=== PATIENT | male | born 1955 | race Caucasian/White ===

== ENCOUNTER 2016-07-26 18:21 | Inpatient (IN) | payer OTHER ==
[~2016-07-26] VITALS: Ht 180.3 cm; Wt 81.9 kg
[~2016-07-26 18:21] MED LIST: ALBU8I INH; GABA300C3 PO; GLIP5 PO; METF500 PO; MICO2CRE4 TOP; PROP20TA24 PO; THIA100T PO
--- NOTE | 2016-07-26 19:11 | PD ---
HPI Chief Complaint: [facility] Time Seen by Provider: 19:11 Travel History International Travel<30 days: No Contact w/Intl Traveler<30days: No Traveled to known affect area: No PFSH Past Medical History Depression: Yes Heart Rhythm Problems: Yes (STATES HE HAS A SKIPPED HEARTBEAT OCCASSIONALLY) Cancer: No Cardiovascular Problems: Yes Cirrhosis: Yes Diabetes: Yes Diminished Hearing: Yes Deep Vein Thrombosis: Yes Endocrine: Yes (CIRROSIS OF LIVER) Genitourinary: No Hepatitis: Yes (C) Hypertension: Yes Immune Disorder: No Musculoskeletal: No Neurologic: No Psychiatric: No Reproductive: No Respiratory: No Integumentary: Yes (LOWER EXTREMITY CELLULITIS) Immunizations Current: Yes Past Surgical History Tonsillectomy: Yes Other Surgery: No Social History Alcohol Use: Yes (6 PACK A DAY) Tobacco Use: No Substance Use: No Allergies-Medications (Allergen,Severity, Reaction): Coded Allergies: *MDRO Multi-Drug Resistant Organism (Verified Adverse Reaction, Unknown, ) 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 Reported Meds & Prescriptions Reported Meds & Active Scripts Active Reported Propranolol (Propranolol HCl) 20 Mg Tab 20 Mg PO Q12HR Metformin (Metformin HCl) 500 Mg Tab 500 Mg PO DAILY With a meal Data Data Last Documented VS Vital Signs Date Time Temp Pulse Resp B/P Pulse Ox O2 Delivery O2 Flow Rate FiO2 07/26/16 19:26 96 Room Air 07/26/16 19:26 98.5 83 18 152/94 Orders Sodium Chlor 0.9% 1000 Ml Inj (Ns 1000 M (07/26/16 19:14) Sodium Chloride 0.9% Flush (Ns Flush) (07/26/16 19:15) Tetanus/Diphtheria Tox Adult (Tetanus/Di (07/26/16 19:30) Electrocardiogram (07/26/16 19:29) Basic Metabolic Panel (Bmp) (07/26/16 19:29) Complete Blood Count With Diff (07/26/16 19:29) Act Partial Throm Time (Ptt) (07/26/16 19:29) Prothrombin Time / Inr (Pt) (07/26/16 19:29) Ct Brain W/O Iv Contrast(Rout) (07/26/16 19:29) Ct Cerv Spine W/O Contrast (07/26/16 19:29) Ecg Monitoring (07/26/16 19:29) Iv Access Insert/Monitor (07/26/16 19:29) Oximetry (07/26/16 19:29) Sodium Chloride 0.9% Flush (Ns Flush) (07/26/16 19:30) Ct Thor Spine W/O Contrast (07/26/16 ) Ct Lumb Spine W/O Contrast (07/26/16 ) Kiersten Mckeon Jul 26, 2016 19:11
[2016-07-26] MEDS ORDERED: SODIUM CHLOR 0.9% 1000 ML INJ 1,000 ML IV SCH (19:14)
[2016-07-26] MEDS ORDERED: SODIUM CHLORIDE 0.9% FLUSH 5 ML FLUSH IVF PRN ×2 (19:15→19:30)
--- NOTE | 2016-07-26 19:21 | PD ---
Data Data Last Documented VS Vital Signs Date Time Temp Pulse Resp B/P Pulse Ox O2 Delivery O2 Flow Rate FiO2 07/26/16 19:40 96 Room Air 07/26/16 19:26 98.5 83 18 152/94 Orders Sodium Chlor 0.9% 1000 Ml Inj (Ns 1000 M (07/26/16 19:14) Sodium Chloride 0.9% Flush (Ns Flush) (07/26/16 19:15) Tetanus/Diphtheria Tox Adult (Tetanus/Di (07/26/16 19:30) Electrocardiogram (07/26/16 19:29) Basic Metabolic Panel (Bmp) (07/26/16 19:29) Complete Blood Count With Diff (07/26/16:) Act Partial Throm Time (Ptt) (07/26/16:29) Prothrombin Time / Inr (Pt) (07/26/16 19:29) Ct Brain W/O Iv Contrast(Rout) (07/26/16:29) Ct Cerv Spine W/O Contrast (07/26/16 19:29) Ecg Monitoring (07/26/16:29) Iv Access Insert/Monitor (07/26/16:29) Oximetry (07/26/16 19:29) Sodium Chloride 0.9% Flush (Ns Flush) (07/26/16 19:30) Ct Thor Spine W/O Contrast (07/26/16 ) Ct Lumb Spine W/O Contrast (07/26/16 ) Jocelyn Mireles MD Jul 26, 2016 19:21 spine. Chest is nontender, clear to auscultation bilaterally. Abdomen is diffusely tender, patient attributes this to her road rash on the abdominal wall. Pelvis stable AP and lateral compression. Range of motion of the extremities are unremarkable with the exception of slight pain with range of motion of the right shoulder. Various abrasions/road rash on the extremities. Differential includes closed head injury, skull fracture, ICH, cervical/thoracic /lumbar spine fracture, hemothorax, pneumothorax, rib fracture, solid visceral organ injury, shoulder dislocation, glenohumeral fracture. X-ray of the chest, CT of the head, neck, chest abdomen and pelvis were notable for[-] Jocelyn Mireles MD Jul 26, 2016 19:21
[2016-07-26 19:24] VITALS: BP 152/94; PULSE 83; RESP 18; TEMP 98.5; O2SAT 96
[2016-07-26 19:26] VITALS: BP 152/94; PULSE 83; RESP 18; TEMP 98.5; O2SAT 96
[2016-07-26] MEDS ORDERED: TETANUS/DIPHTHERIA TOXOID ADULT 0.5 ML VIAL IM ONE (19:30)
[2016-07-26 19:31] LABS: MEAN CORPUSCULAR HGB CONC 36.6 % (32.0-36.0)
[2016-07-26] MEDS ORDERED: PROP20TA3 PO (19:34)
[2016-07-26] MEDS ORDERED: METF500T PO (19:34)
[2016-07-26 19:40] VITALS: O2SAT 96
--- NOTE | 2016-07-26 19:42 | PD ---
Physical Exam Narrative I, Dr. Carrion, have reviewed the advance practice practitioner's documentation and am in agreement, met with the patient face to face, made the diagnosis, and the medical decision making was done by me. *My assessment and Findings: Patient is a 61-year-old male who comes in after syncopal episode today. He says he stood up from laying on a bench and he passed out. Exam shows heart is regular rate and rhythm, lungs are clear to auscultation. He is moving all his extremities. Data Data Last Documented VS Vital Signs Date Time Temp Pulse Resp B/P Pulse Ox O2 Delivery O2 Flow Rate FiO2 07/26/16 21:51 84 18 142/93 95 Room Air 07/26/16 19:26 98.5 Orders Sodium Chlor 0.9% 1000 Ml Inj (Ns 1000 M (07/26/16 19:14) Sodium Chloride 0.9% Flush (Ns Flush) (07/26/16 19:15) Tetanus/Diphtheria Tox Adult (Tetanus/Di (07/26/16 19:30) Electrocardiogram (07/26/16 19:29) Basic Metabolic Panel (Bmp) (07/26/16 19:29) Complete Blood Count With Diff (07/26/16 19:29) Act Partial Throm Time (Ptt) (07/26/16 19:29) Prothrombin Time / Inr (Pt) (07/26/16 19:29) Ct Brain W/O Iv Contrast(Rout) (07/26/16 19:29) Ct Cerv Spine W/O Contrast (07/26/16 19:29) Ecg Monitoring (07/26/16 19:29) Iv Access Insert/Monitor (07/26/16 19:29) Oximetry (07/26/16 19:29) Sodium Chloride 0.9% Flush (Ns Flush) (07/26/16 19:30) Ct Thor Spine W/O Contrast (07/26/16 ) Ct Lumb Spine W/O Contrast (07/26/16 ) Troponin I (07/26/16 20:45) Chest, Single Ap (07/26/16 ) Aspirin Chew (Aspirin Chew) (07/26/16 23:00) Heparin Infusion ROXANN.Q1H (07/26/16 23:13) Heparin Inj (Heparin Inj) (07/26/16 23:15) Heparin Inj (Heparin Inj) (07/27/16 05:15) Heparin Inj (Heparin Inj) (07/27/16 05:15) Heparin-D5w Inj (Heparin-D5w Inj) (07/26/16 23:15) Cbc No Diff, Includes Plts (07/29/16 06:00) Act Partial Throm Time (Ptt) (07/27/16 06:13) Occult Blood (Hemoccult) Stool (07/26/16 23:13) Admit Order (Ed Use Only) (07/26/16 ) Labs Laboratory Tests Test 07/26/16 07/26/16 19:36 21:51 White Blood Count 6.2 TH/MM3 Red Blood Count 4.20 MIL/MM3 Hemoglobin 14.2 GM/DL Hematocrit 38.9 % Mean Corpuscular Volume 92.5 FL Mean Corpuscular Hemoglobin 33.8 PG Mean Corpuscular Hemoglobin 36.6 % Concent Red Cell Distribution Width 13.2 % Platelet Count 60 TH/MM3 Mean Platelet Volume 11.0 FL Neutrophils (%) (Auto) 67.8 % Lymphocytes (%) (Auto) 17.0 % Monocytes (%) (Auto) 13.6 % Eosinophils (%) (Auto) 1.1 % Basophils (%) (Auto) 0.5 % Neutrophils # (Auto) 4.2 TH/MM3 Lymphocytes # (Auto) 1.0 TH/MM3 Monocytes # (Auto) 0.8 TH/MM3 Eosinophils # (Auto) 0.1 TH/MM3 Basophils # (Auto) 0.0 TH/MM3 CBC Comment AUTO DIFF Differential Comment AUTO DIFF CONFIRMED Prothrombin Time 13.7 SEC Prothromb Time International 1.2 RATIO Ratio Activated Partial 35.1 SEC Thromboplast Time Sodium Level 138 MEQ/L Potassium Level 3.7 MEQ/L Chloride Level 102 MEQ/L Carbon Dioxide Level 23.0 MEQ/L Anion Gap 13 MEQ/L Blood Urea Nitrogen 13 MG/DL Creatinine 1.11 MG/DL Estimat Glomerular Filtration 67 ML/MIN Rate Random Glucose 152 MG/DL Calcium Level 8.6 MG/DL Troponin I 0.21 NG/ML [facility] Medical Record Reviewed: Yes Supervised Visit with NIYAH: Yes Interpretation(s) ECG shows T-wave inversions in V2 through V4 Narrative Course IV established, labs sent. Labs concerning for an elevated troponin to 0.21. CT head and C-spine performed show no acute abnormalities. Chest x-ray shows no acute abnormalities. Last [address] [id number]/26/[id number] Signed Impressions: Service Date/Time: Tuesday, July 26, 2016 19:41 - CONCLUSION: 1. No acute intracranial abnormality. 2. Fluid in both maxillary sinuses. Benny Lima MD Cervical Spine CT [id number]/26/[id number] Signed Impressions: Service Date/Time: Tuesday, July 26, 2016 19:41 - CONCLUSION: Negative trauma CT.. Mayo Moncada MD Thoracic Spine CT 07/26/16 0000 Signed Impressions: Service Date/Time: Tuesday, July 26, 2016 19:45 - CONCLUSION: Negative trauma study. Mayo Moncada MD Lumbar Spine CT 07/26/16 0000 Signed Impressions: Service Date/Time: Tuesday, July 26, 2016 19:45 - CONCLUSION: 1. Mild invagination of the superior endplate of the T12 vertebral body which is of indeterminant age. 2. The vertebra are otherwise unremarkable. Mayo Moncada MD Chest X-Ray 07/26/16 0000 Signed Impressions: Service Date/Time: Tuesday, July 26, 2016 22:52 - CONCLUSION: 1. No acute findings. Rickey Eaton MD Patient given aspirin and started on heparin. I spoke with Dr. Falcon of cardiology who agrees with aspirin and heparin at this time. Patient admitted for further management. Diagnosis Primary Impression: Syncope and collapse Additional Impression: NSTEMI (non-ST elevated myocardial infarction) Admitting Information Admitting Physician Requests: Admit Alessandra Carrion MD Jul 26, 2016 19:42
[2016-07-26 19:51] LABS: AUTOMATED NEUTROPHIL # 4.2 TH/MM3 (1.8-7.7); BASOPHIL % 0.5 % (0.0-2.0); EOSINOPHIL # 0.1 TH/MM3 (0-0.4); EOSINOPHIL % 1.1 % (0.0-4.0); HEMATOCRIT 38.9 % (39.0-51.0); MEAN CELL VOLUME 92.5 FL (80.0-100.0); MEAN CORPUSCULAR HEMOGLOBIN 33.8 PG (27.0-34.0); MONO % 13.6 % (0.0-8.0); NEUT % 67.8 % (16.0-70.0); PLATELET COUNT 60 TH/MM3 (150-450); RED CELL DISTRIBUTION WIDTH 13.2 % (11.6-17.2); WHITE BLOOD COUNT 6.2 TH/MM3 (4.0-11.0)
--- NOTE | 2016-07-26 19:54 | RADRPT ---
EXAM DATE/TIME: 07/26/2016 19:41 [facility] COMPARISON: No previous studies available for comparison. INDICATIONS : Fall today. Head, neck and back pain. RADIATION DOSE: 35.07 CTDIvol (mGy) MEDICAL HISTORY : Hypertension. Hepatitis C. SURGICAL HISTORY : Tonsillectomy. ENCOUNTER: Initial ACUITY: 1 day PAIN SCALE: 7/10 LOCATION: Bilateral head TECHNIQUE: Multiple contiguous axial images were obtained of the head. Using automated exposure control and adj ustment of the mA and/or kV according to patient size, radiation dose was kept as low as reasonably a chievable to obtain optimal diagnostic quality images. FINDINGS: CEREBRUM: The ventricles are normal for age. No evidence of midline shift, mass lesion, hemorrhage or acute in farction. No extra-axial fluid collections are seen. POSTERIOR FOSSA: The cerebellum and brainstem are intact. The 4th ventricle is midline. The cerebellopontine angle i s unremarkable. EXTRACRANIAL: The visualized portion of the orbits is intact. Fluid in the maxillary sinuses. Small left maxillary sinus. SKULL: The calvaria is intact. No evidence of skull fracture. CONCLUSION: 1. No acute intracranial abnormality. 2. Fluid in both maxillary sinuses. Benny Lima MD on July 26, 2016 at 19:52 Board Certified Radiologist. This report was verified electronically.
[2016-07-26 19:55] LABS: APTT (PATIENT) 35.1 SEC (24.3-30.1); INTERNATIONAL NORMALIZED RATIO 1.2 RATIO; PROTHROMBIN TIME - PATIENT 13.7 SEC (9.8-11.6)
[2016-07-26 19:57] LABS: HEMO FLAGS AUTO DIFF
--- NOTE | 2016-07-26 20:01 | RADRPT ---
EXAM DATE/TIME: 07/26/2016 19:41 [facility] COMPARISON: No previous studies available for comparison. INDICATIONS : Fall today. Head, neck and back pain. RADIATION DOSE: 21.30 CTDIvol (mGy) MEDICAL HISTORY : Hypertension. SURGICAL HISTORY : Tonsillectomy. ENCOUNTER: Initial ACUITY: 1 day PAIN SCALE: 7/10 LOCATION: Bilateral neck TECHNIQUE: Volumetric scanning of the cervical spine was performed. Multiplanar reconstructions in the sagittal, coronal and oblique axial planes were performed. Using automated exposure control and adjustment o f the mA and/or kV according to patient size, radiation dose was kept as low as reasonably achievable to obtain optimal diagnostic quality images. FINDINGS: The sagittal reconstructions demonstrate normal alignment and normal prevertebral soft tissues. The d ens is intact and there is a normal atlantoaxial relationship. The axial images demonstrate that the vertebral bodies and posterior elements are intact. The soft ti ssues are within normal limits. There is no evidence of acute fracture or malalignment. CONCLUSION: Negative trauma CT.. Mayo Moncada MD on July 26, 2016 at 19:56 Board Certified Radiologist. This report was verified electronically.
[2016-07-26 20:05] LABS: POTASSIUM 3.7 MEQ/L (3.5-5.1)
--- NOTE | 2016-07-26 20:13 | RADRPT ---
EXAM DATE/TIME: 07/26/2016 19:45 [facility] COMPARISON: No previous studies available for comparison. INDICATIONS : Fall today, upper back pain. RADIATION DOSE: 35.23 CTDIvol (mGy) ; Combined studies MEDICAL HISTORY : Hypertension. SURGICAL HISTORY : Tonsillectomy. ENCOUNTER: Initial ACUITY: 1 day PAIN SCALE: 7/10 LOCATION: Bilateral upper back TECHNIQUE: Volumetric scanning of the thoracic spine was performed. Multiplanar reconstructions in the sagittal , coronal and oblique axial planes were performed. Using automated exposure control and adjustment o f the mA and/or kV according to patient size, radiation dose was kept as low as reasonably achievable to obtain optimal diagnostic quality images. FINDINGS: The vertebral bodies of the thoracic spine are in normal alignment without evidence of subluxation. Vertebral body height is maintained. No fractures are seen. There are mild degenerative changes. The axial images demonstrate the vertebral bodies are intact. The posterior elements appear unremarka ble. There is a mild scoliosis. The paravertebral soft tissues appear unremarkable. CONCLUSION: Negative trauma study. Mayo Moncada MD on July 26, 2016 at 20:09 Board Certified Radiologist. This report was verified electronically.
--- NOTE | 2016-07-26 20:15 | RADRPT ---
EXAM DATE/TIME: 07/26/2016 19:45 [facility] COMPARISON: No previous studies available for comparison. INDICATIONS : Fall today, lower back pain. RADIATION DOSE: 35.23 CTDIvol (mGy) MEDICAL HISTORY : Hypertension. SURGICAL HISTORY : Tonsillectomy. ENCOUNTER: Initial ACUITY: 1 day PAIN SCALE: 7/10 LOCATION: Bilateral lower back TECHNIQUE: Volumetric scanning of the lumbar spine was performed. Multiplanar reconstructions in the sagittal, coronal and oblique axial planes were performed. Using automated exposure control and adjustment of the mA and/or kV according to patient size, radiation dose was kept as low as reasonably achievable t o obtain optimal diagnostic quality images. FINDINGS: VERTEBRAE: The vertebral bodies are intact with mild invagination of the superior endplate of T12. There is no r etropulsion. There is a mild scoliosis. ALIGNMENT: No evidence of subluxation. Axial images demonstrate that the vertebral bodies intact. The paraspinous soft tissues appear unrema rkable. There are mild annular disc bulges with no focal. The visualized portions of the sacrum are i ntact. There is mild scoliosis. CONCLUSION: 1. Mild invagination of the superior endplate of the T12 vertebral body which is of indeterminant age . 2. The vertebra are otherwise unremarkable. aMyo Moncada MD on July 26, 2016 at 20:11 Board Certified Radiologist. This report was verified electronically.
--- NOTE | 2016-07-26 20:18 | PD ---
HPI Chief Complaint: Back/ Neck Pain or Injury Time Seen by Provider: 20:13 Travel History International Travel<30 days: No Contact w/Intl Traveler<30days: No Traveled to known affect area: No History of Present Illness HPI 61-year-old male presents to the emergency Department, on a backboard with cervical collar in place via EMS, with complaint of neck pain and back pain after having a syncopal episode and falling. He said he was walking in front of his friend and his friend told him that all of a sudden he just fell. Patient reports that he "blacked out." Reports drinking 2 beers today. Doesn' t know if he hit his head. Denies paresthesias, loss of sensation, decreased range of motion, decreased strength to all extremities. Denies headache, lightheadedness, dizziness. Denies change in mentation, confusion, disorientation, slurred speech. Denies chest pain, shortness of breath, abdominal pain, nausea, vomiting. Denies encopresis, incontinence, saddle anesthesias. [facility] No other modifying factors or associated signs and symptoms. PFSH Past Medical History Depression: Yes Heart Rhythm Problems: Yes (STATES HE HAS A SKIPPED HEARTBEAT OCCASSIONALLY) Cancer: No Cardiovascular Problems: Yes Cirrhosis: Yes Diabetes: Yes Patient Takes Glucophage: Yes Diminished Hearing: Yes Deep Vein Thrombosis: Yes Endocrine: Yes (CIRROSIS OF LIVER) Genitourinary: No Hepatitis: Yes (C) Hypertension: Yes Immune Disorder: No Musculoskeletal: No Neurologic: No Psychiatric: No Reproductive: No Respiratory: No Integumentary: Yes (LOWER EXTREMITY CELLULITIS) Immunizations Current: Yes Past Surgical History Tonsillectomy: Yes Other Surgery: No Social History Alcohol Use: Yes (2 beers) Tobacco Use: No Substance Use: No Allergies-Medications (Allergen,Severity, Reaction): Coded Allergies: *MDRO Multi-Drug Resistant Organism (Verified Adverse Reaction, Unknown, ) 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 Reported Meds & Prescriptions Reported Meds & Active Scripts Active Reported Propranolol (Propranolol HCl) 20 Mg Tab 20 Mg PO Q12HR Metformin (Metformin HCl) 500 Mg Tab 500 Mg PO DAILY With a meal Review of Systems Except as stated in HPI: all other systems reviewed are Neg Physical Exam Narrative GENERAL: Well-nourished, well-developed male patient, in no acute distress SKIN: Warm and dry. HEAD: Atraumatic. Normocephalic. No facial or scalp abrasions or lacerations noted. EYES: Pupils equal and round at 3 mm with brisk reaction. No scleral icterus. No injection or drainage. No raccoon eyes. No orbital tenderness on palpation bilaterally. ENT: Mucosa pink and moist. No erythema or exudates. No uvular edema. No uvular , palatal, or tonsillar deviation. Airway patent. No rhinorrhea. EARS: Bilateral pinnae and external canals appear within normal limits. Bilateral tympanic membranes without erythema, dullness, hemotympanum or perforation. No otorrhea. No hart signs. NECK: Cervical collar in place. Trachea midline. No obvious deformities. CHEST: Nontender throughout without deformity or crepitance. No retractions or use of accessory muscles. CARDIOVASCULAR: Regular rate and rhythm. No murmur appreciated. RESPIRATORY: No accessory muscle use. Clear to auscultation. Breath sounds equal bilaterally. GASTROINTESTINAL: Abdomen soft, non-tender, nondistended. Hepatic and splenic margins not palpable. Bowel sounds are active 4 quadrants. MUSCULOSKELETAL: No obvious deformities. No clubbing. No cyanosis. No edema. BACK: Midline point tenderness on palpation of the lumbar and thoracic spine. No obvious deformities. NEUROLOGICAL: Awake and alert. Oriented 3. No obvious cranial nerve deficits. Motor grossly within normal limits. Normal speech. Moves all extremities. 5/5 strength to all extremities. Sensory intact. PSYCHIATRIC: Appropriate mood and affect; insight and judgment normal. Data Data Last Documented VS Vital Signs Date Time Temp Pulse Resp B/P Pulse Ox O2 Delivery O2 Flow Rate FiO2 07/26/16 19:59 96 Room Air 07/26/16 19:26 98.5 83 18 152/94 Orders Sodium Chlor 0.9% 1000 Ml Inj (Ns 1000 M (07/26/16 19:14) Sodium Chloride 0.9% Flush (Ns Flush) (07/26/16 19:15) Tetanus/Diphtheria Tox Adult (Tetanus/Di (07/26/16 19:30) Electrocardiogram (07/26/16 19:29) Basic Metabolic Panel (Bmp) (07/26/16 19:29) Complete Blood Count With Diff (07/26/16 19:29) Act Partial Throm Time (Ptt) (07/26/16 19:29) Prothrombin Time / Inr (Pt) (07/26/16 19:29) Ct Brain W/O Iv Contrast(Rout) (07/26/16 19:29) Ct Cerv Spine W/O Contrast (07/26/16 19:29) Ecg Monitoring (07/26/16 19:29) Iv Access Insert/Monitor (07/26/16 19:29) Oximetry (07/26/16 19:29) Sodium Chloride 0.9% Flush (Ns Flush) (07/26/16 19:30) Ct Thor Spine W/O Contrast (07/26/16 ) Ct Lumb Spine W/O Contrast (07/26/16 ) Troponin I (07/26/16 20:45) Labs Laboratory Tests Test 07/26/16 19:36 White Blood Count 6.2 TH/MM3 Red Blood Count 4.20 MIL/MM3 Hemoglobin 14.2 GM/DL Hematocrit 38.9 % Mean Corpuscular Volume 92.5 FL Mean Corpuscular Hemoglobin 33.8 PG Mean Corpuscular Hemoglobin 36.6 % Concent Red Cell Distribution Width 13.2 % Platelet Count 60 TH/MM3 Mean Platelet Volume 11.0 FL Neutrophils (%) (Auto) 67.8 % Lymphocytes (%) (Auto) 17.0 % Monocytes (%) (Auto) 13.6 % Eosinophils (%) (Auto) 1.1 % Basophils (%) (Auto) 0.5 % Neutrophils # (Auto) 4.2 TH/MM3 Lymphocytes # (Auto) 1.0 TH/MM3 Monocytes # (Auto) 0.8 TH/MM3 Eosinophils # (Auto) 0.1 TH/MM3 Basophils # (Auto) 0.0 TH/MM3 CBC Comment AUTO DIFF Differential Comment AUTO DIFF CONFIRMED Prothrombin Time 13.7 SEC Prothromb Time International 1.2 RATIO Ratio Activated Partial 35.1 SEC Thromboplast Time Sodium Level 138 MEQ/L Potassium Level 3.7 MEQ/L Chloride Level 102 MEQ/L Carbon Dioxide Level 23.0 MEQ/L Anion Gap 13 MEQ/L Blood Urea Nitrogen 13 MG/DL Creatinine 1.11 MG/DL Estimat Glomerular Filtration 67 ML/MIN Rate Random Glucose 152 MG/DL Calcium Level 8.6 MG/DL MDM Medical Decision Making Medical Screen Exam Complete: Yes Emergency Medical Condition: Yes Medical Record Reviewed: Yes Differential Diagnosis Syncopal episode, fall, dehydration, arrhythmia, cervical fracture, thoracic fracture, lumbar fracture, back strain Narrative Course 61-year-old male arrives via EMS after syncopal episode. He is on a backboard with cervical collar in place. He was cleared from the backboard. Patient placed on cardiopulmonary monitor. IV site obtained. EKG ordered. CBC, BMP, coags ordered. CT head, CT cervical spine, CT thoracic spine, CT lumbar spine ordered. 2019: CT cervical spine negative. CT head with no acute intracranial abnormalities. CT lumbar spine concludes Mild invagination of the superior endplate of the T12 vertebral body which is of indeterminant age; The vertebra are otherwise unremarkable. CT thoracic spine concludes negative trauma study. 2022: Platelets 60; consistent with past levels. Coags unremarkable. BMP unremarkable. 2044: Dr. Carrion reviewed EKG and recommended troponin level and patient will most likely be admitted for observation. Troponin ordered. 2100: Dr. Carrion assumed patient care at this time. See her note for final disposition. Diagnosis Primary Impression: Syncope and collapse Referrals: Primary Care Physician Marie Villagomez Jul 26, 2016 20:18
[2016-07-26 20:40] LABS: SCAN/DIFF AUTO DIFF CONFIRMED
[2016-07-26 21:51] VITALS: BP 142/93; PULSE 84; RESP 18; O2SAT 95
[2016-07-26] MEDS ORDERED: ASPIRIN 81 MG CHEW TAB CHEW ONE (23:00)
--- NOTE | 2016-07-26 23:05 | RADRPT ---
EXAM DATE/TIME: 07/26/2016 22:52 [facility] COMPARISON: No previous studies available for comparison. INDICATIONS : Syncope, Cough. MEDICAL HISTORY : Hypertension. Hepatitis C. SURGICAL HISTORY : Tonsillectomy. ENCOUNTER: Initial ACUITY: 3 days PAIN SCORE: 0/10 LOCATION: Bilateral chest FINDINGS: A single view of the chest demonstrates cardiomegaly. Tortuous aorta. No focal consolidation or effus ion. No pneumothorax. CONCLUSION: 1. No acute findings. Rickey Eaton MD on July 26, 2016 at 23:01 Board Certified Radiologist. This report was verified electronically.
[2016-07-26] MEDS ORDERED: HEPARIN SODIUM - IV 10,000 UNITS/10 ML VIAL IV ONE (23:15)
[2016-07-26] MEDS ORDERED: HEPARIN-D5W INJ 250 ML IV SCH (23:15)
[2016-07-26] MEDS: SODIUM CHLOR 0.9% 1000 ML INJ 1,000 ML IV SCH (23:41)
--- NOTE | 2016-07-26 23:41 | HHI.HP ---
[facility] Service [facility] Primary Care Physician [facility] Admission Diagnosis NSTEMI, syncope Diagnoses: (1) NSTEMI (non-ST elevated myocardial infarction) Diagnosis: Principal (2) Syncope Diagnosis: Principal (3) Thrombocytopenia Diagnosis: Principal (4) DM (diabetes mellitus) Diagnosis: Principal Travel History International Travel<30 Days: No Contact w/Intl Traveler <30 Da: No Traveled to Known Affected Are: No History of Present Illness This is a 61-year-old male with PMH of Depression, HTN, Hepatitis C, Cirrhosis, h/o DVT and DM who was brought to the ER by EMS after syncopal event. Pt w/ little recollection of events, states he remembers getting up to walk with his friend and suddenly had syncopal event. Unsure if head trauma. Denies lightheadedness, dizziness or chest pain prior to syncope. On arrival, BP 152/ 94, HR 83, O2 sat 96% on RA, Afebrile. CBC at baseline. Platelets 60, previously 50 on 07/23/15. Chemistry also at baseline. Troponin 0.21. EKG with T-wave inversions, no previous EKG for comparison. CT Head with no acute findings. CT C-spine negative. CXR with no acute findings. CT L-spine mild invagination of the end plate of T12, otherwise unremarkable. CT T-Spine negative for fracture. Dr. Falcon consulted by ER physician, recommended ASA and Heparin gtt. Pt w/ no complaints at this time. Review of Systems Except as stated in HPI: all other systems reviewed are Neg ROS: 14 point review of systems otherwise negative. Past Family Social History Past Medical History PMH: Depression, HTN, Hepatitis C, Cirrhosis, h/o DVT and DM Past Surgical History PAST SURGICAL HISTORY: Tonsillectomy Allergies: Coded Allergies: *MDRO Multi-Drug Resistant Organism (Verified Adverse Reaction, Unknown, ) 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 Family History PAST FAMILY HISTORY: Reviewed. No h/o DM or CAD Social History PAST SOCIAL HISTORY: Drinks 2 beers daily. Negative for tobacco or drugs. Physical Exam Vital Signs Vital Signs Date Time Temp Pulse Resp B/P Pulse Ox O2 Delivery O2 Flow Rate FiO2 07/26/16 21:51 84 18 142/93 95 Room Air 07/26/16 19:59 96 Room Air 07/26/16 19:40 96 Room Air 07/26/16 19:26 96 Room Air 07/26/16 19:26 98.5 83 18 152/94 96 Room Air 07/26/16 19:26 83 18 152/94 96 Room Air 07/26/16 19:24 98.5 83 18 152/94 96 Physical Exam PE: GENERAL: Middle-aged male in no acute distress. HEENT: PERRLA, EOMI. No scleral icterus or conjunctival pallor. No lid lag or facial droop. CARDIOVASCULAR: Regular rate and rhythm. No obvious murmurs to auscultation. No chest tenderness to palpation. RESPIRATORY: No obvious rhonchi or wheezing. Clear to auscultation. Breath sounds equal bilaterally. GASTROINTESTINAL: Abdomen soft, non-tender, nondistended. BS normal. MUSCULOSKELETAL: Extremities without clubbing, cyanosis, or edema. No obvious deformities. NEUROLOGICAL: Awake, alert and oriented x4. No focal neurologic deficits. Moving both upper and lower extremities spontaneously. Laboratory Laboratory Tests Test 07/26/16 07/26/16 19:36 21:51 White Blood Count 6.2 Red Blood Count 4.20 Hemoglobin 14.2 Hematocrit 38.9 Mean Corpuscular Volume 92.5 Mean Corpuscular Hemoglobin 33.8 Mean Corpuscular Hemoglobin 36.6 Concent Red Cell Distribution Width 13.2 Platelet Count 60 Mean Platelet Volume 11.0 Neutrophils (%) (Auto) 67.8 Lymphocytes (%) (Auto) 17.0 Monocytes (%) (Auto) 13.6 Eosinophils (%) (Auto) 1.1 Basophils (%) (Auto) 0.5 Neutrophils # (Auto) 4.2 Lymphocytes # (Auto) 1.0 Monocytes # (Auto) 0.8 Eosinophils # (Auto) 0.1 Basophils # (Auto) 0.0 CBC Comment AUTO DIFF Differential Comment AUTO DIFF CONFIRMED Prothrombin Time 13.7 Prothromb Time International 1.2 Ratio Activated Partial 35.1 Thromboplast Time Sodium Level 138 Potassium Level 3.7 Chloride Level 102 Carbon Dioxide Level 23.0 Anion Gap 13 Blood Urea Nitrogen 13 Creatinine 1.11 Estimat Glomerular Filtration 67 Rate Random Glucose 152 Calcium Level 8.6 Troponin I 0.21 Result Diagram: 07/26/16193507/26/161935 Assessment and Plan Problem List: (1) NSTEMI (non-ST elevated myocardial infarction) ICD Code: I21.4 Status: Acute (2) Syncope ICD Code: R55 Status: Acute (3) Thrombocytopenia ICD Code: D69.6 Status: Acute (4) DM (diabetes mellitus) ICD Code: E11.9 Status: Acute Assessment and Plan A/P: 1. NSTEMI: Trop 0.21, EKG w/ T-wave inversions V2-V4, no previous EKG for comparison. Dr. Falcon consulted by ER physician, recommended ASA and Heparin gtt, caution w/ thrombocytopenia. Admit to [facility], telemetry, check serial cardiac enzymes, continue w/ recommendations per Cardiology. Morphine/ NTG prn 2. Syncope: Acute syncopal event, no lightheadedness/dizziness prior. Admit for further cardiac eval, check Echo, if no evidence of cardiac etiology, may need to pursue possible PE w/ h/o DVT, acute syncope and elevated trop. Management wouldn't change at this point, continue w/ Heparin gtt. 3. Thrombocytopenia: Chronic. Platelets 60, previously 50 on 07/23/15. No active bleeding. H/o Hep C/Cirrhosis, will monitor, caution w/ Heparin gtt. 4. DM: Sliding scale w/ Accu-Cheks. Hold Metformin. 5. DVT Prophylaxis: On Heparin gtt 6. Social work for d/c planning as needed. 7. Case discussed w/ ER physician at length. Physician Certification 2 Midnight Certification Type: Admission for Inpatient Services Order for Inpatient Services The services are ordered in accordance with Medicare regulations or non- Medicare payer requirements, as applicable. In the case of services not specified as inpatient-only, they are appropriately provided as inpatient services in accordance with the 2-midnight benchmark. Estimated LOS (days): 2 days is the estimated time the patient will need to remain in the hospital, assuming treatment plan goals are met and no additional complications. Post-Hospital Plan: Not yet determined Nikky Ryan MD Jul 26, 2016 23:41
[2016-07-26] MEDS ORDERED: BISACODYL 10 MG SUPP PR PRN (23:45)
[2016-07-26] MEDS ORDERED: SODIUM CHLORIDE 0.9% FLUSH 5 ML FLUSH FLUSH PRN (23:45)
[2016-07-26] MEDS ORDERED: DEXTROSE 50% IN WATER 50 ML VIAL(D50) IV PUSH PRN (23:45)
[2016-07-26] MEDS ORDERED: ONDANSETRON HCL 4 MG/2 ML VIAL IVP PRN (23:45)
[2016-07-26] MEDS ORDERED: ACETAMINOPHEN 325 MG TAB PO PRN (23:45)
[2016-07-26] MEDS ORDERED: MORPHINE SULFATE 4 MG/ML INJ IV PRN (23:45)
[2016-07-26] MEDS ORDERED: GLUCAGON 1 MG/ML VIAL OTHER PRN (23:45)
[2016-07-27] VITALS (19 sets, daily range): BP systolic 116–159; BP diastolic 64–108; PULSE 64–83; RESP 16–21; TEMP 97.2–98.2; O2SAT 95–100
[2016-07-27 01:59] LABS: APTT (PATIENT) 32.1 SEC (24.3-30.1)
[2016-07-27 05:00] LABS: AUTOMATED NEUTROPHIL # 2.1 TH/MM3 (1.8-7.7); BASOPHIL % 0.3 % (0.0-2.0); EOSINOPHIL # 0.1 TH/MM3 (0-0.4); EOSINOPHIL % 1.9 % (0.0-4.0); HEMATOCRIT 36.3 % (39.0-51.0); LYMPH % 25.4 % (9.0-44.0); MEAN CELL VOLUME 93.6 FL (80.0-100.0); MEAN CORPUSCULAR HEMOGLOBIN 33.5 PG (27.0-34.0); MEAN CORPUSCULAR HGB CONC 35.7 % (32.0-36.0); MONO % 16.1 % (0.0-8.0); NEUT % 56.3 % (16.0-70.0); PLATELET COUNT 37 TH/MM3 (150-450); RED BLOOD COUNT 3.88 MIL/MM3 (4.50-5.90); RED CELL DISTRIBUTION WIDTH 13.7 % (11.6-17.2); WHITE BLOOD COUNT 3.7 TH/MM3 (4.0-11.0)
[2016-07-27 05:04] LABS: HEMO FLAGS AUTO DIFF
[2016-07-27] MEDS ORDERED: HEPARIN SODIUM - IV 10,000 UNITS/10 ML VIAL IV PRN ×2 (05:15)
[2016-07-27 05:30] LABS: PLATELET ESTIMATE SMEAR LOW (NORMAL); PLATELET MORPHOLOGY NORMAL (NORMAL); SCAN/DIFF AUTO DIFF CONFIRMED
[2016-07-27 05:33] LABS: ALT (GPT) 28 U/L (12-78); ANION GAP 9 MEQ/L (5-15); AST (GOT) 66 U/L (15-37); BICARBONATE 26.8 MEQ/L (21.0-32.0); BLOOD UREA NITROGEN 13 MG/DL (7-18); CHLORIDE 104 MEQ/L (98-107); GLOMERULAR FILTRATION RATE 73 ML/MIN (>89); POTASSIUM 3.6 MEQ/L (3.5-5.1); SODIUM (NA) 140 MEQ/L (136-145)
[2016-07-27 05:50] LABS: ALKALINE PHOSPHATASE 100 U/L (45-117); TOTAL BILIRUBIN ADULT 3.9 MG/DL (0.2-1.0)
[2016-07-27] MEDS: INSULIN ASPART SUPPLEMENTAL SCALE SQ SCH ×4 (06:43→21:00)
--- NOTE | 2016-07-27 08:16 | EKG ---
Date Performed: 07/26/2016 Time Performed: 19:56:48 PTAGE: 61 years EKG: Sinus rhythm INCOMPLETE RIGHT BUNDLE BRANCH BLOCK RIGHT VENTRICULAR HYPERTROPHY AND ST-T CHANGE ABNORMAL ECG NO PREVIOUS TRACING DOCTOR: Raffi Falcon Interpretating Date/Time 07/27/2016 08:15:16
[2016-07-27] MEDS: SODIUM CHLORIDE 0.9% FLUSH 5 ML FLUSH FLUSH SCH ×2 (08:30→22:43)
[2016-07-27] MEDS: SODIUM CHLOR 0.9% 1000 ML INJ 1,000 ML IV SCH ×2 (08:30→16:45)
[2016-07-27] MEDS: ACETAMINOPHEN/HYDROcodone 325 MG/5 MG TAB PO PRN ×2 (08:35→22:40)
[2016-07-27] MEDS ORDERED: LORazepam 2 MG/ML VIAL IV PUSH PRN ×4 (08:45)
[2016-07-27] MEDS ORDERED: LORazepam 2 MG TAB PO PRN (08:45)
[2016-07-27] MEDS ORDERED: FLUMAZENIL 0.5 MG/5 ML VIAL IV PUSH PRN (08:45)
[2016-07-27] MEDS ORDERED: ENALAPRILAT 2.5 MG/2 ML VIAL IV PUSH PRN (09:00)
--- NOTE | 2016-07-27 09:43 | MB ---
cc: VANDANA GASPAR LYDIA T. MD DATE OF CONSULTATION: 07/27/2016 REASON FOR CONSULTATION: Hospital records have been reviewed and the patient was spoken with. HISTORY OF PRESENT ILLNESS: The patient is a 61 year-old white gentleman who I am seeing for syncope and elevated troponin. The patient has a complex medical history including hypertension, diabetes, cirrhosis, with thrombocytopenia, depression, alcohol abuse, with multiple incarcerations for DUI and depression, tonsillectomy, prior DVT on the right lower extremity, recurrent cellulitis in his legs. He notes chronic mild dyspnea on exertion and fatigue which is especially prominent over the last six months. He has had episodes of syncope or near-syncope upon standing. Over the last week he did have a viral syndrome with diarrhea and cough. This past Thursday he got up quickly to go to the bathroom and transiently fell to the floor. Yesterday he was at the [place] for [employer] and got up and had a transient syncopal episode. He has had no chest pain or other cardiac complaints. PAST MEDICAL HISTORY: As above. ALLERGIES: NONE. SOCIAL HISTORY: He is single and stopped smoking four years ago. He drinks very heavily. REVIEW OF SYSTEMS: Remarkable for the above along with general body aches. EKG: Sinus rhythm with incomplete right bundle-branch block and nonspecific ST-T wave changes. X-RAYS: Head CT negative. Cervical spine, negative. Chest x-ray, no acute findings. Tox screen was not done. LABORATORY DATA: CBC with mild anemia with hematocrit 36.3 and platelet count was 37,000 this morning so heparin was discontinued. Baseline PT/PTT normal. Potassium 3.6. Glucose 133, creatinine 1.03, liver function mildly elevated. Albumin low at 2.7. Troponin is mildly elevated at 0.21 and 0.17. PHYSICAL EXAMINATION: He is alert, oriented x3, afebrile. Vital signs stable. No xanthelasma and oral pharyngeal mucosa normal. CHEST: Clear. NECK: JVD normal. HEART: S1-S2 with a crisp S1 but no murmurs or gallops. ABDOMEN: Benign. EXTREMITIES: No clubbing, cyanosis or edema. There are stasis changes with healed wounds on his legs. Pulses: Carotids without bruits. Radials 2+. Femorals 1 to 2+ without bruits. Pedals trace to 1+. He is not ambulated. MEDICATIONS: Reviewed. PROBLEMS: 1. Recurrent near-syncope/syncope. The patient has had this over a period of time. He has had a viral syndrome over the last week and may well be dehydrated, especially drinking. Unfortunately alcohol level was not done. 2. Mildly elevated troponin. This is nonspecific in the absence of chest pain and with his other medical issues. 3. Hypertension. 4. Diabetes. 5. Alcoholism. 6. Prior history of DVT. RECOMMENDATIONS: 1. Alcohol abstinence. 2. No driving. 3. Will obtain an echocardiogram to assess ventricular and valvular function. 4. CT angiogram to rule out pulmonary embolus with wet read. At this point in time I would not pursue further workup beyond this. Certainly with his multiple medical issues, alcoholism, thrombocytopenia and lack of chest pain, I would not pursue an ischemic workup. [facility]. Follow up of his testing to the primary service. I will be available if needed. Telemetry has shown sinus rhythm. MD KYLEE Tiwari/MARQUEZ /9:13 AM /9:19 AM
[2016-07-27] MEDS ORDERED: IOHEXOL 350 MG/ML 10 ML VIAL (for RAD DIAG) IV ONE (09:55)
[2016-07-27] MEDS: METOPROLOL TARTRATE 25 MG TAB PO SCH ×2 (09:58→22:39)
[2016-07-27] MEDS: LISINOPRIL 5 MG TAB PO SCH (09:58)
--- NOTE | 2016-07-27 10:06 | RADRPT ---
EXAM DATE/TIME: 07/27/2016 09:41 [place] COMPARISON: No previous studies available for comparison. INDICATIONS : Evaluate for embolism. IV CONTRAST: 75 cc Omnipaque 350 (iohexol) IV RADIATION DOSE: 12.26 CTDIvol (mGy) MEDICAL HISTORY : Cardiovascular disease. Deep venous thrombosis. Hepatitis C.MRSA, Cirrhosis, hypertension. SURGICAL HISTORY : None. ENCOUNTER: Initial ACUITY: 1 day PAIN SCALE: 4/10 LOCATION: Bilateral chest TECHNIQUE: Volumetric scanning of the chest was performed using a pulmonary embolism protocol MIP images were re constructed. Using automated exposure control and adjustment of the mA and/or kV according to patien t size, radiation dose was kept as low as reasonably achievable to obtain optimal diagnostic quality images. FINDINGS: PULMONARY ARTERIES: No filling defects are seen in the pulmonary arteries through the segmental level. LUNGS: There is minimal patchy infiltrate right middle lobe. No pneumothorax . No concerning pulmonary nodu le is visualized. Calcified granuloma in the right upper lobe. PLEURAE: There is no pleural thickening or pleural effusion. MEDIASTINUM: There is good visualization of the great vessels of the middle mediastinum. No evidence of mediastin al or hilar adenopathy/mass. MUSCULOSKELETAL: Within normal limits for patient age. MISCELLANEOUS: The visualized upper abdominal organs demonstrate no acute abnormality. There are some prominent vari sofia in the left periadrenal region. Left adrenal enlargement cannot be excluded. CONCLUSION: 1. No evidence for pulmonary embolism. 2. Minimal patchy infiltrate right middle lobe. Benny Lima MD on July 27, 2016 at 9:59 Board Certified Radiologist. This report was verified electronically.
[2016-07-27 10:39] LABS: APTT (PATIENT) 52.5 SEC (24.3-30.1)
--- NOTE | 2016-07-27 10:49 | HHI.PR ---
Subjective Remarks Follow-up for syncope. Review medical record history. Patient stated that for the past 6 months he's been having increased shortness of breathing. Patient stated that this has been gradual. Patient stated then the last couple months he had a flu in which he did not seek any medical attention. Patient said after that he would episodes where he would be found on the ground. Patient stated that yesterday brought him in his when that he was walking around a certain shortness of breathing he felt diaphoretic and then passed out. The moment patient is asymptomatic. He complained of back pain from when he hit the ground and passed out. Denies any chest pain. He also denies any shortness of breathing at the moment. Patient also complains about a productive cough that he had for the past 2 weeks but that has improved. Denies any fevers or chills. Patient stopped smoking about 4 years ago. Objective Vitals Vital Signs Date Time Temp Pulse Resp B/P Pulse Ox O2 Delivery O2 Flow Rate FiO2 07/27/16 09:58 16 07/27/16 08:00 83 07/27/16 08:00 98.2 70 16 159/103 99 07/27/16 06:00 98.0 71 18 156/104 96 07/27/16 03:52 18 07/27/16 02:30 97.9 83 18 144/102 98 07/27/16 00:58 78 21 151/92 95 Room Air 07/26/16 21:51 84 18 142/93 95 Room Air 07/26/16 19:59 96 Room Air 07/26/16 19:40 96 Room Air 07/26/16 19:26 96 Room Air 07/26/16 19:26 98.5 83 18 152/94 96 Room Air 07/26/16 19:26 83 18 152/94 96 Room Air 07/26/16 19:24 98.5 83 18 152/94 96 Result Diagram: 07/27/16 0427 07/27/16 0427 Objective Remarks GENERAL: in NAD CARDIOVASCULAR: Regular rate and rhythm without murmurs, gallops, or rubs. RESPIRATORY: Breath sounds equal bilaterally. No accessory muscle use. GASTROINTESTINAL: Abdomen soft, non-tender, nondistended. MUSCULOSKELETAL: No cyanosis, or edema. BACK: Nontender without obvious deformity. No CVA tenderness. Medications and IVs Current Medications Sodium Chloride (NS 1000 ml Inj) 1,000 ml @ 1,000 mls/hr Q1H IV ; Start at 19:14; Stop 07/26/16 at 19:28; Status DC IV Flush (NS Flush) 2 ml UNSCH PRN IVF FLUSH AFTER USING IV ACCESS; Start 07/26 at 19:15; Stop 07/26/16 at 19:28; Status DC Tetanus/ Diphtheria Toxoids (Tetanus/ Diphtheria Tox Adult) 0.5 ml ONCE ONCE IM ; Start 07/26/16 at 19:30; Stop 07/26/16 at 19:30; Status DC IV Flush (NS Flush) 2 ml UNSCH PRN IVF FLUSH AFTER USING IV ACCESS; Start 07/26 at 19:30 Aspirin (Aspirin Chew) 324 mg ONCE ONCE CHEW Last administered on 07/26/16 22 :49; Start 07/26/16 at 23:00; Stop 07/26/16 at 23:01; Status DC Heparin Sodium (Porcine) (Heparin Inj) 4,000 units ONCE ONCE IV Last administered on 07/27/16 01:00; Start 07/26/16 at 23:15; Stop 07/27/16 at 08:47 ; Status DC Heparin Sodium (Porcine) (Heparin Inj) 5,000 units UNSCH PRN IV APTT LESS THAN 25; Start 07/27/16 at 05:15; Stop 07/27/16 at 08:47; Status DC Heparin Sodium (Porcine) 2500 units 2,500 units UNSCH PRN IV APTT 25 TO 39; Start 07/27/16 at 05:15; Stop 07/27/16 at 08:47; Status DC Heparin Sodium/ Dextrose (Heparin-D5W Inj) 250 ml @ 0 mls/hr TITRATE IV Last administered on 07/27/16 01:02; Start 07/26/16 at 23:15; Stop 07/27/16 at 08:47 ; Status DC Dextrose (D50w (Vial) Inj) 25 ml UNSCH PRN IV PUSH HYPOGLYCEMIA-SEE COMMENTS; Start 07/26/16 at 23:45 Glucagon (Glucagon Inj) 1 mg UNSCH PRN OTHER HYPOGLYCEMIA-SEE COMMENTS; Start 07/26/16 at 23:45 Insulin Aspart 1 1 ACHS SLIDING SCALE SQ ; Start 07/27/16 at 07:00 Sodium Chloride (NS 1000 ml Inj) 1,000 ml @ 100 mls/hr Q10H IV ; Start at 23:41 IV Flush (NS Flush) 2 ml UNSCH PRN FLUSH FLUSH AFTER USING IV ACCESS; Start at 23:45 IV Flush (NS Flush) 2 ml BID FLUSH Last administered on 07/27/16t 08:30; Start 07/27/16 at 09:00 Ondansetron HCl (Zofran Inj) 4 mg Q6H PRN IVP NAUSEA OR VOMITING; Start at 23:45 Bisacodyl (Dulcolax Supp) 10 mg DAILY PRN [place] CONSTIPATION; Start 07/26/16 at 23 :45 Acetaminophen (Tylenol) 650 mg Q6H PRN PO FEVER/PAIN SCALE 1 TO 2; Start at 23:45 Acetaminophen/ Hydrocodone Bitart ([place] 5-325 Mg) 1 tab Q4H PRN PO PAIN SCALE 3 TO 5 Last administered on 07/27/16t 08:35; Start 07/26/16 at 23:45 Morphine Sulfate (Morphine Inj) 2 mg Q3H PRN IV Pain 6-10; Start 07/26/16 at 23 :45 Flumazenil (Romazicon Inj) 0.2 mg Q1M PRN IV PUSH SEE LABEL COMMENTS; Start at 08:45 Lorazepam (Ativan) 1 mg Q4H PRN PO CIWA 8 - 10; Start 07/27/16 at 08:45 Lorazepam (Ativan Inj) 1 mg Q4H PRN IV PUSH CIWA 8 - 10; Start 07/27/16 at 08: 45 Lorazepam (Ativan) 2 mg Q2H PRN PO CIWA 11-14; Start 07/27/16 at 08:45 Lorazepam (Ativan Inj) 2 mg Q2H PRN IV PUSH CIWA 11-14; Start 07/27/16 at 08:45 Lorazepam (Ativan Inj) 2 mg Q1H PRN IV PUSH CIWA 15-20; Start 07/27/16 at 08:45 Lorazepam (Ativan Inj) 2 mg Q15M PRN IV PUSH CIWA > 20; Start 07/27/16 at 08:45 Metoprolol Tartrate (Lopressor) 25 mg Q12HR PO Last administered on 07/27/16 09:58; Start 07/27/16 at 09:00 Enalaprilat (Vasotec Inj) 2.5 mg Q6H PRN IV PUSH SBP>160, DBP>90; Start at 09:00 Lisinopril (Prinivil) 5 mg DAILY PO Last administered on 07/27/16 09:58; Start 07/27/16 at 09:00 Iohexol (Omnipaque 350 Inj) 75 ml STK-MED ONCE IV ; Start 07/27/16 at 09:55; Stop 07/27/16 at 09:56; Status DC A/P Problem List: (1) NSTEMI (non-ST elevated myocardial infarction) ICD Code: I21.4 Status: Acute (2) Syncope ICD Code: R55 Status: Acute (3) Thrombocytopenia ICD Code: D69.6 Status: Acute (4) DM (diabetes mellitus) ICD Code: E11.9 Status: Acute Assessment and Plan Syncope - Acute syncopal event, no lightheadedness/dizziness prior. -Medical records reviewed anymore history were obtained. Labs and imaging were also reviewed. -This was most likely secondary to dehydration and for recent illness. -We'll continue with IV fluids and continue monitor. -Pending echo. Dyspnea -Chronic in nature. -CTA negative for any PE. -May be secondary to current illness. CTA suggest possible PNA. -will treat empirically for CAP with levaquin. -can be work out as outpatient. Elevated troponin. -Trop 0.21, EKG w/ T-wave inversions V2-V4, no previous EKG for comparison. Troponin trend down. - Very unlikely cardiac in nature. -Dr. Falcon consulted and also stated that this is noncardiac. -Heparin drip was discontinued secondary to severe thrombocytopenia. Thrombocytopenia - Chronic. Platelets 60, previously 50 on 07/23/15. no 37,000. - No active bleeding. H/o Hep C/Cirrhosis. -d/c heparin and continue to monitor. DM - Sliding scale w/ Accu-Cheks. Hold Metformin. DVT Prophylaxis -d/c heparin gtt due to thrombocytopenia Discharge Planning if continues to do well and platelet improves can d/c tomorrow. Guera Durham MD Jul 27, 2016 10:48
[2016-07-27] MEDS: LEVOFLOXACIN 750 MG TAB PO SCH (11:33)
[2016-07-27 21:09] LABS: MEAN CORPUSCULAR HGB CONC 36.1 % (32.0-36.0)
[2016-07-27] MEDS ORDERED: LORazepam 2 MG/ML VIAL IV PUSH ONE (23:45)
--- NOTE | 2016-07-27 23:52 | HHI.PR ---
Addendum to Inpatient Note Addendum Reason: Additional Documentation Additional Information Patient here for syncope. [facility] called at 2335, patient was found on the floor , incontinent of urine. Patient was told not to get of bed but did anyway. He is currently A&Ox3 and stated he felt like he was going to be sick so he got out of bed, then became dizzy, and fell to the floor. No complaints of pain, but he is diaphoretic, likely due to acute alcohol withdraw. Vitals and Blood sugar stable. Unsure if patient had a seizure or not. Plan: Neuro checks Q1 hr x 4 EEG ordered to rule out seizure activity Cont [facility] protocol Bed alarm Discussed case with Dr. Ryan. Grace Jones Jul 27, 2016 23:52
--- NOTE | 2016-07-27 23:52 | HHI.FPPN ---
Addendum to progress note ADDENDUM Reason for addendum: Additonal documentation Additional information Subjective: Patient is a 61-year-old male with PMH of Depression, HTN, Hepatitis C, Cirrhosis, h/o DVT and DM that presented to the [place] ED by [facility] with a chief complaint of syncope. [facility] was called at 2335 due to patient found on the floor, incontinent of urine. Patient said that he felt like he was going to be be sick, he went to the bathroom and threw up, but does not remember how he got on the floor. He thinks his legs may have given out under him. The pt's nurse mentioned that his most recent CIWA score was 6; consequently, the syncope might be alcohol-related. Orthostatic hypotension, vasovagal syncope , arrhythmia, and seizure are also in the differential. Objective: Alert, oriented 3, diaphoretic Respiratory: CTAB Cardiac: RRR Assessment/Plan: Hospitalist was contacted by patient's nurse Dr. Ryan. Plan as follows: -Fall precautions with bed alarm -Seizure precautions -Neuro checks every hour 4 -Continue CIWA protocol -EEG to rule out seizure activity in the a.m. Shira Jon MD R1 Jul 27, 2016 23:52
[2016-07-28] VITALS (24 sets, daily range): BP systolic 114–130; BP diastolic 76–89; PULSE 56–72; RESP 18–22; TEMP 97.6–97.9; O2SAT 93–100
[2016-07-28] MEDS: LORazepam 1 MG TAB PO PRN ×2 (05:14→21:35)
[2016-07-28] MEDS: ACETAMINOPHEN/HYDROcodone 325 MG/5 MG TAB PO PRN ×3 (05:15→21:35)
[2016-07-28] MEDS: INSULIN ASPART SUPPLEMENTAL SCALE SQ SCH ×4 (05:15→21:00)
[2016-07-28 05:27] LABS: HEMATOCRIT 37.4 % (39.0-51.0); MEAN CELL VOLUME 94.8 FL (80.0-100.0); MEAN CORPUSCULAR HEMOGLOBIN 34.2 PG (27.0-34.0); PLATELET COUNT 38 TH/MM3 (150-450); RED BLOOD COUNT 3.94 MIL/MM3 (4.50-5.90); RED CELL DISTRIBUTION WIDTH 13.9 % (11.6-17.2); WHITE BLOOD COUNT 4.4 TH/MM3 (4.0-11.0)
[2016-07-28 05:39] LABS: REVIEW FLAG FINAL
[2016-07-28 05:57] LABS: BICARBONATE 26.3 MEQ/L (21.0-32.0); POTASSIUM 3.8 MEQ/L (3.5-5.1)
--- NOTE | 2016-07-28 10:03 | HHI.PR ---
Subjective Remarks f/u for questionable chest pain. Patient complain about chronic lower back pain since his fall. Otherwise he has no complaints. He denies any chest pain or shortness of breathing. Last night patient had a hallicat Due to fall. He was AAO 3. Patient had no complaints of regards to this. He denies any headaches, visual changes, focal neurological deficit. Denies any emesis but patient does state that he feels nauseous. Objective Vitals Vital Signs Date Time Temp Pulse Resp B/P Pulse Ox O2 Delivery O2 Flow Rate FiO2 07/28/16 08:00 97.6 59 18 130/89 100 07/28/16 06:00 62 07/28/16 05:00 62 07/28/16 04:00 56 07/28/16 03:00 60 07/28/16 02:00 60 07/28/16 01:00 64 07/28/16 00:00 69 07/27/16 23:30 100 2.50 07/27/16 23:30 100 Nasal Cannula 2.50 07/27/16 23:00 72 07/27/16 23:00 97.2 70 16 116/64 95 07/27/16 22:00 70 07/27/16 21:00 68 07/27/16 20:00 68 07/27/16 20:00 97.2 74 16 138/108 97 07/27/16 19:00 69 07/27/16 18:00 70 07/27/16 17:00 66 07/27/16 16:00 68 07/27/16 16:00 98.2 65 18 140/99 97 07/27/16 12:00 64 07/27/16 12:00 98.1 64 16 139/96 98 07/27/16 11:00 64 07/27/16 10:00 80 07/27/16 09:58 16 I/O 07/27/16 07/27/16 07/27/16 07/28/16 07/28/16 07/28/16 07:00 15:00 23:00 07:00 15:00 23:00 Intake Total 360 ml 620 ml 320 ml Balance 360 ml 620 ml 320 ml Intake Oral 360 ml 620 ml 320 ml # Voids 4 2 # Bowel Movements 1 0 Result Diagram: 07/28/16 0454 07/28/16 2956 Objective Remarks GENERAL: in NAD CARDIOVASCULAR: Regular rate and rhythm without murmurs, gallops, or rubs. RESPIRATORY: Breath sounds equal bilaterally. No accessory muscle use. GASTROINTESTINAL: Abdomen soft, non-tender, nondistended. MUSCULOSKELETAL: No cyanosis, or edema. BACK: Nontender without obvious deformity. No CVA tenderness. NEURO AAO x3. CN 2-12 intact. Medications and IVs Current Medications Sodium Chloride (NS 1000 ml Inj) 1,000 ml @ 1,000 mls/hr Q1H IV ; Start at 19:14; Stop 07/26/16 at 19:28; Status DC IV Flush (NS Flush) 2 ml UNSCH PRN IVF FLUSH AFTER USING IV ACCESS; Start 07/26 at 19:15; Stop 07/26/16 at 19:28; Status DC Tetanus/ Diphtheria Toxoids (Tetanus/ Diphtheria Tox Adult) 0.5 ml ONCE ONCE IM ; Start 07/26/16 at 19:30; Stop 07/26/16 at 19:30; Status DC IV Flush (NS Flush) 2 ml UNSCH PRN IVF FLUSH AFTER USING IV ACCESS; Start 07/26 at 19:30 Aspirin (Aspirin Chew) 324 mg ONCE ONCE CHEW Last administered on 07/26/16 22 :49; Start 07/26/16 at 23:00; Stop 07/26/16 at 23:01; Status DC Heparin Sodium (Porcine) (Heparin Inj) 4,000 units ONCE ONCE IV Last administered on 07/27/16 01:00; Start 07/26/16 at 23:15; Stop 07/27/16 at 08:47 ; Status DC Heparin Sodium (Porcine) (Heparin Inj) 5,000 units UNSCH PRN IV APTT LESS THAN 25; Start 07/27/16 at 05:15; Stop 07/27/16 at 08:47; Status DC Heparin Sodium (Porcine) 2500 units 2,500 units UNSCH PRN IV APTT 25 TO 39; Start 07/27/16 at 05:15; Stop 07/27/16 at 08:47; Status DC Heparin Sodium/ Dextrose (Heparin-D5W Inj) 250 ml @ 0 mls/hr TITRATE IV Last administered on 07/27/16 01:02; Start 07/26/16 at 23:15; Stop 07/27/16 at 08:47 ; Status DC Dextrose (D50w (Vial) Inj) 25 ml UNSCH PRN IV PUSH HYPOGLYCEMIA-SEE COMMENTS; Start 07/26/16 at 23:45 Glucagon (Glucagon Inj) 1 mg UNSCH PRN OTHER HYPOGLYCEMIA-SEE COMMENTS; Start 07/26/16 at 23:45 Insulin Aspart 1 1 ACHS SLIDING SCALE SQ Last administered on 07/27/16 11:33 ; Start 07/27/16 at 07:00 Sodium Chloride (NS 1000 ml Inj) 1,000 ml @ 100 mls/hr Q10H IV Last administered on 07/27/16 16:45; Start 07/26/16 at 23:41 IV Flush (NS Flush) 2 ml UNSCH PRN FLUSH FLUSH AFTER USING IV ACCESS; Start at 23:45 IV Flush (NS Flush) 2 ml BID FLUSH Last administered on 07/27/16 22:43; Start 07/27/16 at 09:00 Ondansetron HCl (Zofran Inj) 4 mg Q6H PRN IVP NAUSEA OR VOMITING Last administered on 07/28/16 00:01; Start 07/26/16 at 23:45 Bisacodyl (Dulcolax Supp) 10 mg DAILY PRN MD CONSTIPATION; Start 07/26/16 at 23 :45 Acetaminophen (Tylenol) 650 mg Q6H PRN PO FEVER/PAIN SCALE 1 TO 2; Start at 23:45 Acetaminophen/ Hydrocodone Bitart (Locust 5-325 Mg) 1 tab Q4H PRN PO PAIN SCALE 3 TO 5 Last administered on 07/28/16 05:15; Start 07/26/16 at 23:45 Morphine Sulfate (Morphine Inj) 2 mg Q3H PRN IV Pain 6-10; Start 07/26/16 at 23 :45 Flumazenil (Romazicon Inj) 0.2 mg Q1M PRN IV PUSH SEE LABEL COMMENTS; Start at 08:45 Lorazepam (Ativan) 1 mg Q4H PRN PO CIWA 8 - 10 Last administered on 07/28/16 05:14; Start 07/27/16 at 08:45 Lorazepam (Ativan Inj) 1 mg Q4H PRN IV PUSH CIWA 8 - 10; Start 07/27/16 at 08: 45 Lorazepam (Ativan) 2 mg Q2H PRN PO CIWA 11-14; Start 07/27/16 at 08:45 Lorazepam (Ativan Inj) 2 mg Q2H PRN IV PUSH CIWA 11-14; Start 07/27/16 at 08:45 Lorazepam (Ativan Inj) 2 mg Q1H PRN IV PUSH CIWA 15-20; Start 07/27/16 at 08:45 Lorazepam (Ativan Inj) 2 mg Q15M PRN IV PUSH CIWA > 20; Start 07/27/16 at 08:45 Metoprolol Tartrate (Lopressor) 25 mg Q12HR PO Last administered on 07/27/16 22:39; Start 07/27/16 at 09:00 Enalaprilat (Vasotec Inj) 2.5 mg Q6H PRN IV PUSH SBP>160, DBP>90 Last administered on 07/27/16 11:38; Start 07/27/16 at 09:00 Lisinopril (Prinivil) 5 mg DAILY PO Last administered on 07/27/16 09:58; Start 07/27/16 at 09:00 Iohexol (Omnipaque 350 Inj) 75 ml STK-MED ONCE IV ; Start 07/27/16 at 09:55; Stop 07/27/16 at 09:56; Status DC Levofloxacin (Levaquin) 750 mg Q24H PO Last administered on 07/27/16 11:33; Start 07/27/16 at 11:00 Lorazepam (Ativan Inj) 1 mg ONCE ONCE IV PUSH Last administered on 07/28/16 00:02; Start 07/27/16 at 23:45; Stop 07/27/16 at 23:46; Status DC A/P Problem List: (1) NSTEMI (non-ST elevated myocardial infarction) ICD Code: I21.4 Status: Acute (2) Syncope ICD Code: R55 Status: Acute (3) Thrombocytopenia ICD Code: D69.6 Status: Acute (4) DM (diabetes mellitus) ICD Code: E11.9 Status: Acute Assessment and Plan Syncope - Acute syncopal event, no lightheadedness/dizziness prior. -Medical records reviewed anymore history were obtained. Labs and imaging were also reviewed. -This was most likely secondary to dehydration and for recent illness. -continue with IV fluids and continue monitor. -Pending echo. Dyspnea -Chronic in nature. -CTA negative for any PE. -May be secondary to current illness. CTA suggest possible PNA. -treated empirically for CAP with levaquin and it seems to improve. -can be work out as outpatient. CAP -On Levaquin and doing well. Elevated troponin. -Trop 0.21, EKG w/ T-wave inversions V2-V4, no previous EKG for comparison. Troponin trend down. - Very unlikely cardiac in nature. -Dr. Falcon consulted and also stated that this is noncardiac. -Heparin drip was discontinued secondary to severe thrombocytopenia. -Pending echo. Thrombocytopenia - Chronic. Platelets 60, previously 50 on 07/23/15. Yesterday 37,000 and stable at 38,000 today. - No active bleeding. H/o Hep C/Cirrhosis. -d/c heparin and continue to monitor. Fall -Most likely falls a combination due to being in a different environment and also due to his alcoholism. -He is asymptomatic from the fall. -Will have PT come see patient. DM - Sliding scale w/ Accu-Cheks. Hold Metformin. Alcoholism -Patient stated that he has been suffering this for his entire life. -I educated patient on the consequences of alcohol that we are already seeing in regards to his liver and his platelets. Patient stated he understands. -Patient has no signs of withdrawal. But he is on CIWA protocol. DVT Prophylaxis -d/c heparin gtt due to thrombocytopenia Discharge Planning pending ECHO results. IF ECHO okay and cleared by PT can be d/c to home. Guera Durham MD Jul 28, 2016 10:03
[2016-07-28] MEDS: LISINOPRIL 5 MG TAB PO SCH (10:07)
[2016-07-28] MEDS: METOPROLOL TARTRATE 25 MG TAB PO SCH ×2 (10:07→21:34)
[2016-07-28] MEDS: SODIUM CHLORIDE 0.9% FLUSH 5 ML FLUSH FLUSH SCH ×2 (10:08→21:36)
[2016-07-28] MEDS: LEVOFLOXACIN 750 MG TAB PO SCH (11:00)
--- NOTE | 2016-07-28 14:30 | EKG ---
Date Performed: 07/27/2016 Time Performed: 23:52:02 PTAGE: 61 years EKG: Sinus rhythm Prolonged QT interval Possible left posterior fascicular block Incomplete RBBB Septal ST-T changes a re nonspecific Borderline ECG PREVIOUS TRACING : 07/26/2016 19.56 Compared to prior tracing no significant change DOCTOR: Ashok Epps Interpretating Date/Time 07/28/2016 14:29:39
--- NOTE | 2016-07-28 18:57 | MG ---
cc: DANIELA CASTAÑEDA MD Lab No: Date: 07/28/2016 Age: Sex: M Race: ELECTROENCEPHALOGRAM NUMBER [id number] DATE OF 1955 INDICATION A 61-year-old female, history of head trauma, numbness, cirrhosis, substance abuse, alcohol use, hepatitis C with a history of syncope. DESCRIPTION Appears stage II sleep with spindle activity, 1-4 Hz delta, 20-40 microvolts. During episodes of arousal posterior rhythm incremented up to 6-9 Hz. Hyperventilation performed with good effort. Good buildup. No significant abnormalities. Reduced driving with photic stimulation. Single lead EKG showing sinus rhythm. INTERPRETATION Normal awake, asleep EEG. Clinical correlation. Daniela Castañeda MD MG/KK /5:38 PM /6:48 PM
[2016-07-29] VITALS (10 sets, daily range): BP systolic 105–126; BP diastolic 77–89; PULSE 58–69; RESP 16–22; TEMP 97.3–98; O2SAT 94–97
[2016-07-29] MEDS: LORazepam 1 MG TAB PO PRN (02:19)
[2016-07-29] MEDS: INSULIN ASPART SUPPLEMENTAL SCALE SQ SCH ×3 (06:41→16:39)
--- NOTE | 2016-07-29 07:42 | EC ---
Study Study Date:07/28/2016 STUDY CONCLUSIONS SUMMARY - Left ventricle: The cavity size was normal. Wall thickness was increased in a pattern of moderate LVH. Systolic function was normal. The estimated ejection fraction was in the range of 55% to 60%. Wall motion was normal; there were no regional wall motion abnormalities. - Aortic valve: Mild regurgitation. - Mitral valve: Mild regurgitation. - Left atrium: The atrium was mildly dilated. - Right ventricle: The cavity size was mildly to moderately dilated. Wall thickness was normal. RV systolic pressure: 90mm Hg (S, est). - Right atrium: The atrium was mildly to moderately dilated. - Tricuspid valve: Mild regurgitation. - Pulmonary arteries: PA peak pressure: 90mm Hg (S). If LV function is below 40, please consider prescribing an ACEI or ARB or document rationale for non-use. PROCEDURE DATA STUDY STATUS: Elective. Procedure: Transthoracic echocardiography. Image quality was good. Scanning was performed from the parasternal, apical, and subcostal acoustic windows. Study completion: The patient tolerated the procedure well. Transthoracic echocardiography. M-mode, complete 2D, complete spectral Doppler, and color Doppler. Patient status: Inpatient. CARDIAC ANATOMY LEFT VENTRICLE: The cavity size was normal. Wall thickness was increased in a pattern of moderate LVH. Systolic function was normal. The estimated ejection fraction was in the range of 55% to 60%. Wall motion was normal; there were no regional wall motion abnormalities. AORTIC VALVE: Trileaflet; normal thickness leaflets. Doppler: Transvalvular velocity was within the normal range. There was no stenosis. Mild regurgitation. AORTA: Aortic root: The aortic root was normal in size. MITRAL VALVE: Structurally normal valve. Doppler: Transvalvular velocity was within the normal range. There was no evidence for stenosis. Mild regurgitation. LEFT ATRIUM: The atrium was mildly dilated. RIGHT VENTRICLE: The cavity size was mildly to moderately dilated. Wall thickness was normal. PULMONIC VALVE: Doppler: Transvalvular velocity was within the normal range. There was no evidence for stenosis. No regurgitation. TRICUSPID VALVE: Structurally normal valve. Doppler: Transvalvular velocity was within the normal range. Mild regurgitation. PULMONARY ARTERY: The main pulmonary artery was normal-sized. Systolic pressure was within the normal range. RIGHT ATRIUM: The atrium was mildly to moderately dilated. PERICARDIUM: There was no pericardial effusion. SYSTEMIC VEINS: Inferior vena cava: The vessel was normal in size. BASIC MEASUREMENTS ADULT Normal Left ventricle LV internal dimension, ED, chordal level, *36.3 mm 43-52 PLAX LV internal dimension, ES, chordal level, 29.2 mm 23-38 PLAX Fractional shortening, chordal level, PLAX *20 % >29 LV posterior wall thickness, ED 11.3 mm IVS/LVPW ratio, ED *1.62 <1.3 Ventricular septum Septal thickness, ED 18.3 mm Aortic valve Leaflet separation 21 mm 15-26 Right ventricle RV internal dimension, ED, PLAX *41.9 mm 19-38 BASIC MEASUREMENTS ADULT Normal Aortic valve Leaflet separation 21 mm 15-26 Aorta Root diameter, ED *38 mm 20-37 Left atrium Anterior-posterior dimension, ES 39 mm 19-40 LA/aortic root ratio 1.03 DOPPLER MEASUREMENTS ADULT Normal Main pulmonary artery Pressure, S *90 mm Hg =30 Aortic valve Regurgitant velocity, ED 381 cm/s Regurgitant deceleration 1840 cm/s^2 Regurgitant pressure half-time 606 ms Regurgitant gradient, ED 58 mm Hg Tricuspid valve Regurgitant peak velocity 446 cm/s Peak RV-RA gradient, S 80 mm Hg Maximal regurgitant velocity 446 cm/s Systemic veins Estimated CVP 10 mm Hg Right ventricle RV pressure, S *90 mm Hg <30 LEGEND: Mean values are shown as u=mean value. Asterisk (*) zambrano values outside specified normal range. Prepared and signed by Cleve Newman [id number]
[2016-07-29] MEDS: SODIUM CHLORIDE 0.9% FLUSH 5 ML FLUSH FLUSH SCH (08:51)
[2016-07-29] MEDS: METOPROLOL TARTRATE 25 MG TAB PO SCH (08:51)
[2016-07-29] MEDS: LISINOPRIL 5 MG TAB PO SCH (08:51)
[2016-07-29] MEDS: SODIUM CHLOR 0.9% 1000 ML INJ 1,000 ML IV SCH (08:52)
[2016-07-29] MEDS: LEVOFLOXACIN 750 MG TAB PO SCH (11:00)
[2016-07-29] MEDS: ACETAMINOPHEN/HYDROcodone 325 MG/5 MG TAB PO PRN (11:00)
[2016-07-29 11:27] LABS: BICARBONATE 25.3 MEQ/L (21.0-32.0); POTASSIUM 4.2 MEQ/L (3.5-5.1)
[2016-07-29 11:46] LABS: HEMATOCRIT 37.8 % (39.0-51.0); MEAN CELL VOLUME 96.3 FL (80.0-100.0); MEAN CORPUSCULAR HEMOGLOBIN 34.3 PG (27.0-34.0); MEAN CORPUSCULAR HGB CONC 35.6 % (32.0-36.0); PLATELET COUNT 53 TH/MM3 (150-450); RED BLOOD COUNT 3.93 MIL/MM3 (4.50-5.90); RED CELL DISTRIBUTION WIDTH 14.3 % (11.6-17.2); WHITE BLOOD COUNT 6.4 TH/MM3 (4.0-11.0)
[2016-07-29 11:49] LABS: REVIEW FLAG FINAL
[2016-07-29] MEDS ORDERED: METO25TA3 PO (13:10)
[2016-07-29] MEDS ORDERED: LISI-519 PO (13:10)
[2016-07-29] MEDS ORDERED: LEVA750T PO (13:10)
--- NOTE | 2016-07-29 13:10 | HHI.DS ---
Discharge Summary Admission Date Jul 26, 2016 at 23:31 Discharge Date: Jul 29, 2016 Admitting Diagnosis NSTEMI, syncope (1) Pneumonia ICD Code: J18.9 Diagnosis: Principal (2) Syncope ICD Code: R55 Diagnosis: Principal (3) Thrombocytopenia ICD Code: D69.6 Diagnosis: Secondary (4) DM (diabetes mellitus) ICD Code: E11.9 Diagnosis: Secondary (5) Fall ICD Code: W19.XXXA Diagnosis: Secondary (6) Dehydration ICD Code: E86.0 Diagnosis: Principal Procedures none Brief History - From Admission This is a 61-year-old male with PMH of Depression, HTN, Hepatitis C, Cirrhosis, h/o DVT and DM who was brought to the ER by EMS after syncopal event. Pt w/ little recollection of events, states he remembers getting up to walk with his friend and suddenly had syncopal event. Unsure if head trauma. Denies lightheadedness, dizziness or chest pain prior to syncope. On arrival, BP 152/ 94, HR 83, O2 sat 96% on RA, Afebrile. CBC at baseline. Platelets 60, previously 50 on 07/23/15. Chemistry also at baseline. Troponin 0.21. EKG with T-wave inversions, no previous EKG for comparison. CT Head with no acute findings. CT C-spine negative. CXR with no acute findings. CT L-spine mild invagination of the end plate of T12, otherwise unremarkable. CT T-Spine negative for fracture. Dr. Falcon consulted by ER physician, recommended ASA and Heparin gtt. Pt w/ no complaints at this time. CBC/BMP: 07/29/16 1126 07/29/16 1056 Significant Findings Laboratory Tests Test 07/26/16 07/26/16 07/27/16 07/27/16 19:36 21:51 00:58 04:27 Red Blood Count 4.20 MIL/MM3 3.88 MIL/MM3 (4.50-5.90) (4.50-5.90) Hematocrit 38.9 % 36.3 % (39.0-51.0) (39.0-51.0) Mean Corpuscular Hemoglobin 36.6 % Concent (32.0-36.0) Platelet Count 60 TH/MM3 37 TH/MM3 (150-450) (150-450) Monocytes (%) (Auto) 13.6 % 16.1 % (0.0-8.0) (0.0-8.0) Prothrombin Time 13.7 SEC (9.8-11.6) Activated Partial 35.1 SEC 32.1 SEC Thromboplast Time (24.3-30.1) (24.3-30.1) Estimat Glomerular Filtration 67 ML/MIN (>89) 73 ML/MIN (>89) Rate Random Glucose 152 MG/DL 133 MG/DL (74-106) (74-106) Troponin I 0.21 NG/ML 0.17 NG/ML (0.02-0.05) (0.02-0.05) White Blood Count 3.7 TH/MM3 (4.0-11.0) Platelet Estimate LOW (NORMAL) Total Bilirubin 3.9 MG/DL (0.2-1.0) Aspartate Amino Transf 66 U/L (15-37) (AST/SGOT) Albumin 2.7 GM/DL (3.4-5.0) Test 07/27/16 07/28/16 07/29/16 07/29/16 10:19 04:54 10:56 11:26 Activated Partial 52.5 SEC Thromboplast Time (24.3-30.1) Troponin I 0.15 NG/ML (0.02-0.05) Red Blood Count 3.94 MIL/MM3 3.93 MIL/MM3 (4.50-5.90) (4.50-5.90) Hematocrit 37.4 % 37.8 % (39.0-51.0) (39.0-51.0) Mean Corpuscular Hemoglobin 34.2 PG 34.3 PG (27.0-34.0) (27.0-34.0) Mean Corpuscular Hemoglobin 36.1 % Concent (32.0-36.0) Platelet Count 38 TH/MM3 53 TH/MM3 (150-450) (150-450) Blood Urea Nitrogen 22 MG/DL (7-18) 29 MG/DL (7-18) Estimat Glomerular Filtration 57 ML/MIN (>89) 55 ML/MIN (>89) Rate Random Glucose 148 MG/DL 178 MG/DL (74-106) (74-106) Creatinine 1.32 MG/DL (0.60-1.30) Imaging Last Impressions CT Angiography 07/27/16 0000 Signed Impressions: Service Date/Time: Wednesday, July 27, 2016 09:41 - CONCLUSION: 1. No evidence for pulmonary embolism. 2. Minimal patchy infiltrate right middle lobe. Benny Lima MD Head CT [id number] Signed Impressions: Service Date/Time: Tuesday, July 26, 2016 19:41 - CONCLUSION: 1. No acute intracranial abnormality. 2. Fluid in both maxillary sinuses. Benny Lima MD Cervical Spine CT [id number] Signed Impressions: Service Date/Time: Tuesday, July 26, 2016 19:41 - CONCLUSION: Negative trauma CT.. Mayo Moncada MD Thoracic Spine CT 07/26/16 0000 Signed Impressions: Service Date/Time: Tuesday, July 26, 2016 19:45 - CONCLUSION: Negative trauma study. Mayo Moncada MD Lumbar Spine CT 07/26/16 0000 Signed Impressions: Service Date/Time: Tuesday, July 26, 2016 19:45 - CONCLUSION: 1. Mild invagination of the superior endplate of the T12 vertebral body which is of indeterminant age. 2. The vertebra are otherwise unremarkable. Mayo Moncada MD Chest X-Ray 07/26/16 0000 Signed Impressions: Service Date/Time: Tuesday, July 26, 2016 22:52 - CONCLUSION: 1. No acute findings. Rickey Eaton MD PE at Discharge GENERAL: in NAD CARDIOVASCULAR: Regular rate and rhythm without murmurs, gallops, or rubs. RESPIRATORY: Breath sounds equal bilaterally. No accessory muscle use. GASTROINTESTINAL: Abdomen soft, non-tender, nondistended. MUSCULOSKELETAL: No cyanosis, or edema. BACK: Nontender without obvious deformity. No CVA tenderness. NEURO AAO x3. CN 2-12 intact. Pt update on day of discharge f/u for SOB. patient stated breathing has improved drastically. he has no complaints. He stated he still feels unsteady on his feet. no acute events since he was last seen. Denied any FISHMAN, N/V, or chest pain. Hospital Course Syncope - Acute syncopal event, no lightheadedness/dizziness prior. -Medical records reviewed anymore history were obtained. Labs and imaging were also reviewed. -This was most likely secondary to dehydration and for recent illness. -he was put on IV fluids and symptoms improved. ECHO was not impressive. CAP -Chronic in nature. -CTA negative for any PE. -May be secondary to current illness. CTA suggest possible PNA. -treated empirically for CAP with levaquin and it seems to improve. -exertional dyspnea can be work out as outpatient if he continues to be symptomatic despite treatment for PNA. patient award. CAP -treated wit Levaquin and doing well. Elevated troponin. -Trop 0.21, EKG w/ T-wave inversions V2-V4, no previous EKG for comparison. Troponin trend down. - Very unlikely cardiac in nature. -Dr. Falcon consulted and also stated that this is noncardiac. -Heparin drip was discontinued secondary to severe thrombocytopenia. -ECHO was not impressive. Thrombocytopenia - Chronic. Platelets 60, previously 50 on 07/23/15. Decreased and now continues to increased the past few days. - No active bleeding. H/o Hep C/Cirrhosis. Fall -Most likely falls a combination due to being in a different environment and also due to his alcoholism. -He is asymptomatic from the fall. -PT recommend rehab. EEG was done by rapid response team and that was negative. no suspicion for seizure from me. DM - Sliding scale w/ Accu-Cheks. -continue with metformin on discharge HTN -start on metoprolol and lisinopril -recheck BMP at rehab in 3 days. Alcoholism -Patient stated that he has been suffering this for his entire life. -I educated patient on the consequences of alcohol that we are already seeing in regards to his liver and his platelets. Patient stated he understands. -Patient has no signs of withdrawal. But he is on CIWA protocol while hospitalized. Pt Condition on Discharge: Stable Discharge Disposition: Discharge to SNF Discharge Time: <= 30 minutes Discharge Instructions DIET: Follow Instructions for: Heart Healthy Diet Activities you can perform: Regular-No Restrictions Follow up Referrals: SNF/[facility]/ - 2 Days New Medications: Levofloxacin (Levaquin) 750 Mg Tab 750 MG PO Q24H pneumonia #6 Ref 0 TAB Lisinopril (Lisinopril) 5 Mg Tab 5 MG PO DAILY hypertension #30 Ref 0 TAB Metoprolol Tartrate (Metoprolol Tartrate) 25 Mg Tab 25 MG PO Q12HR hypertension #30 Ref 0 TAB Continued Medications: Metformin (Metformin) 500 Mg Tab 500 MG PO DAILY With a meal Blood Sugar Management #30 Ref 0 TAB Discontinued Medications: Propranolol (Propranolol) 20 Mg Tab 20 MG PO Q12HR #60 Ref 0 TAB Guera Durham MD Jul 29, 2016 13:10
== END 2016-07-29 18:11 | DRG 640 ==
LOC: NEPA 18:21 → NEDA 23:31 → HCIS 07-27 02:16
PROVIDERS: ADMIT Family Medicine; ATTEND Family Medicine
DX: E86.0 Dehydration (principal); J18.9 Pneumonia, unspecified organism; D69.59 Other secondary thrombocytopenia; K70.30 Alcoholic cirrhosis of liver without ascites; R55 Syncope and collapse; E11.9 Type 2 diabetes mellitus without complications; R32 Unspecified urinary incontinence; I10 Essential (primary) hypertension; B19.20 Unspecified viral hepatitis C without hepatic coma; H91.90 Unspecified hearing loss, unspecified ear; F10.20 Alcohol dependence, uncomplicated; F32.9 Major depressive disorder, single episode, unspecified; W18.30XA Fall on same level, unspecified, initial encounter; Y92.230 Patient room in hospital as the place of occurrence of the external cause; Z79.84 Long term (current) use of oral hypoglycemic drugs; Z86.14 Personal history of Methicillin resistant Staphylococcus aureus infection; Z86.718 Personal history of other venous thrombosis and embolism; Z87.891 Personal history of nicotine dependence
CPT/HCPCS: 70450; 71010; 71275; 72125; 72128; 72131; 80048; 80053; 82948; 84484; 85025; 85027; 85610; 85730; 87641; 93005; 93306; 95819; J1644; J1815; J2060; J2405; J7030; Q9967

== ENCOUNTER 2016-09-05 06:12 | Inpatient (IN) | payer MEDICARE, OTHER ==
[2016-09-05] VITALS (18 sets, daily range): BP systolic 87–238; BP diastolic 48–145; PULSE 66–123; RESP 12–20; TEMP 97.8–102.3; O2SAT 92–100
[~2016-09-05] VITALS: Ht 177.8 cm; Wt 87.4 kg
[~2016-09-05 06:12] MED LIST changes: -ALBU8I INH; -GABA300C3 PO; -GLIP5 PO; +LEVA750T PO; +LISI-519 PO; -METF500 PO; +METF500T PO; +METO25TA3 PO; -MICO2CRE4 TOP; -PROP20TA24 PO; -THIA100T PO
[2016-09-05] MEDS ORDERED: SODIUM CHLOR 0.9% 1000 ML INJ 1,000 ML IV SCH (06:31)
[2016-09-05] MEDS: PROPOFOL 1000 MG/100 ML INJ 100 ML IV SCH ×5 (06:41→22:29)
[2016-09-05] MEDS ORDERED: ROCURONIUM INJ 50 MG/5 ML VIAL IV ONE (06:45)
[2016-09-05] MEDS ORDERED: SODIUM CHLORIDE 0.9% FLUSH 10 ML FLUSH IVF PRN (06:45)
[2016-09-05] MEDS ORDERED: ETOMIDATE 20 MG/10 ML VIAL IVP ONE (06:45)
[2016-09-05] MEDS ORDERED: VANCOMYCIN INJ 1,200 MG in SODIUM CHLOR 0.9% 250 ML INJ 250 ML IV ONE (06:45)
[2016-09-05] MEDS ORDERED: cefTRIAXone INJ 2,000 MG in SODIUM CHLORIDE 0.9% INJ 100 ML IV ONE (06:45)
--- NOTE | 2016-09-05 06:59 | RADRPT ---
EXAM DATE/TIME: 09/05/2016 06:48 [facility] COMPARISON: CHEST SINGLE AP, July 26, 2016, 22:52. INDICATIONS : Status post intubation. MEDICAL HISTORY : Hypertension. Hepatitis C. SURGICAL HISTORY : Tonsillectomy. ENCOUNTER: Subsequent ACUITY: 1 day PAIN SCORE: Non-responsive. LOCATION: chest FINDINGS: Mild bilateral infiltrates are present, mainly perihilar. These are new. Small left pleural effusion suspected. I don't see a pneumothorax. Heart size stable, upper limits of normal. The endotracheal tube tip is only about 1 cm above the uziel. There is a nasogastric tube coursing i nto the stomach, tip not included on the exam. CONCLUSION: 1. Bilateral perihilar infiltrates and small left pleural effusion. 2. Endotracheal tube tip is close to the uziel. 3. Nasogastric tube courses into the stomach. Marcin Schmidt MD on September 05, 2016 at 6:56 Board Certified Radiologist. This report was verified electronically.
--- NOTE | 2016-09-05 07:05 | PD ---
HPI Chief Complaint: Altered Mental Status Time Seen by Provider: 06:31 Travel History International Travel<30 days: No Contact w/Intl Traveler<30days: No Traveled to known affect area: No History of Present Illness HPI 61yo M with PMH of depression, HTN, Hep C, Cirrhosis, DM presents to the ED with altered mental status. As per EVAC, pt's roommate states he has been in and out of it for 2 days. Today was found on the couch, unresponsive. Pt apparently had GCS of 7 when they arrived and had an episode of seizure in route. Given 2mg ativan and then another seizure about 10 min after the ativan so another 2 mg ativan given. Pt was moving all extremities but tachypneic and not responding to verbal stimuli. Pt was febrile in the ED. PFSH Past Medical History Medical History: Unable to Obtain Arthritis: No Asthma: No Depression: Yes Heart Rhythm Problems: Yes (STATES HE HAS A SKIPPED HEARTBEAT OCCASSIONALLY) Cancer: No Cardiovascular Problems: Yes High Cholesterol: No Chest Pain: No Congestive Heart Failure: No Cirrhosis: Yes COPD: No Cerebrovascular Accident: No Diabetes: Yes Diminished Hearing: Yes Deep Vein Thrombosis: Yes Endocrine: Yes (CIRROSIS OF LIVER) GERD: No Genitourinary: No Hepatitis: Yes (C) Hiatal Hernia: No Hypertension: Yes Immune Disorder: No Musculoskeletal: No Neurologic: No Psychiatric: No Reproductive: No Respiratory: No Integumentary: Yes (LOWER EXTREMITY CELLULITIS) Immunizations Current: Yes Sleep Apnea: No Ulcer: No Tetanus Vaccination: Unknown Past Surgical History Surgical History: Unable to Obtain Tonsillectomy: Yes Other Surgery: No Social History Alcohol Use: Yes (reported daily ETOH by roomates) Tobacco Use: No Substance Use: Yes (alcoholic since age 19) Allergies-Medications (Allergen,Severity, Reaction): Coded Allergies: *MDRO Multi-Drug Resistant Organism (Verified Adverse Reaction, Unknown, ) 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 Reported Meds & Prescriptions Reported Meds & Active Scripts Active Metoprolol Tartrate 25 Mg Tab 25 Mg PO Q12HR Lisinopril 5 Mg Tab 5 Mg PO DAILY Reported Propranolol (Propranolol HCl) 20 Mg Tab 20 Mg PO BID Metformin ER (Metformin HCl) 500 Mg Carmine 500 Mg PO DAILY With evening meal Review of Systems Except as stated in HPI: all other systems reviewed are Neg Physical Exam Narrative GENERAL: 61yo M unresponsive. SKIN: Diaphoretic. HEAD: Atraumatic. Normocephalic. EYES: Pupils equal and round at 4mm bilaterally. ENT: No nasal bleeding or discharge. Mucous membranes pink and moist. NECK: Trachea midline. No JVD. CARDIOVASCULAR: Regular rate and rhythm. No murmur appreciated. RESPIRATORY: No accessory muscle use. Clear to auscultation. Breath sounds equal bilaterally. GASTROINTESTINAL: Abdomen soft, non-tender, nondistended. MUSCULOSKELETAL: No obvious deformities. No clubbing. No cyanosis. No edema. NEUROLOGICAL: Nonpurposeful movement. Data Data Last Documented VS Vital Signs Date Time Temp Pulse Resp B/P Pulse Ox O2 Delivery O2 Flow Rate FiO2 09/05/16 07:25 100 100 09/05/16 06:44 112 18 189/99 Ventilator 09/05/16 06:15 102.3 Orders Electrocardiogram (09/05/16 06:31) Ammonia (09/05/16 06:31) Complete Blood Count With Diff (09/05/16 06:31) Creatine Kinase (Cpk) (09/05/16 06:31) Prothrombin Time / Inr (Pt) (09/05/16 06:31) Act Partial Throm Time (Ptt) (09/05/16 06:31) Troponin I (09/05/16 06:31) Thyroid Stimulating Hormone (09/05/16 06:31) Lactic Acid Sepsis Protocol (09/05/16 06:31) Urinalysis - C+S If Indicated (09/05/16 06:31) Arterial Blood Gas (Abg) (09/05/16 06:31) Blood Culture (09/05/16 06:31) Chest, Single Ap (09/05/16 06:31) Ct Brain W/O Iv Contrast(Rout) (09/05/16 06:31) Blood Glucose (09/05/16 06:31) Ecg Monitoring (09/05/16 06:31) Iv Access Insert/Monitor (09/05/16 06:31) Oximetry (09/05/16 06:31) Sodium Chloride 0.9% Flush (Ns Flush) (09/05/16 06:45) Sodium Chlor 0.9% 1000 Ml Inj (Ns 1000 M (09/05/16 06:31) Drug Screen, Random Urine (09/05/16 06:31) Alcohol (Ethanol) (09/05/16 06:31) Salicylates (Aspirin) (09/05/16 06:31) Tylenol (Acetaminophen) (09/05/16 06:31) Ceftriaxone Inj (Rocephin Inj) (09/05/16 06:45) Vancomycin Inj (Vancomycin Inj) (09/05/16 06:45) Etomidate Inj (Amidate Inj) (09/05/16 06:45) Rocuronium Inj (Zemuron Inj) (09/05/16 06:45) Propofol 1000 Mg/100 Ml Inj (Diprivan 10 (09/05/16 06:45) ^ Infusion (09/05/16 06:38) RASS (09/05/16 06:38) Neurological Rass Scale ROXANN.Q2H (09/05/16 06:38) Urinary Catheter Insert/Apply (09/05/16 06:39) Ct Cerv Spine W/O Contrast (09/05/16 ) Csf Culture And Gram Stain (09/05/16 07:05) Acyclovir Inj (Zovirax Inj) (09/05/16 07:15) Acetaminophen Supp (Tylenol Supp) (09/05/16 07:30) CKMB (09/05/16 06:35) CKMB% (09/05/16 06:35) Sodium Chlor 0.9% 1000 Ml Inj (Ns 1000 M (09/05/16 07:45) Us Abdomen Liver (09/05/16 ) Admit Order (Ed Use Only) (09/05/16 ) Comprehensive Metabolic Panel (09/05/16 06:35) Direct Bilirubin (09/05/16 06:35) Magnesium (Mg) (09/05/16 06:35) Phosphorus (Po4) (09/05/16 06:35) Labs Laboratory Tests Test 09/05/16 09/05/16 09/05/16 06:30 06:35 08:14 Urine Color YELLOW Urine Turbidity CLEAR Urine pH 6.0 Urine Specific [place] 1.013 Urine Protein 30 mg/dL Urine Glucose (UA) NEG mg/dL Urine Ketones NEG mg/dL Urine Occult Blood MOD Urine Nitrite NEG Urine Bilirubin NEG Urine Urobilinogen 4.0 MG/DL Urine Leukocyte Esterase NEG Urine RBC 22 /hpf Urine WBC 1 /hpf Urine Hyaline Casts 1 /lpf Urine Mucus FEW /lpf Microscopic Urinalysis Comment CATH-CULT NOT IND Urine Opiates Screen NEG Urine Barbiturates Screen NEG Urine Amphetamines Screen NEG Urine Benzodiazepines Screen NEG Urine Cocaine Screen NEG Urine Cannabinoids Screen POS White Blood Count 4.6 TH/MM3 Red Blood Count 4.23 MIL/MM3 Hemoglobin 14.2 GM/DL Hematocrit 41.5 % Mean Corpuscular Volume 98.2 FL Mean Corpuscular Hemoglobin 33.5 PG Mean Corpuscular Hemoglobin 34.1 % Concent Red Cell Distribution Width 14.4 % Platelet Count 37 TH/MM3 Mean Platelet Volume 10.5 FL Neutrophils (%) (Auto) 85.0 % Lymphocytes (%) (Auto) 9.1 % Monocytes (%) (Auto) 5.7 % Eosinophils (%) (Auto) 0.1 % Basophils (%) (Auto) 0.1 % Neutrophils # (Auto) 3.9 TH/MM3 Lymphocytes # (Auto) 0.4 TH/MM3 Monocytes # (Auto) 0.3 TH/MM3 Eosinophils # (Auto) 0.0 TH/MM3 Basophils # (Auto) 0.0 TH/MM3 CBC Comment AUTO DIFF Differential Comment AUTO DIFF CONFIRMED Platelet Estimate LOW Platelet Morphology Comment NORMAL Red Cell Morphology Comment NORMAL Prothrombin Time 13.8 SEC Prothromb Time International 1.2 RATIO Ratio Activated Partial 31.6 SEC Thromboplast Time Sodium Level 139 MEQ/L Potassium Level 4.5 MEQ/L Chloride Level 103 MEQ/L Carbon Dioxide Level 21.0 MEQ/L Anion Gap 15 MEQ/L Blood Urea Nitrogen 13 MG/DL Creatinine 1.25 MG/DL Estimat Glomerular Filtration 59 ML/MIN Rate Random Glucose 184 MG/DL Lactic Acid Level 9.2 mmol/L Calcium Level 8.3 MG/DL Phosphorus Level 2.3 MG/DL Magnesium Level 1.6 MG/DL Total Bilirubin 3.5 MG/DL Direct Bilirubin 0.7 MG/DL Aspartate Amino Transf 79 U/L (AST/SGOT) Alanine Aminotransferase 32 U/L (ALT/SGPT) Alkaline Phosphatase 121 U/L Ammonia 86 MCMOL/L Total Creatine Kinase 843 U/L Creatine Kinase MB 7.6 NG/ML Creatine Kinase MB % 0.9 % Troponin I 0.23 NG/ML Total Protein 7.7 GM/DL Albumin 3.3 GM/DL Thyroid Stimulating Hormone 1.920 uIU/ML 3rd Gen Salicylates Level LESS THAN 1.7 MG/DL Acetaminophen Level LESS THAN 2.0 MCG/ML Ethyl Alcohol Level 39 MG/DL Blood Gas Puncture Site RT RADIAL Blood Gas Patient Temperature 98.6 Blood Gas HCO3 21 mmol/L Blood Gas Base Excess -1.9 mmol/L Blood Gas Oxygen Saturation 99 % Arterial Blood pH 7.47 Arterial Blood Partial 30 mmHg Pressure CO2 Arterial Blood Partial 397 mmHG Pressure O2 Arterial Blood Oxygen Content 18.3 Vol % Arterial Blood 1.7 % Carboxyhemoglobin Arterial Blood Methemoglobin 0.3 % Blood Gas Hemoglobin 12.6 G/DL Oxygen Delivery Device VENTILATOR Blood Gas Ventilator Setting 500/16/PEEP5 Blood Gas Inspired Oxygen 100 % MDM Medical Decision Making Medical Screen Exam Complete: Yes Emergency Medical Condition: Yes Interpretation(s) EKG: Sinus tachycardia at 111bpm. Normal axis. ST depression diffusely. Incomplete RBBB pattern. Differential Diagnosis Hepatic encephalopathy vs. Encephalitis vs. meningitis vs. alcohol withdrawal seizure vs. ICH vs. hyponatremia Narrative Course 61yo M with status epilepticus and found to be febrile and tachycardic here. Pt was emergently intubated in the ED. It was a difficult airway and I had to switch from direct laryngoscopy to glidescope. There was blood in mouth. Pt was sedated on propofol and CT brain, cspine ordered. Pt also given acetaminophen rectally. Antibiotics cefriaxone 2gm IV, vancomycin 15mg/kg and acyclovir 10mg/kg IV was ordered to cover bacterial meningitis and herpes encephalitis. Labs reviewed, no leukocytosis. Lactic acid elevated at 9.2. Troponin elevated at 0.23. There are ST depressions but can also be from sepsis. Ammonia 86, ordered lactulose. Alcohol is only 39, pt could have been seizure from alcohol withdrawal and lactic acid could be elevated from seizure. Acetaminophen 2.0. Salicylate less than 1.7. Utox positive cannabinoids. UA showed no urine WBC. CXR showed bilateral perihilar infiltrates and small left pleural effusion. ET tube close to uziel. NG tube courses into stomach. CT brain negative. Fracture in nasal spine. Patient is in need of lumbar puncture but is thrombocytopenic with platelet count of 37,000. Sign out to next team to discuss with exceptional needs teacher for admission and possible lumbar puncture. Critical Care Narrative Aggregate critical care time was 60 minutes. Time to perform other separately billable procedures was not included in the critical care time. My time did not include minutes spent treating any other patients simultaneously or on activities that did not directly contribute to the patient's treatment. The services I provided to this patient were to treat and/or prevent clinically significant deterioration that could result in: cardiovascular collapse or . I provided critical care services requiring my management, as noted below: Chart data review, documentation time, medication orders and management, vital sign assessments/reviewing monitor data, ordering and reviewing lab tests, ordering and interpreting/reviewing x-rays and diagnostic studies. Procedures Procedure Narrative The patient was put in optimal position for the procedure. Rapid sequence intubation was initiated by me using 20 milligrams of etomidate IV and 60 milligrams of rocuronium IV. The patient was intubated with a 7.5 cuffed endotracheal tube. Tube placement was confirmed by visualization of the tube and balloon passing through the cords, capnometry and subsequent chest x-ray. Breath sounds were equal and well aerated bilaterally postintubation. No breath sounds over stomach. Patient tolerated procedure well. Failed to intubate with direct laryngoscopy so glidescope was used and there was blood in mouth. Diagnosis Primary Impression: Altered mental status Qualified Code: R40.2431 - [place] coma scale total score 3-8, in the field ( EMT or ambulance) Admitting Information Admitting Physician Requests: Radha Foreman DO Sep 05, 2016 07:05
[2016-09-05 07:07] LABS: AUTOMATED NEUTROPHIL # 3.9 TH/MM3 (1.8-7.7); BASOPHIL % 0.1 % (0.0-2.0); EOSINOPHIL % 0.1 % (0.0-4.0); HEMATOCRIT 41.5 % (39.0-51.0); LYMPH % 9.1 % (9.0-44.0); LYMPHOCYTE # 0.4 TH/MM3 (1.0-4.8); MEAN CELL VOLUME 98.2 FL (80.0-100.0); MEAN CORPUSCULAR HEMOGLOBIN 33.5 PG (27.0-34.0); MEAN CORPUSCULAR HGB CONC 34.1 % (32.0-36.0); MONO % 5.7 % (0.0-8.0); PLATELET COUNT 37 TH/MM3 (150-450); RED BLOOD COUNT 4.23 MIL/MM3 (4.50-5.90); RED CELL DISTRIBUTION WIDTH 14.4 % (11.6-17.2); WHITE BLOOD COUNT 4.6 TH/MM3 (4.0-11.0)
[2016-09-05 07:08] LABS: HEMO FLAGS AUTO DIFF
[2016-09-05] MEDS ORDERED: ACYCLOVIR INJ 800 MG in SODIUM CHLORIDE 0.9% INJ 150 ML IV ONE (07:15)
[2016-09-05 07:18] LABS: APTT (PATIENT) 31.6 SEC (24.3-30.1); INTERNATIONAL NORMALIZED RATIO 1.2 RATIO; PROTHROMBIN TIME - PATIENT 13.8 SEC (9.8-11.6)
[2016-09-05 07:23] LABS: BLOOD, URINE MOD (NEG); COMMENT (UR) CATH-CULT NOT IND; CULTURE IF INDICATED CATH CULTURE NOT IND; GLUCOSE,URINE NEG (NEG); HYALINE CAST, URINE 1 /lpf (RARE); KETONE, URINE NEG (NEG); MUCUS URINE FEW /lpf (OCC); NITRITE,URINE NEG (NEG); URINE COLOR YELLOW (YELLW/STRAW)
[2016-09-05 07:24] LABS: ANION GAP 15 MEQ/L (5-15); BLOOD UREA NITROGEN 13 MG/DL (7-18); CHLORIDE 103 MEQ/L (98-107); GLOMERULAR FILTRATION RATE 59 ML/MIN (>89); POTASSIUM 4.5 MEQ/L (3.5-5.1); SODIUM (NA) 139 MEQ/L (136-145)
[2016-09-05] MEDS ORDERED: ACETAMINOPHEN 650 MG SUPP RECTAL ONE (07:30)
[2016-09-05 07:34] LABS: CREATINE KINASE 843 U/L (39-308)
[2016-09-05 07:35] LABS: AMPHETAMINE, URINE NEG (NEG); BARBITURATES, URINE NEG (NEG); COCAINE, URINE NEG (NEG)
[2016-09-05 07:38] LABS: ACETAMINOPHEN LESS THAN 2.0 MCG/ML (10.0-30.0)
--- NOTE | 2016-09-05 07:40 | EKG ---
Date Performed: 09/05/2016 Time Performed: 06:54:52 PTAGE: 61 years EKG: SINUS TACHYCARDIA POSSIBLE LEFT ATRIAL ENLARGEMENT INCOMPLETE RIGHT BUNDLE BRANCH BLOCK Non specific ST-T wave changes COMPARED TO PRIOR ELECTROCARDIOGRAM, Rate has increased and ST-T wave reynaga ges are more marked. PREVIOUS TRACING : 07/27/2016 23.52 DOCTOR: Raffi Falcon Interpretating Date/Time 09/05/2016 07:39:14
--- NOTE | 2016-09-05 07:43 | RADRPT ---
EXAM DATE/TIME: 09/05/2016 07:34 [facility] COMPARISON: CT BRAIN W/O CONTRAST, July 26, 2016, 19:41. INDICATIONS : Altered mental status. RADIATION DOSE: 38.59 CTDIvol (mGy) MEDICAL HISTORY : Non-responsive. SURGICAL HISTORY : Non-responsive. ENCOUNTER: Initial ACUITY: 1 day PAIN SCALE: Non-responsive LOCATION: cranial TECHNIQUE: Multiple contiguous axial images were obtained of the head. Using automated exposure control and adj ustment of the mA and/or kV according to patient size, radiation dose was kept as low as reasonably a chievable to obtain optimal diagnostic quality images. FINDINGS: Intracranial contents are unremarkable. There is no parenchymal hemorrhage, mass effect or midline s hift. Ventricle size is appropriate. Posterior fossa is normal. There is minimal ethmoid mucoperiosteal thickening. There is fracture of the superior nasal spine. CONCLUSION: Size disease, fracture superior nasal spine otherwise negative. Aman Freeman MD FACR on September 05, 2016 at 7:39 Board Certified Radiologist. This report was verified electronically.
[2016-09-05] MEDS ORDERED: SODIUM CHLOR 0.9% 1000 ML INJ 1,000 ML IV ONE ×3 (07:45→11:00)
[2016-09-05 07:46] LABS: CKMB 7.6 NG/ML (0.5-3.6)
[2016-09-05 07:50] LABS: PLATELET ESTIMATE SMEAR LOW (NORMAL); PLATELET MORPHOLOGY NORMAL (NORMAL); SCAN/DIFF AUTO DIFF CONFIRMED
--- NOTE | 2016-09-05 07:59 | RADRPT ---
EXAM DATE/TIME: 09/05/2016 07:34 [facility] COMPARISON: CT CERVICAL SPINE W/O CONTRAST, July 26, 2016, 19:41. INDICATIONS : Altered mental status. RADIATION DOSE: 21.59 CTDIvol (mGy) MEDICAL HISTORY : Non-responsive. SURGICAL HISTORY : Non-responsive. ENCOUNTER: Initial ACUITY: 1 day PAIN SCALE: Non-responsive LOCATION: neck TECHNIQUE: Volumetric scanning of the cervical spine was performed. Multiplanar reconstructions i n the sagittal, coronal and oblique axial planes were performed. Using automated exposure control a nd adjustment of the mA and/or kV according to patient size, radiation dose was kept as low as reason ably achievable to obtain optimal diagnostic quality images. FINDINGS: VERTEBRAE: Normal vertebral body height. ALIGNMENT: No evidence of subluxation. C2-C3: The bony spinal canal is normal in size. No evidence of disc bulge or herniation. The neura l foramina are bilaterally patent. C3-C4: The bony spinal canal is normal in size. Mild disc bulge is evident.. The neural foramina a re bilaterally patent. C4-C5: The bony spinal canal is normal in size. No evidence of disc bulge or herniation. The neura l foramina are bilaterally patent. C5-C6: The bony spinal canal is normal in size. Mild central to left sided disc bulge is evident.. The neural foramina are bilaterally patent. C6-C7: The bony spinal canal is normal in size. No evidence of disc bulge or herniation. The neura l foramina are bilaterally patent. C7-T1: The bony spinal canal is normal in size. No evidence of disc bulge or herniation. The neura l foramina are bilaterally patent. CONCLUSION: Degenerative changes, negative for fracture. Aman Freeman MD FACR on September 05, 2016 at 7:54 Board Certified Radiologist. This report was verified electronically.
[2016-09-05] MEDS ORDERED: SODIUM CHLORIDE 0.9% FLUSH 10 ML FLUSH IV FLUSH PRN ×2 (08:15→08:30)
[2016-09-05] MEDS ORDERED: Vancomycin Consult Pharmacy 1 EA OTHER SCH (08:15)
[2016-09-05] MEDS ORDERED: CHLORHEXIDINE GLUCONATE 2 % 1 PACK (2 CLOTHS) TOP PRN ×2 (08:15→08:30)
[2016-09-05] MEDS ORDERED: MISCELLANEOUS NURSING INFORMATION XX SCH ×2 (08:15→08:30)
--- NOTE | 2016-09-05 08:26 | PD ---
Data Data Last Documented VS Vital Signs Date Time Temp Pulse Resp B/P Pulse Ox O2 Delivery O2 Flow Rate FiO2 09/05/16 06:44 112 18 189/99 100 Ventilator 09/05/16 06:26 100 09/05/16 06:15 102.3 Orders Electrocardiogram (09/05/16 06:31) Ammonia (09/05/16 06:31) Basic Metabolic Panel (Bmp) (09/05/16 06:31) Complete Blood Count With Diff (09/05/16 06:31) Creatine Kinase (Cpk) (09/05/16 06:31) Prothrombin Time / Inr (Pt) (09/05/16 06:31) Act Partial Throm Time (Ptt) (09/05/16 06:31) Troponin I (09/05/16 06:31) Thyroid Stimulating Hormone (09/05/16 06:31) Lactic Acid Sepsis Protocol (09/05/16 06:31) Urinalysis - C+S If Indicated (09/05/16 06:31) Arterial Blood Gas (Abg) (09/05/16 06:31) Blood Culture (09/05/16 06:31) Chest, Single Ap (09/05/16 06:31) Ct Brain W/O Iv Contrast(Rout) (09/05/16 06:31) Blood Glucose (09/05/16 06:31) Ecg Monitoring (09/05/16 06:31) Iv Access Insert/Monitor (09/05/16 06:31) Oximetry (09/05/16 06:31) Sodium Chloride 0.9% Flush (Ns Flush) (09/05/16 06:45) Sodium Chlor 0.9% 1000 Ml Inj (Ns 1000 M (09/05/16 06:31) Drug Screen, Random Urine (09/05/16 06:31) Alcohol (Ethanol) (09/05/16 06:31) Salicylates (Aspirin) (09/05/16 06:31) Tylenol (Acetaminophen) (09/05/16 06:31) Ceftriaxone Inj (Rocephin Inj) (09/05/16 06:45) Vancomycin Inj (Vancomycin Inj) (09/05/16 06:45) Etomidate Inj (Amidate Inj) (09/05/16 06:45) Rocuronium Inj (Zemuron Inj) (09/05/16 06:45) Propofol 1000 Mg/100 Ml Inj (Diprivan 10 (09/05/16 06:45) ^ Infusion (09/05/16 06:38) RASS (09/05/16 06:38) Neurological Rass Scale ROXANN.Q2H (09/05/16 06:38) Urinary Catheter Insert/Apply (09/05/16 06:39) Ct Cerv Spine W/O Contrast (09/05/16 ) Comprehensive Metabolic Panel (09/05/16 07:05) Csf Cell Count + Differential (09/05/16 07:05) Glucose, Csf (09/05/16 07:05) Total Protein, Csf (09/05/16 07:05) Csf Culture And Gram Stain (09/05/16 07:05) Hsv Dna Pcr (09/05/16 07:05) Acyclovir Inj (Zovirax Inj) (09/05/16 07:15) Acetaminophen Supp (Tylenol Supp) (09/05/16 07:30) CKMB (09/05/16 06:35) CKMB% (09/05/16 06:35) Sodium Chlor 0.9% 1000 Ml Inj (Ns 1000 M (09/05/16 07:45) Hepatic Functional Panel (09/05/16 08:11) Magnesium (Mg) (09/05/16 08:11) Phosphorus (Po4) (09/05/16 08:11) Us Abdomen Liver (09/05/16 ) Admit Order (Ed Use Only) (09/05/16 ) Admit To Inpatient (09/05/16 ) Code Status (09/05/16 08:13) Coagulating Bath Mixer / Telemetry ROXANN.Q8H (09/05/16 08:13) Insert Ng Tube (09/05/16 ) Diet Npo Except Meds (09/05/16 Breakfast) Sodium Chloride 0.9% Flush (Ns Flush) (09/05/16 08:15) Sodium Chloride 0.9% Flush (Ns Flush) (09/05/16 09:00) Lactic Acid Sepsis Protocol (09/05/16 08:13) Consult Pt Eval & Treat (09/05/16 08:13) Ot Request For Service (09/05/16 08:13) Vancomycin Consult Pharmacy (Vancomycin (09/05/16 08:15) Metronidazole (Flagyl) (09/05/16 08:15) Cefepime Inj (Maxipime Inj) (09/05/16 08:15) Azithromycin Inj (Zithromax Inj) (09/05/16 08:15) Sodium Chlor 0.9% 1000 Ml Inj (Ns 1000 M (09/05/16 08:13) Sodium Chlor 0.9% 1000 Ml Inj (Ns 1000 M (09/05/16 08:13) Sodium Chlor 0.9% 1000 Ml Inj (Ns 1000 M (09/05/16 08:13) ^ Initiate Protocol (09/05/16 08:13) ^ Instruction (09/05/16 08:13) [facility] (09/05/16 08:15) Chlorhexidine 2% Cloth (Chlorhexidine 2% (09/06/16 04:00) Chlorhexidine 2% Cloth (Chlorhexidine 2% (09/05/16 08:15) [facility]sa Pcr Surveillance (09/05/16 08:13) Lactulose Liq (Lactulose Liq) (09/05/16 09:00) Rifaximin (Xifaxan) (09/05/16 09:00) Ammonia (09/06/16 06:00) Mri Brain W/O Contrast (09/05/16 ) Labs Laboratory Tests Test 09/05/16 09/05/16 06:30 06:35 Urine Color YELLOW Urine Turbidity CLEAR Urine pH 6.0 Urine Specific [place] 1.013 Urine Protein 30 mg/dL Urine Glucose (UA) NEG mg/dL Urine Ketones NEG mg/dL Urine Occult Blood MOD Urine Nitrite NEG Urine Bilirubin NEG Urine Urobilinogen 4.0 MG/DL Urine Leukocyte Esterase NEG Urine RBC 22 /hpf Urine WBC 1 /hpf Urine Hyaline Casts 1 /lpf Urine Mucus FEW /lpf Microscopic Urinalysis Comment CATH-CULT NOT IND Urine Opiates Screen NEG Urine Barbiturates Screen NEG Urine Amphetamines Screen NEG Urine Benzodiazepines Screen NEG Urine Cocaine Screen NEG Urine Cannabinoids Screen POS White Blood Count 4.6 TH/MM3 Red Blood Count 4.23 MIL/MM3 Hemoglobin 14.2 GM/DL Hematocrit 41.5 % Mean Corpuscular Volume 98.2 FL Mean Corpuscular Hemoglobin 33.5 PG Mean Corpuscular Hemoglobin 34.1 % Concent Red Cell Distribution Width 14.4 % Platelet Count 37 TH/MM3 Mean Platelet Volume 10.5 FL Neutrophils (%) (Auto) 85.0 % Lymphocytes (%) (Auto) 9.1 % Monocytes (%) (Auto) 5.7 % Eosinophils (%) (Auto) 0.1 % Basophils (%) (Auto) 0.1 % Neutrophils # (Auto) 3.9 TH/MM3 Lymphocytes # (Auto) 0.4 TH/MM3 Monocytes # (Auto) 0.3 TH/MM3 Eosinophils # (Auto) 0.0 TH/MM3 Basophils # (Auto) 0.0 TH/MM3 CBC Comment AUTO DIFF Differential Comment AUTO DIFF CONFIRMED Platelet Estimate LOW Platelet Morphology Comment NORMAL Red Cell Morphology Comment NORMAL Prothrombin Time 13.8 SEC Prothromb Time International 1.2 RATIO Ratio Activated Partial 31.6 SEC Thromboplast Time Sodium Level 139 MEQ/L Potassium Level 4.5 MEQ/L Chloride Level 103 MEQ/L Carbon Dioxide Level 21.0 MEQ/L Anion Gap 15 MEQ/L Blood Urea Nitrogen 13 MG/DL Creatinine 1.25 MG/DL Estimat Glomerular Filtration 59 ML/MIN Rate Random Glucose 184 MG/DL Lactic Acid Level 9.2 mmol/L Calcium Level 8.3 MG/DL Ammonia 86 MCMOL/L Total Creatine Kinase 843 U/L Creatine Kinase MB 7.6 NG/ML Creatine Kinase MB % 0.9 % Troponin I 0.23 NG/ML Thyroid Stimulating Hormone 1.920 uIU/ML 3rd Gen Salicylates Level LESS THAN 1.7 MG/DL Acetaminophen Level LESS THAN 2.0 MCG/ML Ethyl Alcohol Level 39 MG/DL [facility] Supervised Visit with NIYAH: No Narrative Course 61-year-old man with altered mental status, progressive for several days, picked up by EMS obtunded, to seizures and round, fever here. History of hepatitis and alcoholism. Patient was intubated in the ED. Sign out to me to admit. I spoke with Dr. ORTIZ with the ICU, with patient. So concern for meningitis. LP contraindicated due to thrombocytopenia. Broadly covered. Lactate was 9.2. Troponins elevated. Ammonia 86. Chest x-ray with some perihilar infiltrates. CT head and neck are negative. Diagnosis Primary Impression: Altered mental status Qualified Code: R40.2431 - [place] coma scale total score 3-8, in the field ( EMT or ambulance) Saad Roth MD Sep 05, 2016 08:26
[2016-09-05] MEDS ORDERED: ONDANSETRON HCL 4 MG/2 ML VIAL IV PRN (08:30)
[2016-09-05] MEDS ORDERED: SENNOSIDES SYRUP 8.8 MG/5 ML CUP G-TUBE PRN (08:30)
[2016-09-05] MEDS ORDERED: ACETAMINOPHEN 325 MG TAB PO PRN (08:30)
[2016-09-05] MEDS ORDERED: MAGNESIUM OXIDE 400 MG TAB PO PRN (08:30)
[2016-09-05] MEDS ORDERED: DEXTROSE 50% IN WATER 50 ML VIAL(D50) IV PUSH PRN ×2 (08:30→08:45)
[2016-09-05] MEDS ORDERED: POTASSIUM PHOSPHATE MONOBASIC 500 MG TAB PO/TUBE PRN (08:30)
[2016-09-05] MEDS ORDERED: POTASSIUM PHOSPHATE MONOBASIC 500 MG TAB PO PRN (08:30)
[2016-09-05] MEDS ORDERED: fentaNYL DRIP 250 ML IV SCH ×2 (08:30→09:30)
[2016-09-05] MEDS ORDERED: RESP: ALBUTEROL 2.5 MG/3 ML NEB (PRN) INH (08:30)
[2016-09-05] MEDS ORDERED: GLUCAGON 1 MG/ML VIAL OTHER PRN ×2 (08:30→08:45)
[2016-09-05] MEDS ORDERED: POTASSIUM CHLOR 40 MEQ PREMIX 100 ML IV PRN ×2 (08:30)
[2016-09-05] MEDS ORDERED: PROPOFOL 1000 MG/100 ML INJ 100 ML IV SCH (08:30)
[2016-09-05] MEDS ORDERED: MAGNESIUM SULFATE INJ 4 GM in SODIUM CHLORIDE 0.9% INJ 92 ML IV PRN (08:30)
[2016-09-05] MEDS ORDERED: MIDAZOLAM 100 MG/ML INJ 100 ML IV SCH (08:45)
[2016-09-05] MEDS ORDERED: NITROGLYCERIN 2% OINT 1 GM PACKET TOPICAL PRN (08:45)
[2016-09-05] MEDS ORDERED: LABETALOL HCL 100 MG/20 ML VIAL IV PUSH PRN (08:45)
[2016-09-05 08:47] LABS: AST (GOT) 79 U/L (15-37); MAGNESIUM 1.6 MG/DL (1.5-2.5); TOTAL BILIRUBIN ADULT 3.5 MG/DL (0.2-1.0)
[2016-09-05 08:58] LABS: LACTIC ACID GHOST NOT REPORTABLE
[2016-09-05] MEDS ORDERED: SODIUM CHLORIDE 0.9% FLUSH 10 ML FLUSH IV FLUSH SCH (09:00)
[2016-09-05] MEDS: LACTULOSE SYRUP 20 GM/30 ML CUP PO SCH ×4 (09:00→22:29)
[2016-09-05] MEDS ORDERED: AZITHROMYCIN INJ 500 MG in SODIUM CHLOR 0.9% 250 ML INJ 250 ML IV SCH (09:00)
[2016-09-05] MEDS: SODIUM CHLORIDE 0.9% FLUSH 10 ML FLUSH IV FLUSH SCH ×2 (09:00→21:00)
[2016-09-05 09:01] LABS: ALKALINE PHOSPHATASE 121 U/L (45-117); ALT (GPT) 32 U/L (12-78)
[2016-09-05 09:11] LABS: BLOOD GAS BASE EXCESS -1.9 mmol/L (-2-2); BLOOD GAS CARBOXYHEMOGLOBIN 1.7 % (0-4); BLOOD GAS HCO3 21 mmol/L (22-26); BLOOD GAS METHEMOGLOBIN 0.3 % (0-2); BLOOD GAS O2 HGB SATURATION 99 % (90-100); BLOOD GAS OXYGEN CONTENT 18.3 Vol % (12.0-20.0); BLOOD GAS PCO2 30 mmHg (38-42); BLOOD GAS PO2 397 mmHG (61-120); BLOOD GAS TOTAL HGB 12.6 G/DL (12.0-16.0); CRITICAL VALUE NO; DRAW SITE RT RADIAL; FIO2 100 %; NUMBER OF ARTERIAL PUNCTURES 1; OXYGEN DEVICE VENTILATOR; TEMP CORR TO 98.6; VENT SETTINGS 500/16/PEEP5
[2016-09-05 09:12] LABS: STAT NO; ULNAR PULSE PRESENT
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
[2016-09-05] MEDS ORDERED: levETIRAcetam INJ 500 MG in SODIUM CHLORIDE 0.9% INJ 100 ML IV ONE (09:30)
[2016-09-05] MEDS ORDERED: SODIUM PHOSPHATE INJ 30 MMOL in SODIUM CHLOR 0.9% 250 ML INJ 250 ML IV ONE (09:30)
[2016-09-05] MEDS ORDERED: FOLIC ACID 1 MG TAB PO ONE (09:30)
[2016-09-05] MEDS ORDERED: levETIRAcetam INJ 500 MG in SODIUM CHLORIDE 0.9% INJ 100 ML IV SCH ×2 (10:00→18:00)
[2016-09-05] MEDS: RIFAXIMIN 550 MG TAB PO SCH ×2 (10:00→22:29)
[2016-09-05] MEDS: metroNIDAZOLE 500 MG TAB PO SCH ×2 (10:00→18:52)
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
[2016-09-05] MEDS ORDERED: MULTIVITAMIN TAB PO ONE (10:30)
[2016-09-05] MEDS: MAGNESIUM SULFATE 1 GM PREMIX 100 ML IV SCH ×2 (10:30→12:05)
[2016-09-05] MEDS ORDERED: POTASSIUM PHOSPHATE/SODIUM PHOSPHATE 250 MG TAB PO ONE (10:30)
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
[2016-09-05] MEDS: DOCUSATE SODIUM 100 MG/10 ML UDC G-TUBE SCH ×2 (10:46→22:29)
[2016-09-05] MEDS: CEFEPIME INJ 2,000 MG in SODIUM CHLORIDE 0.9% INJ 100 ML IV SCH ×3 (10:47→18:52)
[2016-09-05] MEDS: RESP: ALBUTEROL 2.5 MG/IPRATROPIUM 0.5 MG NEB (SCH) INH ×3 (10:54→19:59)
[2016-09-05] MEDS: THIAMINE INJ 100 MG in SODIUM CHLORIDE 0.9% INJ 100 ML IV SCH (11:00)
[2016-09-05] MEDS: SODIUM CHLOR 0.9% 1000 ML INJ 1,000 ML IV SCH ×2 (11:17→22:29)
[2016-09-05] MEDS: PANTOPRAZOLE SODIUM 40 MG VIAL IV SCH (11:18)
[2016-09-05] MEDS: INSULIN NovoLIN REGULAR SUPPLEMENTAL SCALE SQ SCH ×2 (12:00→18:00)
[2016-09-05] MEDS ORDERED: SODIUM CHLOR 0.9% 1000 ML INJ 400 ML IV ONE (12:00)
[2016-09-05] MEDS: AZITHROMYCIN INJ 500 MG in SODIUM CHLOR 0.9% 250 ML INJ 250 ML IV SCH (12:05)
[2016-09-05] MEDS: ARTIFICIAL TEARS OPTH SOLN 15 ML BTL EACH EYE SCH ×2 (12:42→18:00)
[2016-09-05] MEDS ORDERED: METF500T4 PO (13:01)
[2016-09-05] MEDS ORDERED: PROP20TA3 PO (13:01)
--- NOTE | 2016-09-05 14:13 | MG ---
cc: RAVIN BASS M.D. Lab No: [id number] Date: 09/05/2016 Age: Sex: M Race: TECHNIQUE: 17 channel EEG. DESCRIPTION: The background rhythm shows generalized slowing in the delta and theta frequencies. The frequency ranges from 3-5 Hz. The amplitude is roughly 10-20 microvolts. No lateralizing features are identified. No epileptiform features are seen. INTERPRETATION: Abnormal study on the basis of generalized slowing consistent with a diffuse encephalopathy. MD MIGUEL Lanza/DOUG /1:56 PM /2:05 PM
[2016-09-05] MEDS ORDERED: ROCURONIUM INJ 50 MG/5 ML VIAL ONE (15:08)
--- NOTE | 2016-09-05 15:32 | ECHLIM ---
Study Study Date:09/05/2016 STUDY CONCLUSIONS SUMMARY - Left ventricle: The cavity size was normal. Wall thickness was normal. Systolic function was normal. The estimated ejection fraction was 60%. Wall motion was normal; there were no regional wall motion abnormalities. - Aortic valve: Mild regurgitation. - Mitral valve: Mild regurgitation. - Left atrium: The atrium was mildly dilated. - Right ventricle: The cavity size was dilated. Wall thickness was normal. - Pulmonary arteries: Systolic pressure was mildly increased, estimated to be 41mm Hg. If LV function is below 40, please consider prescribing an ACEI or ARB or document rationale for non-use. PROCEDURE DATA STUDY STATUS: Elective. Procedure: Transthoracic echocardiography. Image quality was good. Scanning was performed from the parasternal, apical, and subcostal acoustic windows. Study completion: The patient tolerated the procedure well. Transthoracic echocardiography. M-mode, complete 2D, complete spectral Doppler, and color Doppler. Patient status: Inpatient. CARDIAC ANATOMY LEFT VENTRICLE: The cavity size was normal. Wall thickness was normal. Systolic function was normal. The estimated ejection fraction was 60%. Wall motion was normal; there were no regional wall motion abnormalities. AORTIC VALVE: Trileaflet; normal thickness leaflets. Doppler: Transvalvular velocity was within the normal range. There was no stenosis. Mild regurgitation. AORTA: Aortic root: The aortic root was normal in size. MITRAL VALVE: Structurally normal valve. Doppler: Transvalvular velocity was within the normal range. There was no evidence for stenosis. Mild regurgitation. LEFT ATRIUM: The atrium was mildly dilated. RIGHT VENTRICLE: The cavity size was dilated. Wall thickness was normal. PULMONIC VALVE: Doppler: Transvalvular velocity was within the normal range. There was no evidence for stenosis. No regurgitation. TRICUSPID VALVE: Structurally normal valve. Doppler: Transvalvular velocity was within the normal range. Trace regurgitation. PULMONARY ARTERY: The main pulmonary artery was normal-sized. Systolic pressure was mildly increased, estimated to be 41mm Hg. RIGHT ATRIUM: The atrium was normal in size. PERICARDIUM: There was no pericardial effusion. SYSTEMIC VEINS: Inferior vena cava: The vessel was normal in size. BASIC MEASUREMENTS ADULT Normal Left ventricle LV internal dimension, ED, chordal level, *38.5 mm 43-52 PLAX LV internal dimension, ES, chordal level, 28.7 mm 23-38 PLAX Fractional shortening, chordal level, PLAX *25 % >29 LV posterior wall thickness, ED 7.41 mm IVS/LVPW ratio, ED *1.58 <1.3 Ventricular septum Septal thickness, ED 11.7 mm Left atrium Anterior-posterior dimension 46 mm Right ventricle RV internal dimension, ED, PLAX *39 mm 19-38 DOPPLER MEASUREMENTS ADULT Normal Tricuspid valve Regurgitant peak velocity 266 cm/s Peak RV-RA gradient, S 28 mm Hg Maximal regurgitant velocity 266 cm/s LEGEND: Mean values are shown as u=mean value. Asterisk (*) zambrano values outside specified normal range. Prepared and signed by Rsoa Menchaca [id number]
--- NOTE | 2016-09-05 17:09 | OTSOAPIP ---
TIME SESSION COMPLETED: 1702 RECEIVED OCCUPATIONAL THERAPY ORDERS FROM DR. ORTIZ. ATTEMPTED TO SEE PATIENT THIS DATE, HOWEVER UPON ARRIVAL [facility] IS PREPARING TO TRANSPORT PATIENT TO MRI. PATIENT UNABLE TO BE SEEN. WILL REATTEMPT PATIENT NEXT DAY. INTERDISCIPLINARY COMMUNICATION: REVIEWED ELECTRONIC MEDICAL RECORD, SPOKE WITH [facility] AND [facility] Therapist: Vida Lynch, OTR/L Signature on file
--- NOTE | 2016-09-05 18:22 | RADRPT ---
EXAM DATE/TIME: 09/05/2016 17:27 [facility] COMPARISON: MRI BRAIN W & W/O CONTRAST, September 05, 2016, 17:27. INDICATIONS : Encephalitis. MEDICAL HISTORY : Hepatitis C. Cirrhosis. Hypertension. Diabetes. PAD. Seizures. SURGICAL HISTORY : Unknown. ENCOUNTER: Subsequent ACUITY: 1 day PAIN SCORE: Nonresponsive. LOCATION: cranial Please note a normal MRA of the brain does not entirely exclude the possibility of a small aneurysm, nor the possibility of distal intracranial vessel disease. TECHNIQUE: 3D time of flight MRA was performed. Source images, multiplanar STS MIP, and 3D volume MIP reconstru ctions were reviewed. FINDINGS: There is excellent visualization of the major intracranial arteries out to the second-order branch ve ssels. There is no evidence for aneurysm, vessel truncation or stenosis, and no evidence for vascula r malformation. CONCLUSION: Normal MRA. Marcin Appiah MD on September 05, 2016 at 18:19 Board Certified Radiologist. This report was verified electronically.
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
--- NOTE | 2016-09-05 18:37 | MB ---
cc: SUDHIR HIGGINBOTHAM MD DATE OF CONSULTATION 09/05/16 HISTORY OF PRESENT ILLNESS Mr. Garibay is a 61-year-old white male [place] with multiple medical problems. He presented to [facility] this morning with altered mental status. He has had mental status changes for the last two days. He was found unresponsive by EMS and had two seizures. He was intubated and placed on the ventilator. He was found to have mildly elevated troponin. PAST MEDICAL HISTORY Positive for hypertension, hepatitis C, liver cirrhosis, right lower extremity DVT, thrombocytopenia, diabetes mellitus, peripheral neuropathy, left leg MRSA infection, T&A. MEDICATIONS 1. Levaquin. 2. Metformin. 3. Metoprolol. 4. Lisinopril. ALLERGIES No known medical allergies. SOCIAL HISTORY The patient does not smoke, he quit smoking 4 years ago. Positive for THC. He drinks beer daily. FAMILY HISTORY Negative for heart disease. REVIEW OF SYSTEMS The review of systems is otherwise negative. PHYSICAL EXAMINATION VITAL SIGNS: Blood pressure 148/85, pulse 72 and regular. HEENT: The patient is intubated and sedated. NECK: 2+ carotid upstrokes. No bruits. LUNGS: Clear. HEART: Regular with no murmur or gallop. ABDOMEN: Soft. No bruit. EXTREMITIES: With trace edema. LE skin with dark discoloration. There are healed scars at the right tibial area. NEUROLOGIC: Nonfocal. The patient is sedated. CARDIOLOGY STUDIES EKG was reviewed and showed sinus tachycardia, left atrial enlargement, incomplete right bundle branch block, nonspecific ST-T changes. Telemetry shows normal sinus rhythm. LABORATORY DATA Hemoglobin 14.2, potassium 4.5, creatinine 1.25, CK 843, CK MB index normal at 0.9. Troponin 0.23. AST 79, ALT 32. Echocardiogram showed preserved left ventricular systolic function with an ejection fraction of 60% with no segmental wall motion abnormalities, mild mitral regurgitation and mild pulmonary hypertension. Estimated pulmonary artery systolic pressure of 41 mmHg. DIAGNOSIS 1. Mildly abnormal troponin. 2. Altered mental status. 3. Seizures. 4. Cirrhosis. 5. Respiratory failure. 6. Hepatitis C. 7. Depression. 8. Diabetes mellitus. 9. Thrombocytopenia. 10. Hypertension. 11. Septic shock. DISPOSITION Mr. Garibay will be monitored on telemetry. His troponin is mildly elevated. At this time there is no evidence of acute coronary syndrome. We will obtain serial enzymes and EKGs. His echocardiogram shows preserved left ventricular systolic function and no segmental wall motion abnormalities. He will be monitored in the ICU. He will be weaned off the ventilator and extubated as tolerated. I will follow him for cardiology during his hospitalization. He will follow up at the [place] after discharge. MD FERN Holm/KRISTY /5:01 PM /6:16 PM TRUDI
[2016-09-05] MEDS: levETIRAcetam INJ 500 MG in SODIUM CHLORIDE 0.9% INJ 100 ML IV SCH (18:48)
[2016-09-05] MEDS ORDERED: GADODIAMIDE PF 287 MG/ML 5 ML VIAL (for RAD MRI) IV ONE (18:53)
[2016-09-05] MEDS: CHLORHEXIDINE 0.12% (ORAL KIT) 15 ML CUP MT SCH (20:00)
[2016-09-06] VITALS (18 sets, daily range): BP systolic 103–143; BP diastolic 60–81; PULSE 63–92; RESP 15–24; TEMP 98.6–99.2; O2SAT 99–100
[2016-09-06] MEDS: levETIRAcetam INJ 500 MG in SODIUM CHLORIDE 0.9% INJ 100 ML IV SCH ×5 (01:17→23:34)
[2016-09-06] MEDS: metroNIDAZOLE 500 MG TAB PO SCH ×3 (01:17→17:31)
[2016-09-06] MEDS: RESP: ALBUTEROL 2.5 MG/IPRATROPIUM 0.5 MG NEB (SCH) INH ×4 (03:22→21:15)
[2016-09-06] MEDS: CHLORHEXIDINE GLUCONATE 2 % 1 PACK (2 CLOTHS) TOP SCH (04:00)
[2016-09-06] MEDS ORDERED: CHLORHEXIDINE GLUCONATE 2 % 1 PACK (2 CLOTHS) TOP SCH (04:00)
[2016-09-06] MEDS: INSULIN NovoLIN REGULAR SUPPLEMENTAL SCALE SQ SCH ×5 (04:59→23:35)
[2016-09-06] MEDS: PROPOFOL 1000 MG/100 ML INJ 100 ML IV SCH (05:00)
[2016-09-06] MEDS: SODIUM CHLOR 0.9% 1000 ML INJ 1,000 ML IV SCH ×2 (05:00→20:26)
[2016-09-06 05:22] LABS: APTT (PATIENT) 32.9 SEC (24.3-30.1); INTERNATIONAL NORMALIZED RATIO 1.3 RATIO; PROTHROMBIN TIME - PATIENT 14.2 SEC (9.8-11.6)
[2016-09-06 05:24] LABS: AUTOMATED NEUTROPHIL # 2.1 TH/MM3 (1.8-7.7); BASOPHIL % 0.4 % (0.0-2.0); EOSINOPHIL # 0.1 TH/MM3 (0-0.4); EOSINOPHIL % 2.2 % (0.0-4.0); HEMATOCRIT 36.1 % (39.0-51.0); LYMPH % 16.8 % (9.0-44.0); LYMPHOCYTE # 0.5 TH/MM3 (1.0-4.8); MEAN CELL VOLUME 98.6 FL (80.0-100.0); MEAN CORPUSCULAR HEMOGLOBIN 33.5 PG (27.0-34.0); MONO % 12.5 % (0.0-8.0); NEUT % 68.1 % (16.0-70.0); PLATELET COUNT 25 TH/MM3 (150-450); RED BLOOD COUNT 3.66 MIL/MM3 (4.50-5.90); RED CELL DISTRIBUTION WIDTH 14.3 % (11.6-17.2)
[2016-09-06 05:25] LABS: BLOOD GAS BASE EXCESS -2.1 mmol/L (-2-2); BLOOD GAS CARBOXYHEMOGLOBIN 2.1 % (0-4); BLOOD GAS HCO3 21 mmol/L (22-26); BLOOD GAS O2 HGB SATURATION 96 % (90-100); BLOOD GAS OXYGEN CONTENT 16.7 Vol % (12.0-20.0); BLOOD GAS PCO2 30 mmHg (38-42); BLOOD GAS PO2 124 mmHg (61-120); BLOOD GAS TOTAL HGB 12.2 G/DL (12.0-16.0); CRITICAL VALUE NO; OXYGEN DEVICE VENTILATOR; TEMP CORR TO 98.6
[2016-09-06 05:26] LABS: DRAW SITE RT RADIAL; FIO2 40 %; NUMBER OF ARTERIAL PUNCTURES 2; STAT NO; ULNAR PULSE PRESENT; VENT SETTINGS AC15/600/PEEP5
[2016-09-06 05:40] LABS: HEMO FLAGS AUTO DIFF
[2016-09-06 05:50] LABS: BICARBONATE 24.8 MEQ/L (21.0-32.0); CALCIUM-PROTEIN CORRECTED 7.9 MG/DL (8.5-10.1); MAGNESIUM 1.9 MG/DL (1.5-2.5); POTASSIUM 3.4 MEQ/L (3.5-5.1); TOTAL BILIRUBIN ADULT 2.4 MG/DL (0.2-1.0)
--- NOTE | 2016-09-06 06:50 | HHI.CCPN ---
Subjective Remarks/Hospital Course 61yo male. Date of admission 09/05/2016. Past medical history includes depression, hypertension, hepatitis C with cirrhotic liver, diabetes mellitus with peripheral neuropathy, history of right lower extremity DVT, chronic thrombocytopenia and history of MRSA to left leg 2015. He is on metformin for diabetes. He presents to [facility] this a.m. with altered mental status. According to EMS report, pt's roommate states he has been " in and out of it " for 2 days. Today patient was found unresponsive on a couch by EMS. He has had 2 seizures in route the first lasted approximately 5 minutes was given 2 mg Ativan with another one approximate 1 minute duration received another 2 mg Ativan.. Given 2mg ativan and then another seizure about 10 min after the ativan so another 2 mg ativan given. Pt was moving all extremities but tachypneic and not responding to verbal stimuli. Pt was febrile in the ED. Patient was emergently intubated with a 7.5 ET tube after receiving 20 mg IV etomidate along with 60 mg IV rocuronium by Dr. Roblero. CT head - superior nasal spine fracture otherwise unremarkable CT C-spine -C5/6 mild disc bulge otherwise unremarkable Chest x-ray - bilateral hilar infiltrates. Cardiomegaly Pertinent labs revealed a normal white cell count, platelet count 37,000. Normal BMP, Lactic acidosis of 9.2, troponin 0.23, alcohol level 37 with positive THC level. NH3+ was 86 patient was going to be lumbar puncture in ED however platelet count is less than 50,000 the present time. Risk of spinal hematoma outweighs benefits of lumbar puncture this time. No consentable family members available currently. Patient is with one daughter he is close to. He also has a dog. In the ED, there is copious amounts of blood coming from the mouth. This was Yankauer suction to clear. Blood tinged sputum from ETT. NG tube with greenish bile gastric output. I removed one right lower denture. The left lower side is missing. Subjective: 09/06 EEG showed generalized slowing. Imaging workup RN has noted ongoing bleeding from mouth and platelets 25k. Lactic acidosis cleared and urine output adequate. Ammonia 73. Has received 2 doses of lactulose and no bowel movement yet. Objective Vital Signs Date Time Temp Pulse Resp B/P Pulse Ox O2 Delivery O2 Flow Rate FiO2 09/06/16 04:19 99 40 09/06/16 00:00 63 09/05/16 20:00 98.2 15 100/59 09/05/16 12:02 Ventilator Intake and Output 09/05/16 09/05/16 09/06/16 08:00 16:00 00:00 Intake Total 1591 ml Output Total 900 ml 250 ml Balance -900 ml 1341 ml Result Diagram: 09/06/16 0456 09/06/16 0456 Other Results Microbiology Date/Time Procedure Status Source Growth 09/05/16 06:30 Legionella Antigen - Final Complete Urine Catheterized Urine PRESUMPTIVE NEGATIVE FOR LEGIONELLA P... 09/05/16 06:30 Streptococcus pneumoniae Antigen (M - Final Complete Urine Clean Catch PRESUMPTIVE NEGATIVE FOR STREPTOCOCCU... 09/05/16 08:45 Influenza Types A,B Antigen (HUA) - Final Complete Nasal Aspirate NEGATIVE FOR FLU A AND B ANTIGEN.... Laboratory Tests Test 09/05/16 09/06/16 08:14 05:15 Blood Gas Puncture Site RT RADIAL RT RADIAL Blood Gas Patient Temperature 98.6 98.6 Blood Gas HCO3 21 mmol/L 21 mmol/L (22-26) (22-26) Blood Gas Base Excess -1.9 mmol/L -2.1 mmol/L (-2-2) (-2-2) Blood Gas Oxygen Saturation 99 % (90-100) 96 % (90-100) Arterial Blood pH 7.47 7.46 (7.380-7.420) (7.380-7.420) Arterial Blood Partial 30 mmHg (38-42) 30 mmHg (38-42) Pressure CO2 Arterial Blood Partial 397 mmHG 124 mmHg Pressure O2 (61-120) (61-120) Arterial Blood Oxygen Content 18.3 Vol % 16.7 Vol % (12.0-20.0) (12.0-20.0) Arterial Blood 1.7 % (0-4) 2.1 % (0-4) Carboxyhemoglobin Arterial Blood Methemoglobin 0.3 % (0-2) 1.0 % (0-2) Blood Gas Hemoglobin 12.6 G/DL 12.2 G/DL (12.0-16.0) (12.0-16.0) Oxygen Delivery Device VENTILATOR VENTILATOR Blood Gas Ventilator Setting 500/16/PEEP5 AC15/600/PEEP5 Blood Gas Inspired Oxygen 100 % 40 % Imaging Last Impressions Head CT 09/05/16630 Signed Impressions: Service Date/Time: Monday, September 05, 2016 07:34 - CONCLUSION: Size disease, fracture superior nasal spine otherwise negative. Aman Freeman MD FACR Chest X-Ray 09/05/16630 Signed Impressions: Service Date/Time: Monday, September 05, 2016 06:48 - CONCLUSION: 1. Bilateral perihilar infiltrates and small left pleural effusion. 2. Endotracheal tube tip is close to the uziel. 3. Nasogastric tube courses into the stomach. Marcin Schmidt MD Cervical Spine CT 09/05/16 0000 Signed Impressions: Service Date/Time: Monday, September 05, 2016 07:34 - CONCLUSION: Degenerative changes, negative for fracture. Aman Freeman MD FACR Objective Remarks Drips: Propofol (placed on hold) 0.9 NaCl at 84 mL per hour GENERAL: 61-year-old male, orotracheally intubated. SKIN: Warm and dry. No rash. No petechiae. HEAD: Atraumatic. Normocephalic. EYES: Pupils equal and round about 3 mm bilaterally constricts to 2 mm. + icterus. No injection or drainage. ENT: No nasal bleeding or discharge. Mucous membranes pink and moist. Dentures removed, some remaining lower natural teeth. Currently no active nasal or oral bleeding. NECK: Trachea midline. No JVD. CARDIOVASCULAR: Regular rate and rhythm. S1, S2. No murmur. RESPIRATORY: CTAB. GASTROINTESTINAL: Abdomen soft, non-tender, nondistended. Bowel sounds present. : Hanley in place with light deana urine output. MUSCULOSKELETAL: Extremities without anyperipheral edema. No obvious deformities. NEUROLOGICAL: Sedated on the ventilator. Just spelled sedation and he withdraws all extremities. No clonus. A/P Assessment and Plan Neuro/Psych: Acute encephalopathy - toxic metabolic versus infectious. Hepatic encephalopathy Hyperammonemia History of depression THC positive Alcohol abuse Seizure On propofol. Hold for sedation vacation. Consider precedex to facilitate extubation Goal of RASS -2 CT head 09/05 revealed no acute intracranial findings. Superior nasal spine fracture noted MRI 09/05minimal increased periventricular white matter changes and focus of signal in right frontal lobe. EEG 09/05generalized swelling Keppra 500 mg IV every 6 hours per neurology Neurology consult. Appreciate Dr. Rodríguez's assistance. Thiamine/folate/multivitamin daily Continue Xifaxan 550 milligrams twice a day; Lactulose 30 cc 4 times a day Recheck ammonia level in a.m. Monitor for DTs Seizure precautions No lumbar puncture with fever due to thrombocytopenia/platelet count of less than 50,000 at risk for spinal hematoma with a normal white blood cell count. Thrombocytopenia is chronic. CV: Elevated troponin Hypertension Dilated cardiomyopathy Seen by Dr. Falcon 07/25 admission. Recommended no intervention with multiple medical issues, alcoholism, thrombocytopenia and no chest pain. 2-D echocardiogram 07/25 - EF 55-60% right ventricle systolic pressure around 90 mmHg. Mild AR, MR. Left atrium and left ventricle and right ventricle all dilated Echo 09/05/16LVEF 60%. LV cavity size reported normal. No regional wall motion abnormalities. RV dilated. Normal wall thickness. Pulmonary artery systolic pressure 41 mmHg. EKG reveals sinus tachycardia 111. Left atrial enlargement. Incomplete RBBB with ST depression in V1 through V5. Troponin peaked at 2.38. Dr. Menchaca evaluated. Recommended follow-up with [facility] upon discharge. Currently normotensive. Hold Home medication metoprolol 25 mg by mouth twice a day lisinopril 5 mg by mouth daily, however may need to resume Resp: Acute respiratory failure Community acquired Pneumonia History of prior tobaccoism ACV / Ventilator bundle Bronchodilator therapy every 6 hours with albuterol every 2 hours when necessary dyspnea Spontaneous breathing trial today and will extubate if mental status and CPAP performance appropriate Chest x-rayperihilar infiltrate Patient had a negative CT of the chest 07/25 for pulmonary embolism GI: Hepatitis C unknown genotype Cirrhosis Elevated total bilirubin Chronic mild protein energy malnutrition Bilirubin downtrending Liver ultrasoundmoderate splenomegaly. Increased echogenicity of the liver. Gallbladder normal. Increase Neutra hep goal 60 cc an hour per nutrition recommendations Protonix for GI prophylaxis Colace/as needed Senokot for bowel regimen FEN/RENAL: Acute kidney injury Hypokalemia Hypophosphatemia Creatinine normalized. Hanley in place accurate I's and O's in a critically ill patient Electrolyte replacement protocol Endo: Diabetes mellitus with neuropathy Sliding-scale insulin with Accu-Cheks to maintain euglycemia/low regimen every 6 hours Home medication metformin 500 mg by mouth daily held in light of lactic acidosis TSH normal Heme: Hypofibrinogenemia (121), likely due to poor hepatic synthetic function Prolonged PTT Thrombocytopenia - chronic History of right lower extremity DVT Right lower extremity Doppler 09/05negative for DVT Daily CBC. Check fibrinogen ID: Leukopenia Receive 1 dose acyclovir, Rocephin and azithromycin 1. Continue on vancomycin, cefepime, azithromycin and Flagyl for pneumococcal/CSF coverage Microbiology: Influenza negative 09/05 - blood cultures 2 - pending 09/05urine pneumococcal antigen and Legionella antigen negative 09/05U/A negative for evidence of infection Sputum culture ordered but not obtained. We'll ensure it is done today. MAXILLOFACIAL: Superior nasal spine fracture Nonsurgical. Supportive care Access - PIV Prophylaxis - GI - Protonix - DVT - SCD/holding pharmacological prophylaxis with thrombocytopenia CCT 35 minutes exclusive of separately billable procedures. Nena Armijo MD Sep 06, 2016 06:50 billable procedures was not included in the critical care time. Nena Armijo MD Sep 06, 2016 06:50
[2016-09-06 08:12] LABS: PLATELET ESTIMATE SMEAR LOW (NORMAL); PLATELET MORPHOLOGY NORMAL (NORMAL); SCAN/DIFF AUTO DIFF CONFIRMED
[2016-09-06] MEDS: MULTIVITAMIN TAB PO SCH (08:28)
[2016-09-06] MEDS: LACTULOSE SYRUP 20 GM/30 ML CUP PO SCH ×4 (08:28→20:26)
[2016-09-06] MEDS: THIAMINE INJ 100 MG in SODIUM CHLORIDE 0.9% INJ 100 ML IV SCH (08:28)
[2016-09-06] MEDS: FOLIC ACID 1 MG TAB PO SCH (08:28)
[2016-09-06] MEDS: DOCUSATE SODIUM 100 MG/10 ML UDC G-TUBE SCH ×2 (08:28→20:26)
[2016-09-06] MEDS: RIFAXIMIN 550 MG TAB PO SCH ×2 (08:28→20:26)
[2016-09-06] MEDS: CEFEPIME INJ 2,000 MG in SODIUM CHLORIDE 0.9% INJ 100 ML IV SCH ×2 (08:29→17:31)
[2016-09-06] MEDS: PANTOPRAZOLE SODIUM 40 MG VIAL IV SCH (08:29)
[2016-09-06] MEDS: CHLORHEXIDINE 0.12% (ORAL KIT) 15 ML CUP MT SCH ×2 (08:30→20:00)
[2016-09-06] MEDS: ARTIFICIAL TEARS OPTH SOLN 15 ML BTL EACH EYE SCH ×3 (08:31→17:31)
[2016-09-06] MEDS: SODIUM CHLORIDE 0.9% FLUSH 10 ML FLUSH IV FLUSH SCH ×2 (08:31→20:26)
[2016-09-06] MEDS: AZITHROMYCIN INJ 500 MG in SODIUM CHLOR 0.9% 250 ML INJ 250 ML IV SCH (10:52)
[2016-09-06] MEDS: POTASSIUM CHLOR 20 MEQ PREMIX 100 ML IV PRN (11:34)
[2016-09-06] MEDS: VANCOMYCIN INJ 1,250 MG in SODIUM CHLOR 0.9% 250 ML INJ 250 ML IV SCH (14:21)
--- NOTE | 2016-09-06 14:28 | PD.CARD.PN ---
Subjective Subjective Remarks Intubated, sedated Objective Medications Current Medications Medications (Trade) Dose Ordered Sig/Dariana Route Start Time Stop Time Status Last Admin (Vancomycin Consult Pharmacy) 0 ml @ 0 mls/hr UNSCH OTHER 09/05/16 08:15 Metronidazole 500 mg 500 mg Q8H PO 09/05/16 10:00 09/06/16 10:52 (Maxipime Inj/NS Inj) 100 ml @ 200 mls/hr Q8H IV 09/05/16 09:00 09/06/16 08:29 Miscellaneous Information 1 [id number] XX 09/05/16 08:15 (Chlorhexidine 2% Cloth) 3 pack Taper DAILY@04 TOP 09/06/16 04:00 09/02/17 03:59 09/06/16 04:00 (Chlorhexidine 2% Cloth) 3 pack UNSCH PRN TOP 09/05/16 08:15 (Lactulose Liq) 30 ml QID PO 09/05/16 09:00 09/06/16 13:49 Rifaximin 550 mg 550 mg BID PO 09/05/16 10:00 09/06/16 08:28 (NS 1000 ml Inj) 1,000 ml @ 84 mls/hr [id number] IV 09/05/16 08:25 09/06/16 05:00 (NS Flush) 2 ml UNSCH PRN IV FLUSH 09/05/16 08:30 (NS Flush) 2 ml BID IV FLUSH 09/05/16 09:00 09/06/16 08:31 (Tylenol) 650 mg Q6H PRN PO 09/05/16 08:30 (Protonix Inj) 40 mg DAILY IV 09/05/16 09:00 09/06/16 08:29 (Tears Naturale Opth Soln) 1 drop TID EACH EYE 09/05/16 13:00 09/06/16 13:00 (Zofran Inj) 4 mg Q6H PRN IV 09/05/16 08:30 (Colace Liq) 100 mg Q12HR G-TUBE 09/05/16 11:00 09/06/16 08:28 Sennosides 17.6 mg 17.6 mg Q12H PRN G-TUBE 09/05/16 08:30 Potassium Chloride 100 ml @ 50 mls/hr Q2H PRN IV 09/05/16 08:30 (KCl 20 Meq Premix Inj) 100 ml @ 50 mls/hr Q2H PRN IV 09/05/16 08:30 Potassium Bicarb/ Potassium Chloride 50 meq 50 meq UNSCH PRN PO 09/05/16 08:30 Potassium Chloride 100 ml @ 25 mls/hr UNSCH PRN IV 09/05/16 08:30 Potassium Chloride 100 ml @ 50 mls/hr Q2H PRN IV 09/05/16 08:30 09/06/16 11:34 (Magnesium Sulfate Inj/NS Inj) 100 ml @ 50 mls/hr UNSCH PRN IV 09/05/16 08:30 Magnesium Oxide 800 mg 800 mg UNSCH PRN PO 09/05/16 08:30 (Magnesium Sulfate Inj/NS Inj) 100 ml @ 50 mls/hr UNSCH PRN IV 09/05/16 08:30 Potassium Phosphate 2000 mg 2,000 mg Q4H PRN PO 09/05/16 08:30 (Sodium Phosphate Inj/NS 250 ml Inj) 250 ml @ 42 mls/hr UNSCH PRN IV 09/05/16 08:30 (K-Phos) 2,000 mg UNSCH PRN PO/TUBE 09/05/16 08:30 (D50w (Vial) Inj) 25 ml UNSCH PRN IV PUSH 09/05/16 08:45 (Glucagon Inj) 1 mg UNSCH PRN OTHER 09/05/16 08:45 (NovoLIN R SUPPLEMENTAL SCALE) 1 Q6HR SQ 09/05/16 12:00 09/06/16 11:35 (Nitroglycerin 2% Oint) 2 inch Q6HR PRN TOPICAL 09/05/16 08:45 (Trandate Inj) 10 mg Q1HR PRN IV PUSH 09/05/16 08:45 Hydralazine HCl 10 mg 10 mg Q1HR PRN IV PUSH 09/05/16 08:45 Midazolam HCl 100 ml @ 0 mls/hr TITRATE IV 09/05/16 08:45 (Thiamine Inj/NS Inj) 101 ml @ 101 mls/hr DAILY IV 09/05/16 11:00 09/06/16 08:28 (Folate) 1 mg DAILY PO 09/06/16 09:00 09/06/16 08:28 (Theragran) 1 tab DAILY PO 09/06/16 09:00 09/06/16 08:28 Chlorhexidine Gluconate 15 ml 15 ml BID@08,20 MT 09/05/16 20:00 09/06/16 08:30 Propofol 100 ml @ 0 mls/hr TITRATE IV 09/05/16 09:30 09/06/16 05:00 Fentanyl Citrate 250 ml @ 0 mls/hr TITRATE IV 09/05/16 09:30 Azithromycin 500 mg/Sodium Chloride 250 ml @ 250 mls/hr Q24H IV 09/05/16 10:00 09/06/16 10:52 Levetriacetam 500 mg/Sodium Chloride 105 ml @ 420 mls/hr Q6H IV 09/05/16 18:00 09/06/16 11:35 (Vancomycin Inj/ NS 250 ml Inj) 262.5 ml @ 262.5 mls/ hr Q12H IV 09/06/16 14:00 Miscellaneous Information SPECIFIC LAB TO BE PAM... ONCE ONCE .XX 09/08/16 01:45 09/08/16 01:46 Vital Signs / I&O Vital Signs Date Time Temp Pulse Resp B/P Pulse Ox O2 Delivery O2 Flow Rate FiO2 09/06/16 12:00 83 09/06/16 12:00 98.9 80 24 125/74 100 09/06/16 11:53 100 35 09/06/16 10:00 68 09/06/16 09:18 100 35 09/06/16 08:00 99.1 68 20 123/71 100 09/06/16 08:00 68 09/06/16 06:00 73 09/06/16 04:19 99 40 09/06/16 04:00 98.6 70 17 112/64 100 09/06/16 04:00 70 09/06/16 02:00 64 09/06/16 01:15 100 50 09/06/16 00:00 98.6 63 15 103/60 100 09/06/16 00:00 63 09/05/16 22:12 100 50 09/05/16 22:00 68 09/05/16 20:00 66 09/05/16 20:00 98.2 66 15 100/59 100 09/05/16 19:50 100 50 09/05/16 18:00 68 09/05/16 17:15 100 100 4/28/17 16:00 98.8 66 15 87/48 100 09/05/16 16:00 67 09/05/16 15:36 100 50 I/O 09/05/16 09/05/16 09/05/16 09/06/16 09/06/16 09/06/16 07:00 15:00 23:00 07:00 15:00 23:00 Intake Total 1591 ml 616 ml Output Total 900 ml 250 ml 225 ml Balance -900 ml 1341 ml 391 ml Intake Oral 0 ml 0 ml IV Total 1591 ml 616 ml Tube Feeding 0 ml Output Urine Total 900 ml 250 ml 175 ml Gastric Drainage Total 50 ml # Bowel Movements 0 0 Physical Exam GENERAL: Intubated, sedated SKIN: Warm and dry. HEAD: Normocephalic. EYES: No scleral icterus. No injection or drainage. NECK: Supple, trachea midline. No JVD or lymphadenopathy. CARDIOVASCULAR: Regular rate and rhythm without murmurs, gallops, or rubs. RESPIRATORY: Breath sounds equal bilaterally. No accessory muscle use. GASTROINTESTINAL: Abdomen soft, non-tender, nondistended. MUSCULOSKELETAL: No cyanosis, or edema. Laboratory Laboratory Tests Test 09/05/16 09/05/16 09/06/16 09/06/16 20:29 20:40 04:56 05:15 Lactic Acid Level 1.6 mmol/L 2.0 mmol/L Phosphorus Level 2.3 MG/DL 1.9 MG/DL Troponin I 1.49 NG/ML Nasal Screen MRSA (PCR) MRSA NOT DETECTED White Blood Count 3.0 TH/MM3 Red Blood Count 3.66 MIL/MM3 Hemoglobin 12.3 GM/DL Hematocrit 36.1 % Mean Corpuscular Volume 98.6 FL Mean Corpuscular Hemoglobin 33.5 PG Mean Corpuscular Hemoglobin 34.0 % Concent Red Cell Distribution Width 14.3 % Platelet Count 25 TH/MM3 Mean Platelet Volume 9.1 FL Neutrophils (%) (Auto) 68.1 % Lymphocytes (%) (Auto) 16.8 % Monocytes (%) (Auto) 12.5 % Eosinophils (%) (Auto) 2.2 % Basophils (%) (Auto) 0.4 % Neutrophils # (Auto) 2.1 TH/MM3 Lymphocytes # (Auto) 0.5 TH/MM3 Monocytes # (Auto) 0.4 TH/MM3 Eosinophils # (Auto) 0.1 TH/MM3 Basophils # (Auto) 0.0 TH/MM3 CBC Comment AUTO DIFF Differential Comment AUTO DIFF CONFIRMED Platelet Estimate LOW Platelet Morphology Comment NORMAL Prothrombin Time 14.2 SEC Prothromb Time International 1.3 RATIO Ratio Activated Partial 32.9 SEC Thromboplast Time Fibrinogen 121 mg/dL Sodium Level 144 MEQ/L Potassium Level 3.4 MEQ/L Chloride Level 112 MEQ/L Carbon Dioxide Level 24.8 MEQ/L Anion Gap 7 MEQ/L Blood Urea Nitrogen 12 MG/DL Creatinine 0.97 MG/DL Estimat Glomerular Filtration 79 ML/MIN Rate Random Glucose 145 MG/DL Calcium Level 7.3 MG/DL Protein Corrected Calcium 7.9 MG/DL Magnesium Level 1.9 MG/DL Total Bilirubin 2.4 MG/DL Aspartate Amino Transf 63 U/L (AST/SGOT) Alanine Aminotransferase 24 U/L (ALT/SGPT) Alkaline Phosphatase 90 U/L Ammonia 73 MCMOL/L Total Creatine Kinase 268 U/L Total Protein 5.9 GM/DL Albumin 2.5 GM/DL Random Vancomycin Level 4.7 COMMENT Blood Gas Puncture Site RT RADIAL Blood Gas Patient Temperature 98.6 Blood Gas HCO3 21 mmol/L Blood Gas Base Excess -2.1 mmol/L Blood Gas Oxygen Saturation 96 % Arterial Blood pH 7.46 Arterial Blood Partial 30 mmHg Pressure CO2 Arterial Blood Partial 124 mmHg Pressure O2 Arterial Blood Oxygen Content 16.7 Vol % Arterial Blood 2.1 % Carboxyhemoglobin Arterial Blood Methemoglobin 1.0 % Blood Gas Hemoglobin 12.2 G/DL Oxygen Delivery Device VENTILATOR Blood Gas Ventilator Setting AC15/600/PEEP5 Blood Gas Inspired Oxygen 40 % Imaging Last Impressions Head CT 09/05/16630 Signed Impressions: Service Date/Time: Monday, September 05, 2016 07:34 - CONCLUSION: Size disease, fracture superior nasal spine otherwise negative. Aman Freeman MD FACR Chest X-Ray 09/05/16630 Signed Impressions: Service Date/Time: Monday, September 05, 2016 06:48 - CONCLUSION: 1. Bilateral perihilar infiltrates and small left pleural effusion. 2. Endotracheal tube tip is close to the uziel. 3. Nasogastric tube courses into the stomach. Marcin Schmidt MD Lower Extremity Ultrasound 09/05/16 0000 Signed Impressions: Service Date/Time: Monday, September 05, 2016 09:36 - CONCLUSION: There is normal compressibility of the deep venous system from the inguinal region to the proximal calf. No echogenic clot is seen in the lumen of the common femoral, femoral, popliteal, and posterior tibial veins. There is a normal response of the venous system to proximal and distal augmentation and respiration. CONCLUSION: Negative for deep venous thrombosis. Aman Freeman MD Liver Ultrasound 09/05/16 0000 Signed Impressions: Service Date/Time: Monday, September 05, 2016 08:55 - CONCLUSION: 1. Moderate splenomegaly with no focal lesion. 2. Liver is normal in size but mildly increased in echogenicity. Mayo Moncada MD Head Magnetic Resonance Angiography 09/05/16 0000 Signed Impressions: Service Date/Time: Monday, September 05, 2016 17:27 - CONCLUSION: Normal MRA. Marcin Appiah MD Cervical Spine CT 09/05/16 0000 Signed Impressions: Service Date/Time: Monday, September 05, 2016 07:34 - CONCLUSION: Degenerative changes, negative for fracture. Aman Freeman MD FACR Brain MRI 09/05/16 0000 Signed Impressions: Service Date/Time: Monday, September 05, 2016 17:27 - CONCLUSION: Minimal increased signal within the periventricular white matter and a solitary small focus of signal are not in the right frontal lobe. These likely represent minimal changes of demyelination. No areas of hemorrhage, mass effect or abnormal enhancement are seen. Marcin Appiah MD Assessment and Plan Problem List: (1) Elevated troponin (2) Altered mental status (3) Seizures (4) Cirrhosis of liver (5) Acute respiratory failure (6) DM (diabetes mellitus) (7) Hepatitis C (8) Thrombocytopenia (9) Septic shock Assessment and Plan Troponin mildly elevated, but echo shows nl LV function and no WMA. No evidence of ACS. Continue ICU care. Wean vent as tolerated. Continue tx for sepsis. Problem Qualifiers (1) Cirrhosis of liver: Qualified Code: K70.30 - Alcoholic cirrhosis of liver without ascites (2) Acute respiratory failure: Qualified Code: J96.01 - Acute respiratory failure with hypoxia and hypercapnia Rosa Menchaca MD Sep 06, 2016 14:28
--- NOTE | 2016-09-06 16:47 | MB ---
cc: RAVIN BASS DATE OF CONSULTATION 09/06/16 REASON FOR CONSULTATION Seizure, mental status change. HISTORY OF PRESENT ILLNESS Mr. Garibay is a 61-year-old man who has had change in mental status for the past 2 days according to his roommate with the fluctuating mental status. He was found on the date of admission unresponsive on the couch. EVAC came and witnessed two seizures en route. He was given 2 milligrams of Ativan x2. He has been nonresponsive, sedated. PAST MEDICAL HISTORY History of MRSA, depression, hypertension, hepatitis C, liver cirrhosis, right lower extremity DVT, thrombocytopenia, diabetes, T&A. MEDICATIONS At home: 1. Metformin. 2. Metoprolol. 3. Lisinopril. 4. Levaquin. SOCIAL HISTORY He does drink alcohol, 2-6 beers daily. He does smoke. Positive for THC use as well. NEUROLOGIC EXAMINATION VITAL SIGNS: Blood pressure is 125/74, pulse is 80, respirations 24, temperature 98 degrees. NEURO: Higher cortical function he is sedated, nonresponsive. Cranial nerves: Pupils are 4 mm both react to light. The extraocular movements are intact to doll's eyes. Motor exam there is no focal deficit. The postural reflexes are symmetric. IMAGING STUDIES CT scan of the brain sinus disease. A fracture superior nasal spine, otherwise negative intracranially. CT cervical spine degenerate changes. No fractures identified. MRI of the brain ischemic demyelinization. No evidence of any hemorrhage or mass effect. No sign of stroke. EEG shows generalized slowing but no epileptiform discharges. IMPRESSION Mental status change with at least two generalized seizures. Metabolic encephalopathy is in the differential, seizures due to alcohol use with postictal state is a possibility as well. The MRI did not reveal any changes in the brain to account for the seizures. The patient has not been able to have a lumbar puncture because of the thrombocytopenia. RECOMMENDATIONS Recommended beginning acyclovir for the possibility of encephalitis. Lumbar puncture would be helpful but I have not able to perform this with the severe thrombocytopenia. Consider possible transfusion of platelets prior to LP if possible. MD MIGUEL Lanza/KRISTY /4:25 PM /4:37 PM
[2016-09-06] MEDS: ACYCLOVIR IV SCH (17:06)
[2016-09-06] MEDS: SODIUM CHLORIDE 0.9% IV SCH (17:06)
[2016-09-06] MEDS ORDERED: SODIUM CHLOR 0.9% 250 ML INJ 250 ML IV ONE (19:45)
--- NOTE | 2016-09-06 20:31 | MB ---
cc: IRLANDA SHETH M.D. DATE OF CONSULTATION: 09/06/2016. REASON FOR CONSULTATION: Consult requested by Dr. Rodríguez for evaluation of thrombocytopenia. HISTORY OF PRESENT ILLNESS: Gina is a 61-year-old male. He is on the ventilator. He is unable to give any history. History is obtained through review of his chart and discussion with the labor commissioner, Dr. Armijo. Gina is a 61-year-old male. He has a history of hypertension, hepatitis C, cirrhosis of the liver with hypersplenism, diabetes mellitus, history of right lower extremity DVT. He has a history of chronic thrombocytopenia. The patient was admitted to the hospital yesterday after he had a change in mental status. The patient had a seizure. Paramedics found the patient to be unresponsive on the couch. He had two seizures en route to the hospital. He was given Ativan. In the emergency room, the patient was intubated. He had a CT and MRI of the brain, which did not show any significant findings. The chest x-ray showed bilateral hilar infiltrates. The patient was found to have fever of 102 on admission. He is now afebrile. He is on antibiotics. His admission CBC was completely normal except that the platelet count was found to be 37,000. The differential count was normal except that he has severe lymphopenia. Neurology was consulted for change in mental status. Dr. Rodríguez saw him and he is asking for hematology consult for severe thrombocytopenia. I have reviewed his records. The patient has chronic thrombocytopenia since 2014, which is due to the hypersplenism. REVIEW OF SYSTEMS: A review of systems is not possible as the patient is on the ventilator. PAST MEDICAL HISTORY: Obtained through review of the records. 1. This is consistent with MRSA of the left leg. 2. Depression. 3. Hypertension. 4. Hepatitis C. 5. Liver cirrhosis. 6. Right lower extremity DVT. 7. Chronic thrombocytopenia. 8. Diabetes mellitus with peripheral neuropathy. PAST SURGICAL HISTORY: Tonsillectomy and adenoidectomy. MEDICATIONS PRIOR TO COMING TO THE HOSPITAL: 1. Lisinopril. 2. Metoprolol. 3. Metformin. 4. Levaquin. FAMILY HISTORY: Unable to obtain. SOCIAL HISTORY: It is reported that the patient smoked one pack a day for forty years. He also drinks alcohol, two to six beers daily. PHYSICAL EXAMINATION: GENERAL: This is a well-developed, chronically ill-appearing white male who is on the ventilator. VITAL SIGNS: Temperature 99.2, heart rate is 85, blood pressure is 125/74, 02 saturation 100% on FIO2 of 35 on ventilator. HEAD, EYES, EARS, NOSE, THROAT: Pupils equal, round and reactive to light and accommodation. Extraocular muscles intact. The sclerae are mildly icteric. ET tube noted. NECK: No lymphadenopathy LUNGS: Clear. No wheezes, rales or rhonchi. HEART: Regular rate and rhythm. ABDOMEN: Abdomen soft and nontender. No hepatosplenomegaly. EXTREMITIES: No pedal edema. NEUROLOGY: The patient is sedated on the ventilator. EXTREMITIES: No pedal edema. ASSESSMENT: 1. Chronic thrombocytopenia. This is due to hepatitis C as well as hypersplenism from cirrhosis of the liver. 2. Change in mental status. Workup is in progress. PLAN: I have reviewed his available records and I have had an extensive discussion with the labor commissioner, Dr. Armijo. The patient has chronic thrombocytopenia since July of 2014 per the electronic medical record. The thrombocytopenia could be longer than 2014 as we do not have his previous records available prior to 2014. The patient had a liver ultrasound done yesterday which showed moderate splenomegaly with no focal lesions. The liver is normal in size but mildly increased in echogenicity with no focal lesions. The patient had a fever when he came to the hospital yesterday so his thrombocytopenia could also be due to sepsis. The patient is on the antibiotics. I do not think that the patient has TTP as his creatinine is normal and he does not have any anemia on admission. His hemoglobin has dropped from 14.2 to 12.3, which may be due to hydration. His bilirubin is elevated, which I believe is due to cirrhosis of the liver. The patient has chronic hyperbilirubinemia since 2014. My recommendation is to give him a platelet transfusion and then repeat the platelet count within thirty minutes to see whether platelets increments. I have discussed with Dr. Armijo giving platelet transfusion as we both do not think the patient has TTP. A peripheral smear has been ordered and the result is still pending. Dr. Armijo had ordered [id number], which she will be cancelling the order. If the patient's platelet count improves after the platelet transfusion, then the patient could be given a platelet transfusion while he is getting lumbar puncture. I recommend interventional radiology to do the lumbar puncture given that he has thrombocytopenia and coagulopathy from liver disease he is at high risk for spinal hematoma. Certainly, cryoprecipitate or fresh frozen plasma could be given for his hypofibrinogenemia. His fibrinogen is 121. Further recommendations based on his hospital stay. Thank you for asking my opinion. Saulo Sheth MD /DOUG /7:53 PM /8:07 PM [email or web address]
[2016-09-07] VITALS (19 sets, daily range): BP systolic 125–153; BP diastolic 64–86; PULSE 62–96; RESP 18–30; TEMP 97.5–99.3; O2SAT 99–100
[2016-09-07] MEDS: metroNIDAZOLE 500 MG TAB PO SCH ×2 (02:00→10:39)
[2016-09-07] MEDS: SODIUM CHLORIDE 0.9% IV SCH ×2 (02:06→08:15)
[2016-09-07] MEDS: CEFEPIME INJ 2,000 MG in SODIUM CHLORIDE 0.9% INJ 100 ML IV SCH ×3 (02:06→16:07)
[2016-09-07] MEDS: ACYCLOVIR IV SCH ×2 (02:06→08:15)
[2016-09-07] MEDS: VANCOMYCIN INJ 1,250 MG in SODIUM CHLOR 0.9% 250 ML INJ 250 ML IV SCH ×2 (02:49→13:17)
[2016-09-07] MEDS: RESP: ALBUTEROL 2.5 MG/IPRATROPIUM 0.5 MG NEB (SCH) INH ×4 (03:21→21:10)
[2016-09-07 03:30] LABS: BASOPHIL % 0.7 % (0.0-2.0); EOSINOPHIL # 0.1 TH/MM3 (0-0.4); EOSINOPHIL % 3.3 % (0.0-4.0); HEMATOCRIT 29.8 % (39.0-51.0); LYMPH % 22.1 % (9.0-44.0); LYMPHOCYTE # 0.4 TH/MM3 (1.0-4.8); MEAN CELL VOLUME 99.4 FL (80.0-100.0); MEAN CORPUSCULAR HEMOGLOBIN 33.9 PG (27.0-34.0); MEAN CORPUSCULAR HGB CONC 34.1 % (32.0-36.0); NEUT % 57.9 % (16.0-70.0); PLATELET COUNT 34 TH/MM3 (150-450); RED CELL DISTRIBUTION WIDTH 14.3 % (11.6-17.2); WHITE BLOOD COUNT 1.8 TH/MM3 (4.0-11.0)
[2016-09-07 03:32] LABS: HEMO FLAGS AUTO DIFF
[2016-09-07] MEDS: CHLORHEXIDINE GLUCONATE 2 % 1 PACK (2 CLOTHS) TOP SCH (04:00)
[2016-09-07 04:16] LABS: BICARBONATE 22.6 MEQ/L (21.0-32.0); CALCIUM-PROTEIN CORRECTED 8.3 MG/DL (8.5-10.1); POTASSIUM 3.4 MEQ/L (3.5-5.1); TOTAL BILIRUBIN ADULT 1.5 MG/DL (0.2-1.0)
[2016-09-07 04:22] LABS: PLATELET ESTIMATE SMEAR RARE (NORMAL); PLATELET MORPHOLOGY ENLARGED (NORMAL); SCAN/DIFF AUTO DIFF CONFIRMED
[2016-09-07] MEDS: levETIRAcetam INJ 500 MG in SODIUM CHLORIDE 0.9% INJ 100 ML IV SCH ×4 (05:35→23:49)
[2016-09-07] MEDS: POTASSIUM CHLOR 20 MEQ PREMIX 100 ML IV PRN ×2 (05:36→08:29)
[2016-09-07] MEDS: INSULIN NovoLIN REGULAR SUPPLEMENTAL SCALE SQ SCH ×2 (05:39→11:42)
[2016-09-07] MEDS: CHLORHEXIDINE 0.12% (ORAL KIT) 15 ML CUP MT SCH ×2 (08:00→20:52)
[2016-09-07] MEDS: THIAMINE INJ 100 MG in SODIUM CHLORIDE 0.9% INJ 100 ML IV SCH (08:14)
[2016-09-07] MEDS: RIFAXIMIN 550 MG TAB PO SCH ×2 (08:25→20:53)
[2016-09-07] MEDS: MULTIVITAMIN TAB PO SCH (08:25)
[2016-09-07] MEDS: LACTULOSE SYRUP 20 GM/30 ML CUP PO SCH ×4 (08:25→20:52)
[2016-09-07] MEDS: FOLIC ACID 1 MG TAB PO SCH (08:25)
[2016-09-07] MEDS: DOCUSATE SODIUM 100 MG/10 ML UDC G-TUBE SCH ×2 (08:25→20:53)
[2016-09-07] MEDS: PANTOPRAZOLE SODIUM 40 MG VIAL IV SCH (08:26)
[2016-09-07] MEDS: SODIUM CHLORIDE 0.9% FLUSH 10 ML FLUSH IV FLUSH SCH ×2 (08:27→20:52)
[2016-09-07] MEDS: SODIUM CHLOR 0.9% 1000 ML INJ 1,000 ML IV SCH (08:27)
[2016-09-07] MEDS: ARTIFICIAL TEARS OPTH SOLN 15 ML BTL EACH EYE SCH ×3 (08:28→18:03)
--- NOTE | 2016-09-07 09:40 | PD.ONC.PN ---
Subjective Subjective Remarks Afebrile overnight. Patient intubated, on mechanical ventilation. Objective Data Date Time Temp Pulse Resp B/P Pulse Ox O2 Delivery O2 Flow Rate FiO2 09/07/16 06:00 84 09/07/16 04:16 100 35 09/07/16 04:00 98.3 84 21 147/79 100 09/07/16 04:00 84 09/07/16 02:00 72 09/07/16 00:30 98.9 79 20 153/86 100 09/07/16 00:03 100 35 09/07/16 00:00 98.9 89 20 153/86 100 09/07/16 00:00 89 09/06/16 22:00 91 09/06/16 20:03 100 35 09/06/16 20:00 92 09/06/16 20:00 99.1 92 20 143/81 100 09/06/16 18:00 79 09/06/16 16:00 85 09/06/16 16:00 99.2 80 24 125/74 100 09/06/16 15:24 100 35 09/06/16 14:00 82 09/06/16 12:00 83 09/06/16 12:00 98.9 80 24 125/74 100 09/06/16 11:53 100 35 09/06/16 10:00 68 09/07/16 09/07/16 09/07/16 07:00 15:00 23:00 Intake Total 1534 ml Output Total 600 ml Balance 934 ml Result Diagram: 09/07/1631009/07/16310 Laboratory Results Laboratory Tests Test 09/06/16 09/06/16 09/07/16 20:51 22:10 03:11 Blood Type O POSITIVE O POSITIVE Blood Bank Comment White Blood Count 1.8 TH/MM3 Red Blood Count 3.00 MIL/MM3 Hemoglobin 10.2 GM/DL Hematocrit 29.8 % Mean Corpuscular Volume 99.4 FL Mean Corpuscular Hemoglobin 33.9 PG Mean Corpuscular Hemoglobin 34.1 % Concent Red Cell Distribution Width 14.3 % Platelet Count 34 TH/MM3 Mean Platelet Volume 10.5 FL Neutrophils (%) (Auto) 57.9 % Lymphocytes (%) (Auto) 22.1 % Monocytes (%) (Auto) 16.0 % Eosinophils (%) (Auto) 3.3 % Basophils (%) (Auto) 0.7 % Neutrophils # (Auto) 1.0 TH/MM3 Lymphocytes # (Auto) 0.4 TH/MM3 Monocytes # (Auto) 0.3 TH/MM3 Eosinophils # (Auto) 0.1 TH/MM3 Basophils # (Auto) 0.0 TH/MM3 CBC Comment AUTO DIFF Differential Comment AUTO DIFF CONFIRMED Platelet Estimate RARE Platelet Morphology Comment ENLARGED Sodium Level 149 MEQ/L Potassium Level 3.4 MEQ/L Chloride Level 119 MEQ/L Carbon Dioxide Level 22.6 MEQ/L Anion Gap 7 MEQ/L Blood Urea Nitrogen 11 MG/DL Creatinine 1.03 MG/DL Estimat Glomerular Filtration 73 ML/MIN Rate Random Glucose 227 MG/DL Calcium Level 7.3 MG/DL Protein Corrected Calcium 8.3 MG/DL Phosphorus Level 1.5 MG/DL Total Bilirubin 1.5 MG/DL Aspartate Amino Transf 51 U/L (AST/SGOT) Alanine Aminotransferase 21 U/L (ALT/SGPT) Alkaline Phosphatase 81 U/L Ammonia 67 MCMOL/L Total Protein 5.3 GM/DL Albumin 2.2 GM/DL Culture Results Microbiology Date/Time Procedure Status Source Growth 09/05/16 06:30 Aerobic Blood Culture - Preliminary Resulted Blood Peripheral NO GROWTH IN 1 DAY 09/05/16 06:30 Anaerobic Blood Culture - Preliminary Resulted Blood Peripheral NO GROWTH IN 1 DAY 09/05/16 06:30 Legionella Antigen - Final Complete Urine Catheterized Urine PRESUMPTIVE NEGATIVE FOR LEGIONELLA P... 09/05/16 06:30 Streptococcus pneumoniae Antigen (M - Final Complete Urine Clean Catch PRESUMPTIVE NEGATIVE FOR STREPTOCOCCU... 09/05/16 06:35 Aerobic Blood Culture - Preliminary Resulted Blood Peripheral NO GROWTH IN 1 DAY 09/05/16 06:35 Anaerobic Blood Culture - Preliminary Resulted Blood Peripheral NO GROWTH IN 1 DAY 09/05/16 08:45 Influenza Types A,B Antigen (HUA) - Final Complete Nasal Aspirate NEGATIVE FOR FLU A AND B ANTIGEN.... 09/06/16 12:00 Gram Stain - Final Resulted Sputum Endotracheal 09/06/16 12:00 Sputum Culture Resulted Sputum Endotracheal Pending Administered Medications Medications (Trade) Dose Ordered Sig/Dariana Route PRN Reason Start Time Stop Time Status Last Admin Dose Admin Metronidazole 500 mg 500 mg Q8H PO 09/05/16 10:00 09/07/16 02:00 Cefepime HCl/ Sodium Chloride (Maxipime Inj/NS Inj) 100 ml @ 200 mls/hr Q8H IV 09/05/16 09:00 09/07/16 08:14 Chlorhexidine Gluconate (Chlorhexidine 2% Cloth) 3 pack Taper DAILY@04 TOP 09/06/16 04:00 09/02/17 03:59 09/07/16 04:00 Lactulose (Lactulose Liq) 30 ml QID PO 09/05/16 09:00 09/07/16 08:25 Rifaximin 550 mg 550 mg BID PO 09/05/16 10:00 09/07/16 08:25 Sodium Chloride (NS 1000 ml Inj) 1,000 ml @ 84 mls/hr [id number] IV 09/05/16 08:25 09/07/16 08:27 Sodium Chloride (NS Flush) 2 ml BID IV FLUSH 09/05/16 09:00 09/07/16 08:27 Pantoprazole Sodium (Protonix Inj) 40 mg DAILY IV 09/05/16 09:00 09/07/16 08:26 Artificial Tears (Tears Naturale Opth Soln) 1 drop TID EACH EYE 09/05/16 13:00 09/06/16 13:00 Docusate Sodium 100 mg 100 mg Q12HR G-TUBE 09/05/16 11:00 09/07/16 08:25 Potassium Chloride (KCl 20 Meq Premix Inj) 100 ml @ 50 mls/hr Q2H PRN IV For Potassium 3.3 - 3.5 mEq/L 09/05/16 08:30 09/07/16 08:29 Potassium Phosphate (K-Phos) 2,000 mg Q4H PRN PO For Phosphorus < 2.5 mg/dL 09/05/16 08:30 09/07/16 05:34 Insulin Human Regular 1 1 Q6HR SQ 09/05/16 12:00 09/07/16 05:39 Thiamine HCl/ Sodium Chloride (Thiamine Inj/NS Inj) 101 ml @ 101 mls/hr DAILY IV 09/05/16 11:00 09/07/16 08:14 Folic Acid (Folate) 1 mg DAILY PO 09/06/16 09:00 09/07/16 08:25 Multivitamins (Theragran) 1 tab DAILY PO 09/06/16 09:00 09/07/16 08:25 Chlorhexidine Gluconate 15 ml 15 ml BID@08,20 MT 09/05/16 20:00 09/07/16 08:00 Propofol 100 ml @ 0 mls/hr TITRATE IV 09/05/16 09:30 09/06/16 05:00 Azithromycin 500 mg/Sodium Chloride 250 ml @ 250 mls/hr Q24H IV 09/05/16 10:00 09/06/16 10:52 Levetriacetam 500 mg/Sodium Chloride 105 ml @ 420 mls/hr Q6H IV 09/05/16 18:00 09/07/16 05:35 Vancomycin HCl 1250 mg/Sodium Chloride 262.5 ml @ 262.5 mls/ hr Q12H IV 09/06/16 14:00 09/07/16 02:49 Acyclovir Sodium 873 mg/Sodium Chloride 150 ml @ 150 mls/hr Q8H IV 09/06/16 17:00 09/07/16 08:15 Sodium Chloride (NS 250 ml Inj) 250 ml @ 15 mls/hr ONCE ONCE IV 09/06/16 19:45 09/07/16 12:24 09/07/16 00:20 Objective Remarks GENERAL: Male, supine in bed, intubated on mechanical ventilation SKIN: Warm and dry. HEAD: Normocephalic. EYES: No injection or drainage. NECK: Supple, trachea midline. CARDIOVASCULAR: Regular rate and rhythm RESPIRATORY: anterior lundy with occasional rhonchi GASTROINTESTINAL: Abdomen nondistended. EXTREMITIES: No cyanosis NEUROLOGICAL: intubated, sedated Assessment/Plan Problem List: (1) Thrombocytopenia Status: Acute Plan: 09/07: monitor CBC, recommend giving platelets prior to LP and during procedure. will check coags today, as well. 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 --peripheral smear pending --could be given a platelet transfusion while he is getting lumbar puncture. --recommend interventional radiology to do the lumbar puncture given that he has thrombocytopenia and coagulopathy from liver disease he is at high risk for spinal hematoma. --Certainly, cryoprecipitate or fresh frozen plasma could be given for his hypofibrinogenemia Assessment 61y/o male with thrombocytopenia admitted to hospital with AMS, critically ill in IMC on mechanical ventilation history of hypertension, hepatitis C, cirrhosis of the liver with hypersplenism , diabetes mellitus, history of right lower extremity DVT. --history of chronic thrombocytopenia. Attending Statement on vent,sedated. Plat went up somewhat after the TX. Recommend Plat tx during LP by IR. will follow The exam, history, and the medical decision-making described in the above note were completed with the assistance of the mid-level provider. I reviewed and agree with the findings presented. I attest that I had a [id number] encounter with the patient on the same day, and personally performed and documented my assessment and findings in the medical record. Julissa Aguilera Sep 07, 2016 09:40 Toña Sheth MD Sep 07, 2016 22:27
[2016-09-07] MEDS: AZITHROMYCIN INJ 500 MG in SODIUM CHLOR 0.9% 250 ML INJ 250 ML IV SCH (10:39)
[2016-09-07] MEDS: PROPOFOL 1000 MG/100 ML INJ 100 ML IV SCH ×2 (11:36→18:36)
--- NOTE | 2016-09-07 13:39 | HHI.PR ---
Review/Management Diagnosis encephalopathy seizure history of ETOH abuse No strong indication of lead refinery supervisor infection Plan given risk of spinal hematoma with lumbar puncture and lack of strong clinical evidence of lead refinery supervisor infection, recommend not proceeding with LP Diagnosis/Plan: Subjective Subjective Comments No acute events reported He has been more responsive. No seizures He has been afebrile Dr Murphy's note appreciated. Active Medications Current Medications Medications (Trade) Dose Ordered Sig/Dariana Route Start Time Stop Time Status Last Admin (Vancomycin Consult Pharmacy) 0 ml @ 0 mls/hr UNSCH OTHER 09/05/16 08:15 Metronidazole 500 mg 500 mg Q8H PO 09/05/16 10:00 09/07/16 10:39 (Maxipime Inj/NS Inj) 100 ml @ 200 mls/hr Q8H IV 09/05/16 09:00 09/07/16 08:14 Miscellaneous Information 1 [id number] XX 09/05/16 08:15 (Chlorhexidine 2% Cloth) 3 pack Taper DAILY@04 TOP 09/06/16 04:00 09/02/17 03:59 09/07/16 04:00 (Chlorhexidine 2% Cloth) 3 pack UNSCH PRN TOP 09/05/16 08:15 (Lactulose Liq) 30 ml QID PO 09/05/16 09:00 09/07/16 13:18 Rifaximin 550 mg 550 mg BID PO 09/05/16 10:00 09/07/16 08:25 (NS 1000 ml Inj) 1,000 ml @ 84 mls/hr [id number] IV 09/05/16 08:25 09/07/16 08:27 (NS Flush) 2 ml UNSCH PRN IV FLUSH 09/05/16 08:30 (NS Flush) 2 ml BID IV FLUSH 09/05/16 09:00 09/07/16 08:27 (Tylenol) 650 mg Q6H PRN PO 09/05/16 08:30 (Protonix Inj) 40 mg DAILY IV 09/05/16 09:00 09/07/16 08:26 (Tears Naturale Opth Soln) 1 drop TID EACH EYE 09/05/16 13:00 09/06/16 13:00 (Zofran Inj) 4 mg Q6H PRN IV 09/05/16 08:30 (Colace Liq) 100 mg Q12HR G-TUBE 09/05/16 11:00 09/07/16 08:25 Sennosides 17.6 mg 17.6 mg Q12H PRN G-TUBE 09/05/16 08:30 Potassium Chloride 100 ml @ 50 mls/hr Q2H PRN IV 09/05/16 08:30 (KCl 20 Meq Premix Inj) 100 ml @ 50 mls/hr Q2H PRN IV 09/05/16 08:30 Potassium Bicarb/ Potassium Chloride 50 meq 50 meq UNSCH PRN PO 09/05/16 08:30 Potassium Chloride 100 ml @ 25 mls/hr UNSCH PRN IV 09/05/16 08:30 Potassium Chloride 100 ml @ 50 mls/hr Q2H PRN IV 09/05/16 08:30 09/07/16 08:29 (Magnesium Sulfate Inj/NS Inj) 100 ml @ 50 mls/hr UNSCH PRN IV 09/05/16 08:30 Magnesium Oxide 800 mg 800 mg UNSCH PRN PO 09/05/16 08:30 (Magnesium Sulfate Inj/NS Inj) 100 ml @ 50 mls/hr UNSCH PRN IV 09/05/16 08:30 Potassium Phosphate 2000 mg 2,000 mg Q4H PRN PO 09/05/16 08:30 09/07/16 05:34 (Sodium Phosphate Inj/NS 250 ml Inj) 250 ml @ 42 mls/hr UNSCH PRN IV 09/05/16 08:30 (K-Phos) 2,000 mg UNSCH PRN PO/TUBE 09/05/16 08:30 (D50w (Vial) Inj) 25 ml UNSCH PRN IV PUSH 09/05/16 08:45 (Glucagon Inj) 1 mg UNSCH PRN OTHER 09/05/16 08:45 (NovoLIN R SUPPLEMENTAL SCALE) 1 Q6HR SQ 09/05/16 12:00 09/07/16 11:42 (Nitroglycerin 2% Oint) 2 inch Q6HR PRN TOPICAL 09/05/16 08:45 (Trandate Inj) 10 mg Q1HR PRN IV PUSH 09/05/16 08:45 Hydralazine HCl 10 mg 10 mg Q1HR PRN IV PUSH 09/05/16 08:45 Midazolam HCl 100 ml @ 0 mls/hr TITRATE IV 09/05/16 08:45 (Thiamine Inj/NS Inj) 101 ml @ 101 mls/hr DAILY IV 09/05/16 11:00 09/07/16 08:14 (Folate) 1 mg DAILY PO 09/06/16 09:00 09/07/16 08:25 (Theragran) 1 tab DAILY PO 09/06/16 09:00 09/07/16 08:25 Chlorhexidine Gluconate 15 ml 15 ml BID@08,20 MT 09/05/16 20:00 09/07/16 08:00 Propofol 100 ml @ 0 mls/hr TITRATE IV 09/05/16 09:30 09/07/16 11:36 Fentanyl Citrate 250 ml @ 0 mls/hr TITRATE IV 09/05/16 09:30 Azithromycin 500 mg/Sodium Chloride 250 ml @ 250 mls/hr Q24H IV 09/05/16 10:00 09/07/16 10:39 Levetriacetam 500 mg/Sodium Chloride 105 ml @ 420 mls/hr Q6H IV 09/05/16 18:00 09/07/16 11:34 (Vancomycin Inj/ NS 250 ml Inj) 262.5 ml @ 262.5 mls/ hr Q12H IV 09/06/16 14:00 09/07/16 13:17 Miscellaneous Information SPECIFIC LAB TO BE PAM... ONCE ONCE .XX 09/08/16 01:45 09/08/16 01:46 (Zovirax Inj/NS Inj) 150 ml @ 150 mls/hr Q8H IV 09/06/16 17:00 09/07/16 08:15 Allergies Allergies Coded Allergies *MDRO Multi-Drug Resistant Organism (Verified Adverse Reaction, Unknown, ) Exam I&O / VS 09/06/16 09/06/16 09/07/16 15:00 23:00 07:00 Intake Total 1477 ml 1480 ml 1534 ml Output Total 350 ml 300 ml 600 ml Balance 1127 ml 1180 ml 934 ml Intake Oral 0 ml 0 ml 0 ml IV Total 1285 ml 1166 ml 1149 ml Tube Feeding 72 ml 314 ml 385 ml Other 120 ml Output Urine Total 350 ml 300 ml 400 ml Stool Total 200 ml # Bowel Movements 2 Vital Signs Date Time Temp Pulse Resp B/P Pulse Ox O2 Delivery O2 Flow Rate FiO2 09/07/16 12:00 71 09/07/16 12:00 98.1 69 23 140/81 100 09/07/16 10:02 100 35 09/07/16 10:00 73 09/07/16 08:00 98.0 77 18 143/71 100 09/07/16 08:00 79 09/07/16 06:00 84 09/07/16 04:16 100 35 09/07/16 04:00 98.3 84 21 147/79 100 09/07/16 04:00 84 09/07/16 02:00 72 09/07/16 00:30 98.9 79 20 153/86 100 09/07/16 00:03 100 35 09/07/16 00:00 98.9 89 20 153/86 100 09/07/16 00:00 89 09/06/16 22:00 91 09/06/16 20:03 100 35 09/06/16 20:00 92 09/06/16 20:00 99.1 92 20 143/81 100 09/06/16 18:00 79 09/06/16 16:00 85 09/06/16 16:00 99.2 80 24 125/74 100 09/06/16 15:24 100 35 09/06/16 14:00 82 Exam Comments minimally responsive, but appears improved from yesterday as attempts to open eyes to command PERRL. EOM-I Motor--no spontaneous limb movement Objective Micro and Labs Laboratory Tests Test 09/06/16 09/06/16 09/07/16 20:51 22:10 03:11 Blood Type O POSITIVE O POSITIVE Blood Bank Comment White Blood Count 1.8 Red Blood Count 3.00 Hemoglobin 10.2 Hematocrit 29.8 Mean Corpuscular Volume 99.4 Mean Corpuscular Hemoglobin 33.9 Mean Corpuscular Hemoglobin 34.1 Concent Red Cell Distribution Width 14.3 Platelet Count 34 Mean Platelet Volume 10.5 Neutrophils (%) (Auto) 57.9 Lymphocytes (%) (Auto) 22.1 Monocytes (%) (Auto) 16.0 Eosinophils (%) (Auto) 3.3 Basophils (%) (Auto) 0.7 Neutrophils # (Auto) 1.0 Lymphocytes # (Auto) 0.4 Monocytes # (Auto) 0.3 Eosinophils # (Auto) 0.1 Basophils # (Auto) 0.0 CBC Comment AUTO DIFF Differential Comment AUTO DIFF CONFIRMED Platelet Estimate RARE Platelet Morphology Comment ENLARGED Sodium Level 149 Potassium Level 3.4 Chloride Level 119 Carbon Dioxide Level 22.6 Anion Gap 7 Blood Urea Nitrogen 11 Creatinine 1.03 Estimat Glomerular Filtration 73 Rate Random Glucose 227 Calcium Level 7.3 Protein Corrected Calcium 8.3 Phosphorus Level 1.5 Total Bilirubin 1.5 Aspartate Amino Transf 51 (AST/SGOT) Alanine Aminotransferase 21 (ALT/SGPT) Alkaline Phosphatase 81 Ammonia 67 Total Protein 5.3 Albumin 2.2 Date/Time Procedure Status Source Growth 09/06/16 12:00 Gram Stain - Final Resulted Sputum Endotracheal 09/06/16 12:00 Sputum Culture Resulted Sputum Endotracheal Pending 09/05/16 08:45 Influenza Types A,B Antigen (HUA) - Final Complete Nasal Aspirate NEGATIVE FOR FLU A AND B ANTIGEN.... 09/05/16 06:35 Aerobic Blood Culture - Preliminary Resulted Blood Peripheral NO GROWTH IN 2 DAYS 09/05/16 06:35 Anaerobic Blood Culture - Preliminary Resulted Blood Peripheral NO GROWTH IN 2 DAYS 09/05/16 06:30 Streptococcus pneumoniae Antigen (M - Final Complete Urine Clean Catch PRESUMPTIVE NEGATIVE FOR STREPTOCOCCU... 09/05/16 06:30 Legionella Antigen - Final Complete Urine Catheterized Urine PRESUMPTIVE NEGATIVE FOR LEGIONELLA P... Junaid Rodríguez PhD Sep 07, 2016 13:39
[2016-09-07 15:25] LABS: APTT (PATIENT) 25.9 SEC (24.3-30.1)
[2016-09-07 15:26] LABS: INTERNATIONAL NORMALIZED RATIO 1.5 RATIO; PROTHROMBIN TIME - PATIENT 16.9 SEC (9.8-11.6)
[2016-09-07] MEDS ORDERED: CHLOROTHIAZIDE SOD 500 MG VIAL IV ONE (15:30)
[2016-09-07] MEDS ORDERED: hydrALAZINE HCL 20 MG/ML VIAL IV PUSH PRN (15:30)
--- NOTE | 2016-09-07 15:39 | HHI.CCPN ---
Subjective Remarks/Hospital Course 61yo male. Date of admission 09/05/2016. Past medical history includes depression, hypertension, hepatitis C with cirrhotic liver, diabetes mellitus with peripheral neuropathy, history of right lower extremity DVT, chronic thrombocytopenia and history of MRSA to left leg 2015. He is on metformin for diabetes. He presents to [facility] this a.m. with altered mental status. According to EMS report, pt's roommate states he has been " in and out of it " for 2 days. Today patient was found unresponsive on a couch by EMS. He has had 2 seizures in route the first lasted approximately 5 minutes was given 2 mg Ativan with another one approximate 1 minute duration received another 2 mg Ativan.. Given 2mg ativan and then another seizure about 10 min after the ativan so another 2 mg ativan given. Pt was moving all extremities but tachypneic and not responding to verbal stimuli. Pt was febrile in the ED. Patient was emergently intubated with a 7.5 ET tube after receiving 20 mg IV etomidate along with 60 mg IV rocuronium by Dr. Roblero. CT head - superior nasal spine fracture otherwise unremarkable CT C-spine -C5/6 mild disc bulge otherwise unremarkable Chest x-ray - bilateral hilar infiltrates. Cardiomegaly Pertinent labs revealed a normal white cell count, platelet count 37,000. Normal BMP, Lactic acidosis of 9.2, troponin 0.23, alcohol level 37 with positive THC level. NH3+ was 86 patient was going to be lumbar puncture in ED however platelet count is less than 50,000 the present time. Risk of spinal hematoma outweighs benefits of lumbar puncture this time. No consentable family members available currently. Patient is with one daughter he is close to. He also has a dog. In the ED, there is copious amounts of blood coming from the mouth. This was Yankauer suction to clear. Blood tinged sputum from ETT. NG tube with greenish bile gastric output. I removed one right lower denture. The left lower side is missing. 09/06 EEG showed generalized slowing. Imaging workup RN has noted ongoing bleeding from mouth and platelets 25k. Lactic acidosis cleared and urine output adequate. Ammonia 73. Has received 2 doses of lactulose and no bowel movement yet. Subjective: 09/07 Following some commands intermittently today, RN resuming propofol after sedation vacation due to repeated coughing. Having BMs, ammonia downtrend to 67. Tolerating tube feeds. Hypertensive. Objective Vital Signs Date Time Temp Pulse Resp B/P Pulse Ox O2 Delivery O2 Flow Rate FiO2 09/07/16 14:00 70 09/07/16 12:00 98.1 23 140/81 100 09/07/16 10:02 35 09/05/16 12:02 Ventilator Intake and Output 09/06/16 09/06/16 09/07/16 08:00 16:00 00:00 Intake Total 616 ml 1477 ml 1480 ml Output Total 225 ml 350 ml 300 ml Balance 391 ml 1127 ml 1180 ml Result Diagram: 09/07/16 0311 09/07/16 0311 Other Results Microbiology Date/Time Procedure Status Source Growth 09/05/16 06:30 Legionella Antigen - Final Complete Urine Catheterized Urine PRESUMPTIVE NEGATIVE FOR LEGIONELLA P... 09/05/16 06:30 Streptococcus pneumoniae Antigen (M - Final Complete Urine Clean Catch PRESUMPTIVE NEGATIVE FOR STREPTOCOCCU... 09/05/16 08:45 Influenza Types A,B Antigen (HUA) - Final Complete Nasal Aspirate NEGATIVE FOR FLU A AND B ANTIGEN.... Imaging Last Impressions Head CT 09/05/1631 Signed Impressions: Service Date/Time: Monday, September 05, 2016 07:34 - CONCLUSION: Size disease, fracture superior nasal spine otherwise negative. Aman Freeman MD FACR Chest X-Ray 09/05/16630 Signed Impressions: Service Date/Time: Monday, September 05, 2016 06:48 - CONCLUSION: 1. Bilateral perihilar infiltrates and small left pleural effusion. 2. Endotracheal tube tip is close to the uziel. 3. Nasogastric tube courses into the stomach. Marcin Schmidt MD Cervical Spine CT 09/05/16 0000 Signed Impressions: Service Date/Time: Monday, September 05, 2016 07:34 - CONCLUSION: Degenerative changes, negative for fracture. Aman Freeman MD FACR Objective Remarks Drips: Propofol (placed on hold) 0.9 NaCl at 84 mL per hour --> discontinuing. GENERAL: 61-year-old male, orotracheally intubated. SKIN: Warm and dry. No rash. No petechiae. HEAD: Atraumatic. Normocephalic. EYES: Pupils equal and round about 3 mm bilaterally constricts to 2 mm. + icterus. No injection or drainage. ENT: No nasal bleeding or discharge. Mucous membranes pink and moist. Dentures removed, some remaining lower natural teeth. Currently no active nasal or oral bleeding. NECK: Trachea midline. No JVD. CARDIOVASCULAR: Regular rate and rhythm. S1, S2. No murmur. RESPIRATORY: CTAB, diminished in left base. GASTROINTESTINAL: Abdomen soft, non-tender, nondistended. Bowel sounds present. Rectal bag in place with liquid brown stool. : Hanley in place with yellow urine output. MUSCULOSKELETAL: Extremities without any peripheral edema. No obvious deformities. NEUROLOGICAL: Attempts eye opening, but does not sustain eye opening. + cough when sedation held. Squeezes hands weakly bilaterally to command, does not perform "thumbs up". Moves bilateral feet to command and moves legs spontaneously. A/P Assessment and Plan Neuro/Psych: Acute toxic metabolic encephalopathy Hepatic encephalopathy Hyperammonemia History of depression THC positive Alcohol abuse Seizure Will use precedex for sedation to facilitate extubation. Goal of RASS -2 CT head 09/05 revealed no acute intracranial findings. Superior nasal spine fracture noted MRI 09/05minimal increased periventricular white matter changes and focus of signal in right frontal lobe. EEG 09/05generalized swelling Keppra 500 mg IV every 6 hours per neurology Neurology consult. Appreciate Dr. Rodríguez's assistance. Discussed with Dr. Rodríguez and Dr. Sheth - patient has thrombocytopenia, hypofibrinogenemia, prolonged PTT, suspect primarily secondary to poor hepatic function. Seizure and fever noted and ideally would perform LP to r/o meningitis however patient does have high risk of hematoma due to coagulopathy. Patient has no meningismus, EEG without focal temporal abnormality, MRI without temporal abnormality to suggest HSV meningoencephalitis. Therefore acyclovir has been discontinued per Dr. Rodríguez. Has been on empiric antimicrobial coverage with cefepime /azithro/flagyl/vancomycin for pneumonia. Clinically toxic metabolic encephalopathy due to hepatic encephalopathy, seizure , postictal state and sepsis appear to explain his mental status and he is clinically showing progressive improvement. Continue. Thiamine/folate/multivitamin daily Continue Xifaxan 550 milligrams twice a day; Lactulose 30 cc 4 times a day Recheck ammonia level in a.m. Monitor for DTs Seizure precautions CV: Elevated troponin Hypertension h/o Dilated cardiomyopathy Seen by Dr. Falcon 07/25 admission. Recommended no intervention with multiple medical issues, alcoholism, thrombocytopenia and no chest pain. 2-D echocardiogram 07/25 - EF 55-60% right ventricle systolic pressure around 90 mmHg. Mild AR, MR. Left atrium and left ventricle and right ventricle all dilated Echo 09/05/16LVEF 60%. LV cavity size reported normal. No regional wall motion abnormalities. RV dilated. Normal wall thickness. Pulmonary artery systolic pressure 41 mmHg. EKG reveals sinus tachycardia 111. Left atrial enlargement. Incomplete RBBB with ST depression in V1 through V5. Troponin peaked at 2.38. Dr. Menchaca evaluated. Recommended follow-up with [facility] upon discharge. Home medications are metoprolol 25 mg by mouth twice a day lisinopril 5 mg by mouth daily. Will avoid resuming metoprolol currently because may see bradycardia when start precedex.Hold lisinopril for now and use hydralazine if needed. Resp: Acute respiratory failure Community acquired Pneumonia History of prior tobaccoism ACV /. Daily CPAP Trials and extubate when mental status appropriate. Ventilator bundle Bronchodilator therapy every 6 hours with albuterol every 2 hours when necessary dyspnea Chest x-rayperihilar infiltrate. F/u cxr in am. Patient had a negative CT of the chest 07/25 for pulmonary embolism GI: Hepatitis C unknown genotype Cirrhosis Elevated total bilirubin , downtrending Chronic mild protein energy malnutrition Liver ultrasoundmoderate splenomegaly. Increased echogenicity of the liver. Gallbladder normal. Neutra hep goal 60 cc an hour per nutrition recommendations Protonix for GI prophylaxis FEN/RENAL: Acute kidney injury resolved Hypokalemia Hypophosphatemia Hypernatremia Tube feeds are at goal. Will d/c NS MIVF as suspect that he does not need it with all of the volume of abx administration, even though he does have large volume stool output. Will watch urine output, and if drops off may need to restart fluids. Creatinine normalized. Hanley in place accurate I's and O's in a critically ill patient Electrolyte replacement protocol Endo: Diabetes mellitus with neuropathy Remains hyperglycemic on current regimen. Increase to medium dose sliding scale at bedside glucose every 4 hours. 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 Hgb downtrending but does not appear to have clinically significant bleeding. Haptoglobin low, peripheral smear pending. 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 Leukopenia - doubt drug induced from cephalosporin/vanc as has only been on these for 3 days and typically will not see leukopenia until at least 7 days therapy. 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 ID: Community-acquired pneumonia vs aspiration Leukopenia On vancomycin 09/05 #3, cefepime 09/05 #3, azithromycin 09/05 #3 and Flagyl 09/05 # 3 for pneumonia/aspiration. D/c flagyl and vancomycin and monitor clinical response. Acyclovir discontinued as per above discussion. Microbiology: Influenza negative 09/05 - blood cultures 2 - NGTD 09/05urine pneumococcal antigen and Legionella antigen negative. 09/05U/A negative for evidence of infection 09/06 - sputum culturenegative MAXILLOFACIAL: Superior nasal spine fracture Nonsurgical. Supportive care Access - PIV Prophylaxis - GI - Protonix - DVT - SCD/holding pharmacological prophylaxis with sever thrombocytopenia CCT 35 minutes exclusive of separately billable procedures. Nena Armijo MD Sep 07, 2016 15:39
[2016-09-07] MEDS ORDERED: GLUCAGON 1 MG/ML VIAL OTHER PRN (16:00)
[2016-09-07] MEDS ORDERED: DEXTROSE 50% IN WATER 50 ML VIAL(D50) IV PUSH PRN (16:00)
[2016-09-07] MEDS: DEXMEDETOMIDINE INJ 200 MCG in SODIUM CHLORIDE 0.9% INJ 50 ML IV SCH ×2 (16:06→18:03)
--- NOTE | 2016-09-07 16:28 | PD.CARD.PN ---
Subjective Subjective Remarks Intubated, sedated Objective Medications Current Medications Medications (Trade) Dose Ordered Sig/Dariana Route Start Time Stop Time Status Last Admin Pharmacy Profile Note 0 ml @ 0 mls/hr UNSCH OTHER 09/05/16 08:15 (Maxipime Inj/NS Inj) 100 ml @ 200 mls/hr Q8H IV 09/05/16 09:00 09/07/16 16:07 Miscellaneous Information 1 Q361D XX 09/05/16 08:15 (Chlorhexidine 2% Cloth) 3 pack Taper DAILY@04 TOP 09/06/16 04:00 09/02/17 03:59 09/07/16 04:00 (Chlorhexidine 2% Cloth) 3 pack UNSCH PRN TOP 09/05/16 08:15 (Lactulose Liq) 30 ml QID PO 09/05/16 09:00 09/07/16 13:18 (Xifaxan) 550 mg BID PO 09/05/16 10:00 09/07/16 08:25 (NS Flush) 2 ml UNSCH PRN IV FLUSH 09/05/16 08:30 (NS Flush) 2 ml BID IV FLUSH 09/05/16 09:00 09/07/16 08:27 (Tylenol) 650 mg Q6H PRN PO 09/05/16 08:30 (Protonix Inj) 40 mg DAILY IV 09/05/16 09:00 09/07/16 08:26 (Tears Naturale Opth Soln) 1 drop TID EACH EYE 09/05/16 13:00 09/06/16 13:00 (Zofran Inj) 4 mg Q6H PRN IV 09/05/16 08:30 (Colace Liq) 100 mg Q12HR G-TUBE 09/05/16 11:00 09/07/16 08:25 Sennosides 17.6 mg 17.6 mg Q12H PRN G-TUBE 09/05/16 08:30 Potassium Chloride 100 ml @ 50 mls/hr Q2H PRN IV 09/05/16 08:30 (KCl 20 Meq Premix Inj) 100 ml @ 50 mls/hr Q2H PRN IV 09/05/16 08:30 Potassium Bicarb/ Potassium Chloride 50 meq 50 meq UNSCH PRN PO 09/05/16 08:30 Potassium Chloride 100 ml @ 25 mls/hr UNSCH PRN IV 09/05/16 08:30 Potassium Chloride 100 ml @ 50 mls/hr Q2H PRN IV 09/05/16 08:30 09/07/16 08:29 (Magnesium Sulfate Inj/NS Inj) 100 ml @ 50 mls/hr UNSCH PRN IV 09/05/16 08:30 Magnesium Oxide 800 mg 800 mg UNSCH PRN PO 09/05/16 08:30 (Magnesium Sulfate Inj/NS Inj) 100 ml @ 50 mls/hr UNSCH PRN IV 09/05/16 08:30 Potassium Phosphate 2000 mg 2,000 mg Q4H PRN PO 09/05/16 08:30 09/07/16 05:34 (Sodium Phosphate Inj/NS 250 ml Inj) 250 ml @ 42 mls/hr UNSCH PRN IV 09/05/16 08:30 (K-Phos) 2,000 mg UNSCH PRN PO/TUBE 09/05/16 08:30 (D50w (Vial) Inj) 25 ml UNSCH PRN IV PUSH 09/05/16 08:45 (Glucagon Inj) 1 mg UNSCH PRN OTHER 09/05/16 08:45 (Nitroglycerin 2% Oint) 2 inch Q6HR PRN TOPICAL 09/05/16 08:45 (Trandate Inj) 10 mg Q1HR PRN IV PUSH 09/05/16 08:45 Hydralazine HCl 10 mg 10 mg Q1HR PRN IV PUSH 09/05/16 08:45 (Thiamine Inj/NS Inj) 101 ml @ 101 mls/hr DAILY IV 09/05/16 11:00 09/07/16 08:14 (Folate) 1 mg DAILY PO 09/06/16 09:00 09/07/16 08:25 (Theragran) 1 tab DAILY PO 09/06/16 09:00 09/07/16 08:25 Chlorhexidine Gluconate 15 ml 15 ml BID@08,20 MT 09/05/16 20:00 09/07/16 08:00 Propofol 100 ml @ 0 mls/hr TITRATE IV 09/05/16 09:30 Hold 09/07/16 11:36 Azithromycin 500 mg/Sodium Chloride 250 ml @ 250 mls/hr Q24H IV 09/05/16 10:00 09/07/16 10:39 (Keppra Inj/NS Inj) 105 ml @ 420 mls/hr Q6H IV 09/05/16 18:00 09/07/16 11:34 Miscellaneous Information SPECIFIC LAB TO BE PAM... ONCE ONCE .XX 09/08/16 01:45 09/08/16 01:46 (Precedex Inj/NS Inj) 52 ml @ 0 mls/hr TITRATE IV 09/07/16 15:45 09/07/16 16:06 (NovoLOG SUPPLEMENTAL SCALE) 1 Q4H SQ 09/07/16 16:00 Vital Signs / I&O Vital Signs Date Time Temp Pulse Resp B/P Pulse Ox O2 Delivery O2 Flow Rate FiO2 09/07/16 15:14 99 35 09/07/16 15:14 35 09/07/16 14:00 70 09/07/16 12:00 71 09/07/16 12:00 98.1 69 23 140/81 100 09/07/16 10:02 100 35 09/07/16 10:00 73 09/07/16 08:00 98.0 77 18 143/71 100 09/07/16 08:00 79 09/07/16 06:00 84 09/07/16 04:16 100 35 09/07/16 04:00 98.3 84 21 147/79 100 09/07/16 04:00 84 09/07/16 02:00 72 09/07/16 00:30 98.9 79 20 153/86 100 09/07/16 00:03 100 35 09/07/16 00:00 98.9 89 20 153/86 100 09/07/16 00:00 89 09/06/16 22:00 91 09/06/16 20:03 100 35 09/06/16 20:00 92 09/06/16 20:00 99.1 92 20 143/81 100 09/06/16 18:00 79 I/O 09/06/16 09/06/16 09/06/16 09/07/16 09/07/16 09/07/16 07:00 15:00 23:00 07:00 15:00 23:00 Intake Total 616 ml 1477 ml 1480 ml 1534 ml 1811 ml Output Total 225 ml 350 ml 300 ml 600 ml 1350 ml Balance 391 ml 1127 ml 1180 ml 934 ml 461 ml Intake Oral 0 ml 0 ml 0 ml 0 ml IV Total 616 ml 1285 ml 1166 ml 1149 ml 1385 ml Tube Feeding 72 ml 314 ml 385 ml 426 ml Other 120 ml Output Urine Total 175 ml 350 ml 300 ml 400 ml 350 ml Stool Total 200 ml 1000 ml Gastric Drainage Total 50 ml # Bowel Movements 0 2 Physical Exam GENERAL: Intubated, sedated SKIN: Warm and dry. HEAD: Normocephalic. EYES: No scleral icterus. No injection or drainage. NECK: Supple, trachea midline. No JVD or lymphadenopathy. CARDIOVASCULAR: Regular rate and rhythm without murmurs, gallops, or rubs. RESPIRATORY: Breath sounds equal bilaterally. No accessory muscle use. GASTROINTESTINAL: Abdomen soft, non-tender, nondistended. MUSCULOSKELETAL: No cyanosis, or edema. Laboratory Laboratory Tests Test 09/06/16 09/06/16 09/07/16 09/07/16 20:51 22:10 03:11 13:25 Blood Type O POSITIVE O POSITIVE Blood Bank Comment White Blood Count 1.8 TH/MM3 Red Blood Count 3.00 MIL/MM3 Hemoglobin 10.2 GM/DL Hematocrit 29.8 % Mean Corpuscular Volume 99.4 FL Mean Corpuscular Hemoglobin 33.9 PG Mean Corpuscular Hemoglobin 34.1 % Concent Red Cell Distribution Width 14.3 % Platelet Count 34 TH/MM3 Mean Platelet Volume 10.5 FL Neutrophils (%) (Auto) 57.9 % Lymphocytes (%) (Auto) 22.1 % Monocytes (%) (Auto) 16.0 % Eosinophils (%) (Auto) 3.3 % Basophils (%) (Auto) 0.7 % Neutrophils # (Auto) 1.0 TH/MM3 Lymphocytes # (Auto) 0.4 TH/MM3 Monocytes # (Auto) 0.3 TH/MM3 Eosinophils # (Auto) 0.1 TH/MM3 Basophils # (Auto) 0.0 TH/MM3 CBC Comment AUTO DIFF Differential Comment AUTO DIFF CONFIRMED Platelet Estimate RARE Platelet Morphology Comment ENLARGED Sodium Level 149 MEQ/L Potassium Level 3.4 MEQ/L Chloride Level 119 MEQ/L Carbon Dioxide Level 22.6 MEQ/L Anion Gap 7 MEQ/L Blood Urea Nitrogen 11 MG/DL Creatinine 1.03 MG/DL Estimat Glomerular Filtration 73 ML/MIN Rate Random Glucose 227 MG/DL Calcium Level 7.3 MG/DL Protein Corrected Calcium 8.3 MG/DL Phosphorus Level 1.5 MG/DL Total Bilirubin 1.5 MG/DL Aspartate Amino Transf 51 U/L (AST/SGOT) Alanine Aminotransferase 21 U/L (ALT/SGPT) Alkaline Phosphatase 81 U/L Ammonia 67 MCMOL/L Total Protein 5.3 GM/DL Albumin 2.2 GM/DL Prothrombin Time 16.9 SEC Prothromb Time International 1.5 RATIO Ratio Activated Partial 25.9 SEC Thromboplast Time Fibrinogen 54 mg/dL Imaging Last Impressions Head CT 09/05/16630 Signed Impressions: Service Date/Time: Monday, September 05, 2016 07:34 - CONCLUSION: Size disease, fracture superior nasal spine otherwise negative. Aman Freeman MD FACR Chest X-Ray 09/05/16630 Signed Impressions: Service Date/Time: Monday, September 05, 2016 06:48 - CONCLUSION: 1. Bilateral perihilar infiltrates and small left pleural effusion. 2. Endotracheal tube tip is close to the uziel. 3. Nasogastric tube courses into the stomach. Marcin Schmidt MD Lower Extremity Ultrasound 09/05/16 Signed Impressions: Service Date/Time: Monday, September 05, 2016 09:36 - CONCLUSION: There is normal compressibility of the deep venous system from the inguinal region to the proximal calf. No echogenic clot is seen in the lumen of the common femoral, femoral, popliteal, and posterior tibial veins. There is a normal response of the venous system to proximal and distal augmentation and respiration. MD CONCLUSION: Negative for deep venous thrombosis. Aman Freeman MD Liver Ultrasound 09/05/16 Signed Impressions: Service Date/Time: Monday, September 05, 2016 08:55 - CONCLUSION: 1. Moderate splenomegaly with no focal lesion. 2. Liver is normal in size but mildly increased in echogenicity. Mayo Moncada MD Head Magnetic Resonance Angiography 09/05/16 Signed Impressions: Service Date/Time: Monday, September 05, 2016 17:27 - CONCLUSION: Normal MRA. Marcin Appiah MD Cervical Spine CT 09/05/16 Signed Impressions: Service Date/Time: Monday, September 05, 2016 07:34 - CONCLUSION: Degenerative changes, negative for fracture. Aman Freeman MD FACR Brain MRI 09/05/16 0000 Signed Impressions: Service Date/Time: Monday, September 05, 2016 17:27 - CONCLUSION: Minimal increased signal within the periventricular white matter and a solitary small focus of signal are not in the right frontal lobe. These likely represent minimal changes of demyelination. No areas of hemorrhage, mass effect or abnormal enhancement are seen. Marcin Appiah MD Assessment and Plan Problem List: (1) Elevated troponin (2) Altered mental status (3) Seizures (4) Cirrhosis of liver (5) Acute respiratory failure (6) DM (diabetes mellitus) (7) Hepatitis C (8) Thrombocytopenia (9) Septic shock Assessment and Plan No new cardiac issues. Rhythm stable. Troponin mildly elevated, but echo shows nl LV function and no WMA. No evidence of ACS. Continue ICU care. Wean vent as tolerated. Continue tx for sepsis. Problem Qualifiers (1) Cirrhosis of liver: Qualified Code: K70.30 - Alcoholic cirrhosis of liver without ascites (2) Acute respiratory failure: Qualified Code: J96.01 - Acute respiratory failure with hypoxia and hypercapnia Rosa Menchaca MD Sep 07, 2016 16:28
[2016-09-07] MEDS: INSULIN ASPART SUPPLEMENTAL SCALE SQ SCH ×3 (16:48→23:49)
[2016-09-07] MEDS: hydrALAZINE HCL 20 MG/ML VIAL IV PUSH PRN (18:07)
[2016-09-08] VITALS (17 sets, daily range): BP systolic 116–186; BP diastolic 63–94; PULSE 49–90; RESP 16–21; TEMP 97.9–98.9; O2SAT 100
[2016-09-08 00:10] LABS: APTT (PATIENT) 34.5 SEC (24.3-30.1); INTERNATIONAL NORMALIZED RATIO 1.3 RATIO; PROTHROMBIN TIME - PATIENT 14.3 SEC (9.8-11.6)
[2016-09-08] MEDS ORDERED: FUROSEMIDE 20 MG/2 ML VIAL IV PUSH ONE (00:15)
[2016-09-08] MEDS ORDERED: POTASSIUM CHLORIDE 20 MEQ PWD PACKET OG-TUBE ONE (00:15)
[2016-09-08] MEDS: CEFEPIME INJ 2,000 MG in SODIUM CHLORIDE 0.9% INJ 100 ML IV SCH ×3 (00:17→17:12)
[2016-09-08] MEDS: PROPOFOL 1000 MG/100 ML INJ 100 ML IV SCH (00:29)
[2016-09-08] MEDS ORDERED: PHARMACY ORDERED LAB ONE (01:45)
[2016-09-08] MEDS: RESP: ALBUTEROL 2.5 MG/IPRATROPIUM 0.5 MG NEB (SCH) INH ×4 (03:29→21:33)
[2016-09-08] MEDS: CHLORHEXIDINE GLUCONATE 2 % 1 PACK (2 CLOTHS) TOP SCH (04:00)
[2016-09-08] MEDS: INSULIN ASPART SUPPLEMENTAL SCALE SQ SCH ×6 (04:04→23:44)
--- NOTE | 2016-09-08 05:30 | RADRPT ---
EXAM DATE/TIME: 09/08/2016 04:30 [facility] COMPARISON: CHEST SINGLE AP, September 05, 2016, 6:48. INDICATIONS : Shortness of breath, possible pulmonary disease. MEDICAL HISTORY : Hypertension. Hepatitis C. SURGICAL HISTORY : Tonsillectomy. ENCOUNTER: Subsequent ACUITY: 4 - 6 days PAIN SCORE: Non-responsive. LOCATION: Bilateral chest FINDINGS: The cardiac silhouette is enlarged in transverse diameter. Endotracheal tube is in good position abov e the uziel. A nasogastric tube is in place with its tip in the stomach. There is prominence of the central pulmonary vasculature with indistinct vascular margins compatible with vascular congestion bu t no evidence of overt failure. The findings have worsened when compared with the prior examination. No pleural effusions are identified. CONCLUSION: 1. Cardiomegaly and findings of vascular congestion without overt failure. The findings have worsened when compared with the prior examination. Cleve Hernandez MD on September 08, 2016 at 5:27 Board Certified Radiologist. This report was verified electronically.
[2016-09-08] MEDS: levETIRAcetam INJ 500 MG in SODIUM CHLORIDE 0.9% INJ 100 ML IV SCH ×4 (06:04→23:45)
[2016-09-08 06:19] LABS: AUTOMATED NEUTROPHIL # 1.4 TH/MM3 (1.8-7.7); BASOPHIL % 0.6 % (0.0-2.0); EOSINOPHIL # 0.1 TH/MM3 (0-0.4); EOSINOPHIL % 4.7 % (0.0-4.0); HEMATOCRIT 37.3 % (39.0-51.0); LYMPH % 20.5 % (9.0-44.0); LYMPHOCYTE # 0.5 TH/MM3 (1.0-4.8); MEAN CELL VOLUME 99.8 FL (80.0-100.0); MEAN CORPUSCULAR HEMOGLOBIN 35.2 PG (27.0-34.0); MEAN CORPUSCULAR HGB CONC 35.3 % (32.0-36.0); MONO % 18.6 % (0.0-8.0); NEUT % 55.6 % (16.0-70.0); PLATELET COUNT 30 TH/MM3 (150-450); RED BLOOD COUNT 3.74 MIL/MM3 (4.50-5.90); RED CELL DISTRIBUTION WIDTH 13.9 % (11.6-17.2); WHITE BLOOD COUNT 2.6 TH/MM3 (4.0-11.0)
[2016-09-08 06:30] LABS: HEMO FLAGS AUTO DIFF
[2016-09-08 06:40] LABS: ALT (GPT) 24 U/L (12-78); ANION GAP 7 MEQ/L (5-15); AST (GOT) 55 U/L (15-37); BICARBONATE 22.7 MEQ/L (21.0-32.0); BLOOD UREA NITROGEN 8 MG/DL (7-18); CHLORIDE 118 MEQ/L (98-107); GLOMERULAR FILTRATION RATE 86 ML/MIN (>89); MAGNESIUM 1.6 MG/DL (1.5-2.5); POTASSIUM 3.7 MEQ/L (3.5-5.1); SODIUM (NA) 148 MEQ/L (136-145)
[2016-09-08 06:46] LABS: ALKALINE PHOSPHATASE 119 U/L (45-117); TOTAL BILIRUBIN ADULT 1.9 MG/DL (0.2-1.0)
[2016-09-08 07:21] LABS: PLATELET ESTIMATE SMEAR LOW (NORMAL); PLATELET MORPHOLOGY NORMAL (NORMAL); SCAN/DIFF AUTO DIFF CONFIRMED
[2016-09-08] MEDS: CHLORHEXIDINE 0.12% (ORAL KIT) 15 ML CUP MT SCH ×2 (08:00→20:11)
[2016-09-08] MEDS: LACTULOSE SYRUP 20 GM/30 ML CUP PO SCH ×4 (08:48→20:11)
[2016-09-08] MEDS: RIFAXIMIN 550 MG TAB PO SCH ×2 (08:49→20:11)
[2016-09-08] MEDS: SODIUM CHLORIDE 0.9% FLUSH 10 ML FLUSH IV FLUSH SCH ×2 (08:49→20:12)
[2016-09-08] MEDS: MULTIVITAMIN TAB PO SCH (08:49)
[2016-09-08] MEDS: FOLIC ACID 1 MG TAB PO SCH (08:49)
[2016-09-08] MEDS: AZITHROMYCIN INJ 500 MG in SODIUM CHLOR 0.9% 250 ML INJ 250 ML IV SCH (08:49)
[2016-09-08] MEDS: PANTOPRAZOLE SODIUM 40 MG VIAL IV SCH (08:50)
[2016-09-08] MEDS: DOCUSATE SODIUM 100 MG/10 ML UDC G-TUBE SCH ×2 (08:51→20:11)
[2016-09-08] MEDS: ARTIFICIAL TEARS OPTH SOLN 15 ML BTL EACH EYE SCH ×3 (08:51→17:12)
[2016-09-08] MEDS: THIAMINE INJ 100 MG in SODIUM CHLORIDE 0.9% INJ 100 ML IV SCH (08:53)
--- NOTE | 2016-09-08 10:34 | PD.ONC.PN ---
Subjective Subjective Remarks Afebrile overnight. Patient intubated, agitated. No bleeding reported per nurse. No overnight events. Objective Data Date Time Temp Pulse Resp B/P Pulse Ox O2 Delivery O2 Flow Rate FiO2 09/08/16 10:00 74 09/08/16 08:26 35 09/08/16 08:26 100 35 09/08/16 08:00 70 09/08/16 06:00 62 09/08/16 04:08 100 35 09/08/16 04:00 35 09/08/16 04:00 98.6 58 16 157/80 100 09/08/16 04:00 58 09/08/16 02:00 61 09/08/16 01:09 100 35 09/08/16 00:00 98.9 61 21 116/63 100 09/08/16 00:00 61 09/08/16 00:00 35 09/07/16 22:00 62 09/07/16 21:10 99 35 09/07/16 20:13 99 35 09/07/16 20:00 66 09/07/16 20:00 35 09/07/16 20:00 99.3 66 23 125/64 99 09/07/16 18:00 83 09/07/16 16:00 81 09/07/16 16:00 97.5 96 30 153/86 100 09/07/16 15:14 99 35 09/07/16 15:14 35 09/07/16 14:00 70 09/07/16 12:00 71 09/07/16 12:00 98.1 69 23 140/81 100 09/08/16 09/08/16 09/08/16 07:00 15:00 23:00 Intake Total 1303 ml Output Total 2450 ml Balance -1147 ml Result Diagram: 09/08/16 0506 09/08/16 0503 Laboratory Results Laboratory Tests Test 09/07/16 09/08/16 09/08/16 22:26 05:03 05:06 Prothrombin Time 16.9 SEC Prothromb Time International 1.5 RATIO Ratio Activated Partial 25.9 SEC Thromboplast Time Fibrinogen 54 mg/dL Sodium Level 148 MEQ/L Potassium Level 3.7 MEQ/L Chloride Level 118 MEQ/L Carbon Dioxide Level 22.7 MEQ/L Anion Gap 7 MEQ/L Blood Urea Nitrogen 8 MG/DL Creatinine 0.90 MG/DL Estimat Glomerular Filtration 86 ML/MIN Rate Random Glucose 205 MG/DL Calcium Level 8.0 MG/DL Phosphorus Level 1.9 MG/DL Magnesium Level 1.6 MG/DL Total Bilirubin 1.9 MG/DL Aspartate Amino Transf 55 U/L (AST/SGOT) Alanine Aminotransferase 24 U/L (ALT/SGPT) Alkaline Phosphatase 119 U/L Total Protein 6.5 GM/DL Albumin 2.6 GM/DL White Blood Count 2.6 TH/MM3 Red Blood Count 3.74 MIL/MM3 Hemoglobin 13.2 GM/DL Hematocrit 37.3 % Mean Corpuscular Volume 99.8 FL Mean Corpuscular Hemoglobin 35.2 PG Mean Corpuscular Hemoglobin 35.3 % Concent Red Cell Distribution Width 13.9 % Platelet Count 30 TH/MM3 Mean Platelet Volume 9.6 FL Neutrophils (%) (Auto) 55.6 % Lymphocytes (%) (Auto) 20.5 % Monocytes (%) (Auto) 18.6 % Eosinophils (%) (Auto) 4.7 % Basophils (%) (Auto) 0.6 % Neutrophils # (Auto) 1.4 TH/MM3 Lymphocytes # (Auto) 0.5 TH/MM3 Monocytes # (Auto) 0.5 TH/MM3 Eosinophils # (Auto) 0.1 TH/MM3 Basophils # (Auto) 0.0 TH/MM3 CBC Comment AUTO DIFF Differential Comment AUTO DIFF CONFIRMED Platelet Estimate LOW Platelet Morphology Comment NORMAL Culture Results Microbiology Date/Time Procedure Status Source Growth 09/06/16 12:00 Gram Stain - Final Resulted Sputum Endotracheal 09/06/16 12:00 Sputum Culture - Preliminary Resulted Sputum Endotracheal NO GROWTH IN 24 HOURS. Imaging Studies Last 24 hours Impressions Chest X-Ray 09/08/16 0000 Signed Impressions: Service Date/Time: Thursday, September 08, 2016 04:30 - CONCLUSION: 1. Cardiomegaly and findings of vascular congestion without overt failure. The findings have worsened when compared with the prior examination. Cleve Hernandez MD Administered Medications Medications (Trade) Dose Ordered Sig/Dariana Route PRN Reason Start Time Stop Time Status Last Admin Dose Admin Cefepime HCl/ Sodium Chloride (Maxipime Inj/NS Inj) 100 ml @ 200 mls/hr Q8H IV 09/05/16 09:00 09/08/16 08:51 Chlorhexidine Gluconate (Chlorhexidine 2% Cloth) 3 pack Taper DAILY@04 TOP 09/06/16 04:00 09/02/17 03:59 09/08/16 04:00 Lactulose (Lactulose Liq) 30 ml QID PO 09/05/16 09:00 09/08/16 08:48 Rifaximin (Xifaxan) 550 mg BID PO 09/05/16 10:00 09/08/16 08:49 Sodium Chloride (NS Flush) 2 ml BID IV FLUSH 09/05/16 09:00 09/08/16 08:49 Pantoprazole Sodium (Protonix Inj) 40 mg DAILY IV 09/05/16 09:00 09/08/16 08:50 Artificial Tears (Tears Naturale Opth Soln) 1 drop TID EACH EYE 09/05/16 13:00 09/08/16 08:51 Docusate Sodium 100 mg 100 mg Q12HR G-TUBE 09/05/16 11:00 09/08/16 08:51 Potassium Chloride (KCl 20 Meq Premix Inj) 100 ml @ 50 mls/hr Q2H PRN IV For Potassium 3.3 - 3.5 mEq/L 09/05/16 08:30 09/07/16 08:29 Potassium Phosphate (K-Phos) 2,000 mg Q4H PRN PO For Phosphorus < 2.5 mg/dL 09/05/16 08:30 09/07/16 05:34 Labetalol HCl (Trandate Inj) 10 mg Q1HR PRN IV PUSH SBP>160, DBP>90, HR>65 09/05/16 08:45 09/08/16 09:13 Hydralazine HCl 10 mg 10 mg Q1HR PRN IV PUSH SBP>160, DBP>90 09/05/16 08:45 09/07/16 18:07 Thiamine HCl/ Sodium Chloride (Thiamine Inj/NS Inj) 101 ml @ 101 mls/hr DAILY IV 09/05/16 11:00 09/08/16 08:53 Folic Acid (Folate) 1 mg DAILY PO 09/06/16 09:00 09/08/16 08:49 Multivitamins (Theragran) 1 tab DAILY PO 09/06/16 09:00 09/08/16 08:49 Chlorhexidine Gluconate 15 ml 15 ml BID@08,20 MT 09/05/16 20:00 09/08/16 08:00 Propofol 100 ml @ 0 mls/hr TITRATE IV 09/05/16 09:30 09/08/16 00:29 Azithromycin 500 mg/Sodium Chloride 250 ml @ 250 mls/hr Q24H IV 09/05/16 10:00 09/08/16 08:49 Levetriacetam 500 mg/Sodium Chloride 105 ml @ 420 mls/hr Q6H IV 09/05/16 18:00 09/08/16 06:04 Dexmedetomidine HCl/Sodium Chloride (Precedex Inj/NS Inj) 52 ml @ 0 mls/hr TITRATE IV 09/07/16 15:45 09/07/16 18:03 Insulin Aspart (NovoLOG SUPPLEMENTAL SCALE) 1 Q4H SQ 09/07/16 16:00 09/08/16 08:56 Objective Remarks GENERAL: Male, supine in bed, intubated on mechanical ventilation SKIN: Warm and dry. HEAD: Normocephalic. EYES: No injection or drainage. NECK: Supple, trachea midline. CARDIOVASCULAR: Regular rate and rhythm RESPIRATORY: anterior lundy with occasional rhonchi GASTROINTESTINAL: Abdomen nondistended. EXTREMITIES: No cyanosis NEUROLOGICAL: intubated, sedated Assessment/Plan Problem List: (1) Thrombocytopenia Status: Acute Plan: 09/08: monitor CBC, coags. give platelets if bleeding or prior to procedure. 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 --peripheral smear pending --could be given a platelet transfusion while he is getting lumbar puncture. --recommend interventional radiology to do the lumbar puncture given that he has thrombocytopenia and coagulopathy from liver disease he is at high risk for spinal hematoma. --Certainly, cryoprecipitate or fresh frozen plasma could be given for his hypofibrinogenemia Assessment 61y/o male with thrombocytopenia admitted to hospital with AMS, critically ill in IMC on mechanical ventilation history of hypertension, hepatitis C, cirrhosis of the liver with hypersplenism , diabetes mellitus, history of right lower extremity DVT. --history of chronic thrombocytopenia. Attending Statement pt is on vent. afebrile. Per RN pt will be extubated soon. DR Rodríguez now does not recommend LP. NO need to give plat tx . sign off available prn. d/w RN The exam, history, and the medical decision-making described in the above note were completed with the assistance of the mid-level provider. I reviewed and agree with the findings presented. I attest that I had a [id number] encounter with the patient on the same day, and personally performed and documented my assessment and findings in the medical record. Julissa Aguilera September 08, 2016 10:34 Toña Sheth MD September 08, 2016 19:31
--- NOTE | 2016-09-08 10:47 | HHI.CCPN ---
Subjective Remarks/Hospital Course 61yo male. Date of admission 09/05/2016. Past medical history includes depression, hypertension, hepatitis C with cirrhotic liver, diabetes mellitus with peripheral neuropathy, history of right lower extremity DVT, chronic thrombocytopenia and history of MRSA to left leg 2015. He is on metformin for diabetes. He presents to [facility] this a.m. with altered mental status. According to EMS report, pt's roommate states he has been " in and out of it " for 2 days. Today patient was found unresponsive on a couch by EMS. He has had 2 seizures in route the first lasted approximately 5 minutes was given 2 mg Ativan with another one approximate 1 minute duration received another 2 mg Ativan.. Given 2mg ativan and then another seizure about 10 min after the ativan so another 2 mg ativan given. Pt was moving all extremities but tachypneic and not responding to verbal stimuli. Pt was febrile in the ED. Patient was emergently intubated with a 7.5 ET tube after receiving 20 mg IV etomidate along with 60 mg IV rocuronium by Dr. Roblero. CT head - superior nasal spine fracture otherwise unremarkable CT C-spine -C5/6 mild disc bulge otherwise unremarkable Chest x-ray - bilateral hilar infiltrates. Cardiomegaly Pertinent labs revealed a normal white cell count, platelet count 37,000. Normal BMP, Lactic acidosis of 9.2, troponin 0.23, alcohol level 37 with positive THC level. NH3+ was 86 patient was going to be lumbar puncture in ED however platelet count is less than 50,000 the present time. Risk of spinal hematoma outweighs benefits of lumbar puncture this time. No consentable family members available currently. Patient is with one daughter he is close to. He also has a dog. In the ED, there is copious amounts of blood coming from the mouth. This was Yankauer suction to clear. Blood tinged sputum from ETT. NG tube with greenish bile gastric output. I removed one right lower denture. The left lower side is missing. 09/06 EEG showed generalized slowing. Imaging workup RN has noted ongoing bleeding from mouth and platelets 25k. Lactic acidosis cleared and urine output adequate. Ammonia 73. Has received 2 doses of lactulose and no bowel movement yet. 09/07 Following some commands intermittently today, RN resuming propofol after sedation vacation due to repeated coughing. Having BMs, ammonia downtrend to 67. Tolerating tube feeds. Hypertensive. Subjective: 09/08: per nursing, following intermittent commands. however, was agitated requiring propofol for sedation and does not follow commands for me. continues to have diarrhea likely secondary to lactulose. Objective Vital Signs Date Time Temp Pulse Resp B/P Pulse Ox O2 Delivery O2 Flow Rate FiO2 09/08/16 08:26 35 09/08/16 08:26 100 09/08/16 08:00 70 09/08/16 04:00 98.6 16 157/80 09/05/16 12:02 Ventilator Intake and Output 09/07/16 09/07/16 09/08/16 08:00 16:00 00:00 Intake Total 1534 ml 1811 ml 1437 ml Output Total 600 ml 1350 ml 1000 ml Balance 934 ml 461 ml 437 ml Result Diagram: 09/08/16 0506 09/08/16 0503 Imaging Last Impressions Head CT 09/05/16 0631 Signed Impressions: Service Date/Time: Monday, September 05, 2016 07:34 - CONCLUSION: Size disease, fracture superior nasal spine otherwise negative. Aman Freeman MD FACR Chest X-Ray 09/05/16 0631 Signed Impressions: Service Date/Time: Monday, September 05, 2016 06:48 - CONCLUSION: 1. Bilateral perihilar infiltrates and small left pleural effusion. 2. Endotracheal tube tip is close to the uziel. 3. Nasogastric tube courses into the stomach. Marcin Schmidt MD Cervical Spine CT 09/05/16 0000 Signed Impressions: Service Date/Time: Monday, September 05, 2016 07:34 - CONCLUSION: Degenerative changes, negative for fracture. Aman Freeman MD FACR Objective Remarks GENERAL: 61-year-old male, orotracheally intubated. SKIN: Warm and dry. HEAD: Atraumatic. Normocephalic. EYES: pupils, equal, round, conjugate. +icterus. No injection or drainage. ENT: No nasal bleeding or discharge. Mucous membranes pink and moist. Currently no active nasal or oral bleeding. NECK: Trachea midline. No JVD. CARDIOVASCULAR: Regular rate and rhythm. sinus by telemetry RESPIRATORY: AC/VC, fio2 35%. tachypneic. equal chest rise. GASTROINTESTINAL: Abdomen soft, non-tender, nondistended. Rectal bag in place with liquid brown stool. : Hanley in place with yellow urine output. MUSCULOSKELETAL: Extremities without any peripheral edema. No obvious deformities. NEUROLOGICAL: Attempts eye opening, but does not sustain eye opening. + cough when sedation held. per nursing, squeezes hands weakly bilaterally to command, does not perform "thumbs up". for me, just withdraw to pain, sedated with propofol. A/P Assessment and Plan Neuro/Psych: Acute toxic metabolic encephalopathy Hepatic encephalopathy Hyperammonemia History of depression THC positive Alcohol abuse Seizure Will use precedex for sedation to facilitate extubation. Goal of RASS -2 CT head 09/05 revealed no acute intracranial findings. Superior nasal spine fracture noted MRI 09/05minimal increased periventricular white matter changes and focus of signal in right frontal lobe. EEG 09/05generalized swelling Keppra 500 mg IV every 6 hours per neurology Neurology consult. Appreciate Dr. Rodríguez's assistance. Discussed with Dr. Rodríguez and Dr. Sheth - patient has thrombocytopenia, hypofibrinogenemia, prolonged PTT, suspect primarily secondary to poor hepatic function. Seizure and fever noted and ideally would perform LP to r/o meningitis however patient does have high risk of hematoma due to coagulopathy. Patient has no meningismus, EEG without focal temporal abnormality, MRI without temporal abnormality to suggest HSV meningoencephalitis. Therefore acyclovir has been discontinued per Dr. Rodríguez. Has been on empiric antimicrobial coverage with cefepime /azithro/flagyl/vancomycin for pneumonia. Clinically toxic metabolic encephalopathy due to hepatic encephalopathy, seizure , postictal state and sepsis appear to explain his mental status and he is clinically showing progressive improvement. Continue. Thiamine/folate/multivitamin daily Continue Xifaxan 550 milligrams twice a day; Lactulose 30 cc 4 times a day daily ammonia levels. Monitor for DTs Seizure precautions CV: Elevated troponin Hypertension h/o Dilated cardiomyopathy Seen by Dr. Falcon 07/25 admission. Recommended no intervention with multiple medical issues, alcoholism, thrombocytopenia and no chest pain. 2-D echocardiogram 07/25 - EF 55-60% right ventricle systolic pressure around 90 mmHg. Mild AR, MR. Left atrium and left ventricle and right ventricle all dilated Echo 09/05/16LVEF 60%. LV cavity size reported normal. No regional wall motion abnormalities. RV dilated. Normal wall thickness. Pulmonary artery systolic pressure 41 mmHg. EKG reveals sinus tachycardia 111. Left atrial enlargement. Incomplete RBBB with ST depression in V1 through V5. Troponin peaked at 2.38. Dr. Menchaca evaluated. Recommended follow-up with [facility] upon discharge. Home medications are metoprolol 25 mg by mouth twice a day lisinopril 5 mg by mouth daily. Will avoid resuming metoprolol currently because may see bradycardia when start precedex.Hold lisinopril for now and use hydralazine if needed. Resp: Acute respiratory failure Community acquired Pneumonia History of prior tobaccoism ACV /. Daily CPAP Trials and extubate when mental status appropriate. Ventilator bundle Bronchodilator therapy every 6 hours with albuterol every 2 hours when necessary dyspnea Chest x-rayperihilar infiltrate. F/u cxr in am. Patient had a negative CT of the chest 07/25 for pulmonary embolism GI: Hepatitis C unknown genotype Cirrhosis Elevated total bilirubin , downtrending Chronic mild protein energy malnutrition Liver ultrasoundmoderate splenomegaly. Increased echogenicity of the liver. Gallbladder normal. Neutra hep goal 60 cc an hour per nutrition recommendations Protonix for GI prophylaxis FEN/RENAL: Acute kidney injury resolved Hypokalemia Hypophosphatemia Hypernatremia Tube feeds are at goal. hold off on additional ivf. Creatinine normalized. Hanley in place accurate I's and O's in a critically ill patient Electrolyte replacement protocol Endo: Diabetes mellitus with neuropathy better glycemic control. 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 Hgb downtrending but does not appear to have clinically significant bleeding. 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 Leukopenia - doubt drug induced from cephalosporin/vanc as has only been on these for 3 days and typically will not see leukopenia until at least 7 days therapy. 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 ID: Community-acquired pneumonia vs aspiration Leukopenia cefepime 09/05 #4, azithromycin 09/05 #4 for pneumonia/aspiration. would plan for 7 days of azithromycin coverage (anticipated stop date 09/11). cefepime 7 to 14 days depending on clinical course. Acyclovir discontinued as per above discussion. Microbiology: Influenza negative 09/05 - blood cultures 2 - NGTD 09/05urine pneumococcal antigen and Legionella antigen negative. 09/05U/A negative for evidence of infection 09/06 - sputum culturenegative MAXILLOFACIAL: Superior nasal spine fracture Nonsurgical. Supportive care Access - PIV Prophylaxis - GI - Protonix - DVT - SCD/holding pharmacological prophylaxis with sever thrombocytopenia CCT 33 minutes exclusive of separately billable procedures. Critically ill and off pathway. encephalopathy persists. Favian Daniel MD September 08, 2016 10:47
[2016-09-08] MEDS: DEXMEDETOMIDINE INJ 200 MCG in SODIUM CHLORIDE 0.9% INJ 50 ML IV SCH ×3 (11:00→22:08)
[2016-09-08] MEDS: SODIUM PHOSPHATE INJ 30 MMOL in SODIUM CHLOR 0.9% 250 ML INJ 240 ML IV PRN (15:00)
--- NOTE | 2016-09-08 16:32 | PD.CARD.PN ---
Subjective Subjective Remarks Intubated, sedated, no change Objective Medications Current Medications Medications (Trade) Dose Ordered Sig/Dariana Route Start Time Stop Time Status Last Admin Pharmacy Profile Note 0 ml @ 0 mls/hr UNSCH OTHER 09/05/16 08:15 (Maxipime Inj/NS Inj) 100 ml @ 200 mls/hr Q8H IV 09/05/16 09:00 09/08/16 08:51 Miscellaneous Information 1 Q361D XX 09/05/16 08:15 (Chlorhexidine 2% Cloth) 3 pack Taper DAILY@04 TOP 09/06/16 04:00 09/02/17 03:59 09/08/16 04:00 (Chlorhexidine 2% Cloth) 3 pack UNSCH PRN TOP 09/05/16 08:15 (Lactulose Liq) 30 ml QID PO 09/05/16 09:00 09/08/16 13:10 (Xifaxan) 550 mg BID PO 09/05/16 10:00 09/08/16 08:49 (NS Flush) 2 ml UNSCH PRN IV FLUSH 09/05/16 08:30 (NS Flush) 2 ml BID IV FLUSH 09/05/16 09:00 09/08/16 08:49 (Tylenol) 650 mg Q6H PRN PO 09/05/16 08:30 (Protonix Inj) 40 mg DAILY IV 09/05/16 09:00 09/08/16 08:50 (Tears Naturale Opth Soln) 1 drop TID EACH EYE 09/05/16 13:00 09/08/16 13:00 (Zofran Inj) 4 mg Q6H PRN IV 09/05/16 08:30 (Colace Liq) 100 mg Q12HR G-TUBE 09/05/16 11:00 09/08/16 08:51 Sennosides 17.6 mg 17.6 mg Q12H PRN G-TUBE 09/05/16 08:30 Potassium Chloride 100 ml @ 50 mls/hr Q2H PRN IV 09/05/16 08:30 (KCl 20 Meq Premix Inj) 100 ml @ 50 mls/hr Q2H PRN IV 09/05/16 08:30 Potassium Bicarb/ Potassium Chloride 50 meq 50 meq UNSCH PRN PO 09/05/16 08:30 Potassium Chloride 100 ml @ 25 mls/hr UNSCH PRN IV 09/05/16 08:30 Potassium Chloride 100 ml @ 50 mls/hr Q2H PRN IV 09/05/16 08:30 09/07/16 08:29 (Magnesium Sulfate Inj/NS Inj) 100 ml @ 50 mls/hr UNSCH PRN IV 09/05/16 08:30 Magnesium Oxide 800 mg 800 mg UNSCH PRN PO 09/05/16 08:30 (Magnesium Sulfate Inj/NS Inj) 100 ml @ 50 mls/hr UNSCH PRN IV 09/05/16 08:30 Potassium Phosphate 2000 mg 2,000 mg Q4H PRN PO 09/05/16 08:30 09/07/16 05:34 (Sodium Phosphate Inj/NS 250 ml Inj) 250 ml @ 42 mls/hr UNSCH PRN IV 09/05/16 08:30 09/08/16 15:00 (K-Phos) 2,000 mg UNSCH PRN PO/TUBE 09/05/16 08:30 (D50w (Vial) Inj) 25 ml UNSCH PRN IV PUSH 09/05/16 08:45 (Glucagon Inj) 1 mg UNSCH PRN OTHER 09/05/16 08:45 (Nitroglycerin 2% Oint) 2 inch Q6HR PRN TOPICAL 09/05/16 08:45 (Trandate Inj) 10 mg Q1HR PRN IV PUSH 09/05/16 08:45 09/08/16 09:13 Hydralazine HCl 10 mg 10 mg Q1HR PRN IV PUSH 09/05/16 08:45 09/07/16 18:07 (Thiamine Inj/NS Inj) 101 ml @ 101 mls/hr DAILY IV 09/05/16 11:00 09/08/16 08:53 (Folate) 1 mg DAILY PO 09/06/16 09:00 09/08/16 08:49 (Theragran) 1 tab DAILY PO 09/06/16 09:00 09/08/16 08:49 Chlorhexidine Gluconate 15 ml 15 ml BID@08,20 MT 09/05/16 20:00 09/08/16 08:00 Propofol 100 ml @ 0 mls/hr TITRATE IV 09/05/16 09:30 09/08/16 00:29 Azithromycin 500 mg/Sodium Chloride 250 ml @ 250 mls/hr Q24H IV 09/05/16 10:00 09/08/16 08:49 Levetriacetam 500 mg/Sodium Chloride 105 ml @ 420 mls/hr Q6H IV 09/05/16 18:00 09/08/16 13:10 (Precedex Inj/NS Inj) 52 ml @ 0 mls/hr TITRATE IV 09/07/16 15:45 09/08/16 15:15 (NovoLOG SUPPLEMENTAL SCALE) 1 Q4H SQ 09/07/16 16:00 09/08/16 13:13 Vital Signs / I&O Vital Signs Date Time Temp Pulse Resp B/P Pulse Ox O2 Delivery O2 Flow Rate FiO2 09/08/16 16:00 90 09/08/16 14:00 88 09/08/16 12:00 71 09/08/16 11:45 100 35 09/08/16 10:00 74 09/08/16 08:26 35 09/08/16 08:26 100 35 09/08/16 08:00 70 09/08/16 06:00 62 09/08/16 04:08 100 35 09/08/16 04:00 35 09/08/16 04:00 98.6 58 16 157/80 100 09/08/16 04:00 58 09/08/16 02:00 61 09/08/16 01:09 100 35 09/08/16 00:00 98.9 61 21 116/63 100 09/08/16 00:00 61 09/08/16 00:00 35 09/07/16 22:00 62 09/07/16 21:10 99 35 09/07/16 20:13 99 35 09/07/16 20:00 66 09/07/16 20:00 35 09/07/16 20:00 99.3 66 23 125/64 99 09/07/16 18:00 83 I/O 09/07/16 09/07/16 09/07/16 09/08/16 09/08/16 09/08/16 07:00 15:00 23:00 07:00 15:00 23:00 Intake Total 1534 ml 1811 ml 1437 ml 1303 ml 1808 ml Output Total 600 ml 1350 ml 1000 ml 2450 ml 1260 ml Balance 934 ml 461 ml 437 ml -1147 ml 548 ml Intake Oral 0 ml IV Total 1149 ml 1385 ml 761 ml 643 ml 1378 ml Tube Feeding 385 ml 426 ml 556 ml 420 ml 430 ml Other 120 ml 240 ml Output Urine Total 400 ml 350 ml 600 ml 2250 ml 600 ml Stool Total 200 ml 1000 ml 400 ml 200 ml 660 ml Physical Exam GENERAL: Intubated, sedated SKIN: Warm and dry. HEAD: Normocephalic. EYES: No scleral icterus. No injection or drainage. NECK: Supple, trachea midline. No JVD or lymphadenopathy. CARDIOVASCULAR: Regular rate and rhythm without murmurs, gallops, or rubs. RESPIRATORY: Breath sounds equal bilaterally. No accessory muscle use. GASTROINTESTINAL: Abdomen soft, non-tender, nondistended. MUSCULOSKELETAL: No cyanosis, or edema. Laboratory Laboratory Tests Test 09/07/16 09/08/16 09/08/16 22:26 05:03 05:06 Prothrombin Time 16.9 SEC Prothromb Time International 1.5 RATIO Ratio Activated Partial 25.9 SEC Thromboplast Time Fibrinogen 54 mg/dL Sodium Level 148 MEQ/L Potassium Level 3.7 MEQ/L Chloride Level 118 MEQ/L Carbon Dioxide Level 22.7 MEQ/L Anion Gap 7 MEQ/L Blood Urea Nitrogen 8 MG/DL Creatinine 0.90 MG/DL Estimat Glomerular Filtration 86 ML/MIN Rate Random Glucose 205 MG/DL Calcium Level 8.0 MG/DL Phosphorus Level 1.9 MG/DL Magnesium Level 1.6 MG/DL Total Bilirubin 1.9 MG/DL Aspartate Amino Transf 55 U/L (AST/SGOT) Alanine Aminotransferase 24 U/L (ALT/SGPT) Alkaline Phosphatase 119 U/L Total Protein 6.5 GM/DL Albumin 2.6 GM/DL White Blood Count 2.6 TH/MM3 Red Blood Count 3.74 MIL/MM3 Hemoglobin 13.2 GM/DL Hematocrit 37.3 % Mean Corpuscular Volume 99.8 FL Mean Corpuscular Hemoglobin 35.2 PG Mean Corpuscular Hemoglobin 35.3 % Concent Red Cell Distribution Width 13.9 % Platelet Count 30 TH/MM3 Mean Platelet Volume 9.6 FL Neutrophils (%) (Auto) 55.6 % Lymphocytes (%) (Auto) 20.5 % Monocytes (%) (Auto) 18.6 % Eosinophils (%) (Auto) 4.7 % Basophils (%) (Auto) 0.6 % Neutrophils # (Auto) 1.4 TH/MM3 Lymphocytes # (Auto) 0.5 TH/MM3 Monocytes # (Auto) 0.5 TH/MM3 Eosinophils # (Auto) 0.1 TH/MM3 Basophils # (Auto) 0.0 TH/MM3 CBC Comment AUTO DIFF Differential Comment AUTO DIFF CONFIRMED Platelet Estimate LOW Platelet Morphology Comment NORMAL Imaging Last Impressions Chest X-Ray 09/08/16 Signed Impressions: Service Date/Time: Thursday, September 08, 2016 04:30 - CONCLUSION: 1. Cardiomegaly and findings of vascular congestion without overt failure. The findings have worsened when compared with the prior examination. Cleve Hernandez MD Head CT 09/05/16 0631 Signed Impressions: Service Date/Time: Monday, September 05, 2016 07:34 - CONCLUSION: Size disease, fracture superior nasal spine otherwise negative. Aman Freeman MD FACR Lower Extremity Ultrasound 09/05/16 Signed Impressions: Service Date/Time: Monday, September 05, 2016 09:36 - CONCLUSION: There is normal compressibility of the deep venous system from the inguinal region to the proximal calf. No echogenic clot is seen in the lumen of the common femoral, femoral, popliteal, and posterior tibial veins. There is a normal response of the venous system to proximal and distal augmentation and respiration. MD CONCLUSION: Negative for deep venous thrombosis. Aman Freeman MD Liver Ultrasound 09/05/16 Signed Impressions: Service Date/Time: Monday, September 05, 2016 08:55 - CONCLUSION: 1. Moderate splenomegaly with no focal lesion. 2. Liver is normal in size but mildly increased in echogenicity. Mayo Moncada MD Head Magnetic Resonance Angiography 09/05/16 Signed Impressions: Service Date/Time: Monday, September 05, 2016 17:27 - CONCLUSION: Normal MRA. Marcin Appiah MD Cervical Spine CT 09/05/16 Signed Impressions: Service Date/Time: Monday, September 05, 2016 07:34 - CONCLUSION: Degenerative changes, negative for fracture. Aman Freeman MD FACR Brain MRI 09/05/16 Signed Impressions: Service Date/Time: Monday, September 05, 2016 17:27 - CONCLUSION: Minimal increased signal within the periventricular white matter and a solitary small focus of signal are not in the right frontal lobe. These likely represent minimal changes of demyelination. No areas of hemorrhage, mass effect or abnormal enhancement are seen. Marcin Appiah MD Assessment and Plan Problem List: (1) Elevated troponin (2) Altered mental status (3) Seizures (4) Cirrhosis of liver (5) Acute respiratory failure (6) DM (diabetes mellitus) (7) Hepatitis C (8) Thrombocytopenia (9) Septic shock Assessment and Plan Rhythm stable. Troponin mildly elevated, but echo shows nl LV function and no WMA. No evidence of ACS. Continue ICU care. Wean vent as tolerated. Continue tx for sepsis. No new cardiac issues. Problem Qualifiers (1) Cirrhosis of liver: Qualified Code: K70.30 - Alcoholic cirrhosis of liver without ascites (2) Acute respiratory failure: Qualified Code: J96.01 - Acute respiratory failure with hypoxia and hypercapnia Rosa Menchaca MD September 08, 2016 16:32
[2016-09-08 16:38] LABS: APTT (PATIENT) 34.7 SEC (24.3-30.1); INTERNATIONAL NORMALIZED RATIO 1.3 RATIO; PROTHROMBIN TIME - PATIENT 14.6 SEC (9.8-11.6)
--- NOTE | 2016-09-08 18:05 | HHI.PR ---
Review/Management Diagnosis encephalopathy seizure history of ETOH abuse No strong indication of advisory internship infection Plan given risk of spinal hematoma with lumbar puncture and lack of strong clinical evidence of advisory internship infection, recommend not proceeding with LP Diagnosis/Plan: Subjective Subjective Comments No acute events reported Active Medications Current Medications Medications (Trade) Dose Ordered Sig/Dariana Route Start Time Stop Time Status Last Admin Pharmacy Profile Note 0 ml @ 0 mls/hr UNSCH OTHER 09/05/16 08:15 (Maxipime Inj/NS Inj) 100 ml @ 200 mls/hr Q8H IV 09/05/16 09:00 09/08/16 17:12 Miscellaneous Information 1 Q361D XX 09/05/16 08:15 (Chlorhexidine 2% Cloth) 3 pack Taper DAILY@04 TOP 09/06/16 04:00 09/02/17 03:59 09/08/16 04:00 (Chlorhexidine 2% Cloth) 3 pack UNSCH PRN TOP 09/05/16 08:15 (Lactulose Liq) 30 ml QID PO 09/05/16 09:00 09/08/16 17:11 (Xifaxan) 550 mg BID PO 09/05/16 10:00 09/08/16 08:49 (NS Flush) 2 ml UNSCH PRN IV FLUSH 09/05/16 08:30 (NS Flush) 2 ml BID IV FLUSH 09/05/16 09:00 09/08/16 08:49 (Tylenol) 650 mg Q6H PRN PO 09/05/16 08:30 (Protonix Inj) 40 mg DAILY IV 09/05/16 09:00 09/08/16 08:50 (Tears Naturale Opth Soln) 1 drop TID EACH EYE 09/05/16 13:00 09/08/16 17:12 (Zofran Inj) 4 mg Q6H PRN IV 09/05/16 08:30 (Colace Liq) 100 mg Q12HR G-TUBE 09/05/16 11:00 09/08/16 08:51 Sennosides 17.6 mg 17.6 mg Q12H PRN G-TUBE 09/05/16 08:30 Potassium Chloride 100 ml @ 50 mls/hr Q2H PRN IV 09/05/16 08:30 (KCl 20 Meq Premix Inj) 100 ml @ 50 mls/hr Q2H PRN IV 09/05/16 08:30 Potassium Bicarb/ Potassium Chloride 50 meq 50 meq UNSCH PRN PO 09/05/16 08:30 Potassium Chloride 100 ml @ 25 mls/hr UNSCH PRN IV 09/05/16 08:30 Potassium Chloride 100 ml @ 50 mls/hr Q2H PRN IV 09/05/16 08:30 09/07/16 08:29 (Magnesium Sulfate Inj/NS Inj) 100 ml @ 50 mls/hr UNSCH PRN IV 09/05/16 08:30 Magnesium Oxide 800 mg 800 mg UNSCH PRN PO 09/05/16 08:30 (Magnesium Sulfate Inj/NS Inj) 100 ml @ 50 mls/hr UNSCH PRN IV 09/05/16 08:30 Potassium Phosphate 2000 mg 2,000 mg Q4H PRN PO 09/05/16 08:30 09/07/16 05:34 (Sodium Phosphate Inj/NS 250 ml Inj) 250 ml @ 42 mls/hr UNSCH PRN IV 09/05/16 08:30 09/08/16 15:00 (K-Phos) 2,000 mg UNSCH PRN PO/TUBE 09/05/16 08:30 (D50w (Vial) Inj) 25 ml UNSCH PRN IV PUSH 09/05/16 08:45 (Glucagon Inj) 1 mg UNSCH PRN OTHER 09/05/16 08:45 (Nitroglycerin 2% Oint) 2 inch Q6HR PRN TOPICAL 09/05/16 08:45 (Trandate Inj) 10 mg Q1HR PRN IV PUSH 09/05/16 08:45 09/08/16 09:13 Hydralazine HCl 10 mg 10 mg Q1HR PRN IV PUSH 09/05/16 08:45 09/07/16 18:07 (Thiamine Inj/NS Inj) 101 ml @ 101 mls/hr DAILY IV 09/05/16 11:00 09/08/16 08:53 (Folate) 1 mg DAILY PO 09/06/16 09:00 09/08/16 08:49 (Theragran) 1 tab DAILY PO 09/06/16 09:00 09/08/16 08:49 Chlorhexidine Gluconate 15 ml 15 ml BID@08,20 MT 09/05/16 20:00 09/08/16 08:00 Propofol 100 ml @ 0 mls/hr TITRATE IV 09/05/16 09:30 09/08/16 00:29 Azithromycin 500 mg/Sodium Chloride 250 ml @ 250 mls/hr Q24H IV 09/05/16 10:00 09/08/16 08:49 Levetriacetam 500 mg/Sodium Chloride 105 ml @ 420 mls/hr Q6H IV 09/05/16 18:00 09/08/16 13:10 (Precedex Inj/NS Inj) 52 ml @ 0 mls/hr TITRATE IV 09/07/16 15:45 09/08/16 15:15 (NovoLOG SUPPLEMENTAL SCALE) 1 Q4H SQ 09/07/16 16:00 09/08/16 17:12 Allergies Allergies Coded Allergies *MDRO Multi-Drug Resistant Organism (Verified Adverse Reaction, Unknown, ) Exam I&O / VS 09/07/16 09/07/16 09/08/16 15:00 23:00 07:00 Intake Total 1811 ml 1437 ml 1303 ml Output Total 1350 ml 1000 ml 2450 ml Balance 461 ml 437 ml -1147 ml IV Total 1385 ml 761 ml 643 ml Tube Feeding 426 ml 556 ml 420 ml Other 120 ml 240 ml Output Urine Total 350 ml 600 ml 2250 ml Stool Total 1000 ml 400 ml 200 ml Vital Signs Date Time Temp Pulse Resp B/P Pulse Ox O2 Delivery O2 Flow Rate FiO2 09/08/16 16:00 90 09/08/16 14:00 88 09/08/16 12:00 71 09/08/16 11:45 100 35 09/08/16 10:00 74 09/08/16 08:26 35 09/08/16 08:26 100 35 09/08/16 08:00 70 09/08/16 06:00 62 09/08/16 04:08 100 35 09/08/16 04:00 35 09/08/16 04:00 98.6 58 16 157/80 100 09/08/16 04:00 58 09/08/16 02:00 61 09/08/16 01:09 100 35 09/08/16 00:00 98.9 61 21 116/63 100 09/08/16 00:00 61 09/08/16 00:00 35 09/07/16 22:00 62 09/07/16 21:10 99 35 09/07/16 20:13 99 35 09/07/16 20:00 66 09/07/16 20:00 35 09/07/16 20:00 99.3 66 23 125/64 99 Exam Comments minimally responsive, but appears improved from yesterday as attempts to open eyes to command PERRL. EOM-I Motor--no spontaneous limb movement Objective Micro and Labs Laboratory Tests Test 09/07/16 09/08/16 09/08/16 09/08/16 22:26 05:03 05:06 15:50 Prothrombin Time 16.9 14.6 Prothromb Time International 1.5 1.3 Ratio Activated Partial 25.9 34.7 Thromboplast Time Fibrinogen 54 154 Sodium Level 148 Potassium Level 3.7 Chloride Level 118 Carbon Dioxide Level 22.7 Anion Gap 7 Blood Urea Nitrogen 8 Creatinine 0.90 Estimat Glomerular Filtration 86 Rate Random Glucose 205 Calcium Level 8.0 Phosphorus Level 1.9 Magnesium Level 1.6 Total Bilirubin 1.9 Aspartate Amino Transf 55 (AST/SGOT) Alanine Aminotransferase 24 (ALT/SGPT) Alkaline Phosphatase 119 Total Protein 6.5 Albumin 2.6 White Blood Count 2.6 Red Blood Count 3.74 Hemoglobin 13.2 Hematocrit 37.3 Mean Corpuscular Volume 99.8 Mean Corpuscular Hemoglobin 35.2 Mean Corpuscular Hemoglobin 35.3 Concent Red Cell Distribution Width 13.9 Platelet Count 30 Mean Platelet Volume 9.6 Neutrophils (%) (Auto) 55.6 Lymphocytes (%) (Auto) 20.5 Monocytes (%) (Auto) 18.6 Eosinophils (%) (Auto) 4.7 Basophils (%) (Auto) 0.6 Neutrophils # (Auto) 1.4 Lymphocytes # (Auto) 0.5 Monocytes # (Auto) 0.5 Eosinophils # (Auto) 0.1 Basophils # (Auto) 0.0 CBC Comment AUTO DIFF Differential Comment AUTO DIFF CONFIRMED Platelet Estimate LOW Platelet Morphology Comment NORMAL Vancomycin Level Trough 5.9 Date/Time Procedure Status Source Growth 09/06/16 12:00 Gram Stain - Final Complete Sputum Endotracheal 09/06/16 12:00 Sputum Culture - Final Complete Sputum Endotracheal RARE GROWTH NORMAL RESPIRATORY CHAO 09/05/16 08:45 Influenza Types A,B Antigen (HUA) - Final Complete Nasal Aspirate NEGATIVE FOR FLU A AND B ANTIGEN.... 09/05/16 06:35 Aerobic Blood Culture - Preliminary Resulted Blood Peripheral NO GROWTH IN 3 DAYS 09/05/16 06:35 Anaerobic Blood Culture - Preliminary Resulted Blood Peripheral NO GROWTH IN 3 DAYS 09/05/16 06:30 Streptococcus pneumoniae Antigen (M - Final Complete Urine Clean Catch PRESUMPTIVE NEGATIVE FOR STREPTOCOCCU... 09/05/16 06:30 Legionella Antigen - Final Complete Urine Catheterized Urine PRESUMPTIVE NEGATIVE FOR LEGIONELLA P... Junaid Rodríguez PhD MD September 08, 2016 18:05
[2016-09-08] MEDS: hydrALAZINE HCL 20 MG/ML VIAL IV PUSH PRN (21:10)
[2016-09-09] VITALS (18 sets, daily range): BP systolic 85–173; BP diastolic 49–87; PULSE 47–106; RESP 15–22; TEMP 98–98.8; O2SAT 97–100
[2016-09-09] MEDS: CEFEPIME INJ 2,000 MG in SODIUM CHLORIDE 0.9% INJ 100 ML IV SCH ×3 (00:35→17:00)
[2016-09-09] MEDS: RESP: ALBUTEROL 2.5 MG/IPRATROPIUM 0.5 MG NEB (SCH) INH ×4 (03:37→21:16)
[2016-09-09] MEDS: CHLORHEXIDINE GLUCONATE 2 % 1 PACK (2 CLOTHS) TOP SCH (04:00)
[2016-09-09] MEDS: INSULIN ASPART SUPPLEMENTAL SCALE SQ SCH ×5 (04:39→19:52)
[2016-09-09] MEDS: hydrALAZINE HCL 20 MG/ML VIAL IV PUSH PRN (04:39)
[2016-09-09] MEDS: levETIRAcetam INJ 500 MG in SODIUM CHLORIDE 0.9% INJ 100 ML IV SCH ×3 (05:01→17:16)
[2016-09-09 05:03] LABS: AUTOMATED NEUTROPHIL # 1.1 TH/MM3 (1.8-7.7); BASOPHIL % 0.6 % (0.0-2.0); EOSINOPHIL # 0.1 TH/MM3 (0-0.4); EOSINOPHIL % 6.6 % (0.0-4.0); HEMATOCRIT 35.6 % (39.0-51.0); LYMPH % 17.6 % (9.0-44.0); LYMPHOCYTE # 0.3 TH/MM3 (1.0-4.8); MEAN CELL VOLUME 98.1 FL (80.0-100.0); MEAN CORPUSCULAR HEMOGLOBIN 34.7 PG (27.0-34.0); MEAN CORPUSCULAR HGB CONC 35.4 % (32.0-36.0); MONO % 11.9 % (0.0-8.0); NEUT % 63.3 % (16.0-70.0); PLATELET COUNT 29 TH/MM3 (150-450); RED BLOOD COUNT 3.63 MIL/MM3 (4.50-5.90); RED CELL DISTRIBUTION WIDTH 14.3 % (11.6-17.2); WHITE BLOOD COUNT 1.8 TH/MM3 (4.0-11.0)
[2016-09-09 05:10] LABS: HEMO FLAGS AUTO DIFF
[2016-09-09 05:20] LABS: APTT (PATIENT) 37.4 SEC (24.3-30.1); INTERNATIONAL NORMALIZED RATIO 1.4 RATIO; PROTHROMBIN TIME - PATIENT 15.2 SEC (9.8-11.6)
[2016-09-09] MEDS: CHLORHEXIDINE 0.12% (ORAL KIT) 15 ML CUP MT SCH ×2 (08:00→19:52)
[2016-09-09 08:12] LABS: BANDS 23 % (0-6); EOSINOPHILS 4 % (0-4); NEUTROPHIL # MANUAL DIFF 1.2 TH/MM3 (1.8-7.7); PLATELET ESTIMATE SMEAR LOW (NORMAL); PLATELET MORPHOLOGY NORMAL (NORMAL); POLYS (SEG NEUTROPHILS) 45 % (16-70); WBC DIFF SAMPLE 100
[2016-09-09 08:13] LABS: SCAN/DIFF FINAL DIFF MANUAL
[2016-09-09] MEDS: PANTOPRAZOLE SODIUM 40 MG VIAL IV SCH (08:55)
[2016-09-09] MEDS: SODIUM CHLORIDE 0.9% FLUSH 10 ML FLUSH IV FLUSH SCH ×2 (08:56→19:51)
[2016-09-09] MEDS: MULTIVITAMIN TAB PO SCH (08:56)
[2016-09-09] MEDS: FOLIC ACID 1 MG TAB PO SCH (08:56)
[2016-09-09] MEDS: AZITHROMYCIN INJ 500 MG in SODIUM CHLOR 0.9% 250 ML INJ 250 ML IV SCH (08:57)
[2016-09-09] MEDS: LACTULOSE SYRUP 20 GM/30 ML CUP PO SCH ×4 (08:57→19:51)
[2016-09-09] MEDS: DOCUSATE SODIUM 100 MG/10 ML UDC G-TUBE SCH ×2 (08:57→19:51)
[2016-09-09] MEDS: ARTIFICIAL TEARS OPTH SOLN 15 ML BTL EACH EYE SCH ×3 (08:58→17:15)
[2016-09-09] MEDS: RIFAXIMIN 550 MG TAB PO SCH ×2 (08:58→19:51)
[2016-09-09] MEDS: THIAMINE INJ 100 MG in SODIUM CHLORIDE 0.9% INJ 100 ML IV SCH (12:37)
--- NOTE | 2016-09-09 18:05 | PD.CARD.PN ---
Subjective Subjective Remarks Intubated, sedated Objective Medications Current Medications Medications (Trade) Dose Ordered Sig/Dariana Route Start Time Stop Time Status Last Admin (Maxipime Inj/NS Inj) 100 ml @ 200 mls/hr Q8H IV 09/05/16 09:00 09/09/16 17:00 Miscellaneous Information 1 Q361D XX 09/05/16 08:15 (Chlorhexidine 2% Cloth) 3 pack Taper DAILY@04 TOP 09/06/16 04:00 09/02/17 03:59 09/09/16 04:00 (Chlorhexidine 2% Cloth) 3 pack UNSCH PRN TOP 09/05/16 08:15 (Lactulose Liq) 30 ml QID PO 09/05/16 09:00 09/09/16 17:16 (Xifaxan) 550 mg BID PO 09/05/16 10:00 09/09/16 08:58 (NS Flush) 2 ml UNSCH PRN IV FLUSH 09/05/16 08:30 (NS Flush) 2 ml BID IV FLUSH 09/05/16 09:00 09/09/16 08:56 (Tylenol) 650 mg Q6H PRN PO 09/05/16 08:30 (Protonix Inj) 40 mg DAILY IV 09/05/16 09:00 09/09/16 08:55 (Tears Naturale Opth Soln) 1 drop TID EACH EYE 09/05/16 13:00 09/09/16 17:15 (Zofran Inj) 4 mg Q6H PRN IV 09/05/16 08:30 (Colace Liq) 100 mg Q12HR G-TUBE 09/05/16 11:00 09/09/16 08:57 Sennosides 17.6 mg 17.6 mg Q12H PRN G-TUBE 09/05/16 08:30 Potassium Chloride 100 ml @ 50 mls/hr Q2H PRN IV 09/05/16 08:30 (KCl 20 Meq Premix Inj) 100 ml @ 50 mls/hr Q2H PRN IV 09/05/16 08:30 Potassium Bicarb/ Potassium Chloride 50 meq 50 meq UNSCH PRN PO 09/05/16 08:30 Potassium Chloride 100 ml @ 25 mls/hr UNSCH PRN IV 09/05/16 08:30 Potassium Chloride 100 ml @ 50 mls/hr Q2H PRN IV 09/05/16 08:30 09/07/16 08:29 (Magnesium Sulfate Inj/NS Inj) 100 ml @ 50 mls/hr UNSCH PRN IV 09/05/16 08:30 Magnesium Oxide 800 mg 800 mg UNSCH PRN PO 09/05/16 08:30 (Magnesium Sulfate Inj/NS Inj) 100 ml @ 50 mls/hr UNSCH PRN IV 09/05/16 08:30 Potassium Phosphate 2000 mg 2,000 mg Q4H PRN PO 09/05/16 08:30 09/07/16 05:34 (Sodium Phosphate Inj/NS 250 ml Inj) 250 ml @ 42 mls/hr UNSCH PRN IV 09/05/16 08:30 09/08/16 15:00 (K-Phos) 2,000 mg UNSCH PRN PO/TUBE 09/05/16 08:30 (D50w (Vial) Inj) 25 ml UNSCH PRN IV PUSH 09/05/16 08:45 (Glucagon Inj) 1 mg UNSCH PRN OTHER 09/05/16 08:45 (Nitroglycerin 2% Oint) 2 inch Q6HR PRN TOPICAL 09/05/16 08:45 (Trandate Inj) 10 mg Q1HR PRN IV PUSH 09/05/16 08:45 09/08/16 09:13 Hydralazine HCl 10 mg 10 mg Q1HR PRN IV PUSH 09/05/16 08:45 09/09/16 04:39 (Thiamine Inj/NS Inj) 101 ml @ 101 mls/hr DAILY IV 09/05/16 11:00 09/09/16 12:37 (Folate) 1 mg DAILY PO 09/06/16 09:00 09/09/16 08:56 (Theragran) 1 tab DAILY PO 09/06/16 09:00 09/09/16 08:56 Chlorhexidine Gluconate 15 ml 15 ml BID@08,20 MT 09/05/16 20:00 09/09/16 08:00 Propofol 100 ml @ 0 mls/hr TITRATE IV 09/05/16 09:30 09/08/16 00:29 Azithromycin 500 mg/Sodium Chloride 250 ml @ 250 mls/hr Q24H IV 09/05/16 10:00 09/09/16 08:57 Levetriacetam 500 mg/Sodium Chloride 105 ml @ 420 mls/hr Q6H IV 09/05/16 18:00 09/09/16 17:16 (Precedex Inj/NS Inj) 52 ml @ 0 mls/hr TITRATE IV 09/07/16 15:45 09/08/16 22:08 (NovoLOG SUPPLEMENTAL SCALE) 1 Q4H SQ 09/07/16 16:00 09/09/16 12:37 Vital Signs / I&O Vital Signs Date Time Temp Pulse Resp B/P Pulse Ox O2 Delivery O2 Flow Rate FiO2 09/09/16 16:00 82 09/09/16 16:00 98.3 69 17 113/55 98 09/09/16 14:50 100 Nasal Cannula 4 09/09/16 14:50 100 Nasal Cannula 4.00 09/09/16 14:00 77 09/09/16 12:00 98.5 55 17 109/58 100 09/09/16 12:00 80 09/09/16 11:04 100 35 09/09/16 10:00 71 09/09/16 08:00 87 09/09/16 08:00 98.8 57 16 85/49 100 09/09/16 07:41 35 09/09/16 07:26 100 35 09/09/16 06:00 54 09/09/16 04:04 100 35 09/09/16 04:00 98.2 47 15 173/87 100 09/09/16 04:00 47 09/09/16 02:00 48 09/09/16 00:22 100 35 09/09/16 00:00 35 09/09/16 00:00 50 09/09/16 00:00 98.0 50 16 155/80 100 09/08/16 22:00 57 09/08/16 21:21 100 35 09/08/16 20:00 35 09/08/16 20:00 49 09/08/16 20:00 97.9 49 18 167/83 100 I/O 09/08/16 09/08/16 09/08/16 09/09/16 09/09/16 09/09/16 07:00 15:00 23:00 07:00 15:00 23:00 Intake Total 1303 ml 1808 ml 1296 ml 572 ml 410 ml Output Total 2450 ml 1260 ml 900 ml 350 ml 550 ml Balance -1147 ml 548 ml 396 ml 222 ml -140 ml IV Total 643 ml 1378 ml 819 ml 331 ml 410 ml Tube Feeding 420 ml 430 ml 357 ml 181 ml Other 240 ml 120 ml 60 ml Output Urine Total 2250 ml 600 ml 350 ml 300 ml 450 ml Stool Total 200 ml 660 ml 550 ml 50 ml 100 ml Physical Exam GENERAL: Intubated, sedated SKIN: Warm and dry. HEAD: Normocephalic. EYES: No scleral icterus. No injection or drainage. NECK: Supple, trachea midline. No JVD or lymphadenopathy. CARDIOVASCULAR: Regular rate and rhythm without murmurs, gallops, or rubs. RESPIRATORY: Breath sounds equal bilaterally. No accessory muscle use. GASTROINTESTINAL: Abdomen soft, non-tender, nondistended. MUSCULOSKELETAL: No cyanosis, or edema. Laboratory Laboratory Tests Test 09/09/16 09/09/16 04:41 04:53 White Blood Count 1.8 TH/MM3 Red Blood Count 3.63 MIL/MM3 Hemoglobin 12.6 GM/DL Hematocrit 35.6 % Mean Corpuscular Volume 98.1 FL Mean Corpuscular Hemoglobin 34.7 PG Mean Corpuscular Hemoglobin 35.4 % Concent Red Cell Distribution Width 14.3 % Platelet Count 29 TH/MM3 Mean Platelet Volume 8.4 FL Neutrophils (%) (Auto) 63.3 % Lymphocytes (%) (Auto) 17.6 % Monocytes (%) (Auto) 11.9 % Eosinophils (%) (Auto) 6.6 % Basophils (%) (Auto) 0.6 % Neutrophils # (Auto) 1.1 TH/MM3 Lymphocytes # (Auto) 0.3 TH/MM3 Monocytes # (Auto) 0.2 TH/MM3 Eosinophils # (Auto) 0.1 TH/MM3 Basophils # (Auto) 0.0 TH/MM3 CBC Comment AUTO DIFF Differential Total Cells 100 Counted Neutrophils % (Manual) 45 % Band Neutrophils % 23 % Lymphocytes % 21 % Monocytes % 7 % Eosinophils % 4 % Neutrophils # (Manual) 1.2 TH/MM3 Differential Comment FINAL DIFF MANUAL Platelet Estimate LOW Platelet Morphology Comment NORMAL Prothrombin Time 15.2 SEC Prothromb Time International 1.4 RATIO Ratio Activated Partial 37.4 SEC Thromboplast Time Fibrinogen 177 mg/dL Ammonia 51 MCMOL/L Imaging Last Impressions Chest X-Ray 09/08/16 Signed Impressions: Service Date/Time: Thursday, September 08, 2016 04:30 - CONCLUSION: 1. Cardiomegaly and findings of vascular congestion without overt failure. The findings have worsened when compared with the prior examination. Cleve Hernandez MD Head CT 09/05/16 0631 Signed Impressions: Service Date/Time: Monday, September 05, 2016 07:34 - CONCLUSION: Size disease, fracture superior nasal spine otherwise negative. Aman Freeman MD FACR Lower Extremity Ultrasound 09/05/16 Signed Impressions: Service Date/Time: Monday, September 05, 2016 09:36 - CONCLUSION: There is normal compressibility of the deep venous system from the inguinal region to the proximal calf. No echogenic clot is seen in the lumen of the common femoral, femoral, popliteal, and posterior tibial veins. There is a normal response of the venous system to proximal and distal augmentation and respiration. MD CONCLUSION: Negative for deep venous thrombosis. Aman Freeman MD Liver Ultrasound 09/05/16 Signed Impressions: Service Date/Time: Monday, September 05, 2016 08:55 - CONCLUSION: 1. Moderate splenomegaly with no focal lesion. 2. Liver is normal in size but mildly increased in echogenicity. Mayo Moncada MD Head Magnetic Resonance Angiography 09/05/16 Signed Impressions: Service Date/Time: Monday, September 05, 2016 17:27 - CONCLUSION: Normal MRA. Marcin Appiah MD Cervical Spine CT 09/05/16 Signed Impressions: Service Date/Time: Monday, September 05, 2016 07:34 - CONCLUSION: Degenerative changes, negative for fracture. Aman Freeman MD FACR Brain MRI 09/05/16 Signed Impressions: Service Date/Time: Monday, September 05, 2016 17:27 - CONCLUSION: Minimal increased signal within the periventricular white matter and a solitary small focus of signal are not in the right frontal lobe. These likely represent minimal changes of demyelination. No areas of hemorrhage, mass effect or abnormal enhancement are seen. Marcin pApiah MD Assessment and Plan Problem List: (1) Elevated troponin (2) Altered mental status (3) Seizures (4) Cirrhosis of liver (5) Acute respiratory failure (6) DM (diabetes mellitus) (7) Hepatitis C (8) Thrombocytopenia (9) Septic shock Assessment and Plan Rhythm stable. Troponin mildly elevated, but echo shows nl LV function and no WMA. No evidence of ACS. Continue ICU care. Wean vent as tolerated, so far unsuccessful. Continue tx for sepsis. No new cardiac issues at this point. Problem Qualifiers (1) Cirrhosis of liver: Qualified Code: K70.30 - Alcoholic cirrhosis of liver without ascites (2) Acute respiratory failure: Qualified Code: J96.01 - Acute respiratory failure with hypoxia and hypercapnia Rosa Menchaca MD September 09, 2016 18:05
--- NOTE | 2016-09-09 20:06 | HHI.CCPN ---
Subjective Remarks/Hospital Course 61yo male. Date of admission 09/05/2016. Past medical history includes depression, hypertension, hepatitis C with cirrhotic liver, diabetes mellitus with peripheral neuropathy, history of right lower extremity DVT, chronic thrombocytopenia and history of MRSA to left leg 2015. He is on metformin for diabetes. He presents to [facility] this a.m. with altered mental status. According to EMS report, pt's roommate states he has been " in and out of it " for 2 days. Today patient was found unresponsive on a couch by EMS. He has had 2 seizures in route the first lasted approximately 5 minutes was given 2 mg Ativan with another one approximate 1 minute duration received another 2 mg Ativan.. Given 2mg ativan and then another seizure about 10 min after the ativan so another 2 mg ativan given. Pt was moving all extremities but tachypneic and not responding to verbal stimuli. Pt was febrile in the ED. Patient was emergently intubated with a 7.5 ET tube after receiving 20 mg IV etomidate along with 60 mg IV rocuronium by Dr. Roblero. CT head - superior nasal spine fracture otherwise unremarkable CT C-spine -C5/6 mild disc bulge otherwise unremarkable Chest x-ray - bilateral hilar infiltrates. Cardiomegaly Pertinent labs revealed a normal white cell count, platelet count 37,000. Normal BMP, Lactic acidosis of 9.2, troponin 0.23, alcohol level 37 with positive THC level. NH3+ was 86 patient was going to be lumbar puncture in ED however platelet count is less than 50,000 the present time. Risk of spinal hematoma outweighs benefits of lumbar puncture this time. No consentable family members available currently. Patient is with one daughter he is close to. He also has a dog. In the ED, there is copious amounts of blood coming from the mouth. This was Yankauer suction to clear. Blood tinged sputum from ETT. NG tube with greenish bile gastric output. I removed one right lower denture. The left lower side is missing. 09/06 EEG showed generalized slowing. Imaging workup RN has noted ongoing bleeding from mouth and platelets 25k. Lactic acidosis cleared and urine output adequate. Ammonia 73. Has received 2 doses of lactulose and no bowel movement yet. 09/07 Following some commands intermittently today, RN resuming propofol after sedation vacation due to repeated coughing. Having BMs, ammonia downtrend to 67. Tolerating tube feeds. Hypertensive. 09/08: per nursing, following intermittent commands. however, was agitated requiring propofol for sedation and does not follow commands for me. continues to have diarrhea likely secondary to lactulose. Subjective: 09/09: following commands this morning, still slightly somnolent, but much more awake than yesterday. diarrhea secondary to lactulose persists. Objective Vital Signs Date Time Temp Pulse Resp B/P Pulse Ox O2 Delivery O2 Flow Rate FiO2 09/09/16 18:00 89 09/09/16 16:00 98.3 17 113/55 98 09/09/16 14:50 Nasal Cannula 4 09/09/16 11:04 35 Intake and Output 09/08/16 09/08/16 09/09/16 08:00 16:00 00:00 Intake Total 1303 ml 1808 ml 1296 ml Output Total 2450 ml 1260 ml 900 ml Balance -1147 ml 548 ml 396 ml Result Diagram: 09/09/16 0441 09/08/16 0503 Imaging Last Impressions Head CT 09/05/1631 Signed Impressions: Service Date/Time: Monday, September 05, 2016 07:34 - CONCLUSION: Size disease, fracture superior nasal spine otherwise negative. Aman Freeman MD FACR Chest X-Ray 09/05/16630 Signed Impressions: Service Date/Time: Monday, September 05, 2016 06:48 - CONCLUSION: 1. Bilateral perihilar infiltrates and small left pleural effusion. 2. Endotracheal tube tip is close to the uziel. 3. Nasogastric tube courses into the stomach. Marcin Schmidt MD Cervical Spine CT 09/05/16 0000 Signed Impressions: Service Date/Time: Monday, September 05, 2016 07:34 - CONCLUSION: Degenerative changes, negative for fracture. Aman Freeman MD FACR Objective Remarks GENERAL: 61-year-old male, orotracheally intubated. SKIN: Warm and dry. HEAD: Atraumatic. Normocephalic. EYES: pupils, equal, round, conjugate. +icterus. No injection or drainage. ENT: No nasal bleeding or discharge. Mucous membranes pink and moist. Currently no active nasal or oral bleeding. NECK: Trachea midline. No JVD. CARDIOVASCULAR: Regular rate and rhythm. sinus by telemetry RESPIRATORY: PSV 5/5/35%, not tachypneic. comfortable. equal chest rise. GASTROINTESTINAL: Abdomen soft, non-tender, nondistended. Rectal bag in place with liquid brown stool. : Hanley in place with yellow urine output. MUSCULOSKELETAL: Extremities without any peripheral edema. No obvious deformities. NEUROLOGICAL: Attempts eye opening, but does not sustain eye opening. follows commands in all 4 extremities. RASS -2. A/P Assessment and Plan Neuro/Psych: Acute toxic metabolic encephalopathy Hepatic encephalopathy Hyperammonemia History of depression THC positive Alcohol abuse Seizure Will use precedex for sedation to facilitate extubation. Goal of RASS 0 CT head 09/05 revealed no acute intracranial findings. Superior nasal spine fracture noted MRI 09/05minimal increased periventricular white matter changes and focus of signal in right frontal lobe. EEG 09/05generalized swelling Keppra 500 mg IV every 6 hours per neurology Neurology consult. Appreciate Dr. Rodríguez's assistance. Discussed with Dr. Rodríguez and Dr. Sheth - patient has thrombocytopenia, hypofibrinogenemia, prolonged PTT, suspect primarily secondary to poor hepatic function. Seizure and fever noted and ideally would perform LP to r/o meningitis however patient does have high risk of hematoma due to coagulopathy. Patient has no meningismus, EEG without focal temporal abnormality, MRI without temporal abnormality to suggest HSV meningoencephalitis. Therefore acyclovir has been discontinued per Dr. Rodríguez. Has been on empiric antimicrobial coverage with cefepime /azithro/flagyl/vancomycin for pneumonia. Clinically toxic metabolic encephalopathy due to hepatic encephalopathy, seizure , postictal state and sepsis appear to explain his mental status and he is clinically showing progressive improvement. Continue. Thiamine/folate/multivitamin daily Continue Xifaxan 550 milligrams twice a day; Lactulose 30 cc 4 times a day daily ammonia levels. Monitor for DTs Seizure precautions CV: Elevated troponin Hypertension h/o Dilated cardiomyopathy Seen by Dr. Falcon 07/25 admission. Recommended no intervention with multiple medical issues, alcoholism, thrombocytopenia and no chest pain. 2-D echocardiogram 07/25 - EF 55-60% right ventricle systolic pressure around 90 mmHg. Mild AR, MR. Left atrium and left ventricle and right ventricle all dilated Echo 09/05/16LVEF 60%. LV cavity size reported normal. No regional wall motion abnormalities. RV dilated. Normal wall thickness. Pulmonary artery systolic pressure 41 mmHg. EKG reveals sinus tachycardia 111. Left atrial enlargement. Incomplete RBBB with ST depression in V1 through V5. Troponin peaked at 2.38. Dr. Menchaca evaluated. Recommended follow-up with [facility] upon discharge. Home medications are metoprolol 25 mg by mouth twice a day lisinopril 5 mg by mouth daily. Will avoid resuming metoprolol currently because may see bradycardia when start precedex.Hold lisinopril for now and use hydralazine if needed. Resp: Acute respiratory failure- resolving. Community acquired Pneumonia History of prior tobaccoism mental status improving. will pursue extubation today. Ventilator bundle Bronchodilator therapy every 6 hours with albuterol every 2 hours when necessary dyspnea Patient had a negative CT of the chest 07/25 for pulmonary embolism GI: Hepatitis C unknown genotype Cirrhosis Elevated total bilirubin , downtrending Chronic mild protein energy malnutrition Liver ultrasoundmoderate splenomegaly. Increased echogenicity of the liver. Gallbladder normal. Neutra hep goal 60 cc an hour per nutrition recommendations Protonix for GI prophylaxis FEN/RENAL: Acute kidney injury resolved Hypokalemia Hypophosphatemia Hypernatremia Tube feeds are at goal. hold off on additional ivf. Creatinine normalized. Hanley in place accurate I's and O's in a critically ill patient Electrolyte replacement protocol Endo: Diabetes mellitus with neuropathy better glycemic control. 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 Hgb downtrending but does not appear to have clinically significant bleeding. 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 Leukopenia - doubt drug induced from cephalosporin/vanc as has only been on these for 3 days and typically will not see leukopenia until at least 7 days therapy. 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 ID: Community-acquired pneumonia vs aspiration Leukopenia cefepime 09/05 #5, azithromycin 09/05 #5 for pneumonia/aspiration. would plan for 7 days of azithromycin coverage (anticipated stop date 09/11). cefepime 7 to 14 days depending on clinical course. Acyclovir discontinued as per above discussion. Microbiology: Influenza negative 09/05 - blood cultures 2 - NGTD 09/05urine pneumococcal antigen and Legionella antigen negative. 09/05U/A negative for evidence of infection 09/06 - sputum culturenegative MAXILLOFACIAL: Superior nasal spine fracture Nonsurgical. Supportive care Access - PIV Prophylaxis - GI - Protonix - DVT - SCD/holding pharmacological prophylaxis with sever thrombocytopenia Favian Daniel MD September 09, 2016 20:06
[2016-09-10] VITALS (16 sets, daily range): BP systolic 151–187; BP diastolic 77–96; PULSE 87–122; RESP 19–22; TEMP 98.2–98.6; O2SAT 95–100
[2016-09-10] MEDS: CEFEPIME INJ 2,000 MG in SODIUM CHLORIDE 0.9% INJ 100 ML IV SCH ×3 (00:28→16:52)
[2016-09-10] MEDS: levETIRAcetam INJ 500 MG in SODIUM CHLORIDE 0.9% INJ 100 ML IV SCH ×4 (00:29→17:31)
[2016-09-10] MEDS ORDERED: FLUMAZENIL 0.5 MG/5 ML VIAL IV PUSH PRN (00:45)
[2016-09-10] MEDS ORDERED: LORazepam 2 MG TAB PO PRN (00:45)
[2016-09-10] MEDS ORDERED: LORazepam 2 MG/ML VIAL IV PUSH PRN ×3 (00:45)
[2016-09-10] MEDS ORDERED: LORazepam 1 MG TAB PO PRN (00:45)
[2016-09-10] MEDS: LORazepam 2 MG/ML VIAL IV PUSH PRN ×2 (01:05→05:37)
[2016-09-10] MEDS: RESP: ALBUTEROL 2.5 MG/IPRATROPIUM 0.5 MG NEB (SCH) INH ×4 (03:39→20:50)
[2016-09-10] MEDS: CHLORHEXIDINE GLUCONATE 2 % 1 PACK (2 CLOTHS) TOP SCH (04:00)
[2016-09-10] MEDS: INSULIN ASPART SUPPLEMENTAL SCALE SQ SCH ×5 (04:40→21:00)
[2016-09-10 05:23] LABS: AUTOMATED NEUTROPHIL # 2.6 TH/MM3 (1.8-7.7); BASOPHIL % 0.7 % (0.0-2.0); EOSINOPHIL # 0.1 TH/MM3 (0-0.4); EOSINOPHIL % 3.6 % (0.0-4.0); HEMATOCRIT 36.8 % (39.0-51.0); LYMPH % 12.6 % (9.0-44.0); LYMPHOCYTE # 0.5 TH/MM3 (1.0-4.8); MEAN CELL VOLUME 98.7 FL (80.0-100.0); MEAN CORPUSCULAR HGB CONC 34.4 % (32.0-36.0); MONO % 11.7 % (0.0-8.0); NEUT % 71.4 % (16.0-70.0); PLATELET COUNT 28 TH/MM3 (150-450); RED BLOOD COUNT 3.73 MIL/MM3 (4.50-5.90); RED CELL DISTRIBUTION WIDTH 14.5 % (11.6-17.2); WHITE BLOOD COUNT 3.6 TH/MM3 (4.0-11.0)
[2016-09-10 05:29] LABS: APTT (PATIENT) 35.5 SEC (24.3-30.1); INTERNATIONAL NORMALIZED RATIO 1.3 RATIO; PROTHROMBIN TIME - PATIENT 14.8 SEC (9.8-11.6)
[2016-09-10 05:30] LABS: HEMO FLAGS AUTO DIFF
[2016-09-10 07:10] LABS: PLATELET ESTIMATE SMEAR LOW (NORMAL); PLATELET MORPHOLOGY NORMAL (NORMAL); SCAN/DIFF AUTO DIFF CONFIRMED
[2016-09-10] MEDS: CHLORHEXIDINE 0.12% (ORAL KIT) 15 ML CUP MT SCH ×2 (08:00→20:00)
[2016-09-10] MEDS: PANTOPRAZOLE SODIUM 40 MG VIAL IV SCH (08:42)
[2016-09-10] MEDS: LACTULOSE SYRUP 20 GM/30 ML CUP PO SCH ×4 (08:42→20:44)
[2016-09-10] MEDS: RIFAXIMIN 550 MG TAB PO SCH ×2 (08:42→20:44)
[2016-09-10] MEDS: FOLIC ACID 1 MG TAB PO SCH (08:42)
[2016-09-10] MEDS: DOCUSATE SODIUM 100 MG/10 ML UDC G-TUBE SCH (08:42)
[2016-09-10] MEDS: MULTIVITAMIN TAB PO SCH (08:42)
[2016-09-10] MEDS: SODIUM CHLORIDE 0.9% FLUSH 10 ML FLUSH IV FLUSH SCH ×2 (09:00→20:45)
[2016-09-10] MEDS: ARTIFICIAL TEARS OPTH SOLN 15 ML BTL EACH EYE SCH (09:00)
[2016-09-10] MEDS: THIAMINE INJ 100 MG in SODIUM CHLORIDE 0.9% INJ 100 ML IV SCH (09:00)
[2016-09-10] MEDS: AZITHROMYCIN INJ 500 MG in SODIUM CHLOR 0.9% 250 ML INJ 250 ML IV SCH (10:00)
--- NOTE | 2016-09-10 14:04 | PD.CARD.PN ---
Subjective Subjective Remarks Extubated, confused, no CP or SOB Objective Medications Current Medications Medications (Trade) Dose Ordered Sig/Dariana Route Start Time Stop Time Status Last Admin (Maxipime Inj/NS Inj) 100 ml @ 200 mls/hr Q8H IV 09/05/16 09:00 09/10/16 08:41 Miscellaneous Information 1 Q361D XX 09/05/16 08:15 (Chlorhexidine 2% Cloth) 3 pack Taper DAILY@04 TOP 09/06/16 04:00 09/02/17 03:59 09/10/16 04:00 (Chlorhexidine 2% Cloth) 3 pack UNSCH PRN TOP 09/05/16 08:15 (Lactulose Liq) 30 ml QID PO 09/05/16 09:00 09/10/16 08:42 (Xifaxan) 550 mg BID PO 09/05/16 10:00 09/10/16 08:42 (NS Flush) 2 ml UNSCH PRN IV FLUSH 09/05/16 08:30 (NS Flush) 2 ml BID IV FLUSH 09/05/16 09:00 09/10/16 09:00 (Tylenol) 650 mg Q6H PRN PO 09/05/16 08:30 (Protonix Inj) 40 mg DAILY IV 09/05/16 09:00 09/10/16 08:42 (Tears Naturale Opth Soln) 1 drop TID EACH EYE 09/05/16 13:00 09/10/16 09:00 (Zofran Inj) 4 mg Q6H PRN IV 09/05/16 08:30 (Colace Liq) 100 mg Q12HR G-TUBE 09/05/16 11:00 09/10/16 08:42 Sennosides 17.6 mg 17.6 mg Q12H PRN G-TUBE 09/05/16 08:30 Potassium Chloride 100 ml @ 50 mls/hr Q2H PRN IV 09/05/16 08:30 (KCl 20 Meq Premix Inj) 100 ml @ 50 mls/hr Q2H PRN IV 09/05/16 08:30 Potassium Bicarb/ Potassium Chloride 50 meq 50 meq UNSCH PRN PO 09/05/16 08:30 Potassium Chloride 100 ml @ 25 mls/hr UNSCH PRN IV 09/05/16 08:30 Potassium Chloride 100 ml @ 50 mls/hr Q2H PRN IV 09/05/16 08:30 09/07/16 08:29 (Magnesium Sulfate Inj/NS Inj) 100 ml @ 50 mls/hr UNSCH PRN IV 09/05/16 08:30 Magnesium Oxide 800 mg 800 mg UNSCH PRN PO 09/05/16 08:30 (Magnesium Sulfate Inj/NS Inj) 100 ml @ 50 mls/hr UNSCH PRN IV 09/05/16 08:30 Potassium Phosphate 2000 mg 2,000 mg Q4H PRN PO 09/05/16 08:30 09/07/16 05:34 (Sodium Phosphate Inj/NS 250 ml Inj) 250 ml @ 42 mls/hr UNSCH PRN IV 09/05/16 08:30 09/08/16 15:00 (K-Phos) 2,000 mg UNSCH PRN PO/TUBE 09/05/16 08:30 (D50w (Vial) Inj) 25 ml UNSCH PRN IV PUSH 09/05/16 08:45 (Nitroglycerin 2% Oint) 2 inch Q6HR PRN TOPICAL 09/05/16 08:45 (Trandate Inj) 10 mg Q1HR PRN IV PUSH 09/05/16 08:45 09/08/16 09:13 Hydralazine HCl 10 mg 10 mg Q1HR PRN IV PUSH 09/05/16 08:45 09/09/16 04:39 (Thiamine Inj/NS Inj) 101 ml @ 101 mls/hr DAILY IV 09/05/16 11:00 09/10/16 09:00 (Folate) 1 mg DAILY PO 09/06/16 09:00 09/10/16 08:42 (Theragran) 1 tab DAILY PO 09/06/16 09:00 09/10/16 08:42 Chlorhexidine Gluconate 15 ml 15 ml BID@08,20 MT 09/05/16 20:00 09/10/16 08:00 Azithromycin 500 mg/Sodium Chloride 250 ml @ 250 mls/hr Q24H IV 09/05/16 10:00 09/10/16 10:00 (Keppra Inj/NS Inj) 105 ml @ 420 mls/hr Q6H IV 09/05/16 18:00 09/10/16 05:51 (NovoLOG SUPPLEMENTAL SCALE) 1 Q4H SQ 09/07/16 16:00 09/10/16 08:00 (Romazicon Inj) 0.2 mg Q1M PRN IV PUSH 09/10/16 00:45 (Ativan) 1 mg Q4H PRN PO 09/10/16 00:45 (Ativan Inj) 1 mg Q4H PRN IV PUSH 09/10/16 00:45 (Ativan) 2 mg Q2H PRN PO 09/10/16 00:45 (Ativan Inj) 2 mg Q2H PRN IV PUSH 09/10/16 00:45 09/10/16 05:37 (Ativan Inj) 2 mg Q1H PRN IV PUSH 09/10/16 00:45 (Ativan Inj) 2 mg Q15M PRN IV PUSH 09/10/16 00:45 Vital Signs / I&O Vital Signs Date Time Temp Pulse Resp B/P Pulse Ox O2 Delivery O2 Flow Rate FiO2 09/10/16 12:07 98.3 107 19 174/90 100 09/10/16 12:00 107 09/10/16 10:27 97 21 09/10/16 10:00 107 09/10/16 08:02 98.3 103 19 172/90 100 09/10/16 08:00 107 09/10/16 07:56 98.3 103 19 172/90 100 09/10/16 06:00 107 09/10/16 04:00 98.3 108 19 184/91 100 09/10/16 04:00 108 09/10/16 02:00 106 09/10/16 00:00 98.4 98 19 152/77 95 09/10/16 00:00 98 09/09/16 22:00 106 09/09/16 21:19 97 09/09/16 20:00 89 09/09/16 20:00 98.7 89 22 134/84 98 09/09/16 18:00 89 09/09/16 16:00 82 09/09/16 16:00 98.3 69 17 113/55 98 09/09/16 14:50 100 Nasal Cannula 4 09/09/16 14:50 100 Nasal Cannula 4.00 I/O 09/09/16 09/09/16 09/09/16 09/10/16 09/10/16 09/10/16 07:00 15:00 23:00 07:00 15:00 23:00 Intake Total 572 ml 410 ml 200 ml 580 ml Output Total 350 ml 550 ml 425 ml 825 ml Balance 222 ml -140 ml -225 ml -245 ml Intake Oral 480 ml IV Total 331 ml 410 ml 200 ml 100 ml Tube Feeding 181 ml Other 60 ml Output Urine Total 300 ml 450 ml 225 ml 325 ml Stool Total 50 ml 100 ml 200 ml 500 ml Physical Exam GENERAL: In NAD, confused SKIN: Warm and dry. HEAD: Normocephalic. EYES: No scleral icterus. No injection or drainage. NECK: Supple, trachea midline. No JVD or lymphadenopathy. CARDIOVASCULAR: Regular rate and rhythm without murmurs, gallops, or rubs. RESPIRATORY: Breath sounds equal bilaterally. No accessory muscle use. GASTROINTESTINAL: Abdomen soft, non-tender, nondistended. MUSCULOSKELETAL: No cyanosis, or edema, dark discoloration. Laboratory Laboratory Tests Test 09/10/16 05:01 White Blood Count 3.6 TH/MM3 Red Blood Count 3.73 MIL/MM3 Hemoglobin 12.7 GM/DL Hematocrit 36.8 % Mean Corpuscular Volume 98.7 FL Mean Corpuscular Hemoglobin 34.0 PG Mean Corpuscular Hemoglobin 34.4 % Concent Red Cell Distribution Width 14.5 % Platelet Count 28 TH/MM3 Mean Platelet Volume 9.0 FL Neutrophils (%) (Auto) 71.4 % Lymphocytes (%) (Auto) 12.6 % Monocytes (%) (Auto) 11.7 % Eosinophils (%) (Auto) 3.6 % Basophils (%) (Auto) 0.7 % Neutrophils # (Auto) 2.6 TH/MM3 Lymphocytes # (Auto) 0.5 TH/MM3 Monocytes # (Auto) 0.4 TH/MM3 Eosinophils # (Auto) 0.1 TH/MM3 Basophils # (Auto) 0.0 TH/MM3 CBC Comment AUTO DIFF Differential Comment AUTO DIFF CONFIRMED Platelet Estimate LOW Platelet Morphology Comment NORMAL Prothrombin Time 14.8 SEC Prothromb Time International 1.3 RATIO Ratio Activated Partial 35.5 SEC Thromboplast Time Fibrinogen 165 mg/dL Ammonia 45 MCMOL/L Imaging Last Impressions Chest X-Ray 09/08/16 0000 Signed Impressions: Service Date/Time: Thursday, September 08, 2016 04:30 - CONCLUSION: 1. Cardiomegaly and findings of vascular congestion without overt failure. The findings have worsened when compared with the prior examination. Cleve Hernandez MD Head CT 09/05/16 0631 Signed Impressions: Service Date/Time: Monday, September 05, 2016 07:34 - CONCLUSION: Size disease, fracture superior nasal spine otherwise negative. Aman Freeman MD FACR Lower Extremity Ultrasound 09/05/16 0000 Signed Impressions: Service Date/Time: Monday, September 05, 2016 09:36 - CONCLUSION: There is normal compressibility of the deep venous system from the inguinal region to the proximal calf. No echogenic clot is seen in the lumen of the common femoral, femoral, popliteal, and posterior tibial veins. There is a normal response of the venous system to proximal and distal augmentation and respiration. MD CONCLUSION: Negative for deep venous thrombosis. Aman Freeman MD Liver Ultrasound 09/05/16 0000 Signed Impressions: Service Date/Time: Monday, September 05, 2016 08:55 - CONCLUSION: 1. Moderate splenomegaly with no focal lesion. 2. Liver is normal in size but mildly increased in echogenicity. Mayo Moncada MD Head Magnetic Resonance Angiography 09/05/16 Signed Impressions: Service Date/Time: Monday, September 05, 2016 17:27 - CONCLUSION: Normal MRA. Marcin Appiah MD Cervical Spine CT 09/05/16 0000 Signed Impressions: Service Date/Time: Monday, September 05, 2016 07:34 - CONCLUSION: Degenerative changes, negative for fracture. Aman Freeman MD FACR Brain MRI 09/05/16 Signed Impressions: Service Date/Time: Monday, September 05, 2016 17:27 - CONCLUSION: Minimal increased signal within the periventricular white matter and a solitary small focus of signal are not in the right frontal lobe. These likely represent minimal changes of demyelination. No areas of hemorrhage, mass effect or abnormal enhancement are seen. Marcin Appiah MD Assessment and Plan Problem List: (1) Elevated troponin (2) Altered mental status (3) Seizures (4) Cirrhosis of liver (5) Acute respiratory failure (6) DM (diabetes mellitus) (7) Hepatitis C (8) Thrombocytopenia (9) Septic shock Assessment and Plan Successfully extubated. Rhythm stable, sinus tachycardia post extubation, mildly agitated. Troponin was mildly elevated, but echo showed nl LV function and no WMA. No evidence of ACS. Continue ICU care. No new cardiac issues at this point. PT/OT. Problem Qualifiers (1) Cirrhosis of liver: Qualified Code: K70.30 - Alcoholic cirrhosis of liver without ascites (2) Acute respiratory failure: Qualified Code: J96.01 - Acute respiratory failure with hypoxia and hypercapnia Rosa Menchaca MD September 10, 2016 14:04
--- NOTE | 2016-09-10 14:22 | HHI.CCPN ---
Subjective Remarks/Hospital Course 61yo male. Date of admission 09/05/2016. Past medical history includes depression, hypertension, hepatitis C with cirrhotic liver, diabetes mellitus with peripheral neuropathy, history of right lower extremity DVT, chronic thrombocytopenia and history of MRSA to left leg 2015. He is on metformin for diabetes. He presents to [facility] this a.m. with altered mental status. According to EMS report, pt's roommate states he has been " in and out of it " for 2 days. Today patient was found unresponsive on a couch by EMS. He has had 2 seizures in route the first lasted approximately 5 minutes was given 2 mg Ativan with another one approximate 1 minute duration received another 2 mg Ativan.. Given 2mg ativan and then another seizure about 10 min after the ativan so another 2 mg ativan given. Pt was moving all extremities but tachypneic and not responding to verbal stimuli. Pt was febrile in the ED. Patient was emergently intubated with a 7.5 ET tube after receiving 20 mg IV etomidate along with 60 mg IV rocuronium by Dr. Roblero. CT head - superior nasal spine fracture otherwise unremarkable CT C-spine -C5/6 mild disc bulge otherwise unremarkable Chest x-ray - bilateral hilar infiltrates. Cardiomegaly Pertinent labs revealed a normal white cell count, platelet count 37,000. Normal BMP, Lactic acidosis of 9.2, troponin 0.23, alcohol level 37 with positive THC level. NH3+ was 86 patient was going to be lumbar puncture in ED however platelet count is less than 50,000 the present time. Risk of spinal hematoma outweighs benefits of lumbar puncture this time. No consentable family members available currently. Patient is with one daughter he is close to. He also has a dog. In the ED, there is copious amounts of blood coming from the mouth. This was Yankauer suction to clear. Blood tinged sputum from ETT. NG tube with greenish bile gastric output. I removed one right lower denture. The left lower side is missing. 09/06 EEG showed generalized slowing. Imaging workup RN has noted ongoing bleeding from mouth and platelets 25k. Lactic acidosis cleared and urine output adequate. Ammonia 73. Has received 2 doses of lactulose and no bowel movement yet. 09/07 Following some commands intermittently today, RN resuming propofol after sedation vacation due to repeated coughing. Having BMs, ammonia downtrend to 67. Tolerating tube feeds. Hypertensive. 09/08: per nursing, following intermittent commands. however, was agitated requiring propofol for sedation and does not follow commands for me. continues to have diarrhea likely secondary to lactulose. 09/09: following commands this morning, still slightly somnolent, but much more awake than yesterday. diarrhea secondary to lactulose persists. Subjective: 09/10: Extubated yesterday without application. Currently on 2 L nasal cannula. Passed swallow evaluation. Required intermittent Ativan for agitation withdrawal. Objective Vital Signs Date Time Temp Pulse Resp B/P Pulse Ox O2 Delivery O2 Flow Rate FiO2 09/10/16 12:07 98.3 107 19 174/90 100 09/10/16 10:27 21 09/09/16 14:50 Nasal Cannula 4 Intake and Output 09/09/16 09/09/16 09/10/16 08:00 16:00 00:00 Intake Total 572 ml 410 ml 200 ml Output Total 350 ml 550 ml 425 ml Balance 222 ml -140 ml -225 ml Result Diagram: 09/10/16 0501 09/08/16 0503 Other Results Microbiology Date/Time Procedure Status Source Growth 09/06/16 12:00 Gram Stain - Final Complete Sputum Endotracheal 09/06/16 12:00 Sputum Culture - Final Complete Sputum Endotracheal RARE GROWTH NORMAL RESPIRATORY [facility] Imaging Last Impressions Chest X-Ray 09/08/16 0000 Signed Impressions: Service Date/Time: Thursday, September 08, 2016 04:30 - CONCLUSION: 1. Cardiomegaly and findings of vascular congestion without overt failure. The findings have worsened when compared with the prior examination. Cleve Hernandez MD Head CT 09/05/16 0631 Signed Impressions: Service Date/Time: Monday, September 05, 2016 07:34 - CONCLUSION: Size disease, fracture superior nasal spine otherwise negative. Aman Freeman MD FACR Lower Extremity Ultrasound 09/05/16 0000 Signed Impressions: Service Date/Time: Monday, September 05, 2016 09:36 - CONCLUSION: There is normal compressibility of the deep venous system from the inguinal region to the proximal calf. No echogenic clot is seen in the lumen of the common femoral, femoral, popliteal, and posterior tibial veins. There is a normal response of the venous system to proximal and distal augmentation and respiration. CONCLUSION: Negative for deep venous thrombosis. Aman Freeman MD Liver Ultrasound 09/05/16 0000 Signed Impressions: Service Date/Time: Monday, September 05, 2016 08:55 - CONCLUSION: 1. Moderate splenomegaly with no focal lesion. 2. Liver is normal in size but mildly increased in echogenicity. Mayo Moncada MD Head Magnetic Resonance Angiography 09/05/16 0000 Signed Impressions: Service Date/Time: Monday, September 05, 2016 17:27 - CONCLUSION: Normal MRA. Marcin Appiah MD Cervical Spine CT 09/05/16 0000 Signed Impressions: Service Date/Time: Monday, September 05, 2016 07:34 - CONCLUSION: Degenerative changes, negative for fracture. Aman Freeman MD FACR Brain MRI 09/05/16 0000 Signed Impressions: Service Date/Time: Monday, September 05, 2016 17:27 - CONCLUSION: Minimal increased signal within the periventricular white matter and a solitary small focus of signal are not in the right frontal lobe. These likely represent minimal changes of demyelination. No areas of hemorrhage, mass effect or abnormal enhancement are seen. Marcin Appiah MD Objective Remarks GENERAL: 61-year-old male, currently nasal cannula distress SKIN: Warm and dry. HEAD: Atraumatic. Normocephalic. EYES: Equally round and react about 3 Pendleton's bilaterally. + Scleral icterus. No injection or drainage. ENT: No nasal bleeding or discharge. Mucous membranes pink and moist. Oropharynx without erythema or exudate or bleeding NECK: Trachea midline. No JVD. CARDIOVASCULAR: Tachycardic, RR. S1, S2 no S4 without murmur RESPIRATORY: Few crackles patient bases bilateral. No wheeze GASTROINTESTINAL: Abdomen soft, non-tender, nondistended. Rectal bag in place with liquid brown stool. : Hanley in place with yellow urine output. MUSCULOSKELETAL: Extremities with trace lower extremity peripheral edema. No obvious deformities. NEUROLOGICAL: Cranial nerves II through grossly intact. Strength is equal/ symmetric. Normal sensation. A/P Assessment and Plan Neuro/Psych: Acute toxic metabolic encephalopathy Hepatic encephalopathy History of depression THC positive Alcohol abuse Seizure CT head 09/05 revealed no acute intracranial findings. MRI brain 09/05minimal increased periventricular white matter changes and abnormal focus of signal in right frontal lobe. MRA brain 09/05 normal EEG 09/05generalized slowing consistent with severe encephalopathy. No seizure activity Keppra 500 mg IV every 6 hours per neurology Neurology consult. Appreciate Dr. Rodríguez's assistance. Continue. Thiamine/folate/multivitamin daily Monitor for DTs Seizure precautions CV: Elevated troponin Hypertension h/o Dilated cardiomyopathy Seen by Dr. Falcon 07/25 admission. Recommended no intervention with multiple medical issues, alcoholism, thrombocytopenia and no chest pain. 2-D echocardiogram 07/25 - EF 55-60% right ventricle systolic pressure around 90 mmHg. Mild AR, MR. Left atrium and left ventricle and right ventricle all dilated Echo 09/05/16LVEF 60%. LV cavity size reported normal. No regional wall motion abnormalities. RV dilated. Normal wall thickness.TRUE 41 mmHg. EKG reveals sinus tachycardia 111. Left atrial enlargement. Incomplete RBBB with ST depression in V1 through V5. Troponin peaked at 2.38. Dr. Menchaca evaluated. Recommended follow-up with [facility] Hospital upon discharge. Home medications are metoprolol 25 mg by mouth twice a day lisinopril 5 mg by mouth daily. Start propranolol 20 twice a day lisinopril 5 mill grams daily with when necessary state hypertension Resp: Acute respiratory failure- resolved Community acquired Pneumonia History of prior tobaccoism Nasal cannula to maintain saturation greater than 92% Bronchodilator therapy every 6 hours with albuterol every 2 hours when necessary dyspnea Patient had a negative CT of the chest 07/25 for pulmonary embolism 6 revealed vascular congestion. We'll gently diurese GI: Hepatitis C unknown genotype Cirrhosis Elevated total bilirubin , downtrending Chronic mild protein energy malnutrition Hyperammonia Liver ultrasoundmoderate splenomegaly. Increased echogenicity of the liver. Gallbladder normal. Protonix for GI prophylaxis Continue Xifaxan 550 milligrams twice a day; Lactulose 30 cc 4 times a day Ammonia level currently 45 FEN/RENAL: Acute kidney injury resolved Hypokalemia Hypophosphatemia Hypernatremia Electrolyte replacement protocol 2 g mag sulfate, sodium phosphate since no Hypertonic saline with quarter normal saline 1 L. Endo: Diabetes mellitus with neuropathy better glycemic control. 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 Haptoglobin low, recheck in a.m. Hematology has signed off. 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 Continue to follow trends ID: Community-acquired pneumonia vs aspiration Leukopenia cefepime 09/05 #6, azithromycin 09/05 #6 for pneumonia/aspiration. Pertinent cultures Influenza negative 09/05 - blood cultures 2 - NGTD 09/05urine pneumococcal antigen and Legionella antigen negative. 09/05U/A negative for evidence of infection 09/06 - sputum culturenegative MAXILLOFACIAL: Superior nasal spine fracture Nonsurgical. Supportive care Access - PIV Prophylaxis - GI - Protonix - DVT - SCD/holding pharmacological prophylaxis with thrombocytopenia Critical Care: The total critical care time was 35 minutes. Time to perform other separately billable procedures was not included in the critical care time. Klever Cross MD September 10, 2016 14:22
[2016-09-10] MEDS ORDERED: NITROGLYCERIN 2% OINT 1 GM PACKET TOPICAL PRN (14:30)
[2016-09-10] MEDS ORDERED: SODIUM CHLOR 0.45% 1000 ML INJ 1,000 ML IV SCH (14:45)
[2016-09-10] MEDS ORDERED: FUROSEMIDE 20 MG/2 ML VIAL IV PUSH ONE (14:45)
[2016-09-10] MEDS ORDERED: GLUCAGON 1 MG/ML VIAL OTHER PRN (15:00)
--- NOTE | 2016-09-10 18:17 | HHI.PR ---
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 Plan continue [facility] Diagnosis/Plan: Subjective Subjective Comments No acute events reported more alert Active Medications Current Medications Medications (Trade) Dose Ordered Sig/Dariana Route Start Time Stop Time Status Last Admin (Maxipime Inj/NS Inj) 100 ml @ 200 mls/hr Q8H IV 09/05/16 09:00 09/10/16 16:52 Miscellaneous Information 1 [id number] XX 09/05/16 08:15 (Chlorhexidine 2% Cloth) 3 pack Taper DAILY@04 TOP 09/06/16 04:00 09/02/17 03:59 09/10/16 04:00 (Chlorhexidine 2% Cloth) 3 pack UNSCH PRN TOP 09/05/16 08:15 (Lactulose Liq) 30 ml QID PO 09/05/16 09:00 09/10/16 17:31 (Xifaxan) 550 mg BID PO 09/05/16 10:00 09/10/16 08:42 (NS Flush) 2 ml UNSCH PRN IV FLUSH 09/05/16 08:30 (NS Flush) 2 ml BID IV FLUSH 09/05/16 09:00 09/10/16 09:00 (Tylenol) 650 mg Q6H PRN PO 09/05/16 08:30 (Protonix Inj) 40 mg DAILY IV 09/05/16 09:00 09/10/16 08:42 Ondansetron HCl 4 mg 4 mg Q6H PRN IV 09/05/16 08:30 Potassium Chloride 100 ml @ 50 mls/hr Q2H PRN IV 09/05/16 08:30 (KCl 20 Meq Premix Inj) 100 ml @ 50 mls/hr Q2H PRN IV 09/05/16 08:30 Potassium Bicarb/ Potassium Chloride 50 meq 50 meq UNSCH PRN PO 09/05/16 08:30 Potassium Chloride 100 ml @ 25 mls/hr UNSCH PRN IV 09/05/16 08:30 Potassium Chloride 100 ml @ 50 mls/hr Q2H PRN IV 09/05/16 08:30 09/07/16 08:29 (Magnesium Sulfate Inj/NS Inj) 100 ml @ 50 mls/hr UNSCH PRN IV 09/05/16 08:30 Magnesium Oxide 800 mg 800 mg UNSCH PRN PO 09/05/16 08:30 (Magnesium Sulfate Inj/NS Inj) 100 ml @ 50 mls/hr UNSCH PRN IV 09/05/16 08:30 Potassium Phosphate 2000 mg 2,000 mg Q4H PRN PO 09/05/16 08:30 09/07/16 05:34 (Sodium Phosphate Inj/NS 250 ml Inj) 250 ml @ 42 mls/hr UNSCH PRN IV 09/05/16 08:30 09/08/16 15:00 (K-Phos) 2,000 mg UNSCH PRN PO/TUBE 09/05/16 08:30 (D50w (Vial) Inj) 25 ml UNSCH PRN IV PUSH 09/05/16 08:45 Nitroglycerin 2 inch 2 inch Q6HR PRN TOPICAL 09/05/16 08:45 (Thiamine Inj/NS Inj) 101 ml @ 101 mls/hr DAILY IV 09/05/16 11:00 09/10/16 09:00 (Folate) 1 mg DAILY PO 09/06/16 09:00 09/10/16 08:42 (Theragran) 1 tab DAILY PO 09/06/16 09:00 09/10/16 08:42 Chlorhexidine Gluconate 15 ml 15 ml BID@08,20 MT 09/05/16 20:00 09/10/16 08:00 Azithromycin 500 mg/Sodium Chloride 250 ml @ 250 mls/hr Q24H IV 09/05/16 10:00 09/10/16 10:00 (Keppra Inj/NS Inj) 105 ml @ 420 mls/hr Q6H IV 09/05/16 18:00 09/10/16 17:31 (Romazicon Inj) 0.2 mg Q1M PRN IV PUSH 09/10/16 00:45 (Ativan) 1 mg Q4H PRN PO 09/10/16 00:45 (Ativan Inj) 1 mg Q4H PRN IV PUSH 09/10/16 00:45 (Ativan) 2 mg Q2H PRN PO 09/10/16 00:45 (Ativan Inj) 2 mg Q2H PRN IV PUSH 09/10/16 00:45 09/10/16 05:37 (Ativan Inj) 2 mg Q1H PRN IV PUSH 09/10/16 00:45 (Ativan Inj) 2 mg Q15M PRN IV PUSH 09/10/16 00:45 (Prinivil) 5 mg DAILY PO 09/11/16 09:00 (Inderal) 20 mg Q12HR PO 09/10/16 21:00 (Trandate Inj) 10 mg Q20M PRN IV PUSH 09/10/16 14:30 (Apresoline Inj) 10 mg Q1HR PRN IV PUSH 09/10/16 14:30 Insulin Aspart 1 1 ACHS SQ 09/10/16 16:00 (1/2 NS 1000 ml Inj) 1,000 ml @ 42 mls/hr [id number] IV 09/10/16 14:45 09/10/16 14:45 (Glucagon Inj) 1 mg UNSCH PRN OTHER 09/10/16 15:00 Allergies Allergies Coded Allergies *MDRO Multi-Drug Resistant Organism (Verified Adverse Reaction, Unknown, ) Exam I&O / VS 09/09/16 09/09/16 09/10/16 15:00 23:00 07:00 Intake Total 410 ml 200 ml 580 ml Output Total 550 ml 425 ml 825 ml Balance -140 ml -225 ml -245 ml Intake Oral 480 ml IV Total 410 ml 200 ml 100 ml Output Urine Total 450 ml 225 ml 325 ml Stool Total 100 ml 200 ml 500 ml Vital Signs Date Time Temp Pulse Resp B/P Pulse Ox O2 Delivery O2 Flow Rate FiO2 09/10/16 16:00 103 09/10/16 16:00 98.6 107 19 151/96 100 09/10/16 14:00 103 09/10/16 12:07 98.3 107 19 174/90 100 09/10/16 12:00 107 09/10/16 10:27 97 21 09/10/16 10:00 107 09/10/16 08:02 98.3 103 19 172/90 100 09/10/16 08:00 107 09/10/16 07:56 98.3 103 19 172/90 100 09/10/16 06:00 107 09/10/16 04:00 98.3 108 19 184/91 100 09/10/16 04:00 108 09/10/16 02:00 106 09/10/16 00:00 98.4 98 19 152/77 95 09/10/16 00:00 98 09/09/16 22:00 106 09/09/16 21:19 97 09/09/16 20:00 89 09/09/16 20:00 98.7 89 22 134/84 98 Exam Comments more alert and responsive. Answers questions appropriately, follows simple commands PERRL. EOM-I Motor--moves BUE and BLE equally Objective Micro and Labs Laboratory Tests Test 09/10/16 05:01 White Blood Count 3.6 Red Blood Count 3.73 Hemoglobin 12.7 Hematocrit 36.8 Mean Corpuscular Volume 98.7 Mean Corpuscular Hemoglobin 34.0 Mean Corpuscular Hemoglobin 34.4 Concent Red Cell Distribution Width 14.5 Platelet Count 28 Mean Platelet Volume 9.0 Neutrophils (%) (Auto) 71.4 Lymphocytes (%) (Auto) 12.6 Monocytes (%) (Auto) 11.7 Eosinophils (%) (Auto) 3.6 Basophils (%) (Auto) 0.7 Neutrophils # (Auto) 2.6 Lymphocytes # (Auto) 0.5 Monocytes # (Auto) 0.4 Eosinophils # (Auto) 0.1 Basophils # (Auto) 0.0 CBC Comment AUTO DIFF Differential Comment AUTO DIFF CONFIRMED Platelet Estimate LOW Platelet Morphology Comment NORMAL Prothrombin Time 14.8 Prothromb Time International 1.3 Ratio Activated Partial 35.5 Thromboplast Time Fibrinogen 165 Ammonia 45 Date/Time Procedure Status Source Growth 09/06/16 12:00 Gram Stain - Final Complete Sputum Endotracheal 09/06/16 12:00 Sputum Culture - Final Complete Sputum Endotracheal RARE GROWTH NORMAL RESPIRATORY [facility] Junaid Rodríguez PhD September 10, 2016 18:17
[2016-09-10] MEDS: PROPRANOLOL HCL 20 MG TAB PO SCH (20:44)
[2016-09-11] VITALS (19 sets, daily range): BP systolic 117–168; BP diastolic 90–114; PULSE 78–122; RESP 22–41; TEMP 98.2–98.9; O2SAT 92–100
[2016-09-11] MEDS: LORazepam 2 MG/ML VIAL IV PUSH PRN ×2 (00:42→05:11)
[2016-09-11] MEDS: CEFEPIME INJ 2,000 MG in SODIUM CHLORIDE 0.9% INJ 100 ML IV SCH ×3 (00:43→17:00)
[2016-09-11] MEDS: levETIRAcetam INJ 500 MG in SODIUM CHLORIDE 0.9% INJ 100 ML IV SCH ×4 (00:54→17:52)
[2016-09-11] MEDS: CHLORHEXIDINE GLUCONATE 2 % 1 PACK (2 CLOTHS) TOP SCH (04:00)
[2016-09-11 04:30] LABS: AUTOMATED NEUTROPHIL # 6.6 TH/MM3 (1.8-7.7); BASOPHIL % 0.5 % (0.0-2.0); EOSINOPHIL # 0.1 TH/MM3 (0-0.4); EOSINOPHIL % 1.2 % (0.0-4.0); HEMATOCRIT 40.6 % (39.0-51.0); LYMPH % 12.5 % (9.0-44.0); LYMPHOCYTE # 1.1 TH/MM3 (1.0-4.8); MEAN CELL VOLUME 98.5 FL (80.0-100.0); MEAN CORPUSCULAR HEMOGLOBIN 34.8 PG (27.0-34.0); MEAN CORPUSCULAR HGB CONC 35.3 % (32.0-36.0); NEUT % 72.8 % (16.0-70.0); PLATELET COUNT 38 TH/MM3 (150-450); RED BLOOD COUNT 4.12 MIL/MM3 (4.50-5.90); RED CELL DISTRIBUTION WIDTH 14.8 % (11.6-17.2); WHITE BLOOD COUNT 9.1 TH/MM3 (4.0-11.0)
[2016-09-11 04:36] LABS: APTT (PATIENT) 36.1 SEC (24.3-30.1); INTERNATIONAL NORMALIZED RATIO 1.5 RATIO; PROTHROMBIN TIME - PATIENT 17.1 SEC (9.8-11.6)
[2016-09-11 04:41] LABS: ALT (GPT) 30 U/L (12-78); ANION GAP 10 MEQ/L (5-15); AST (GOT) 87 U/L (15-37); BICARBONATE 19.2 MEQ/L (21.0-32.0); BLOOD UREA NITROGEN 29 MG/DL (7-18); CHLORIDE 120 MEQ/L (98-107); GLOMERULAR FILTRATION RATE 59 ML/MIN (>89); MAGNESIUM 1.6 MG/DL (1.5-2.5); POTASSIUM 3.9 MEQ/L (3.5-5.1); SODIUM (NA) 149 MEQ/L (136-145)
[2016-09-11 04:49] LABS: HEMO FLAGS AUTO DIFF
[2016-09-11 04:59] LABS: ALKALINE PHOSPHATASE 93 U/L (45-117); CREATINE KINASE 469 U/L (39-308); TOTAL BILIRUBIN ADULT 4.5 MG/DL (0.2-1.0)
[2016-09-11] MEDS: RESP: ALBUTEROL 2.5 MG/IPRATROPIUM 0.5 MG NEB (SCH) INH ×4 (05:06→20:57)
[2016-09-11 05:13] LABS: CKMB 4.6 NG/ML (0.5-3.6)
[2016-09-11] MEDS: INSULIN ASPART SUPPLEMENTAL SCALE SQ SCH ×4 (07:00→21:00)
[2016-09-11 07:27] LABS: PLATELET ESTIMATE SMEAR LOW (NORMAL); PLATELET MORPHOLOGY NORMAL (NORMAL); SCAN/DIFF AUTO DIFF CONFIRMED
[2016-09-11] MEDS: CHLORHEXIDINE 0.12% (ORAL KIT) 15 ML CUP MT SCH ×2 (08:00→20:00)
[2016-09-11] MEDS: THIAMINE INJ 100 MG in SODIUM CHLORIDE 0.9% INJ 100 ML IV SCH (09:00)
[2016-09-11] MEDS: SODIUM CHLORIDE 0.9% FLUSH 10 ML FLUSH IV FLUSH SCH ×2 (09:00→22:43)
[2016-09-11] MEDS: MULTIVITAMIN TAB PO SCH (09:00)
[2016-09-11] MEDS: LISINOPRIL 5 MG TAB PO SCH (09:00)
[2016-09-11] MEDS: PANTOPRAZOLE SODIUM 40 MG VIAL IV SCH (09:00)
[2016-09-11] MEDS: LACTULOSE SYRUP 20 GM/30 ML CUP PO SCH ×4 (09:19→22:43)
[2016-09-11] MEDS: AZITHROMYCIN INJ 500 MG in SODIUM CHLOR 0.9% 250 ML INJ 250 ML IV SCH (09:20)
[2016-09-11] MEDS: FOLIC ACID 1 MG TAB PO SCH (09:21)
[2016-09-11] MEDS: RIFAXIMIN 550 MG TAB PO SCH ×2 (09:21→22:43)
[2016-09-11] MEDS: PROPRANOLOL HCL 20 MG TAB PO SCH ×2 (09:21→22:43)
--- NOTE | 2016-09-11 11:20 | HHI.CCPN ---
Subjective Remarks/Hospital Course 61yo male. Date of admission 09/05/2016. Past medical history includes depression, hypertension, hepatitis C with cirrhotic liver, diabetes mellitus with peripheral neuropathy, history of right lower extremity DVT, chronic thrombocytopenia and history of MRSA to left leg 2015. He is on metformin for diabetes. He presents to [facility] this a.m. with altered mental status. According to EMS report, pt's roommate states he has been " in and out of it " for 2 days. Today patient was found unresponsive on a couch by EMS. He has had 2 seizures in route the first lasted approximately 5 minutes was given 2 mg Ativan with another one approximate 1 minute duration received another 2 mg Ativan.. Given 2mg ativan and then another seizure about 10 min after the ativan so another 2 mg ativan given. Pt was moving all extremities but tachypneic and not responding to verbal stimuli. Pt was febrile in the ED. Patient was emergently intubated with a 7.5 ET tube after receiving 20 mg IV etomidate along with 60 mg IV rocuronium by Dr. Roblero. CT head - superior nasal spine fracture otherwise unremarkable CT C-spine -C5/6 mild disc bulge otherwise unremarkable Chest x-ray - bilateral hilar infiltrates. Cardiomegaly Pertinent labs revealed a normal white cell count, platelet count 37,000. Normal BMP, Lactic acidosis of 9.2, troponin 0.23, alcohol level 37 with positive THC level. NH3+ was 86 patient was going to be lumbar puncture in ED however platelet count is less than 50,000 the present time. Risk of spinal hematoma outweighs benefits of lumbar puncture this time. No consentable family members available currently. Patient is with one daughter he is close to. He also has a dog. In the ED, there is copious amounts of blood coming from the mouth. This was Yankauer suction to clear. Blood tinged sputum from ETT. NG tube with greenish bile gastric output. I removed one right lower denture. The left lower side is missing. 09/06 EEG showed generalized slowing. Imaging workup RN has noted ongoing bleeding from mouth and platelets 25k. Lactic acidosis cleared and urine output adequate. Ammonia 73. Has received 2 doses of lactulose and no bowel movement yet. 09/07 Following some commands intermittently today, RN resuming propofol after sedation vacation due to repeated coughing. Having BMs, ammonia downtrend to 67. Tolerating tube feeds. Hypertensive. 09/08: per nursing, following intermittent commands. however, was agitated requiring propofol for sedation and does not follow commands for me. continues to have diarrhea likely secondary to lactulose. 09/09: following commands this morning, still slightly somnolent, but much more awake than yesterday. diarrhea secondary to lactulose persists. 09/10: Extubated yesterday without application. Currently on 2 L nasal cannula. Passed swallow evaluation. Required intermittent Ativan for agitation withdrawal. Subjective: 09/11: Received 4 mg Ativan overnight. Appropriate with responses but more somnolent this a.m. Compared to Yesterday. Tolerating diet. Positive BM. Objective Vital Signs Date Time Temp Pulse Resp B/P Pulse Ox O2 Delivery O2 Flow Rate FiO2 09/11/16 10:00 93 35 137/92 97 09/11/16 09:12 21 09/11/16 08:00 98.2 09/09/16 14:50 Nasal Cannula 4 Intake and Output 09/10/16 09/10/16 09/11/16 08:00 16:00 00:00 Intake Total 580 ml 470 ml 417 ml Output Total 825 ml 1150 ml 350 ml Balance -245 ml -680 ml 67 ml Result Diagram: 09/11/16 0355 09/11/16 0355 Other Results Microbiology Date/Time Procedure Status Source Growth 09/06/16 12:00 Gram Stain - Final Complete Sputum Endotracheal 09/06/16 12:00 Sputum Culture - Final Complete Sputum Endotracheal RARE GROWTH NORMAL RESPIRATORY [facility] Imaging Last Impressions Chest X-Ray 09/08/16 0000 Signed Impressions: Service Date/Time: Thursday, September 08, 2016 04:30 - CONCLUSION: 1. Cardiomegaly and findings of vascular congestion without overt failure. The findings have worsened when compared with the prior examination. Cleve Hernandez MD Head CT 09/05/16 0631 Signed Impressions: Service Date/Time: Monday, September 05, 2016 07:34 - CONCLUSION: Size disease, fracture superior nasal spine otherwise negative. Aman Freeman MD FACR Lower Extremity Ultrasound 09/05/16 0000 Signed Impressions: Service Date/Time: Monday, September 05, 2016 09:36 - CONCLUSION: There is normal compressibility of the deep venous system from the inguinal region to the proximal calf. No echogenic clot is seen in the lumen of the common femoral, femoral, popliteal, and posterior tibial veins. There is a normal response of the venous system to proximal and distal augmentation and respiration. CONCLUSION: Negative for deep venous thrombosis. Aman Freeman MD Liver Ultrasound 09/05/16 0000 Signed Impressions: Service Date/Time: Monday, September 05, 2016 08:55 - CONCLUSION: 1. Moderate splenomegaly with no focal lesion. 2. Liver is normal in size but mildly increased in echogenicity. Mayo Moncada MD Head Magnetic Resonance Angiography 09/05/16 Signed Impressions: Service Date/Time: Monday, September 05, 2016 17:27 - CONCLUSION: Normal MRA. Marcin Appiah MD Cervical Spine CT 09/05/16 0000 Signed Impressions: Service Date/Time: Monday, September 05, 2016 07:34 - CONCLUSION: Degenerative changes, negative for fracture. Aman Freeman MD FACR Brain MRI 09/05/16 Signed Impressions: Service Date/Time: Monday, September 05, 2016 17:27 - CONCLUSION: Minimal increased signal within the periventricular white matter and a solitary small focus of signal are not in the right frontal lobe. These likely represent minimal changes of demyelination. No areas of hemorrhage, mass effect or abnormal enhancement are seen. Marcin Appiah MD Objective Remarks GENERAL: 61-year-old male, currently on nasal cannula in no acute distress SKIN: Warm and dry. No rash HEAD: Atraumatic. Normocephalic. EYES: Equally round and react about 3 millimeters bilaterally. + Scleral icterus. No injection or drainage. ENT: No nasal bleeding or discharge. Mucous membranes pink and moist. Oropharynx without erythema or exudate or bleeding NECK: Trachea midline. No JVD. CARDIOVASCULAR: Tachycardic, RR. S1, S2 no S4 without murmur RESPIRATORY: Few crackles patient bases bilateral. No wheeze GASTROINTESTINAL: Abdomen soft, non-tender, nondistended. MUSCULOSKELETAL: Extremities with trace lower extremity peripheral edema. No obvious deformities. NEUROLOGICAL: Cranial nerves II through grossly intact. Strength is equal/ symmetric bilaterally. Normal sensation. A/P Assessment and Plan Neuro/Psych: Acute toxic metabolic encephalopathy Hepatic encephalopathy History of depression THC positive Alcohol abuse Seizure CT head 09/05 revealed no acute intracranial findings. MRI brain 09/05minimal increased periventricular white matter changes and abnormal focus of signal in right frontal lobe. MRA brain 09/05 normal EEG 09/05generalized slowing consistent with severe encephalopathy. No seizure activity Keppra 500 mg IV every 6 hours per neurology Neurology consult. Appreciate Dr. Rodríguez's assistance. Continue. Thiamine/folate/multivitamin daily Monitor for DTs Seizure precautions Currently on CIWA protocol CV: Elevated troponin Hypertension h/o Dilated cardiomyopathy Seen by Dr. Falcon 07/25 admission. Recommended no intervention with multiple medical issues, alcoholism, thrombocytopenia and no chest pain. 2-D echocardiogram 07/25 - EF 55-60% right ventricle systolic pressure around 90 mmHg. Mild AR, MR. Left atrium and left ventricle and right ventricle all dilated Echo 09/05/16LVEF 60%. LV cavity size reported normal. No regional wall motion abnormalities. RV dilated. Normal wall thickness.TRUE 41 mmHg. EKG reveals sinus tachycardia 111. Left atrial enlargement. Incomplete RBBB with ST depression in V1 through V5. Troponin peaked at 2.38. Dr. Menchaca evaluated. Recommended follow-up with [facility] upon discharge. Home medications are metoprolol 25 mg by mouth twice a day lisinopril 5 mg by mouth daily. Start propranolol 20 twice a day lisinopril 5 mill grams daily on 09/11 Resp: Acute respiratory failure- resolved Community acquired Pneumonia History of prior tobaccoism Nasal cannula to maintain saturation greater than 92% Bronchodilator therapy with DuoNeb's every 6 hours with albuterol every 2 hours when necessary dyspnea Patient had a negative CT of the chest 07/25 for pulmonary embolism Chest x-ray revealed vascular congestion. We'll gently diurese GI: Hepatitis C unknown genotype Cirrhosis Elevated total bilirubin , downtrending Chronic mild protein energy malnutrition Hyperammonia Liver ultrasoundmoderate splenomegaly. Increased echogenicity of the liver. Gallbladder normal. Protonix for GI prophylaxis Continue Xifaxan 550 milligrams twice a day; Lactulose 30 cc 4 times a day Ammonia level currently 54 FEN/RENAL: Acute kidney injury resolved Hypokalemia Hypophosphatemia Hypernatremia Electrolyte replacement protocol 2 g mag sulfate, sodium phosphate since no Will replete with hypotonic saline see orders Endo: Diabetes mellitus with neuropathy better glycemic control. continue medium scale SSI Home medication metformin 500 mg by mouth daily TSH normal Heme: Hypofibrinogenemia due underlying end-stage liver disease Prolonged PTT Thrombocytopenia - chronic History of right lower extremity DVT Right lower extremity Doppler 09/05negative for DVT Daily CBC. Haptoglobin low, recheck in a.m. Hematology has signed off. Leukopenia -likely secondary to hypersplenism has resolved. Continue to follow trends ID: Community-acquired pneumonia vs aspiration cefepime 09/05 #7, azithromycin 09/05 #7 Pertinent cultures Influenza negative 09/05 - blood cultures 2 - NGTD 09/05urine pneumococcal antigen and Legionella antigen negative. 09/05U/A negative for evidence of infection 09/06 - sputum culturenegative MAXILLOFACIAL: Superior nasal spine fracture Nonsurgical. Supportive care Access - PIV Prophylaxis - GI - Protonix - DVT - SCD/holding pharmacological prophylaxis with thrombocytopenia Critical Care: The total critical care time was 35 minutes. Time to perform other separately billable procedures was not included in the critical care time. Klever Cross MD September 11, 2016 11:20
[2016-09-11] MEDS ORDERED: SODIUM CHLORIDE 23.4% INJ 38.5 MEQ in WATER STERILE FOR INJ 1,000 ML IV SCH (11:30)
[2016-09-11] MEDS ORDERED: BUMETANIDE INJ 1 MG/4 ML VIAL IV PUSH ONE (11:30)
[2016-09-11] MEDS: MAGNESIUM SULFATE 1 GM PREMIX 100 ML IV SCH ×2 (12:10→14:22)
[2016-09-11 15:52] LABS: VWF CLEAVING PROT ACT 85 (68-163); VWF PROTEASE INH ND BEU (<0.4)
--- NOTE | 2016-09-11 18:15 | HHI.PR ---
Review/Management Diagnosis encephalopathy seizure history of ETOH abuse No strong indication of cullet washer infection Plan continue [facility] Diagnosis/Plan: Subjective Subjective Comments No acute events reported Active Medications Current Medications Medications (Trade) Dose Ordered Sig/Dariana Route Start Time Stop Time Status Last Admin (Maxipime Inj/NS Inj) 100 ml @ 200 mls/hr Q8H IV 09/05/16 09:00 09/11/16 17:00 Miscellaneous Information 1 Q361D XX 09/05/16 08:15 (Chlorhexidine 2% Cloth) Taper DAILY@04 TOP 09/06/16 04:00 09/02/17 03:59 09/11/16 04:00 (Chlorhexidine 2% Cloth) 3 pack UNSCH PRN TOP 09/05/16 08:15 (Lactulose Liq) 30 ml QID PO 09/05/16 09:00 09/11/16 17:52 (Xifaxan) 550 mg BID PO 09/05/16 10:00 09/11/16 09:21 (NS Flush) 2 ml UNSCH PRN IV FLUSH 09/05/16 08:30 (NS Flush) 2 ml BID IV FLUSH 09/05/16 09:00 09/11/16 09:00 (Tylenol) 650 mg Q6H PRN PO 09/05/16 08:30 Ondansetron HCl 4 mg 4 mg Q6H PRN IV 09/05/16 08:30 Potassium Chloride 100 ml @ 50 mls/hr Q2H PRN IV 09/05/16 08:30 (KCl 20 Meq Premix Inj) 100 ml @ 50 mls/hr Q2H PRN IV 09/05/16 08:30 Potassium Bicarb/ Potassium Chloride 50 meq 50 meq UNSCH PRN PO 09/05/16 08:30 Potassium Chloride 100 ml @ 25 mls/hr UNSCH PRN IV 09/05/16 08:30 Potassium Chloride 100 ml @ 50 mls/hr Q2H PRN IV 09/05/16 08:30 09/07/16 08:29 (Magnesium Sulfate Inj/NS Inj) 100 ml @ 50 mls/hr UNSCH PRN IV 09/05/16 08:30 Magnesium Oxide 800 mg 800 mg UNSCH PRN PO 09/05/16 08:30 (Magnesium Sulfate Inj/NS Inj) 100 ml @ 50 mls/hr UNSCH PRN IV 09/05/16 08:30 Potassium Phosphate 2000 mg 2,000 mg Q4H PRN PO 09/05/16 08:30 09/07/16 05:34 (Sodium Phosphate Inj/NS 250 ml Inj) 250 ml @ 42 mls/hr UNSCH PRN IV 09/05/16 08:30 09/08/16 15:00 (K-Phos) 2,000 mg UNSCH PRN PO/TUBE 09/05/16 08:30 (D50w (Vial) Inj) 25 ml UNSCH PRN IV PUSH 09/05/16 08:45 Nitroglycerin 2 inch 2 inch Q6HR PRN TOPICAL 09/05/16 08:45 (Thiamine Inj/NS Inj) 101 ml @ 101 mls/hr DAILY IV 09/05/16 11:00 09/11/16 09:00 (Folate) 1 mg DAILY PO 09/06/16 09:00 09/11/16 09:21 (Theragran) 1 tab DAILY PO 09/06/16 09:00 09/10/16 08:42 Chlorhexidine Gluconate 15 ml 15 ml BID@08,20 MT 09/05/16 20:00 09/11/16 08:00 (Keppra Inj/NS Inj) 105 ml @ 420 mls/hr Q6H IV 09/05/16 18:00 09/11/16 17:52 (Romazicon Inj) 0.2 mg Q1M PRN IV PUSH 09/10/16 00:45 09/11/16 12:17 (Ativan) 1 mg Q4H PRN PO 09/10/16 00:45 (Ativan Inj) 1 mg Q4H PRN IV PUSH 09/10/16 00:45 (Ativan) 2 mg Q2H PRN PO 09/10/16 00:45 (Ativan Inj) 2 mg Q2H PRN IV PUSH 09/10/16 00:45 09/11/16 05:11 (Ativan Inj) 2 mg Q1H PRN IV PUSH 09/10/16 00:45 (Ativan Inj) 2 mg Q15M PRN IV PUSH 09/10/16 00:45 (Prinivil) 5 mg DAILY PO 09/11/16 09:00 09/11/16 09:00 (Inderal) 20 mg Q12HR PO 09/10/16 21:00 09/11/16 09:21 (Trandate Inj) 10 mg Q20M PRN IV PUSH 09/10/16 14:30 (Apresoline Inj) 10 mg Q1HR PRN IV PUSH 09/10/16 14:30 (NovoLOG SUPPLEMENTAL SCALE) 1 ACHS SQ 09/10/16 16:00 (Glucagon Inj) 1 mg UNSCH PRN OTHER 09/10/16 15:00 (Zithromax) 500 mg DAILY PO 09/12/16 09:00 09/14/16 08:59 Pantoprazole Sodium 40 mg 40 mg DAILY PO 09/12/16 09:00 (Sodium Chloride 23.4% Inj/Sterile Water For Inj) 1,009.625 ml @ 84 mls/hr Q12H2M IV 09/11/16 11:30 09/11/16 23:31 09/11/16 12:09 Allergies Allergies Coded Allergies *MDRO Multi-Drug Resistant Organism (Verified Adverse Reaction, Unknown, ) Exam I&O / VS 09/10/16 09/10/16 09/11/16 15:00 23:00 07:00 Intake Total 470 ml 417 ml 486 ml Output Total 1150 ml 350 ml 500 ml Balance -680 ml 67 ml -14 ml Intake Oral 320 ml 60 ml 40 ml IV Total 150 ml 357 ml 446 ml Output Urine Total 950 ml 350 ml 500 ml Stool Total 200 ml # Bowel Movements 2 2 Vital Signs Date Time Temp Pulse Resp B/P Pulse Ox O2 Delivery O2 Flow Rate FiO2 09/11/16 16:01 93 09/11/16 16:00 98.3 78 24 168/94 97 09/11/16 14:00 93 09/11/16 12:00 98.3 95 39 136/94 97 09/11/16 12:00 93 09/11/16 12:00 93 09/11/16 11:30 95 37 95 09/11/16 11:00 93 41 138/96 96 09/11/16 10:00 93 09/11/16 10:00 93 35 137/92 97 09/11/16 09:12 98 21 09/11/16 09:00 92 40 97 09/11/16 08:00 98.2 122 22 119/90 97 09/11/16 08:00 93 09/11/16 08:00 98.9 93 38 119/90 97 09/11/16 07:00 93 39 117/92 100 09/11/16 06:00 93 09/11/16 04:00 93 09/11/16 04:00 98.7 93 22 142/92 92 09/11/16 02:00 96 09/11/16 00:00 98.5 91 24 121/92 97 09/11/16 00:00 91 09/10/16 22:00 87 09/10/16 20:52 98 09/10/16 20:00 98.2 122 22 187/93 97 09/10/16 20:00 122 Exam Comments lethargic but arousable. Answers questions appropriately, follows simple commands PERRL. EOM-I Motor--moves BUE and BLE equally Objective Micro and Labs Laboratory Tests Test 09/11/16 03:55 White Blood Count 9.1 Red Blood Count 4.12 Hemoglobin 14.3 Hematocrit 40.6 Mean Corpuscular Volume 98.5 Mean Corpuscular Hemoglobin 34.8 Mean Corpuscular Hemoglobin 35.3 Concent Red Cell Distribution Width 14.8 Platelet Count 38 Mean Platelet Volume 9.4 Neutrophils (%) (Auto) 72.8 Lymphocytes (%) (Auto) 12.5 Monocytes (%) (Auto) 13.0 Eosinophils (%) (Auto) 1.2 Basophils (%) (Auto) 0.5 Neutrophils # (Auto) 6.6 Lymphocytes # (Auto) 1.1 Monocytes # (Auto) 1.2 Eosinophils # (Auto) 0.1 Basophils # (Auto) 0.0 CBC Comment AUTO DIFF Differential Comment AUTO DIFF CONFIRMED Platelet Estimate LOW Platelet Morphology Comment NORMAL Haptoglobin LESS THAN 10 Prothrombin Time 17.1 Prothromb Time International 1.5 Ratio Activated Partial 36.1 Thromboplast Time Sodium Level 149 Potassium Level 3.9 Chloride Level 120 Carbon Dioxide Level 19.2 Anion Gap 10 Blood Urea Nitrogen 29 Creatinine 1.25 Estimat Glomerular Filtration 59 Rate Random Glucose 158 Lactic Acid Level 2.6 Calcium Level 8.7 Phosphorus Level 2.5 Magnesium Level 1.6 Total Bilirubin 4.5 Aspartate Amino Transf 87 (AST/SGOT) Alanine Aminotransferase 30 (ALT/SGPT) Alkaline Phosphatase 93 Ammonia 54 Total Creatine Kinase 469 Creatine Kinase MB 4.6 Creatine Kinase MB % 1.0 Total Protein 6.6 Albumin 2.8 Thyroid Stimulating Hormone 3.200 3rd Gen Junaid Rodríguez PhD September 11, 2016 18:15
[2016-09-11] MEDS: LABETALOL HCL 100 MG/20 ML VIAL IV PUSH PRN (22:40)
[2016-09-12] VITALS (16 sets, daily range): BP systolic 137–172; BP diastolic 86–96; PULSE 71–83; RESP 24–31; TEMP 98.1–99; O2SAT 90–94
[2016-09-12] MEDS: CHLORHEXIDINE GLUCONATE 2 % 1 PACK (2 CLOTHS) TOP SCH (04:00)
[2016-09-12] MEDS: RESP: ALBUTEROL 2.5 MG/IPRATROPIUM 0.5 MG NEB (SCH) INH ×4 (04:10→21:51)
[2016-09-12 05:45] LABS: AUTOMATED NEUTROPHIL # 5.4 TH/MM3 (1.8-7.7); BASOPHIL # 0.1 TH/MM3 (0-0.2); BASOPHIL % 0.8 % (0.0-2.0); EOSINOPHIL # 0.2 TH/MM3 (0-0.4); EOSINOPHIL % 3.1 % (0.0-4.0); HEMATOCRIT 39.2 % (39.0-51.0); LYMPHOCYTE # 1.3 TH/MM3 (1.0-4.8); MEAN CELL VOLUME 98.6 FL (80.0-100.0); MEAN CORPUSCULAR HEMOGLOBIN 33.7 PG (27.0-34.0); MEAN CORPUSCULAR HGB CONC 34.1 % (32.0-36.0); MONO % 12.5 % (0.0-8.0); NEUT % 67.6 % (16.0-70.0); PLATELET COUNT 27 TH/MM3 (150-450); RED BLOOD COUNT 3.98 MIL/MM3 (4.50-5.90); RED CELL DISTRIBUTION WIDTH 14.5 % (11.6-17.2); WHITE BLOOD COUNT 8.1 TH/MM3 (4.0-11.0)
[2016-09-12 05:46] LABS: HEMO FLAGS AUTO DIFF
[2016-09-12] MEDS: levETIRAcetam INJ 500 MG in SODIUM CHLORIDE 0.9% INJ 100 ML IV SCH ×4 (06:17→18:01)
[2016-09-12] MEDS: CEFEPIME INJ 2,000 MG in SODIUM CHLORIDE 0.9% INJ 100 ML IV SCH ×3 (06:17→17:54)
[2016-09-12] MEDS: INSULIN ASPART SUPPLEMENTAL SCALE SQ SCH ×4 (06:19→21:00)
[2016-09-12 06:22] LABS: ALKALINE PHOSPHATASE 91 U/L (45-117); ALT (GPT) 43 U/L (12-78); ANION GAP 11 MEQ/L (5-15); AST (GOT) 145 U/L (15-37); BICARBONATE 22.1 MEQ/L (21.0-32.0); BLOOD UREA NITROGEN 44 MG/DL (7-18); CHLORIDE 118 MEQ/L (98-107); GLOMERULAR FILTRATION RATE 52 ML/MIN (>89); POTASSIUM 3.7 MEQ/L (3.5-5.1); SODIUM (NA) 151 MEQ/L (136-145)
[2016-09-12 07:04] LABS: PLATELET ESTIMATE SMEAR LOW (NORMAL); PLATELET MORPHOLOGY NORMAL (NORMAL); SCAN/DIFF AUTO DIFF CONFIRMED
[2016-09-12] MEDS: CHLORHEXIDINE 0.12% (ORAL KIT) 15 ML CUP MT SCH ×2 (08:00→20:00)
[2016-09-12] MEDS: RIFAXIMIN 550 MG TAB PO SCH ×2 (08:28→21:46)
[2016-09-12] MEDS: LISINOPRIL 5 MG TAB PO SCH (08:29)
[2016-09-12] MEDS: LACTULOSE SYRUP 20 GM/30 ML CUP PO SCH ×4 (08:29→21:46)
[2016-09-12] MEDS: FOLIC ACID 1 MG TAB PO SCH (08:29)
[2016-09-12] MEDS: AZITHROMYCIN 250 MG TAB PO SCH (08:29)
[2016-09-12] MEDS: MULTIVITAMIN TAB PO SCH (08:29)
[2016-09-12] MEDS: PROPRANOLOL HCL 20 MG TAB PO SCH ×2 (08:29→21:46)
[2016-09-12] MEDS: SODIUM CHLORIDE 0.9% FLUSH 10 ML FLUSH IV FLUSH SCH ×2 (08:30→21:46)
[2016-09-12] MEDS: THIAMINE INJ 100 MG in SODIUM CHLORIDE 0.9% INJ 100 ML IV SCH (08:30)
[2016-09-12] MEDS: PANTOPRAZOLE SOD 40 MG DELAYED RELEASE TAB PO SCH (09:00)
--- NOTE | 2016-09-12 11:31 | HHI.CCPN ---
Subjective Remarks/Hospital Course 61yo male. Date of admission 09/05/2016. Past medical history includes depression, hypertension, hepatitis C with cirrhotic liver, diabetes mellitus with peripheral neuropathy, history of right lower extremity DVT, chronic thrombocytopenia and history of MRSA to left leg 2015. He is on metformin for diabetes. He presents to [facility] this a.m. with altered mental status. According to EMS report, pt's roommate states he has been " in and out of it " for 2 days. Today patient was found unresponsive on a couch by EMS. He has had 2 seizures in route the first lasted approximately 5 minutes was given 2 mg Ativan with another one approximate 1 minute duration received another 2 mg Ativan.. Given 2mg ativan and then another seizure about 10 min after the ativan so another 2 mg ativan given. Pt was moving all extremities but tachypneic and not responding to verbal stimuli. Pt was febrile in the ED. Patient was emergently intubated with a 7.5 ET tube after receiving 20 mg IV etomidate along with 60 mg IV rocuronium by Dr. Roblero. CT head - superior nasal spine fracture otherwise unremarkable CT C-spine -C5/6 mild disc bulge otherwise unremarkable Chest x-ray - bilateral hilar infiltrates. Cardiomegaly Pertinent labs revealed a normal white cell count, platelet count 37,000. Normal BMP, Lactic acidosis of 9.2, troponin 0.23, alcohol level 37 with positive THC level. NH3+ was 86 patient was going to be lumbar puncture in ED however platelet count is less than 50,000 the present time. Risk of spinal hematoma outweighs benefits of lumbar puncture this time. No consentable family members available currently. Patient is with one daughter he is close to. He also has a dog. In the ED, there is copious amounts of blood coming from the mouth. This was Yankauer suction to clear. Blood tinged sputum from ETT. NG tube with greenish bile gastric output. I removed one right lower denture. The left lower side is missing. 09/06 EEG showed generalized slowing. Imaging workup RN has noted ongoing bleeding from mouth and platelets 25k. Lactic acidosis cleared and urine output adequate. Ammonia 73. Has received 2 doses of lactulose and no bowel movement yet. 09/07 Following some commands intermittently today, RN resuming propofol after sedation vacation due to repeated coughing. Having BMs, ammonia downtrend to 67. Tolerating tube feeds. Hypertensive. 09/08: per nursing, following intermittent commands. however, was agitated requiring propofol for sedation and does not follow commands for me. continues to have diarrhea likely secondary to lactulose. 09/09: following commands this morning, still slightly somnolent, but much more awake than yesterday. diarrhea secondary to lactulose persists. 09/10: Extubated yesterday without application. Currently on 2 L nasal cannula. Passed swallow evaluation. Required intermittent Ativan for agitation withdrawal. Subjective: 09/11: Received 4 mg Ativan overnight. Appropriate with responses but more somnolent this a.m. Compared to Yesterday. Tolerating diet. Positive BM. 09/12 No acute events overnight. Afebrile. Objective Vital Signs Date Time Temp Pulse Resp B/P Pulse Ox O2 Delivery O2 Flow Rate FiO2 09/12/16 09:40 92 21 09/12/16 09:00 80 30 153/93 09/12/16 08:00 99.0 09/09/16 14:50 Nasal Cannula 4 Intake and Output 09/11/16 09/11/16 09/12/16 08:00 16:00 00:00 Intake Total 486 ml 380 ml Output Total 500 ml 1151 ml Balance -14 ml -771 ml Result Diagram: 09/12/1624 09/12/16523 Other Results Laboratory Tests Test 09/12/16 05:24 White Blood Count 8.1 TH/MM3 Red Blood Count 3.98 MIL/MM3 Hemoglobin 13.4 GM/DL Hematocrit 39.2 % Mean Corpuscular Volume 98.6 FL Mean Corpuscular Hemoglobin 33.7 PG Mean Corpuscular Hemoglobin 34.1 % Concent Red Cell Distribution Width 14.5 % Platelet Count 27 TH/MM3 Mean Platelet Volume 10.0 FL Neutrophils (%) (Auto) 67.6 % Lymphocytes (%) (Auto) 16.0 % Monocytes (%) (Auto) 12.5 % Eosinophils (%) (Auto) 3.1 % Basophils (%) (Auto) 0.8 % Neutrophils # (Auto) 5.4 TH/MM3 Lymphocytes # (Auto) 1.3 TH/MM3 Monocytes # (Auto) 1.0 TH/MM3 Eosinophils # (Auto) 0.2 TH/MM3 Basophils # (Auto) 0.1 TH/MM3 CBC Comment AUTO DIFF Differential Comment AUTO DIFF CONFIRMED Platelet Estimate LOW Platelet Morphology Comment NORMAL Red Cell Morphology Comment NORMAL Sodium Level 151 MEQ/L Potassium Level 3.7 MEQ/L Chloride Level 118 MEQ/L Carbon Dioxide Level 22.1 MEQ/L Anion Gap 11 MEQ/L Blood Urea Nitrogen 44 MG/DL Creatinine 1.39 MG/DL Estimat Glomerular Filtration 52 ML/MIN Rate Random Glucose 144 MG/DL Calcium Level 8.9 MG/DL Phosphorus Level 2.8 MG/DL Magnesium Level 2.0 MG/DL Total Bilirubin 4.0 MG/DL Aspartate Amino Transf 145 U/L (AST/SGOT) Alanine Aminotransferase 43 U/L (ALT/SGPT) Alkaline Phosphatase 91 U/L Ammonia 31 MCMOL/L Total Protein 6.8 GM/DL Albumin 2.9 GM/DL Hepatitis A IgM Antibody NEGATIVE Hepatitis B Surface Antigen NEGATIVE Hepatitis B Core IgM Antibody NEGATIVE Hepatitis C Antibody REACTIVE Imaging Last Impressions Chest X-Ray 09/08/16 Signed Impressions: Service Date/Time: Thursday, September 08, 2016 04:30 - CONCLUSION: 1. Cardiomegaly and findings of vascular congestion without overt failure. The findings have worsened when compared with the prior examination. Cleve Hernandez MD Head CT 09/05/16 0631 Signed Impressions: Service Date/Time: Monday, September 05, 2016 07:34 - CONCLUSION: Size disease, fracture superior nasal spine otherwise negative. Aman Freeman MD FACR Lower Extremity Ultrasound 09/05/16 0000 Signed Impressions: Service Date/Time: Monday, September 05, 2016 09:36 - CONCLUSION: There is normal compressibility of the deep venous system from the inguinal region to the proximal calf. No echogenic clot is seen in the lumen of the common femoral, femoral, popliteal, and posterior tibial veins. There is a normal response of the venous system to proximal and distal augmentation and respiration. CONCLUSION: Negative for deep venous thrombosis. Aman Freeman MD Liver Ultrasound 09/05/16 0000 Signed Impressions: Service Date/Time: Monday, September 05, 2016 08:55 - CONCLUSION: 1. Moderate splenomegaly with no focal lesion. 2. Liver is normal in size but mildly increased in echogenicity. Mayo Moncada MD Head Magnetic Resonance Angiography 09/05/16 0000 Signed Impressions: Service Date/Time: Monday, September 05, 2016 17:27 - CONCLUSION: Normal MRA. Marcin Appiah MD Cervical Spine CT 09/05/16 0000 Signed Impressions: Service Date/Time: Monday, September 05, 2016 07:34 - CONCLUSION: Degenerative changes, negative for fracture. Aman Freeman MD FACR Brain MRI 09/05/16 0000 Signed Impressions: Service Date/Time: Monday, September 05, 2016 17:27 - CONCLUSION: Minimal increased signal within the periventricular white matter and a solitary small focus of signal are not in the right frontal lobe. These likely represent minimal changes of demyelination. No areas of hemorrhage, mass effect or abnormal enhancement are seen. Marcin Appiah MD Objective Remarks GENERAL: 61-year-old male, currently on nasal cannula in no acute distress SKIN: Warm and dry. No rash HEAD: Atraumatic. Normocephalic. EYES: Equally round and react about 3 millimeters bilaterally. + Scleral icterus. No injection or drainage. ENT: No nasal bleeding or discharge. Mucous membranes pink and moist. Oropharynx without erythema or exudate or bleeding NECK: Trachea midline. No JVD. CARDIOVASCULAR: Tachycardic, RR. S1, S2 no S4 without murmur RESPIRATORY: Few crackles patient bases bilateral. No wheeze GASTROINTESTINAL: Abdomen soft, non-tender, nondistended. MUSCULOSKELETAL: Extremities with trace lower extremity peripheral edema. No obvious deformities. NEUROLOGICAL: Cranial nerves II through grossly intact. Strength is equal/ symmetric bilaterally. Normal sensation. A/P Assessment and Plan Neuro/Psych: Acute toxic metabolic encephalopathy Hepatic encephalopathy History of depression THC positive Alcohol abuse Seizure CT head 09/05 revealed no acute intracranial findings. MRI brain 09/05minimal increased periventricular white matter changes and abnormal focus of signal in right frontal lobe. MRA brain 09/05 normal EEG 09/05generalized slowing consistent with severe encephalopathy. No seizure activity Keppra 500 mg IV every 6 hours per neurology Neurology consult. Appreciate Dr. Rodríguez's assistance. Continue. Thiamine/folate/multivitamin daily Monitor for DTs Seizure precautions Currently on [facility] protocol CV: Elevated troponin Hypertension h/o Dilated cardiomyopathy Seen by Dr. Falcon 07/25 admission. Recommended no intervention with multiple medical issues, alcoholism, thrombocytopenia and no chest pain. 2-D echocardiogram 07/25 - EF 55-60% right ventricle systolic pressure around 90 mmHg. Mild AR, MR. Left atrium and left ventricle and right ventricle all dilated Echo 09/05/16LVEF 60%. LV cavity size reported normal. No regional wall motion abnormalities. RV dilated. Normal wall thickness.TRUE 41 mmHg. EKG reveals sinus tachycardia 111. Left atrial enlargement. Incomplete RBBB with ST depression in V1 through V5. Troponin peaked at 2.38. Dr. Menchaca evaluated. Recommended follow-up with [facility] upon discharge. On propranolol 20 twice a day, lisinopril 5 mill grams daily Resp: Acute respiratory failure- resolved Community acquired Pneumonia History of prior tobaccoism Continue with oxygen keep sat > 92% Bronchodilator therapy with DuoNeb's every 6 hours with albuterol every 2 hours when necessary dyspnea Patient had a negative CT of the chest 07/25 for pulmonary embolism GI: Hepatitis C unknown genotype Cirrhosis Elevated total bilirubin , downtrending Chronic mild protein energy malnutrition Hyperammonia Speech eval, diet per speech. Liver ultrasoundmoderate splenomegaly. Increased echogenicity of the liver. Gallbladder normal. Protonix for GI prophylaxis Continue Xifaxan 550 milligrams twice a day; Lactulose 30 cc 4 times a day Ammonia level 31 today from 54 FEN/RENAL: Acute kidney injury Hypernatremia Monitor renal function, I/O's, avoid nephrotoxins. Place on D5W @75ml/hr monitor sodium level. Endo: Diabetes mellitus with neuropathy continue medium scale SSI TSH normal Heme: Hypofibrinogenemia due underlying end-stage liver disease Prolonged PTT Thrombocytopenia - chronic History of right lower extremity DVT Right lower extremity Doppler 09/05negative for DVT Daily CBC. Haptoglobin low, recheck in a.m. Hematology has signed off. Leukopenia -likely secondary to hypersplenism has resolved. Continue to follow trends ID: Community-acquired pneumonia vs aspiration Continue abx(cefepime,, azithromycin)monitor for signs of infections ( Fever, WBC) Pertinent cultures Influenza negative 09/05 - blood cultures 2 - NGTD 09/05urine pneumococcal antigen and Legionella antigen negative. 09/05U/A negative for evidence of infection 09/06 - sputum culturenegative MAXILLOFACIAL: Superior nasal spine fracture Nonsurgical. Supportive care Access - PIV Prophylaxis - GI - Protonix - DVT - SCD/holding pharmacological prophylaxis with thrombocytopenia level 3 Curtis Casiano MD September 12, 2016 11:31 Curtis Casiano MD September 12, 2016 11:31
[2016-09-12] MEDS: DEXTROSE 5% IN WATE 1000ML INJ 1,000 ML IV SCH (12:30)
[2016-09-12] MEDS: THIAMINE HCL 100 MG TAB PO SCH (12:31)
[2016-09-12] MEDS: LORazepam 2 MG/ML VIAL IV PUSH PRN (21:46)
[2016-09-13] VITALS (19 sets, daily range): BP systolic 153–200; BP diastolic 85–151; PULSE 61–71; RESP 19–31; TEMP 97.6–98.7; O2SAT 83–96
[2016-09-13] MEDS: levETIRAcetam INJ 500 MG in SODIUM CHLORIDE 0.9% INJ 100 ML IV SCH ×4 (00:37→18:01)
[2016-09-13] MEDS: CEFEPIME INJ 2,000 MG in SODIUM CHLORIDE 0.9% INJ 100 ML IV SCH ×3 (00:37→16:39)
[2016-09-13] MEDS: RESP: ALBUTEROL 2.5 MG/IPRATROPIUM 0.5 MG NEB (SCH) INH ×4 (04:00→21:26)
[2016-09-13] MEDS: CHLORHEXIDINE GLUCONATE 2 % 1 PACK (2 CLOTHS) TOP SCH (04:00)
[2016-09-13] MEDS: INSULIN ASPART SUPPLEMENTAL SCALE SQ SCH ×3 (05:50→18:00)
[2016-09-13] MEDS: DEXTROSE 5% IN WATE 1000ML INJ 1,000 ML IV SCH ×2 (05:50→12:30)
[2016-09-13 06:02] LABS: AUTOMATED NEUTROPHIL # 3.9 TH/MM3 (1.8-7.7); BASOPHIL % 0.3 % (0.0-2.0); EOSINOPHIL # 0.2 TH/MM3 (0-0.4); EOSINOPHIL % 4.2 % (0.0-4.0); HEMATOCRIT 34.8 % (39.0-51.0); LYMPH % 14.2 % (9.0-44.0); LYMPHOCYTE # 0.8 TH/MM3 (1.0-4.8); MEAN CELL VOLUME 98.4 FL (80.0-100.0); MEAN CORPUSCULAR HEMOGLOBIN 34.9 PG (27.0-34.0); MEAN CORPUSCULAR HGB CONC 35.5 % (32.0-36.0); MONO % 12.9 % (0.0-8.0); NEUT % 68.4 % (16.0-70.0); PLATELET COUNT 25 TH/MM3 (150-450); RED BLOOD COUNT 3.53 MIL/MM3 (4.50-5.90); RED CELL DISTRIBUTION WIDTH 14.4 % (11.6-17.2); WHITE BLOOD COUNT 5.7 TH/MM3 (4.0-11.0)
[2016-09-13 06:08] LABS: INTERNATIONAL NORMALIZED RATIO 1.6 RATIO; PROTHROMBIN TIME - PATIENT 18.3 SEC (9.8-11.6)
[2016-09-13 06:20] LABS: ALT (GPT) 51 U/L (12-78); ANION GAP 11 MEQ/L (5-15); AST (GOT) 126 U/L (15-37); BICARBONATE 21.8 MEQ/L (21.0-32.0); BLOOD UREA NITROGEN 37 MG/DL (7-18); CHLORIDE 119 MEQ/L (98-107); GLOMERULAR FILTRATION RATE 59 ML/MIN (>89); POTASSIUM 3.2 MEQ/L (3.5-5.1); SODIUM (NA) 152 MEQ/L (136-145)
[2016-09-13 06:23] LABS: ALKALINE PHOSPHATASE 82 U/L (45-117); TOTAL BILIRUBIN ADULT 2.8 MG/DL (0.2-1.0)
[2016-09-13 06:25] LABS: HEMO FLAGS AUTO DIFF
[2016-09-13 07:25] LABS: BANDS 2 % (0-6); CORRECTED NUCLEATED RBC 2 /100 WBC (0-0); EOSINOPHILS 9 % (0-4); METAMYELOCYTES 1 % (0-1); MYELOCYTES 1 % (0-0); NEUTROPHIL # MANUAL DIFF 3.9 TH/MM3 (1.8-7.7); PLATELET ESTIMATE SMEAR LOW (NORMAL); PLATELET MORPHOLOGY NORMAL (NORMAL); POLYS (SEG NEUTROPHILS) 65 % (16-70); SCAN/DIFF FINAL DIFF MANUAL; WBC DIFF SAMPLE 100
[2016-09-13] MEDS: AZITHROMYCIN 250 MG TAB PO SCH (07:46)
[2016-09-13] MEDS: THIAMINE HCL 100 MG TAB PO SCH (07:46)
[2016-09-13] MEDS: SODIUM CHLORIDE 0.9% FLUSH 10 ML FLUSH IV FLUSH SCH ×2 (07:46→21:00)
[2016-09-13] MEDS: FOLIC ACID 1 MG TAB PO SCH (07:46)
[2016-09-13] MEDS: LACTULOSE SYRUP 20 GM/30 ML CUP PO SCH ×4 (07:46→21:33)
[2016-09-13] MEDS: CHLORHEXIDINE 0.12% (ORAL KIT) 15 ML CUP MT SCH (07:46)
[2016-09-13] MEDS: PROPRANOLOL HCL 20 MG TAB PO SCH ×2 (07:46→21:33)
[2016-09-13] MEDS: LISINOPRIL 5 MG TAB PO SCH (07:46)
[2016-09-13] MEDS: RIFAXIMIN 550 MG TAB PO SCH ×2 (07:46→21:33)
[2016-09-13] MEDS: MULTIVITAMIN TAB PO SCH (07:46)
[2016-09-13] MEDS: PANTOPRAZOLE SOD 40 MG DELAYED RELEASE TAB PO SCH (07:47)
[2016-09-13] MEDS ORDERED: POTASSIUM CHLORIDE 25 MEQ EFFERVESCENT TAB PO ONE (08:45)
[2016-09-13] MEDS ORDERED: GADODIAMIDE PF 287 MG/ML 20 ML VIAL (for RAD MRI) IV ONE (11:31)
[2016-09-13] MEDS: FREE WATER G-TUBE SCH ×2 (12:00→16:39)
--- NOTE | 2016-09-13 12:24 | HHI.CCPN ---
Subjective Remarks/Hospital Course 61yo male. Date of admission 09/05/2016. Past medical history includes depression, hypertension, hepatitis C with cirrhotic liver, diabetes mellitus with peripheral neuropathy, history of right lower extremity DVT, chronic thrombocytopenia and history of MRSA to left leg 2015. He is on metformin for diabetes. He presents to [facility] this a.m. with altered mental status. According to EMS report, pt's roommate states he has been " in and out of it " for 2 days. Today patient was found unresponsive on a couch by EMS. He has had 2 seizures in route the first lasted approximately 5 minutes was given 2 mg Ativan with another one approximate 1 minute duration received another 2 mg Ativan.. Given 2mg ativan and then another seizure about 10 min after the ativan so another 2 mg ativan given. Pt was moving all extremities but tachypneic and not responding to verbal stimuli. Pt was febrile in the ED. Patient was emergently intubated with a 7.5 ET tube after receiving 20 mg IV etomidate along with 60 mg IV rocuronium by Dr. Roblero. CT head - superior nasal spine fracture otherwise unremarkable CT C-spine -C5/6 mild disc bulge otherwise unremarkable Chest x-ray - bilateral hilar infiltrates. Cardiomegaly Pertinent labs revealed a normal white cell count, platelet count 37,000. Normal BMP, Lactic acidosis of 9.2, troponin 0.23, alcohol level 37 with positive THC level. NH3+ was 86 patient was going to be lumbar puncture in ED however platelet count is less than 50,000 the present time. Risk of spinal hematoma outweighs benefits of lumbar puncture this time. No consentable family members available currently. Patient is with one daughter he is close to. He also has a dog. In the ED, there is copious amounts of blood coming from the mouth. This was Yankauer suction to clear. Blood tinged sputum from ETT. NG tube with greenish bile gastric output. I removed one right lower denture. The left lower side is missing. 09/06 EEG showed generalized slowing. Imaging workup RN has noted ongoing bleeding from mouth and platelets 25k. Lactic acidosis cleared and urine output adequate. Ammonia 73. Has received 2 doses of lactulose and no bowel movement yet. 09/07 Following some commands intermittently today, RN resuming propofol after sedation vacation due to repeated coughing. Having BMs, ammonia downtrend to 67. Tolerating tube feeds. Hypertensive. 09/08: per nursing, following intermittent commands. however, was agitated requiring propofol for sedation and does not follow commands for me. continues to have diarrhea likely secondary to lactulose. 09/09: following commands this morning, still slightly somnolent, but much more awake than yesterday. diarrhea secondary to lactulose persists. 09/10: Extubated yesterday without application. Currently on 2 L nasal cannula. Passed swallow evaluation. Required intermittent Ativan for agitation withdrawal. 09/11: Received 4 mg Ativan overnight. Appropriate with responses but more somnolent this a.m. Compared to Yesterday. Tolerating diet. Positive BM. 09/12 No acute events overnight. Afebrile. Subjective: 09/13: Patient currently moaning only. Not verbalizing words. Afebrile. On room air. Tube feeds started secondary to lack of oral intake Objective Vital Signs Date Time Temp Pulse Resp B/P Pulse Ox O2 Delivery O2 Flow Rate FiO2 09/13/16 10:00 61 09/13/16 10:00 22 157/101 94 09/13/16 08:00 98.7 09/12/16 09:40 21 09/09/16 14:50 Nasal Cannula 4 Intake and Output 09/12/16 09/12/16 09/13/16 08:00 16:00 00:00 Intake Total 798 ml 661 ml 530 ml Output Total 750 ml 351 ml 550 ml Balance 48 ml 310 ml -20 ml Result Diagram: 09/13/16 0447 09/13/16 0447 Imaging Last Impressions Chest X-Ray 09/08/16 0000 Signed Impressions: Service Date/Time: Thursday, September 08, 2016 04:30 - CONCLUSION: 1. Cardiomegaly and findings of vascular congestion without overt failure. The findings have worsened when compared with the prior examination. Cleve Hernandez MD Head CT 09/05/16 0631 Signed Impressions: Service Date/Time: Monday, September 05, 2016 07:34 - CONCLUSION: Size disease, fracture superior nasal spine otherwise negative. Aman Freeman MD FACR Lower Extremity Ultrasound 09/05/16 0000 Signed Impressions: Service Date/Time: Monday, September 05, 2016 09:36 - CONCLUSION: There is normal compressibility of the deep venous system from the inguinal region to the proximal calf. No echogenic clot is seen in the lumen of the common femoral, femoral, popliteal, and posterior tibial veins. There is a normal response of the venous system to proximal and distal augmentation and respiration. CONCLUSION: Negative for deep venous thrombosis. Aman Freeman MD Liver Ultrasound 09/05/16 Signed Impressions: Service Date/Time: Monday, September 05, 2016 08:55 - CONCLUSION: 1. Moderate splenomegaly with no focal lesion. 2. Liver is normal in size but mildly increased in echogenicity. aMyo Moncada MD Head Magnetic Resonance Angiography 09/05/16 Signed Impressions: Service Date/Time: Monday, September 05, 2016 17:27 - CONCLUSION: Normal MRA. Marcin Appiah MD Cervical Spine CT 09/05/16 Signed Impressions: Service Date/Time: Monday, September 05, 2016 07:34 - CONCLUSION: Degenerative changes, negative for fracture. Aman Freeman MD FACR Brain MRI 09/05/16 Signed Impressions: Service Date/Time: Monday, September 05, 2016 17:27 - CONCLUSION: Minimal increased signal within the periventricular white matter and a solitary small focus of signal are not in the right frontal lobe. These likely represent minimal changes of demyelination. No areas of hemorrhage, mass effect or abnormal enhancement are seen. Marcin Appiah MD Objective Remarks GENERAL: 61-year-old male, currently on nasal cannula in no acute distress SKIN: Warm and dry. No rash HEAD: Atraumatic. Normocephalic. EYES: Equally round and react about 3 millimeters bilaterally. + Scleral icterus. No injection or drainage. ENT: No nasal bleeding or discharge. Mucous membranes pink and moist. Oropharynx without erythema or exudate or bleeding NECK: Trachea midline. No JVD. CARDIOVASCULAR: Tachycardic, RR. S1, S2 no S4 without murmur RESPIRATORY: Few crackles patient bases bilateral. No wheeze GASTROINTESTINAL: Abdomen soft, non-tender, nondistended. MUSCULOSKELETAL: Extremities with trace lower extremity peripheral edema. No obvious deformities. NEUROLOGICAL: Cranial nerves II through grossly intact. Strength is equal/ symmetric bilaterally. Normal sensation. A/P Assessment and Plan Neuro/Psych: Acute toxic metabolic encephalopathy Hepatic encephalopathy History of depression THC positive Alcohol abuse Seizure CT head 09/05 revealed no acute intracranial findings. MRI brain 09/05minimal increased periventricular white matter changes and abnormal focus of signal in right frontal lobe. MRA brain 09/05 normal EEG 09/05generalized slowing consistent with severe encephalopathy. No seizure activity Keppra 500 mg IV every 6 hours per neurology Neurology consult. Appreciate Dr. Rodríguez's assistance. Continue. Thiamine/folate/multivitamin daily Monitor for DTs Seizure precautions Currently on [facility] protocol Check MRI brain/EEG today. Subjectively worsening neurological symptoms. CV: Elevated troponin Hypertension h/o Dilated cardiomyopathy Seen by Dr. Falcon 07/25 admission. Recommended no intervention with multiple medical issues, alcoholism, thrombocytopenia and no chest pain. 2-D echocardiogram 07/25 - EF 55-60% right ventricle systolic pressure around 90 mmHg. Mild AR, MR. Left atrium and left ventricle and right ventricle all dilated Echo 09/05/16LVEF 60%. LV cavity size reported normal. No regional wall motion abnormalities. RV dilated. Normal wall thickness.TRUE 41 mmHg. EKG reveals sinus tachycardia 111. Left atrial enlargement. Incomplete RBBB with ST depression in V1 through V5. Troponin peaked at 2.38. Dr. Menchaca evaluated. Recommended follow-up with [facility] upon discharge. On propranolol 20 twice a day, lisinopril 5 mill grams daily Resp: Acute respiratory failure- resolved Community acquired Pneumonia History of prior tobaccoism Continue with oxygen keep sat > 92% Bronchodilator therapy with DuoNeb's every 6 hours with albuterol every 2 hours when necessary dyspnea Patient had a negative CT of the chest 07/25 for pulmonary embolism GI: Hepatitis C unknown genotype Cirrhosis Elevated total bilirubin , downtrending Chronic mild protein energy malnutrition Hyperammonia Speech eval, diet per speech. Liver ultrasoundmoderate splenomegaly. Increased echogenicity of the liver. Gallbladder normal. Protonix for GI prophylaxis Continue Xifaxan 550 milligrams twice a day; Lactulose 30 cc 4 times a day Ammonia level 31 today from 54. Recheck in a.m. Restart Neutra hep at 60 cc an hour goal FEN/RENAL: Acute kidney injury Hypernatremia Monitor renal function, I/O's, avoid nephrotoxins. Place on 05/14 @75ml/hr 2 L monitor sodium level. Endo: Diabetes mellitus with neuropathy continue medium scale SSI TSH normal Heme: Hypofibrinogenemia due underlying end-stage liver disease Prolonged PTT Thrombocytopenia - chronic History of right lower extremity DVT Right lower extremity Doppler 09/05negative for DVT Daily CBC. Haptoglobin low, recheck in a.m. Hematology has signed off. Leukopenia -likely secondary to hypersplenism has resolved. Continue to follow trends ID: Community-acquired pneumonia vs aspiration Continue abx(cefepime,, azithromycin)monitor for signs of infections ( Fever, WBC) Pertinent cultures Influenza negative 09/05 - blood cultures 2 - NGTD 09/05urine pneumococcal antigen and Legionella antigen negative. 09/05U/A negative for evidence of infection 09/06 - sputum culturenegative MAXILLOFACIAL: Superior nasal spine fracture Nonsurgical. Supportive care Access - PIV Prophylaxis - GI - Protonix - DVT - SCD/holding pharmacological prophylaxis with thrombocytopenia level 2 Klever Cross MD September 13, 2016 12:24
[2016-09-13] MEDS: LABETALOL HCL 100 MG/20 ML VIAL IV PUSH PRN (12:42)
--- NOTE | 2016-09-13 12:42 | RADRPT ---
EXAM DATE/TIME: 09/13/2016 11:17 [place] COMPARISON: MRI BRAIN W & W/O CONTRAST, September 05, 2016, 17:27. INDICATIONS : Decreased level of consciousness. CONTRAST: 16 cc Omniscan (gadodiamide) IV MEDICAL HISTORY : Hepatitis C. Diabetes mellitus type 2. ETOH SURGICAL HISTORY : None. ENCOUNTER: Initial ACUITY: 1 day PAIN SCORE: 0/10 LOCATION: cranial TECHNIQUE: Multiplanar, multisequence MRI of the brain was performed both prior to and following the administrat ion of paramagnetic contrast. FINDINGS: The study is degraded by motion artifact limiting sensitivity. CEREBRUM: The ventricles are normal for age. No evidence of midline shift, mass lesion, hemorrhage or acute in farction. No extraaxial fluid collections are seen. The pituitary gland and suprasellar cistern are normal in configuration. WHITE MATTER: On the flair weighted images there is mild increased signal again noted in the periventricular white matter. This is unchanged.. POSTERIOR FOSSA: The cerebellum and brainstem are intact. The 4th ventricle is midline. The cerebellopontine angle is unremarkable. The cerebellar tonsils are normal in position. DIFFUSION IMAGING: No focal areas of restricted diffusion are seen. No evidence of acute infarction. EXTRACRANIAL: The visualized portions of the orbits and paranasal sinuses are unremarkable. POST-CONTRAST: No abnormal areas of parenchymal or dural enhancement. No evidence of blood-brain barrier breakdown. CONCLUSION: 1. No acute hemorrhage, mass effect or acute infarction. 2. Mild increased signal in the white matter. This is not significantly changed. 3. Mild motion artifact. Mayo Moncada MD on September 13, 2016 at 12:38 Board Certified Radiologist. This report was verified electronically.
[2016-09-13] MEDS: SODIUM CHLORIDE 23.4% INJ 38.5 MEQ in WATER STERILE FOR INJ 1,000 ML IV SCH (14:38)
[2016-09-14] VITALS (25 sets, daily range): BP systolic 133–173; BP diastolic 76–97; PULSE 64–70; RESP 19–27; TEMP 97.9–99.2; O2SAT 92–96
[2016-09-14] MEDS: levETIRAcetam INJ 500 MG in SODIUM CHLORIDE 0.9% INJ 100 ML IV SCH ×2 (00:19→05:18)
[2016-09-14] MEDS: CEFEPIME INJ 2,000 MG in SODIUM CHLORIDE 0.9% INJ 100 ML IV SCH ×3 (00:55→17:34)
[2016-09-14] MEDS: CHLORHEXIDINE GLUCONATE 2 % 1 PACK (2 CLOTHS) TOP SCH (03:43)
[2016-09-14] MEDS: SODIUM CHLORIDE 23.4% INJ 38.5 MEQ in WATER STERILE FOR INJ 1,000 ML IV SCH ×2 (03:43→17:34)
[2016-09-14] MEDS: RESP: ALBUTEROL 2.5 MG/IPRATROPIUM 0.5 MG NEB (SCH) INH ×4 (04:28→20:38)
[2016-09-14] MEDS: FREE WATER G-TUBE SCH ×5 (05:18→21:47)
[2016-09-14] MEDS: INSULIN ASPART SUPPLEMENTAL SCALE SQ SCH ×4 (05:18→17:35)
[2016-09-14 06:01] LABS: ALT (GPT) 49 U/L (12-78); ANION GAP 9 MEQ/L (5-15); AST (GOT) 122 U/L (15-37); BLOOD UREA NITROGEN 33 MG/DL (7-18); CHLORIDE 121 MEQ/L (98-107); GLOMERULAR FILTRATION RATE 60 ML/MIN (>89); MAGNESIUM 1.7 MG/DL (1.5-2.5); POTASSIUM 3.5 MEQ/L (3.5-5.1); SODIUM (NA) 149 MEQ/L (136-145)
[2016-09-14 06:04] LABS: ALKALINE PHOSPHATASE 85 U/L (45-117); TOTAL BILIRUBIN ADULT 3.4 MG/DL (0.2-1.0)
[2016-09-14 06:07] LABS: BASOPHIL % 0.7 % (0.0-2.0); EOSINOPHIL # 0.2 TH/MM3 (0-0.4); MEAN CELL VOLUME 99.7 FL (80.0-100.0); MEAN CORPUSCULAR HEMOGLOBIN 34.2 PG (27.0-34.0); MEAN CORPUSCULAR HGB CONC 34.3 % (32.0-36.0); MONO % 16.1 % (0.0-8.0); NEUT % 60.2 % (16.0-70.0); PLATELET COUNT 17 TH/MM3 (150-450); RED BLOOD COUNT 3.41 MIL/MM3 (4.50-5.90); RED CELL DISTRIBUTION WIDTH 14.4 % (11.6-17.2)
[2016-09-14 06:17] LABS: HEMO FLAGS AUTO DIFF
--- NOTE | 2016-09-14 08:57 | HHI.CCPN ---
Subjective Remarks/Hospital Course 61yo male. Date of admission 09/05/2016. Past medical history includes depression, hypertension, hepatitis C with cirrhotic liver, diabetes mellitus with peripheral neuropathy, history of right lower extremity DVT, chronic thrombocytopenia and history of MRSA to left leg 2015. He is on metformin for diabetes. He presents to [facility] this a.m. with altered mental status. According to EMS report, pt's roommate states he has been " in and out of it " for 2 days. Today patient was found unresponsive on a couch by EMS. He has had 2 seizures in route the first lasted approximately 5 minutes was given 2 mg Ativan with another one approximate 1 minute duration received another 2 mg Ativan.. Given 2mg ativan and then another seizure about 10 min after the ativan so another 2 mg ativan given. Pt was moving all extremities but tachypneic and not responding to verbal stimuli. Pt was febrile in the ED. Patient was emergently intubated with a 7.5 ET tube after receiving 20 mg IV etomidate along with 60 mg IV rocuronium by Dr. Roblero. CT head - superior nasal spine fracture otherwise unremarkable CT C-spine -C5/6 mild disc bulge otherwise unremarkable Chest x-ray - bilateral hilar infiltrates. Cardiomegaly Pertinent labs revealed a normal white cell count, platelet count 37,000. Normal BMP, Lactic acidosis of 9.2, troponin 0.23, alcohol level 37 with positive THC level. NH3+ was 86 patient was going to be lumbar puncture in ED however platelet count is less than 50,000 the present time. Risk of spinal hematoma outweighs benefits of lumbar puncture this time. No consentable family members available currently. Patient is with one daughter he is close to. He also has a dog. In the ED, there is copious amounts of blood coming from the mouth. This was Yankauer suction to clear. Blood tinged sputum from ETT. NG tube with greenish bile gastric output. I removed one right lower denture. The left lower side is missing. 09/06 EEG showed generalized slowing. Imaging workup RN has noted ongoing bleeding from mouth and platelets 25k. Lactic acidosis cleared and urine output adequate. Ammonia 73. Has received 2 doses of lactulose and no bowel movement yet. 09/07 Following some commands intermittently today, RN resuming propofol after sedation vacation due to repeated coughing. Having BMs, ammonia downtrend to 67. Tolerating tube feeds. Hypertensive. 09/08: per nursing, following intermittent commands. however, was agitated requiring propofol for sedation and does not follow commands for me. continues to have diarrhea likely secondary to lactulose. 09/09: following commands this morning, still slightly somnolent, but much more awake than yesterday. diarrhea secondary to lactulose persists. 09/10: Extubated yesterday without application. Currently on 2 L nasal cannula. Passed swallow evaluation. Required intermittent Ativan for agitation withdrawal. 09/11: Received 4 mg Ativan overnight. Appropriate with responses but more somnolent this a.m. Compared to Yesterday. Tolerating diet. Positive BM. 09/12 No acute events overnight. Afebrile. 09/13: Patient currently moaning only. Not verbalizing words. Afebrile. On room air. Tube feeds started secondary to lack of oral intake Subjective: 09/14: Remains minimally responsive. Protecting his airway though. Occasionally will squeeze hands to command. Noted ammonia level 67 today. Objective Vital Signs Date Time Temp Pulse Resp B/P Pulse Ox O2 Delivery O2 Flow Rate FiO2 09/14/16 06:00 67 09/14/16 05:01 27 161/93 93 09/14/16 04:00 97.9 09/13/16 12:15 21 Intake and Output 09/13/16 09/13/16 09/13/16 07:59 15:59 23:59 Intake Total 764 ml 1162 ml 1256 ml Output Total 650 ml 750 ml 250 ml Balance 114 ml 412 ml 1006 ml Result Diagram: 09/14/16 0508 09/14/16 0508 Imaging Last Impressions Brain MRI 09/13/16 0000 Signed Impressions: Service Date/Time: Tuesday, September 13, 2016 11:17 - CONCLUSION: 1. No acute hemorrhage, mass effect or acute infarction. 2. Mild increased signal in the white matter. This is not significantly changed. 3. Mild motion artifact. Mayo Moncada MD Chest X-Ray 09/08/16 0000 Signed Impressions: Service Date/Time: Thursday, September 08, 2016 04:30 - CONCLUSION: 1. Cardiomegaly and findings of vascular congestion without overt failure. The findings have worsened when compared with the prior examination. Cleve Hernandez MD Head CT 09/05/16 0631 Signed Impressions: Service Date/Time: Monday, September 05, 2016 07:34 - CONCLUSION: Size disease, fracture superior nasal spine otherwise negative. Aman Freeman MD FACR Lower Extremity Ultrasound 09/05/16 0000 Signed Impressions: Service Date/Time: Monday, September 05, 2016 09:36 - CONCLUSION: There is normal compressibility of the deep venous system from the inguinal region to the proximal calf. No echogenic clot is seen in the lumen of the common femoral, femoral, popliteal, and posterior tibial veins. There is a normal response of the venous system to proximal and distal augmentation and respiration. CONCLUSION: Negative for deep venous thrombosis. Aman Freeman MD Liver Ultrasound 09/05/16 0000 Signed Impressions: Service Date/Time: Monday, September 05, 2016 08:55 - CONCLUSION: 1. Moderate splenomegaly with no focal lesion. 2. Liver is normal in size but mildly increased in echogenicity. Mayo Moncada MD Head Magnetic Resonance Angiography 09/05/16 Signed Impressions: Service Date/Time: Monday, September 05, 2016 17:27 - CONCLUSION: Normal MRA. Marcin Appiah MD Cervical Spine CT 09/05/16 Signed Impressions: Service Date/Time: Monday, September 05, 2016 07:34 - CONCLUSION: Degenerative changes, negative for fracture. Aman Freeman MD FACR Objective Remarks GENERAL: 61-year-old male, currently on nasal cannula in no acute distress SKIN: Warm and dry. No rash HEAD: Atraumatic. Normocephalic. EYES: Equally round and react about 3 millimeters bilaterally. + Scleral icterus. No injection or drainage. ENT: No nasal bleeding or discharge. Mucous membranes pink and moist. Oropharynx without erythema or exudate or bleeding NECK: Trachea midline. No JVD. CARDIOVASCULAR: Tachycardic, RR. S1, S2 no S4 without murmur RESPIRATORY: Few crackles patient bases bilateral. No wheeze GASTROINTESTINAL: Abdomen soft, non-tender, minimally distended. Hypoactive bowel sounds MUSCULOSKELETAL: Extremities with trace lower extremity peripheral edema. No obvious deformities. NEUROLOGICAL: Cranial nerves II through grossly intact. Strength is equal/ symmetric bilaterally. Normal sensation. A/P Assessment and Plan Neuro/Psych: Acute toxic metabolic encephalopathy Hepatic encephalopathy History of depression THC positive Alcohol abuse Seizure CT head 09/05 revealed no acute intracranial findings. MRI brain 09/05minimal increased periventricular white matter changes and abnormal focus of signal in right frontal lobe. MRA brain 09/05 normal EEG 09/05generalized slowing consistent with severe encephalopathy. No seizure activity Keppra 500 mg IV every 6 hours per neurology. Checking level yesterday pending. I will hold Keppra with regards altered mental status see if this improves symptoms. Neurology consult. Appreciate Dr. Rodríguez's assistance. Continue. Thiamine/folate/multivitamin daily Monitor for DTs Seizure precautions Currently on [facility] protocol Repeat MRI brain 09/13 revealed no acute intracranial findings EEG 09/13 results pending CV: Elevated troponin Hypertension h/o Dilated cardiomyopathy Seen by Dr. Falcon 07/25 admission. Recommended no intervention with multiple medical issues, alcoholism, thrombocytopenia and no chest pain. 2-D echocardiogram 07/25 - EF 55-60% right ventricle systolic pressure around 90 mmHg. Mild AR, MR. Left atrium and left ventricle and right ventricle all dilated Echo 09/05/16LVEF 60%. LV cavity size reported normal. No regional wall motion abnormalities. RV dilated. Normal wall thickness.TRUE 41 mmHg. EKG reveals sinus tachycardia 111. Left atrial enlargement. Incomplete RBBB with ST depression in V1 through V5. Troponin peaked at 2.38. Dr. Menchaca evaluated. Recommended follow-up with [facility] upon discharge. On propranolol 20 twice a day, lisinopril 5 milligrams daily Resp: Acute respiratory failure- resolved Community acquired Pneumonia History of prior tobaccoism Continue with oxygen keep sat > 92% Bronchodilator therapy with DuoNeb's every 6 hours with albuterol every 2 hours when necessary dyspnea Patient had a negative CT of the chest 07/25 for pulmonary embolism GI: Hepatitis C unknown genotype Cirrhosis Elevated total bilirubin , downtrending Chronic mild protein energy malnutrition Hyperammonia Speech eval, diet per speech. Liver ultrasoundmoderate splenomegaly. Increased echogenicity of the liver. Gallbladder normal. Protonix for GI prophylaxis Continue Xifaxan 550 milligrams twice a day; Lactulose 30 cc 4 times a day Added neomycin 500 mg every 8 hours 3 dosages. CORRECT potassium greater than 4 Ammonia level 67 from 31. Recheck in a.m. Restart Neutra hep at 60 cc an hour goal FEN/RENAL: Acute kidney injury Hypernatremia Monitor renal function, I/O's, avoid nephrotoxins. Place on 05/14 @75ml/hr 2 L monitor sodium level. Endo: Diabetes mellitus with neuropathy Sliding scale insulin with Accu-Cheks every 6 hours to maintain glycemia/medium protocol TSH normal Heme: Hypofibrinogenemia due underlying end-stage liver disease Prolonged PTT Thrombocytopenia - chronic History of right lower extremity DVT Right lower extremity Doppler 09/05negative for DVT Daily CBC. Hematology has signed off. Will transfuse 1 pk platelets today. Check peripheral smear Leukopenia -likely secondary to hypersplenism has resolved. Continue to follow trends ID: Community-acquired pneumonia vs aspiration Continue abx(cefepime,, azithromycin)monitor for signs of infections ( Fever, WBC) Discontinue Zithromax after day. 14 days cefepime discontinued. Stop orders in chart Pertinent cultures Influenza negative 09/05 - blood cultures 2 - NGTD 09/05urine pneumococcal antigen and Legionella antigen negative. 09/05U/A negative for evidence of infection 09/06 - sputum culturenegative MAXILLOFACIAL: Superior nasal spine fracture Nonsurgical. Supportive care Access - PIV Prophylaxis - GI - Protonix - DVT - SCD/holding pharmacological prophylaxis with thrombocytopenia level 3 Klever Cross MD September 14, 2016 08:57
[2016-09-14] MEDS ORDERED: POTASSIUM CHLORIDE 20 MEQ PWD PACKET PO ONE (09:00)
[2016-09-14] MEDS: LISINOPRIL 5 MG TAB PO SCH (09:23)
[2016-09-14] MEDS: FOLIC ACID 1 MG TAB PO SCH (09:23)
[2016-09-14] MEDS: RIFAXIMIN 550 MG TAB PO SCH ×2 (09:23→21:47)
[2016-09-14] MEDS: PROPRANOLOL HCL 20 MG TAB PO SCH ×2 (09:23→21:47)
[2016-09-14] MEDS: LANSOPRAZOLE SOLUTAB 30 MG TAB NG SCH (09:23)
[2016-09-14] MEDS: MULTIVITAMIN TAB PO SCH (09:23)
[2016-09-14] MEDS: hydrALAZINE HCL 20 MG/ML VIAL IV PUSH PRN ×2 (09:24→13:19)
[2016-09-14] MEDS: LACTULOSE SYRUP 20 GM/30 ML CUP PO SCH ×4 (09:24→21:47)
[2016-09-14] MEDS: THIAMINE INJ 100 MG in SODIUM CHLORIDE 0.9% INJ 100 ML IV SCH (09:25)
[2016-09-14] MEDS: SODIUM CHLORIDE 0.9% FLUSH 10 ML FLUSH IV FLUSH SCH ×2 (09:26→21:00)
[2016-09-14 09:47] LABS: BANDS 10 % (0-6); BASOPHILS 1 % (0-2); CORRECTED NUCLEATED RBC 7 /100 WBC (0-0); EOSINOPHILS 2 % (0-4); NEUTROPHIL # MANUAL DIFF 3.5 TH/MM3 (1.8-7.7); POLYS (SEG NEUTROPHILS) 59 % (16-70); WBC DIFF SAMPLE 100
[2016-09-14 09:48] LABS: KERATOCYTES OCC (NORMAL)
[2016-09-14 09:49] LABS: PLATELET ESTIMATE SMEAR RARE (NORMAL); PLATELET MORPHOLOGY ENLARGED (NORMAL); SCAN/DIFF FINAL DIFF MANUAL
[2016-09-14] MEDS: NEOMYCIN SULFATE 500 MG TAB PO SCH ×2 (14:53→21:47)
--- NOTE | 2016-09-14 18:35 | MG ---
cc: MARCELINO GOOD M.D. Lab No: [id number] Date: Age: 61 Sex: M Race: HISTORY: Follow up EEG. 61-year-old with alcohol use, hepatitis C. MEDICATIONS: Keppra. DESCRIPTION OF RECORD: There are some still sharply contoured waves seen of a moderately high amplitude in the occipital lobes bilaterally along with what appears to be some triphasic type frontal activity. Small spike wave is seen in the right occipitoparietal region at epoch 11 with a very tiny spike portion. Slow waves are noted in a general background anywhere from 2-5 Hz and this looks very similar to the prior EEG. Photic stimulation was performed without significant posterior driving. IMPRESSION: This is basically unchanged and probably consistent with a moderately severe diffuse encephalopathy or a metabolic encephalopathy. One small spike slow was seen which may have been slightly artifactual. No other seizure activity was noted. Clinical correlation is needed. MD NAFISA Hunter/DOUG /6:20 PM /6:32 PM
[2016-09-14] MEDS: CHLORHEXIDINE 0.12% (ORAL KIT) 15 ML CUP MT SCH (20:00)
[2016-09-15] VITALS (16 sets, daily range): BP systolic 130–184; BP diastolic 69–100; PULSE 61–71; RESP 18–22; TEMP 97.6–99.2; O2SAT 92–95
[2016-09-15] MEDS: CEFEPIME INJ 2,000 MG in SODIUM CHLORIDE 0.9% INJ 100 ML IV SCH ×3 (00:38→17:44)
[2016-09-15] MEDS: hydrALAZINE HCL 20 MG/ML VIAL IV PUSH PRN ×3 (01:22→17:57)
[2016-09-15] MEDS: CHLORHEXIDINE GLUCONATE 2 % 1 PACK (2 CLOTHS) TOP SCH (02:52)
[2016-09-15] MEDS: RESP: ALBUTEROL 2.5 MG/IPRATROPIUM 0.5 MG NEB (SCH) INH ×4 (04:00→20:05)
[2016-09-15 05:50] LABS: AUTOMATED NEUTROPHIL # 4.3 TH/MM3 (1.8-7.7); BASOPHIL # 0.1 TH/MM3 (0-0.2); BASOPHIL % 1.3 % (0.0-2.0); EOSINOPHIL # 0.2 TH/MM3 (0-0.4); EOSINOPHIL % 3.3 % (0.0-4.0); MEAN CELL VOLUME 99.2 FL (80.0-100.0); MEAN CORPUSCULAR HEMOGLOBIN 33.9 PG (27.0-34.0); MEAN CORPUSCULAR HGB CONC 34.2 % (32.0-36.0); MONO % 12.8 % (0.0-8.0); NEUT % 66.6 % (16.0-70.0); PLATELET COUNT 27 TH/MM3 (150-450); RED BLOOD COUNT 3.43 MIL/MM3 (4.50-5.90); RED CELL DISTRIBUTION WIDTH 14.4 % (11.6-17.2); WHITE BLOOD COUNT 6.4 TH/MM3 (4.0-11.0)
[2016-09-15 05:57] LABS: HEMO FLAGS AUTO DIFF
[2016-09-15] MEDS: INSULIN ASPART SUPPLEMENTAL SCALE SQ SCH ×4 (05:59→17:46)
[2016-09-15] MEDS: SODIUM CHLORIDE 23.4% INJ 38.5 MEQ in WATER STERILE FOR INJ 1,000 ML IV SCH (05:59)
[2016-09-15] MEDS: NEOMYCIN SULFATE 500 MG TAB PO SCH (05:59)
[2016-09-15 06:00] LABS: APTT (PATIENT) 40.9 SEC (24.3-30.1); INTERNATIONAL NORMALIZED RATIO 1.6 RATIO; PROTHROMBIN TIME - PATIENT 18.1 SEC (9.8-11.6)
[2016-09-15] MEDS: FREE WATER G-TUBE SCH ×3 (06:00→17:45)
[2016-09-15 06:20] LABS: ALKALINE PHOSPHATASE 93 U/L (45-117); ALT (GPT) 45 U/L (12-78); ANION GAP 8 MEQ/L (5-15); AST (GOT) 104 U/L (15-37); BICARBONATE 18.9 MEQ/L (21.0-32.0); BLOOD UREA NITROGEN 20 MG/DL (7-18); CHLORIDE 118 MEQ/L (98-107); GLOMERULAR FILTRATION RATE 72 ML/MIN (>89); MAGNESIUM 1.5 MG/DL (1.5-2.5); POTASSIUM 3.1 MEQ/L (3.5-5.1); SODIUM (NA) 145 MEQ/L (136-145)
[2016-09-15] MEDS: CHLORHEXIDINE 0.12% (ORAL KIT) 15 ML CUP MT SCH ×2 (08:00→21:33)
--- NOTE | 2016-09-15 08:06 | HHI.CCPN ---
Subjective Remarks/Hospital Course 61yo male. Date of admission 09/05/2016. Past medical history includes depression, hypertension, hepatitis C with cirrhotic liver, diabetes mellitus with peripheral neuropathy, history of right lower extremity DVT, chronic thrombocytopenia and history of MRSA to left leg 2015. He is on metformin for diabetes. He presents to [facility] this a.m. with altered mental status. According to EMS report, pt's roommate states he has been " in and out of it " for 2 days. Today patient was found unresponsive on a couch by EMS. He has had 2 seizures in route the first lasted approximately 5 minutes was given 2 mg Ativan with another one approximate 1 minute duration received another 2 mg Ativan.. Given 2mg ativan and then another seizure about 10 min after the ativan so another 2 mg ativan given. Pt was moving all extremities but tachypneic and not responding to verbal stimuli. Pt was febrile in the ED. Patient was emergently intubated with a 7.5 ET tube after receiving 20 mg IV etomidate along with 60 mg IV rocuronium by Dr. Roblero. CT head - superior nasal spine fracture otherwise unremarkable CT C-spine -C5/6 mild disc bulge otherwise unremarkable Chest x-ray - bilateral hilar infiltrates. Cardiomegaly Pertinent labs revealed a normal white cell count, platelet count 37,000. Normal BMP, Lactic acidosis of 9.2, troponin 0.23, alcohol level 37 with positive THC level. NH3+ was 86 patient was going to be lumbar puncture in ED however platelet count is less than 50,000 the present time. Risk of spinal hematoma outweighs benefits of lumbar puncture this time. No consentable family members available currently. Patient is with one daughter he is close to. He also has a dog. In the ED, there is copious amounts of blood coming from the mouth. This was Yankauer suction to clear. Blood tinged sputum from ETT. NG tube with greenish bile gastric output. I removed one right lower denture. The left lower side is missing. 09/06 EEG showed generalized slowing. Imaging workup RN has noted ongoing bleeding from mouth and platelets 25k. Lactic acidosis cleared and urine output adequate. Ammonia 73. Has received 2 doses of lactulose and no bowel movement yet. 09/07 Following some commands intermittently today, RN resuming propofol after sedation vacation due to repeated coughing. Having BMs, ammonia downtrend to 67. Tolerating tube feeds. Hypertensive. 09/08: per nursing, following intermittent commands. however, was agitated requiring propofol for sedation and does not follow commands for me. continues to have diarrhea likely secondary to lactulose. 09/09: following commands this morning, still slightly somnolent, but much more awake than yesterday. diarrhea secondary to lactulose persists. 09/10: Extubated yesterday without application. Currently on 2 L nasal cannula. Passed swallow evaluation. Required intermittent Ativan for agitation withdrawal. 09/11: Received 4 mg Ativan overnight. Appropriate with responses but more somnolent this a.m. Compared to Yesterday. Tolerating diet. Positive BM. 09/12 No acute events overnight. Afebrile. 09/13: Patient currently moaning only. Not verbalizing words. Afebrile. On room air. Tube feeds started secondary to lack of oral intake Subjective: 09/14: Remains minimally responsive. Protecting his airway though. Occasionally will squeeze hands to command. Noted ammonia level 67 today. 09/15 Patient remains encephalopathic afebrile. Objective Vital Signs Date Time Temp Pulse Resp B/P Pulse Ox O2 Delivery O2 Flow Rate FiO2 09/15/16 06:00 66 09/15/16 04:00 97.9 20 147/81 94 09/14/16 12:17 21 Intake and Output 09/14/16 09/14/16 09/15/16 08:00 16:00 00:00 Intake Total 1447 ml 2270 ml Output Total 300 ml 550 ml Balance 1147 ml 1720 ml Result Diagram: 09/15/16 0521 09/15/16 0521 Other Results Laboratory Tests Test 09/14/16 09/14/16 09/15/16 09:38 09:52 05:21 Blood Bank Comment Blood Smear Pathologist Review White Blood Count 6.4 TH/MM3 Red Blood Count 3.43 MIL/MM3 Hemoglobin 11.6 GM/DL Hematocrit 34.0 % Mean Corpuscular Volume 99.2 FL Mean Corpuscular Hemoglobin 33.9 PG Mean Corpuscular Hemoglobin 34.2 % Concent Red Cell Distribution Width 14.4 % Platelet Count 27 TH/MM3 Mean Platelet Volume 10.8 FL Neutrophils (%) (Auto) 66.6 % Lymphocytes (%) (Auto) 16.0 % Monocytes (%) (Auto) 12.8 % Eosinophils (%) (Auto) 3.3 % Basophils (%) (Auto) 1.3 % Neutrophils # (Auto) 4.3 TH/MM3 Lymphocytes # (Auto) 1.0 TH/MM3 Monocytes # (Auto) 0.8 TH/MM3 Eosinophils # (Auto) 0.2 TH/MM3 Basophils # (Auto) 0.1 TH/MM3 CBC Comment AUTO DIFF Prothrombin Time 18.1 SEC Prothromb Time International 1.6 RATIO Ratio Activated Partial 40.9 SEC Thromboplast Time Sodium Level 145 MEQ/L Potassium Level 3.1 MEQ/L Chloride Level 118 MEQ/L Carbon Dioxide Level 18.9 MEQ/L Anion Gap 8 MEQ/L Blood Urea Nitrogen 20 MG/DL Creatinine 1.05 MG/DL Estimat Glomerular Filtration 72 ML/MIN Rate Random Glucose 204 MG/DL Calcium Level 7.8 MG/DL Phosphorus Level 2.0 MG/DL Magnesium Level 1.5 MG/DL Total Bilirubin 3.0 MG/DL Aspartate Amino Transf 104 U/L (AST/SGOT) Alanine Aminotransferase 45 U/L (ALT/SGPT) Alkaline Phosphatase 93 U/L Ammonia 62 MCMOL/L Total Protein 6.2 GM/DL Albumin 2.4 GM/DL Imaging Last Impressions Brain MRI 09/13/16 0000 Signed Impressions: Service Date/Time: Tuesday, September 13, 2016 11:17 - CONCLUSION: 1. No acute hemorrhage, mass effect or acute infarction. 2. Mild increased signal in the white matter. This is not significantly changed. 3. Mild motion artifact. Mayo Moncada MD Chest X-Ray 09/08/16 0000 Signed Impressions: Service Date/Time: Thursday, September 08, 2016 04:30 - CONCLUSION: 1. Cardiomegaly and findings of vascular congestion without overt failure. The findings have worsened when compared with the prior examination. Cleve Hernandez MD Head CT 09/05/16 0631 Signed Impressions: Service Date/Time: Monday, September 05, 2016 07:34 - CONCLUSION: Size disease, fracture superior nasal spine otherwise negative. Aman Freeman MD FACR Lower Extremity Ultrasound 09/05/16 0000 Signed Impressions: Service Date/Time: Monday, September 05, 2016 09:36 - CONCLUSION: There is normal compressibility of the deep venous system from the inguinal region to the proximal calf. No echogenic clot is seen in the lumen of the common femoral, femoral, popliteal, and posterior tibial veins. There is a normal response of the venous system to proximal and distal augmentation and respiration. CONCLUSION: Negative for deep venous thrombosis. Aman Freeman MD Liver Ultrasound 09/05/16 0000 Signed Impressions: Service Date/Time: Monday, September 05, 2016 08:55 - CONCLUSION: 1. Moderate splenomegaly with no focal lesion. 2. Liver is normal in size but mildly increased in echogenicity. Mayo Moncada MD ADDENDUM: This study was rereviewed at Dr. Cross's request. The main portal vein and branch vessels are patent and demonstrate normal hepatopedal blood flow. Mayo Moncada MD Head Magnetic Resonance Angiography 09/05/16 0000 Signed Impressions: Service Date/Time: Monday, September 05, 2016 17:27 - CONCLUSION: Normal MRA. Marcin Appiah MD Cervical Spine CT 09/05/16 0000 Signed Impressions: Service Date/Time: Monday, September 05, 2016 07:34 - CONCLUSION: Degenerative changes, negative for fracture. Aman Freeman MD FACR Objective Remarks GENERAL: Patient is 61 yo lying in bed in NAD SKIN: Warm and dry. HEAD: Normocephalic. EYES: No scleral icterus. No injection or drainage. NECK: Supple, trachea midline. No JVD or lymphadenopathy. CARDIOVASCULAR: Regular rate and rhythm without murmurs, gallops, or rubs. RESPIRATORY: Breath sounds equal bilaterally. No accessory muscle use. GASTROINTESTINAL: Abdomen soft, non-tender, nondistended. MUSCULOSKELETAL: No cyanosis, or edema. Neuro: Encephalopathic A/P Assessment and Plan Neuro/Psych: Acute toxic metabolic encephalopathy Hepatic encephalopathy History of depression THC positive Alcohol abuse Seizure EEG 09/14: mod severe diffuse encephalopathy MRI brain 09/13: No acute hemorrhage, mass effect or acute infarction. Mild increased signal in the white matter. CT head 09/05 revealed no acute intracranial findings. MRI brain 09/05minimal increased periventricular white matter changes and abnormal focus of signal in right frontal lobe. MRA brain 09/05 normal EEG 09/05generalized slowing consistent with severe encephalopathy. No seizure activity Neurology consult. Appreciate Dr. Rodríguez's assistance. Off Keppra Continue. Thiamine/folate/multivitamin daily Monitor for DTs Seizure precautions Currently on [facility] protocol CV: Elevated troponin Hypertension h/o Dilated cardiomyopathy Seen by Dr. Falcon 07/25 admission. Recommended no intervention with multiple medical issues, alcoholism, thrombocytopenia and no chest pain. 2-D echocardiogram 07/25 - EF 55-60% right ventricle systolic pressure around 90 mmHg. Mild AR, MR. Left atrium and left ventricle and right ventricle all dilated Echo 09/05/16LVEF 60%. LV cavity size reported normal. No regional wall motion abnormalities. RV dilated. Normal wall thickness.TRUE 41 mmHg. EKG reveals sinus tachycardia 111. Left atrial enlargement. Incomplete RBBB with ST depression in V1 through V5. Troponin peaked at 2.38. Dr. Menchaca evaluated. Recommended follow-up with [facility] upon discharge. On propranolol 20 twice a day, lisinopril 5 milligrams daily Resp: Acute respiratory failure- resolved Community acquired Pneumonia History of prior tobaccoism Continue with oxygen keep sat > 92% Bronchodilator therapy with DuoNeb's every 6 hours with albuterol every 2 hours when necessary dyspnea Aspiration precautions Patient had a negative CT of the chest 07/25 for pulmonary embolism GI: Hepatitis C unknown genotype Cirrhosis Elevated total bilirubin , downtrending Chronic mild protein energy malnutrition Hyperammonia NPO per speech Liver ultrasoundmoderate splenomegaly. Increased echogenicity of the liver. Gallbladder normal. Protonix for GI prophylaxis Continue Xifaxan 550 milligrams twice a day; Lactulose 30 cc 4 times a day Neomycin 500 mg every 8 hours 3 dosages. Ammonia level 62 today from 67 Continue with tube feeds- Neutra hep at 60 cc an hour goal FEN/RENAL: Acute kidney injury Hypernatremia Monitor renal function, I/O's, avoid nephrotoxins. On Free water 300ml Q6, d/c IVF, will need K, phos replacement today Endo: Diabetes mellitus with neuropathy Sliding scale insulin with Accu-Cheks every 6 hours to maintain glycemia/medium protocol TSH normal Heme: Hypofibrinogenemia due underlying end-stage liver disease Prolonged PTT Thrombocytopenia - chronic History of right lower extremity DVT Right lower extremity Doppler 09/05negative for DVT Daily CBC. Hematology has signed off. s/p 1 pk platelets 09/14 ID: Community-acquired pneumonia vs aspiration Continue abx(cefepime) toll 09/18 to finish 14 day course, off Azithromycin. Monitor for signs of infections ( Fever, WBC) Pertinent cultures Influenza negative negative 09/05 - blood cultures 2 - NGTD 09/05urine pneumococcal antigen and Legionella antigen negative. 09/05U/A negative for evidence of infection 09/06 - sputum culturenegative MAXILLOFACIAL: Superior nasal spine fracture Nonsurgical. Supportive care Access - PIV Prophylaxis - GI - Prevacid - DVT - SCD/holding pharmacological prophylaxis with thrombocytopenia level 3 Curtis Casiano MD September 15, 2016 08:06
[2016-09-15 08:23] LABS: BANDS 8 % (0-6); CORRECTED NUCLEATED RBC 3 /100 WBC (0-0); EOSINOPHILS 2 % (0-4); METAMYELOCYTES 3 % (0-1); MYELOCYTES 3 % (0-0); NEUTROPHIL # MANUAL DIFF 4.9 TH/MM3 (1.8-7.7); POLYS (SEG NEUTROPHILS) 63 % (16-70); WBC DIFF SAMPLE 100
[2016-09-15 08:24] LABS: PLATELET ESTIMATE SMEAR LOW (NORMAL); PLATELET MORPHOLOGY NORMAL (NORMAL); SCAN/DIFF FINAL DIFF MANUAL
[2016-09-15] MEDS: LACTULOSE SYRUP 20 GM/30 ML CUP PO SCH ×4 (09:35→21:34)
[2016-09-15] MEDS: FOLIC ACID 1 MG TAB PO SCH (09:35)
[2016-09-15] MEDS: LANSOPRAZOLE SOLUTAB 30 MG TAB NG SCH (09:35)
[2016-09-15] MEDS: RIFAXIMIN 550 MG TAB PO SCH ×2 (09:35→21:34)
[2016-09-15] MEDS: LISINOPRIL 5 MG TAB PO SCH (09:35)
[2016-09-15] MEDS: MULTIVITAMIN TAB PO SCH (09:35)
[2016-09-15] MEDS: PROPRANOLOL HCL 20 MG TAB PO SCH ×2 (09:36→21:34)
[2016-09-15] MEDS: SODIUM CHLORIDE 0.9% FLUSH 10 ML FLUSH IV FLUSH SCH ×2 (09:36→21:34)
[2016-09-15] MEDS: THIAMINE INJ 100 MG in SODIUM CHLORIDE 0.9% INJ 100 ML IV SCH (09:36)
[2016-09-15] MEDS: MAGNESIUM SULFATE INJ 2 GM in SODIUM CHLORIDE 0.9% INJ 96 ML IV PRN (11:37)
[2016-09-15] MEDS: POTASSIUM CHLOR 20 MEQ PREMIX 100 ML IV PRN ×4 (11:38→17:45)
[2016-09-15] MEDS: SODIUM PHOSPHATE INJ 30 MMOL in SODIUM CHLOR 0.9% 250 ML INJ 240 ML IV PRN (11:38)
--- NOTE | 2016-09-15 14:28 | PD.CARD.PN ---
Subjective Subjective Remarks Awake, confused, comfortable Objective Medications Current Medications Medications (Trade) Dose Ordered Sig/Dariana Route Start Time Stop Time Status Last Admin (Maxipime Inj/NS Inj) 100 ml @ 200 mls/hr Q8H IV 09/05/16 09:00 09/18/16 08:59 09/15/16 09:37 Miscellaneous Information 1 Q361D XX 09/05/16 08:15 (Chlorhexidine 2% Cloth) Taper DAILY@04 TOP 09/06/16 04:00 09/02/17 03:59 09/15/16 02:52 (Chlorhexidine 2% Cloth) 3 pack UNSCH PRN TOP 09/05/16 08:15 (Lactulose Liq) 30 ml QID PO 09/05/16 09:00 09/15/16 12:04 (Xifaxan) 550 mg BID PO 09/05/16 10:00 09/15/16 09:35 (NS Flush) 2 ml UNSCH PRN IV FLUSH 09/05/16 08:30 (NS Flush) 2 ml BID IV FLUSH 09/05/16 09:00 09/15/16 09:36 (Tylenol) 650 mg Q6H PRN PO 09/05/16 08:30 09/15/16 12:05 Ondansetron HCl 4 mg 4 mg Q6H PRN IV 09/05/16 08:30 Potassium Chloride 100 ml @ 50 mls/hr Q2H PRN IV 09/05/16 08:30 (KCl 20 Meq Premix Inj) 100 ml @ 50 mls/hr Q2H PRN IV 09/05/16 08:30 09/15/16 13:45 Potassium Bicarb/ Potassium Chloride 50 meq 50 meq UNSCH PRN PO 09/05/16 08:30 Potassium Chloride 100 ml @ 25 mls/hr UNSCH PRN IV 09/05/16 08:30 Potassium Chloride 100 ml @ 50 mls/hr Q2H PRN IV 09/05/16 08:30 09/07/16 08:29 (Magnesium Sulfate Inj/NS Inj) 100 ml @ 50 mls/hr UNSCH PRN IV 09/05/16 08:30 Magnesium Oxide 800 mg 800 mg UNSCH PRN PO 09/05/16 08:30 (Magnesium Sulfate Inj/NS Inj) 100 ml @ 50 mls/hr UNSCH PRN IV 09/05/16 08:30 09/15/16 11:37 Potassium Phosphate 2000 mg 2,000 mg Q4H PRN PO 09/05/16 08:30 09/07/16 05:34 (Sodium Phosphate Inj/NS 250 ml Inj) 250 ml @ 42 mls/hr UNSCH PRN IV 09/05/16 08:30 09/15/16 11:38 (K-Phos) 2,000 mg UNSCH PRN PO/TUBE 09/05/16 08:30 (D50w (Vial) Inj) 25 ml UNSCH PRN IV PUSH 09/05/16 08:45 (Nitroglycerin 2% Oint) 2 inch Q6HR PRN TOPICAL 09/05/16 08:45 (Folate) 1 mg DAILY PO 09/06/16 09:00 09/15/16 09:35 (Theragran) 1 tab DAILY PO 09/06/16 09:00 09/15/16 09:35 Chlorhexidine Gluconate 15 ml 15 ml BID@08,20 MT 09/05/16 20:00 09/15/16 08:00 (Keppra Inj/NS Inj) 105 ml @ 420 mls/hr Q6H IV 09/05/16 18:00 Hold 09/14/16 05:18 (Romazicon Inj) 0.2 mg Q1M PRN IV PUSH 09/10/16 00:45 09/11/16 12:17 (Ativan) 1 mg Q4H PRN PO 09/10/16 00:45 (Ativan Inj) 1 mg Q4H PRN IV PUSH 09/10/16 00:45 (Ativan) 2 mg Q2H PRN PO 09/10/16 00:45 (Ativan Inj) 2 mg Q2H PRN IV PUSH 09/10/16 00:45 09/12/16 21:46 (Ativan Inj) 2 mg Q1H PRN IV PUSH 09/10/16 00:45 (Ativan Inj) 2 mg Q15M PRN IV PUSH 09/10/16 00:45 (Prinivil) 5 mg DAILY PO 09/11/16 09:00 09/15/16 09:35 (Inderal) 20 mg Q12HR PO 09/10/16 21:00 09/15/16 09:36 (Trandate Inj) 10 mg Q20M PRN IV PUSH 09/10/16 14:30 09/13/16 12:42 (Apresoline Inj) 10 mg Q1HR PRN IV PUSH 09/10/16 14:30 09/15/16 01:22 (Glucagon Inj) 1 mg UNSCH PRN OTHER 09/10/16 15:00 (NovoLOG SUPPLEMENTAL SCALE) 1 Q6HR SQ 09/13/16 12:00 09/15/16 12:04 Water 300 ml 300 ml Q6HR G-TUBE 09/13/16 12:00 09/15/16 12:00 (Thiamine Inj/NS Inj) 101 ml @ 101 mls/hr DAILY IV 09/14/16 09:00 09/15/16 09:36 (Prevacid Odt) 30 mg DAILY NG 09/14/16 09:00 09/15/16 09:35 Vital Signs / I&O Vital Signs Date Time Temp Pulse Resp B/P Pulse Ox O2 Delivery O2 Flow Rate FiO2 09/15/16 12:00 98.8 61 20 147/83 94 09/15/16 12:00 61 09/15/16 10:00 62 09/15/16 08:00 64 09/15/16 08:00 99.2 64 22 130/69 93 09/15/16 06:00 66 09/15/16 05:00 66 09/15/16 04:00 97.9 67 20 147/81 94 09/15/16 04:00 67 09/15/16 03:00 66 09/15/16 02:00 70 09/15/16 02:00 148/79 09/15/16 01:00 98.9 64 22 178/100 92 09/15/16 00:00 64 09/14/16 22:00 68 09/14/16 20:39 96 09/14/16 20:10 66 09/14/16 20:00 70 09/14/16 20:00 99.0 70 20 151/84 95 09/14/16 18:00 69 09/14/16 16:00 68 09/14/16 16:00 68 24 150/83 93 09/14/16 15:00 99.2 69 25 153/94 94 I/O 09/14/16 09/14/16 09/14/16 09/15/1609/15/17 5/8/17 07:00 15:00 23:00 07:00 15:00 23:00 Intake Total 1447 ml 2270 ml 1892 ml Output Total 300 ml 550 ml 700 ml Balance 1147 ml 1720 ml 1192 ml Intake Oral 600 ml IV Total 746 ml 1093 ml 1292 ml Tube Feeding 401 ml 683 ml Platelets 194 ml Other 300 ml 300 ml Output Urine Total 200 ml 450 ml 700 ml Stool Total 100 ml 100 ml # Bowel Movements 1 Physical Exam GENERAL: In NAD, confused SKIN: Warm and dry. HEAD: Normocephalic. EYES: No scleral icterus. No injection or drainage. NECK: Supple, trachea midline. No JVD or lymphadenopathy. CARDIOVASCULAR: Regular rate and rhythm without murmurs, gallops, or rubs. RESPIRATORY: Breath sounds equal bilaterally. No accessory muscle use. GASTROINTESTINAL: Abdomen soft, non-tender, nondistended. MUSCULOSKELETAL: No cyanosis, or edema, dark discoloration. Laboratory Laboratory Tests Test 09/15/16 09/15/16 05:21 07:30 White Blood Count 6.4 TH/MM3 Red Blood Count 3.43 MIL/MM3 Hemoglobin 11.6 GM/DL Hematocrit 34.0 % Mean Corpuscular Volume 99.2 FL Mean Corpuscular Hemoglobin 33.9 PG Mean Corpuscular Hemoglobin 34.2 % Concent Red Cell Distribution Width 14.4 % Platelet Count 27 TH/MM3 Mean Platelet Volume 10.8 FL Neutrophils (%) (Auto) 66.6 % Lymphocytes (%) (Auto) 16.0 % Monocytes (%) (Auto) 12.8 % Eosinophils (%) (Auto) 3.3 % Basophils (%) (Auto) 1.3 % Neutrophils # (Auto) 4.3 TH/MM3 Lymphocytes # (Auto) 1.0 TH/MM3 Monocytes # (Auto) 0.8 TH/MM3 Eosinophils # (Auto) 0.2 TH/MM3 Basophils # (Auto) 0.1 TH/MM3 CBC Comment AUTO DIFF Differential Total Cells 100 Counted Neutrophils % (Manual) 63 % Band Neutrophils % 8 % Lymphocytes % 11 % Monocytes % 10 % Eosinophils % 2 % Neutrophils # (Manual) 4.9 TH/MM3 Metamyelocytes 3 % Myelocytes 3 % Nucleated Red Blood Cells 3 /100 WBC Differential Comment FINAL DIFF MANUAL Platelet Estimate LOW Platelet Morphology Comment NORMAL Polychromasia 2.0 % Prothrombin Time 18.1 SEC Prothromb Time International 1.6 RATIO Ratio Activated Partial 40.9 SEC Thromboplast Time Sodium Level 145 MEQ/L Potassium Level 3.1 MEQ/L Chloride Level 118 MEQ/L Carbon Dioxide Level 18.9 MEQ/L Anion Gap 8 MEQ/L Blood Urea Nitrogen 20 MG/DL Creatinine 1.05 MG/DL Estimat Glomerular Filtration 72 ML/MIN Rate Random Glucose 204 MG/DL Calcium Level 7.8 MG/DL Phosphorus Level 2.0 MG/DL Magnesium Level 1.5 MG/DL Total Bilirubin 3.0 MG/DL Aspartate Amino Transf 104 U/L (AST/SGOT) Alanine Aminotransferase 45 U/L (ALT/SGPT) Alkaline Phosphatase 93 U/L Ammonia 62 MCMOL/L Total Protein 6.2 GM/DL Albumin 2.4 GM/DL Nasal Screen MRSA (PCR) MRSA NOT DETECTED Imaging Last Impressions Brain MRI 09/13/16 0000 Signed Impressions: Service Date/Time: Tuesday, September 13, 2016 11:17 - CONCLUSION: 1. No acute hemorrhage, mass effect or acute infarction. 2. Mild increased signal in the white matter. This is not significantly changed. 3. Mild motion artifact. Mayo Moncada MD Chest X-Ray 09/08/16 0000 Signed Impressions: Service Date/Time: Thursday, September 08, 2016 04:30 - CONCLUSION: 1. Cardiomegaly and findings of vascular congestion without overt failure. The findings have worsened when compared with the prior examination. Cleve Hernandez MD Head CT 09/05/16 0631 Signed Impressions: Service Date/Time: Monday, September 05, 2016 07:34 - CONCLUSION: Size disease, fracture superior nasal spine otherwise negative. Aman Freeman MD FACR Lower Extremity Ultrasound 09/05/16 0000 Signed Impressions: Service Date/Time: Monday, September 05, 2016 09:36 - CONCLUSION: There is normal compressibility of the deep venous system from the inguinal region to the proximal calf. No echogenic clot is seen in the lumen of the common femoral, femoral, popliteal, and posterior tibial veins. There is a normal response of the venous system to proximal and distal augmentation and respiration. CONCLUSION: Negative for deep venous thrombosis. Aman Freeman MD Liver Ultrasound 09/05/16 0000 Signed Impressions: Service Date/Time: Monday, September 05, 2016 08:55 - CONCLUSION: 1. Moderate splenomegaly with no focal lesion. 2. Liver is normal in size but mildly increased in echogenicity. Mayo Moncada MD ADDENDUM: This study was rereviewed at Dr. Cross's request. The main portal vein and branch vessels are patent and demonstrate normal hepatopedal blood flow. Mayo Moncada MD Head Magnetic Resonance Angiography 09/05/16 0000 Signed Impressions: Service Date/Time: Monday, September 05, 2016 17:27 - CONCLUSION: Normal MRA. Marcin Appiah MD Cervical Spine CT 09/05/16 0000 Signed Impressions: Service Date/Time: Monday, September 05, 2016 07:34 - CONCLUSION: Degenerative changes, negative for fracture. Aman Freeman MD FACR Assessment and Plan Problem List: (1) Elevated troponin (2) Altered mental status (3) Seizures (4) Cirrhosis of liver (5) Acute respiratory failure (6) DM (diabetes mellitus) (7) Hepatitis C (8) Thrombocytopenia (9) Septic shock Assessment and Plan Remains stable from cardiac standpoint. No arrhythmias.Troponin was mildly elevated, but echo showed nl LV function and no WMA. Continue ICU care. Increase activity. PT/OT. Problem Qualifiers (1) Cirrhosis of liver: Qualified Code: K70.30 - Alcoholic cirrhosis of liver without ascites (2) Acute respiratory failure: Qualified Code: J96.01 - Acute respiratory failure with hypoxia and hypercapnia Rosa Menchaca MD September 15, 2016 14:28
[2016-09-16] VITALS (26 sets, daily range): BP systolic 138–185; BP diastolic 64–108; PULSE 63–68; RESP 13–34; TEMP 97.3–98.8; O2SAT 92–96
[2016-09-16] MEDS: INSULIN ASPART SUPPLEMENTAL SCALE SQ SCH ×4 (00:10→17:03)
[2016-09-16] MEDS: CEFEPIME INJ 2,000 MG in SODIUM CHLORIDE 0.9% INJ 100 ML IV SCH ×3 (00:12→17:03)
[2016-09-16] MEDS: RESP: ALBUTEROL 2.5 MG/IPRATROPIUM 0.5 MG NEB (SCH) INH ×4 (03:53→20:13)
[2016-09-16] MEDS: CHLORHEXIDINE GLUCONATE 2 % 1 PACK (2 CLOTHS) TOP SCH (04:00)
[2016-09-16] MEDS: FREE WATER G-TUBE SCH ×4 (05:29→17:02)
[2016-09-16 06:12] LABS: AUTOMATED NEUTROPHIL # 4.8 TH/MM3 (1.8-7.7); BASOPHIL # 0.1 TH/MM3 (0-0.2); BASOPHIL % 0.9 % (0.0-2.0); EOSINOPHIL # 0.2 TH/MM3 (0-0.4); EOSINOPHIL % 3.2 % (0.0-4.0); LYMPH % 16.2 % (9.0-44.0); LYMPHOCYTE # 1.2 TH/MM3 (1.0-4.8); MEAN CELL VOLUME 99.9 FL (80.0-100.0); MEAN CORPUSCULAR HEMOGLOBIN 34.3 PG (27.0-34.0); MEAN CORPUSCULAR HGB CONC 34.3 % (32.0-36.0); MONO % 12.5 % (0.0-8.0); NEUT % 67.2 % (16.0-70.0); PLATELET COUNT 25 TH/MM3 (150-450); RED CELL DISTRIBUTION WIDTH 15.2 % (11.6-17.2); WHITE BLOOD COUNT 7.1 TH/MM3 (4.0-11.0)
[2016-09-16 06:13] LABS: HEMO FLAGS AUTO DIFF
[2016-09-16 06:31] LABS: ALKALINE PHOSPHATASE 114 U/L (45-117); ALT (GPT) 41 U/L (12-78); ANION GAP 9 MEQ/L (5-15); AST (GOT) 92 U/L (15-37); BICARBONATE 19.4 MEQ/L (21.0-32.0); BLOOD UREA NITROGEN 14 MG/DL (7-18); CHLORIDE 117 MEQ/L (98-107); GLOMERULAR FILTRATION RATE 106 ML/MIN (>89); MAGNESIUM 1.8 MG/DL (1.5-2.5); POTASSIUM 3.5 MEQ/L (3.5-5.1); SODIUM (NA) 145 MEQ/L (136-145); TOTAL BILIRUBIN ADULT 2.6 MG/DL (0.2-1.0)
[2016-09-16] MEDS: hydrALAZINE HCL 20 MG/ML VIAL IV PUSH PRN ×2 (06:40→14:32)
[2016-09-16] MEDS: CHLORHEXIDINE 0.12% (ORAL KIT) 15 ML CUP MT SCH ×2 (08:00→19:46)
[2016-09-16 08:25] LABS: BANDS 15 % (0-6); CORRECTED NUCLEATED RBC 3 /100 WBC (0-0); EOSINOPHILS 3 % (0-4); MYELOCYTES 2 % (0-0); NEUTROPHIL # MANUAL DIFF 5.3 TH/MM3 (1.8-7.7); PLATELET ESTIMATE SMEAR LOW (NORMAL); PLATELET MORPHOLOGY ENLARGED (NORMAL); POLYS (SEG NEUTROPHILS) 58 % (16-70); WBC DIFF SAMPLE 100
[2016-09-16 08:26] LABS: ACANTHOCYTES OCC (NORMAL); KERATOCYTES OCC (NORMAL); SCAN/DIFF FINAL DIFF MANUAL
[2016-09-16] MEDS: PROPRANOLOL HCL 20 MG TAB PO SCH ×2 (09:00→19:46)
--- NOTE | 2016-09-16 09:01 | HHI.PR ---
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 Diagnosis/Plan: Subjective Subjective Comments Patient developed fixed and dilated right pupil No other changes Active Medications Current Medications Medications (Trade) Dose Ordered Sig/Dariana Route Start Time Stop Time Status Last Admin (Maxipime Inj/NS Inj) 100 ml @ 200 mls/hr Q8H IV 09/05/16 09:00 09/18/16 08:59 09/16/16 00:12 Miscellaneous Information 1 Q361D XX 09/05/16 08:15 (Chlorhexidine 2% Cloth) Taper DAILY@04 TOP 09/06/16 04:00 09/02/17 03:59 09/16/16 04:00 (Chlorhexidine 2% Cloth) 3 pack UNSCH PRN TOP 09/05/16 08:15 (Lactulose Liq) 30 ml QID PO 09/05/16 09:00 09/15/16 21:34 (Xifaxan) 550 mg BID PO 09/05/16 10:00 09/15/16 21:34 (NS Flush) 2 ml UNSCH PRN IV FLUSH 09/05/16 08:30 (NS Flush) 2 ml BID IV FLUSH 09/05/16 09:00 09/15/16 21:34 (Tylenol) 650 mg Q6H PRN PO 09/05/16 08:30 09/15/16 12:05 Ondansetron HCl 4 mg 4 mg Q6H PRN IV 09/05/16 08:30 Potassium Chloride 100 ml @ 50 mls/hr Q2H PRN IV 09/05/16 08:30 (KCl 20 Meq Premix Inj) 100 ml @ 50 mls/hr Q2H PRN IV 09/05/16 08:30 09/15/16 17:45 Potassium Bicarb/ Potassium Chloride 50 meq 50 meq UNSCH PRN PO 09/05/16 08:30 Potassium Chloride 100 ml @ 25 mls/hr UNSCH PRN IV 09/05/16 08:30 Potassium Chloride 100 ml @ 50 mls/hr Q2H PRN IV 09/05/16 08:30 09/07/16 08:29 (Magnesium Sulfate Inj/NS Inj) 100 ml @ 50 mls/hr UNSCH PRN IV 09/05/16 08:30 Magnesium Oxide 800 mg 800 mg UNSCH PRN PO 09/05/16 08:30 (Magnesium Sulfate Inj/NS Inj) 100 ml @ 50 mls/hr UNSCH PRN IV 09/05/16 08:30 09/15/16 11:37 Potassium Phosphate 2000 mg 2,000 mg Q4H PRN PO 09/05/16 08:30 09/07/16 05:34 (Sodium Phosphate Inj/NS 250 ml Inj) 250 ml @ 42 mls/hr UNSCH PRN IV 09/05/16 08:30 09/15/16 11:38 (K-Phos) 2,000 mg UNSCH PRN PO/TUBE 09/05/16 08:30 (D50w (Vial) Inj) 25 ml UNSCH PRN IV PUSH 09/05/16 08:45 (Nitroglycerin 2% Oint) 2 inch Q6HR PRN TOPICAL 09/05/16 08:45 (Folate) 1 mg DAILY PO 09/06/16 09:00 09/15/16 09:35 (Theragran) 1 tab DAILY PO 09/06/16 09:00 09/15/16 09:35 Chlorhexidine Gluconate 15 ml 15 ml BID@08,20 MT 09/05/16 20:00 09/15/16 21:33 (Keppra Inj/NS Inj) 105 ml @ 420 mls/hr Q6H IV 09/05/16 18:00 Hold 09/14/16 05:18 (Romazicon Inj) 0.2 mg Q1M PRN IV PUSH 09/10/16 00:45 09/11/16 12:17 (Ativan) 1 mg Q4H PRN PO 09/10/16 00:45 (Ativan Inj) 1 mg Q4H PRN IV PUSH 09/10/16 00:45 (Ativan) 2 mg Q2H PRN PO 09/10/16 00:45 (Ativan Inj) 2 mg Q2H PRN IV PUSH 09/10/16 00:45 09/12/16 21:46 (Ativan Inj) 2 mg Q1H PRN IV PUSH 09/10/16 00:45 (Ativan Inj) 2 mg Q15M PRN IV PUSH 09/10/16 00:45 (Prinivil) 5 mg DAILY PO 09/11/16 09:00 09/15/16 09:35 (Inderal) 20 mg Q12HR PO 09/10/16 21:00 09/15/16 21:34 (Trandate Inj) 10 mg Q20M PRN IV PUSH 09/10/16 14:30 09/13/16 12:42 (Apresoline Inj) 10 mg Q1HR PRN IV PUSH 09/10/16 14:30 09/16/16 06:40 (Glucagon Inj) 1 mg UNSCH PRN OTHER 09/10/16 15:00 (NovoLOG SUPPLEMENTAL SCALE) 1 Q6HR SQ 09/13/16 12:00 09/16/16 00:10 Water 300 ml 300 ml Q6HR G-TUBE 09/13/16 12:00 09/16/16 05:29 (Thiamine Inj/NS Inj) 101 ml @ 101 mls/hr DAILY IV 09/14/16 09:00 09/15/16 09:36 (Prevacid Odt) 30 mg DAILY NG 09/14/16 09:00 09/15/16 09:35 Allergies Allergies Coded Allergies *MDRO Multi-Drug Resistant Organism (Verified Adverse Reaction, Unknown, ) Exam I&O / VS 09/15/16 09/15/16 09/16/16 15:00 23:00 07:00 Intake Total 2309 ml 1320 ml 622 ml Output Total 650 ml 500 ml 400 ml Balance 1659 ml 820 ml 222 ml IV Total 1002 ml 591 ml 90 ml Tube Feeding 1307 ml 529 ml 232 ml Other 200 ml 300 ml Output Urine Total 650 ml 500 ml 400 ml # Bowel Movements 2 1 Vital Signs Date Time Temp Pulse Resp B/P Pulse Ox O2 Delivery O2 Flow Rate FiO2 09/16/16 06:00 67 09/16/16 04:00 66 09/16/16 04:00 97.4 66 24 164/104 96 09/16/16 02:00 64 09/16/16 00:00 97.3 64 20 158/64 95 09/16/16 00:00 64 09/15/16 22:00 71 09/15/16 20:05 94 21 09/15/16 20:00 66 09/15/16 20:00 97.6 71 20 184/95 95 09/15/16 18:00 64 09/15/16 16:00 98.6 65 18 152/86 94 09/15/16 16:00 65 09/15/16 14:00 61 09/15/16 12:00 98.8 61 20 147/83 94 09/15/16 12:00 61 09/15/16 10:00 62 Exam Comments lethargic but arousable. Answers questions appropriately, follows simple commands right pupil 3mm and not reactive to light.;Left pupil 2mm and reacts briskly to light. ? right medial rectus palsey. Unable to asses for ptosis Motor--moves BUE and BLE equally Objective Micro and Labs Laboratory Tests Test 09/16/16 04:25 White Blood Count 7.1 Red Blood Count 3.60 Hemoglobin 12.3 Hematocrit 36.0 Mean Corpuscular Volume 99.9 Mean Corpuscular Hemoglobin 34.3 Mean Corpuscular Hemoglobin 34.3 Concent Red Cell Distribution Width 15.2 Platelet Count 25 Mean Platelet Volume 10.8 Neutrophils (%) (Auto) 67.2 Lymphocytes (%) (Auto) 16.2 Monocytes (%) (Auto) 12.5 Eosinophils (%) (Auto) 3.2 Basophils (%) (Auto) 0.9 Neutrophils # (Auto) 4.8 Lymphocytes # (Auto) 1.2 Monocytes # (Auto) 0.9 Eosinophils # (Auto) 0.2 Basophils # (Auto) 0.1 CBC Comment AUTO DIFF Differential Total Cells 100 Counted Neutrophils % (Manual) 58 Band Neutrophils % 15 Lymphocytes % 17 Monocytes % 5 Eosinophils % 3 Neutrophils # (Manual) 5.3 Myelocytes 2 Nucleated Red Blood Cells 3 Differential Comment FINAL DIFF MANUAL Platelet Estimate LOW Platelet Morphology Comment ENLARGED Acanthocytes OCC Keratocytes OCC Sodium Level 145 Potassium Level 3.5 Chloride Level 117 Carbon Dioxide Level 19.4 Anion Gap 9 Blood Urea Nitrogen 14 Creatinine 0.75 Estimat Glomerular Filtration 106 Rate Random Glucose 127 Calcium Level 7.7 Phosphorus Level 2.7 Magnesium Level 1.8 Total Bilirubin 2.6 Aspartate Amino Transf 92 (AST/SGOT) Alanine Aminotransferase 41 (ALT/SGPT) Alkaline Phosphatase 114 Total Protein 6.2 Albumin 2.3 Junaid Rodríguez PhD September 16, 2016 09:01
[2016-09-16] MEDS: LACTULOSE SYRUP 20 GM/30 ML CUP PO SCH ×4 (09:20→19:47)
[2016-09-16] MEDS: MULTIVITAMIN TAB PO SCH (09:20)
[2016-09-16] MEDS: FOLIC ACID 1 MG TAB PO SCH (09:20)
[2016-09-16] MEDS: RIFAXIMIN 550 MG TAB PO SCH ×2 (09:20→19:47)
[2016-09-16] MEDS: LANSOPRAZOLE SOLUTAB 30 MG TAB NG SCH (09:20)
[2016-09-16] MEDS: THIAMINE INJ 100 MG in SODIUM CHLORIDE 0.9% INJ 100 ML IV SCH (09:21)
[2016-09-16] MEDS: SODIUM CHLORIDE 0.9% FLUSH 10 ML FLUSH IV FLUSH SCH ×2 (09:21→19:46)
--- NOTE | 2016-09-16 09:21 | HHI.CCPN ---
Subjective Remarks/Hospital Course 61yo male. Date of admission 09/05/2016. Past medical history includes depression, hypertension, hepatitis C with cirrhotic liver, diabetes mellitus with peripheral neuropathy, history of right lower extremity DVT, chronic thrombocytopenia and history of MRSA to left leg 2015. He is on metformin for diabetes. He presents to [facility] this a.m. with altered mental status. According to EMS report, pt's roommate states he has been " in and out of it " for 2 days. Today patient was found unresponsive on a couch by EMS. He has had 2 seizures in route the first lasted approximately 5 minutes was given 2 mg Ativan with another one approximate 1 minute duration received another 2 mg Ativan.. Given 2mg ativan and then another seizure about 10 min after the ativan so another 2 mg ativan given. Pt was moving all extremities but tachypneic and not responding to verbal stimuli. Pt was febrile in the ED. Patient was emergently intubated with a 7.5 ET tube after receiving 20 mg IV etomidate along with 60 mg IV rocuronium by Dr. Roblero. CT head - superior nasal spine fracture otherwise unremarkable CT C-spine -C5/6 mild disc bulge otherwise unremarkable Chest x-ray - bilateral hilar infiltrates. Cardiomegaly Pertinent labs revealed a normal white cell count, platelet count 37,000. Normal BMP, Lactic acidosis of 9.2, troponin 0.23, alcohol level 37 with positive THC level. NH3+ was 86 patient was going to be lumbar puncture in ED however platelet count is less than 50,000 the present time. Risk of spinal hematoma outweighs benefits of lumbar puncture this time. No consentable family members available currently. Patient is with one daughter he is close to. He also has a dog. In the ED, there is copious amounts of blood coming from the mouth. This was Yankauer suction to clear. Blood tinged sputum from ETT. NG tube with greenish bile gastric output. I removed one right lower denture. The left lower side is missing. 09/06 EEG showed generalized slowing. Imaging workup RN has noted ongoing bleeding from mouth and platelets 25k. Lactic acidosis cleared and urine output adequate. Ammonia 73. Has received 2 doses of lactulose and no bowel movement yet. 09/07 Following some commands intermittently today, RN resuming propofol after sedation vacation due to repeated coughing. Having BMs, ammonia downtrend to 67. Tolerating tube feeds. Hypertensive. 09/08: per nursing, following intermittent commands. however, was agitated requiring propofol for sedation and does not follow commands for me. continues to have diarrhea likely secondary to lactulose. 09/09: following commands this morning, still slightly somnolent, but much more awake than yesterday. diarrhea secondary to lactulose persists. 09/10: Extubated yesterday without application. Currently on 2 L nasal cannula. Passed swallow evaluation. Required intermittent Ativan for agitation withdrawal. 09/11: Received 4 mg Ativan overnight. Appropriate with responses but more somnolent this a.m. Compared to Yesterday. Tolerating diet. Positive BM. 09/12 No acute events overnight. Afebrile. 09/13: Patient currently moaning only. Not verbalizing words. Afebrile. On room air. Tube feeds started secondary to lack of oral intake Subjective: 09/14: Remains minimally responsive. Protecting his airway though. Occasionally will squeeze hands to command. Noted ammonia level 67 today. 09/15 Patient remains encephalopathic afebrile. 09/16 Patient noted to have dilated /fixed right pupil this morning . For CTA brain per neuro. Afebrile. Objective Vital Signs Date Time Temp Pulse Resp B/P Pulse Ox O2 Delivery O2 Flow Rate FiO2 09/16/16 06:00 67 09/16/16 04:00 97.4 24 164/104 96 09/15/16 20:05 21 Intake and Output 09/15/16 09/15/16 09/15/16 07:59 15:59 23:59 Intake Total 1892 ml 2309 ml 1320 ml Output Total 700 ml 650 ml 500 ml Balance 1192 ml 1659 ml 820 ml Result Diagram: 09/16/16 0425 09/16/16 0425 Other Results Laboratory Tests Test 09/16/16 04:25 White Blood Count 7.1 TH/MM3 Red Blood Count 3.60 MIL/MM3 Hemoglobin 12.3 GM/DL Hematocrit 36.0 % Mean Corpuscular Volume 99.9 FL Mean Corpuscular Hemoglobin 34.3 PG Mean Corpuscular Hemoglobin 34.3 % Concent Red Cell Distribution Width 15.2 % Platelet Count 25 TH/MM3 Mean Platelet Volume 10.8 FL Neutrophils (%) (Auto) 67.2 % Lymphocytes (%) (Auto) 16.2 % Monocytes (%) (Auto) 12.5 % Eosinophils (%) (Auto) 3.2 % Basophils (%) (Auto) 0.9 % Neutrophils # (Auto) 4.8 TH/MM3 Lymphocytes # (Auto) 1.2 TH/MM3 Monocytes # (Auto) 0.9 TH/MM3 Eosinophils # (Auto) 0.2 TH/MM3 Basophils # (Auto) 0.1 TH/MM3 CBC Comment AUTO DIFF Differential Total Cells 100 Counted Neutrophils % (Manual) 58 % Band Neutrophils % 15 % Lymphocytes % 17 % Monocytes % 5 % Eosinophils % 3 % Neutrophils # (Manual) 5.3 TH/MM3 Myelocytes 2 % Nucleated Red Blood Cells 3 /100 WBC Differential Comment FINAL DIFF MANUAL Platelet Estimate LOW Platelet Morphology Comment ENLARGED Acanthocytes OCC Keratocytes OCC Sodium Level 145 MEQ/L Potassium Level 3.5 MEQ/L Chloride Level 117 MEQ/L Carbon Dioxide Level 19.4 MEQ/L Anion Gap 9 MEQ/L Blood Urea Nitrogen 14 MG/DL Creatinine 0.75 MG/DL Estimat Glomerular Filtration 106 ML/MIN Rate Random Glucose 127 MG/DL Calcium Level 7.7 MG/DL Phosphorus Level 2.7 MG/DL Magnesium Level 1.8 MG/DL Total Bilirubin 2.6 MG/DL Aspartate Amino Transf 92 U/L (AST/SGOT) Alanine Aminotransferase 41 U/L (ALT/SGPT) Alkaline Phosphatase 114 U/L Total Protein 6.2 GM/DL Albumin 2.3 GM/DL Imaging Last Impressions Brain MRI 09/13/16 0000 Signed Impressions: Service Date/Time: Tuesday, September 13, 2016 11:17 - CONCLUSION: 1. No acute hemorrhage, mass effect or acute infarction. 2. Mild increased signal in the white matter. This is not significantly changed. 3. Mild motion artifact. Mayo Moncada MD Chest X-Ray 09/08/16 0000 Signed Impressions: Service Date/Time: Thursday, September 08, 2016 04:30 - CONCLUSION: 1. Cardiomegaly and findings of vascular congestion without overt failure. The findings have worsened when compared with the prior examination. Cleve Hernandez MD Head CT 09/05/16 0631 Signed Impressions: Service Date/Time: Monday, September 05, 2016 07:34 - CONCLUSION: Size disease, fracture superior nasal spine otherwise negative. Aman Freeman MD FACR Lower Extremity Ultrasound 09/05/16 0000 Signed Impressions: Service Date/Time: Monday, September 05, 2016 09:36 - CONCLUSION: There is normal compressibility of the deep venous system from the inguinal region to the proximal calf. No echogenic clot is seen in the lumen of the common femoral, femoral, popliteal, and posterior tibial veins. There is a normal response of the venous system to proximal and distal augmentation and respiration. CONCLUSION: Negative for deep venous thrombosis. Aman Freeman MD Liver Ultrasound 09/05/16 0000 Signed Impressions: Service Date/Time: Monday, September 05, 2016 08:55 - CONCLUSION: 1. Moderate splenomegaly with no focal lesion. 2. Liver is normal in size but mildly increased in echogenicity. Mayo Moncada MD ADDENDUM: This study was rereviewed at Dr. Cross's request. The main portal vein and branch vessels are patent and demonstrate normal hepatopedal blood flow. Mayo Moncada MD Head Magnetic Resonance Angiography 09/05/16 0000 Signed Impressions: Service Date/Time: Monday, September 05, 2016 17:27 - CONCLUSION: Normal MRA. Marcin Appiah MD Cervical Spine CT 09/05/16 0000 Signed Impressions: Service Date/Time: Monday, September 05, 2016 07:34 - CONCLUSION: Degenerative changes, negative for fracture. Aman Freeman MD FACR Objective Remarks GENERAL: Patient is 61 yo lying in bed in NAD SKIN: Warm and dry. HEAD: Normocephalic. EYES: No scleral icterus. No injection or drainage. NECK: Supple, trachea midline. No JVD or lymphadenopathy. CARDIOVASCULAR: Regular rate and rhythm without murmurs, gallops, or rubs. RESPIRATORY: Breath sounds equal bilaterally. No accessory muscle use. GASTROINTESTINAL: Abdomen soft, non-tender, nondistended. MUSCULOSKELETAL: No cyanosis, or edema. Neuro: Encephalopathic A/P Assessment and Plan Neuro/Psych: Acute toxic metabolic encephalopathy Hepatic encephalopathy History of depression THC positive Alcohol abuse Seizure Patient noted to have dilated and fixed right pupil for CTA brain- discussed with Drr. Rodríguez. EEG 09/14: mod severe diffuse encephalopathy MRI brain 09/13: No acute hemorrhage, mass effect or acute infarction. Mild increased signal in the white matter. CT head 09/05 revealed no acute intracranial findings. MRI brain 09/05minimal increased periventricular white matter changes and abnormal focus of signal in right frontal lobe. MRA brain 09/05 normal EEG 09/05generalized slowing consistent with severe encephalopathy. No seizure activity Neurology consult. Appreciate Dr. Rodríguez's assistance. Off Keppra Continue. Thiamine/folate/multivitamin daily Monitor for DTs Seizure precautions Currently on CIWA protocol CV: Elevated troponin Hypertension h/o Dilated cardiomyopathy Seen by Dr. Falcon 07/25 admission. Recommended no intervention with multiple medical issues, alcoholism, thrombocytopenia and no chest pain. 2-D echocardiogram 07/25 - EF 55-60% right ventricle systolic pressure around 90 mmHg. Mild AR, MR. Left atrium and left ventricle and right ventricle all dilated Echo 09/05/16LVEF 60%. LV cavity size reported normal. No regional wall motion abnormalities. RV dilated. Normal wall thickness.TRUE 41 mmHg. EKG reveals sinus tachycardia 111. Left atrial enlargement. Incomplete RBBB with ST depression in V1 through V5. Troponin peaked at 2.38. Dr. Menchaca evaluated. Recommended follow-up with [facility] upon discharge. On propranolol 20 twice a day, Increase lisinopril 10 milligrams daily Resp: Acute respiratory failure- resolved Community acquired Pneumonia History of prior tobaccoism Continue with oxygen keep sat > 92% Bronchodilator therapy with DuoNeb's every 6 hours with albuterol every 2 hours when necessary dyspnea Aspiration precautions Patient had a negative CT of the chest 07/25 for pulmonary embolism GI: Hepatitis C unknown genotype Cirrhosis Elevated total bilirubin , downtrending Chronic mild protein energy malnutrition Hyperammonia Continue with tube feeds- Neutra hep at 60 cc an hour goal Kept NPO per speech repeat speech eval today. Liver ultrasoundmoderate splenomegaly. Increased echogenicity of the liver. Gallbladder normal. Protonix for GI prophylaxis Continue Xifaxan 550 milligrams twice a day; Lactulose 30 cc 4 times a day Neomycin 500 mg every 8 hours 3 dosages. Ammonia level 62 FEN/RENAL: Acute kidney injury Hypernatremia Monitor renal function, I/O's, avoid nephrotoxins. On Free water 300ml Q6, Endo: Diabetes mellitus with neuropathy Sliding scale insulin with Accu-Cheks every 6 hours to maintain glycemia/medium protocol TSH normal Heme: Hypofibrinogenemia due underlying end-stage liver disease Prolonged PTT Thrombocytopenia - chronic History of right lower extremity DVT Right lower extremity Doppler 09/05negative for DVT Daily CBC. Hematology has signed off. s/p 1 pk platelets 09/14 ID: Community-acquired pneumonia vs aspiration Continue abx(cefepime) till 09/18 to finish 14 day course, off Azithromycin. Monitor for signs of infections ( Fever, WBC) Pertinent cultures Influenza negative negative 09/05 - blood cultures 2 - NGTD 09/05urine pneumococcal antigen and Legionella antigen negative. 09/05U/A negative for evidence of infection 09/06 - sputum culturenegative MAXILLOFACIAL: Superior nasal spine fracture Nonsurgical. Supportive care Access - PIV Prophylaxis - GI - Prevacid - DVT - SCD/holding pharmacological prophylaxis with thrombocytopenia level 3 Curtis Casiano MD September 16, 2016 09:21
[2016-09-16] MEDS: POTASSIUM CHLORIDE 25 MEQ EFFERVESCENT TAB PO PRN (09:24)
--- NOTE | 2016-09-16 11:30 | RADRPT ---
EXAM DATE/TIME: 09/16/2016 10:59 [facility] COMPARISON: CT BRAIN W/O CONTRAST, September 05, 2016, 7:34. INDICATIONS : Right pupil dialated noted this morning. RADIATION DOSE: 69.18 CTDIvol (mGy) MEDICAL HISTORY : Hypertension. Cirrhosis. Hepatitis C.Diabetes,DVT SURGICAL HISTORY : None. ENCOUNTER: Initial ACUITY: 1 day PAIN SCALE: 0/10 LOCATION: Bilateral cranial TECHNIQUE: Multiple contiguous axial images were obtained of the head. Using automated exposure control and adj ustment of the mA and/or kV according to patient size, radiation dose was kept as low as reasonably a chievable to obtain optimal diagnostic quality images. FINDINGS: CEREBRUM: The ventricles are normal for age. No evidence of midline shift, mass lesion, hemorrhage or acute in farction. No extra-axial fluid collections are seen. POSTERIOR FOSSA: The cerebellum and brainstem are intact. The 4th ventricle is midline. The cerebellopontine angle i s unremarkable. EXTRACRANIAL: The visualized portion of the orbits is intact. SKULL: The calvaria is intact. No evidence of skull fracture. CONCLUSION: No acute intracranial findings. Junior Recio MD on September 16, 2016 at 11:27 Board Certified Radiologist. This report was verified electronically.
[2016-09-16] MEDS ORDERED: IOHEXOL 350 MG/ML 10 ML VIAL (for RAD DIAG) IV ONE (11:43)
--- NOTE | 2016-09-16 12:03 | RADRPT ---
EXAM DATE/TIME: 09/16/2016 11:02 [facility] COMPARISON: No previous studies available for comparison. INDICATIONS : Right pupil dialated noted today. IV CONTRAST: 72 cc Omnipaque 350 (iohexol) IV ; Cumulative dose for multiple exams. RADIATION DOSE: 15.83 CTDIvol (mGy) ; Combined studies MEDICAL HISTORY : Hypertension. Deep venous thrombosis. Cirrhosis.Diabetes,Hep c SURGICAL HISTORY : None. ENCOUNTER: Initial ACUITY: 1 day PAIN SCALE: Non-responsive LOCATION: CTA brain TECHNIQUE: Volumetric scanning was performed using a multi-row detector CT scanner. The data was post processed with a variety of visualization algorithms including full volume maximum intensity projection, multi -planar sliding thin slab reformation, curved planar reformation, and surface rendering techniques. Using automated exposure control and adjustment of the mA and/or kV according to patient size, radiat ion dose was kept as low as reasonably achievable to obtain optimal diagnostic quality images. FINDINGS: There is excellent visualization of the major intracranial arteries out to the second-order branch ve ssels. There is no evidence for aneurysm, vessel truncation or stenosis, and no evidence for vascula r malformation. CONCLUSION: Brain CTA within normal limits. Junior Recio MD on September 16, 2016 at 11:54 Board Certified Radiologist. This report was verified electronically.
--- NOTE | 2016-09-16 12:26 | RADRPT ---
EXAM DATE/TIME: 09/16/2016 11:02 [facility] COMPARISON: No previous studies available for comparison. INDICATIONS : Right pupil dialated noted today. IV CONTRAST: 72 cc Omnipaque 350 (iohexol) IV ; Cumulative dose for multiple exams. RADIATION DOSE: 15.83 CTDIvol (mGy) ; Combined studies MEDICAL HISTORY : Cirrhosis. Hypertension. Deep venous thrombosis.Hep c diabetes SURGICAL HISTORY : None. ENCOUNTER: Initial ACUITY: 1 day PAIN SCALE: Non-responsive LOCATION: CTA neck Elevated flow velocities and ICA/CCA ratios have been found to correlate with increased degrees of vessel stenosis, calculated as percentage of diameter relative to a normal segment of distal ICA/CCA. TECHNIQUE: Volumetric scanning was performed using a multirow detector CT scanner. The data was post processed with a variety of visualization algorithms including full-volume maximum intensity projection, multip lanar sliding thin-slab reformation, curved-planar reformation, and surface-rendering techniques. Us ing automated exposure control and adjustment of the mA and/or kV according to patient size, radiatio n dose was kept as low as reasonably achievable to obtain optimal diagnostic quality images. FINDINGS: AORTIC ARCH: There is a three-vessel origin of the great vessels from the aorta. No evidence of ostial narrowing. RIGHT CAROTID: The common carotid artery is intact. Minimal plaque in the right bulb without stenosis. The internal carotid artery lumen is smooth without stenosis. The external carotid artery is intact. LEFT CAROTID: The common carotid artery is intact. Mild plaque with mixed soft tissue density and calcified plaque but no significant stenosis seen. The external carotid artery is intact. VERTEBRALS: The vertebral arteries have a symmetric diameter. No stenotic lesions are seen. CONCLUSION: Mild atherosclerotic changes at the bulbs bilaterally but no significant stenosis janeen ntified. Benny Lima MD on September 16, 2016 at 12:22 Board Certified Radiologist. This report was verified electronically.
--- NOTE | 2016-09-16 16:35 | PD.CARD.PN ---
Subjective Subjective Remarks Confused, but comfortable, MS not improving Objective Medications Current Medications Medications (Trade) Dose Ordered Sig/Dariana Route Start Time Stop Time Status Last Admin (Maxipime Inj/NS Inj) 100 ml @ 200 mls/hr Q8H IV 09/05/16 09:00 09/18/16 08:59 09/16/16 09:21 Miscellaneous Information 1 Q361D XX 09/05/16 08:15 (Chlorhexidine 2% Cloth) Taper DAILY@04 TOP 09/06/16 04:00 09/02/17 03:59 09/16/16 04:00 (Chlorhexidine 2% Cloth) 3 pack UNSCH PRN TOP 09/05/16 08:15 (Lactulose Liq) 30 ml QID PO 09/05/16 09:00 09/16/16 14:32 (Xifaxan) 550 mg BID PO 09/05/16 10:00 09/16/16 09:20 (NS Flush) 2 ml UNSCH PRN IV FLUSH 09/05/16 08:30 (NS Flush) 2 ml BID IV FLUSH 09/05/16 09:00 09/16/16 09:21 (Tylenol) 650 mg Q6H PRN PO 09/05/16 08:30 09/15/16 12:05 Ondansetron HCl 4 mg 4 mg Q6H PRN IV 09/05/16 08:30 Potassium Chloride 100 ml @ 50 mls/hr Q2H PRN IV 09/05/16 08:30 (KCl 20 Meq Premix Inj) 100 ml @ 50 mls/hr Q2H PRN IV 09/05/16 08:30 09/15/16 17:45 Potassium Bicarb/ Potassium Chloride 50 meq 50 meq UNSCH PRN PO 09/05/16 08:30 09/16/16 09:24 Potassium Chloride 100 ml @ 25 mls/hr UNSCH PRN IV 09/05/16 08:30 Potassium Chloride 100 ml @ 50 mls/hr Q2H PRN IV 09/05/16 08:30 09/07/16 08:29 (Magnesium Sulfate Inj/NS Inj) 100 ml @ 50 mls/hr UNSCH PRN IV 09/05/16 08:30 Magnesium Oxide 800 mg 800 mg UNSCH PRN PO 09/05/16 08:30 (Magnesium Sulfate Inj/NS Inj) 100 ml @ 50 mls/hr UNSCH PRN IV 09/05/16 08:30 09/15/16 11:37 Potassium Phosphate 2000 mg 2,000 mg Q4H PRN PO 09/05/16 08:30 09/07/16 05:34 (Sodium Phosphate Inj/NS 250 ml Inj) 250 ml @ 42 mls/hr UNSCH PRN IV 09/05/16 08:30 09/15/16 11:38 (K-Phos) 2,000 mg UNSCH PRN PO/TUBE 09/05/16 08:30 (D50w (Vial) Inj) 25 ml UNSCH PRN IV PUSH 09/05/16 08:45 (Nitroglycerin 2% Oint) 2 inch Q6HR PRN TOPICAL 09/05/16 08:45 (Folate) 1 mg DAILY PO 09/06/16 09:00 09/16/16 09:20 (Theragran) 1 tab DAILY PO 09/06/16 09:00 09/16/16 09:20 Chlorhexidine Gluconate 15 ml 15 ml BID@08,20 MT 09/05/16 20:00 09/15/16 21:33 (Keppra Inj/NS Inj) 105 ml @ 420 mls/hr Q6H IV 09/05/16 18:00 Hold 09/14/16 05:18 (Romazicon Inj) 0.2 mg Q1M PRN IV PUSH 09/10/16 00:45 09/11/16 12:17 (Ativan) 1 mg Q4H PRN PO 09/10/16 00:45 (Ativan Inj) 1 mg Q4H PRN IV PUSH 09/10/16 00:45 (Ativan) 2 mg Q2H PRN PO 09/10/16 00:45 (Ativan Inj) 2 mg Q2H PRN IV PUSH 09/10/16 00:45 09/12/16 21:46 (Ativan Inj) 2 mg Q1H PRN IV PUSH 09/10/16 00:45 (Ativan Inj) 2 mg Q15M PRN IV PUSH 09/10/16 00:45 (Inderal) 20 mg Q12HR PO 09/10/16 21:00 09/16/16 09:00 (Trandate Inj) 10 mg Q20M PRN IV PUSH 09/10/16 14:30 09/13/16 12:42 (Apresoline Inj) 10 mg Q1HR PRN IV PUSH 09/10/16 14:30 09/16/16 14:32 (Glucagon Inj) 1 mg UNSCH PRN OTHER 09/10/16 15:00 (NovoLOG SUPPLEMENTAL SCALE) 1 Q6HR SQ 09/13/16 12:00 09/16/16 00:10 Water 300 ml 300 ml Q6HR G-TUBE 09/13/16 12:00 09/16/16 12:00 (Thiamine Inj/NS Inj) 101 ml @ 101 mls/hr DAILY IV 09/14/16 09:00 09/16/16 09:21 (Prevacid Odt) 30 mg DAILY NG 09/14/16 09:00 09/16/16 09:20 (Prinivil) 10 mg DAILY PO 09/17/16 09:00 Vital Signs / I&O Vital Signs Date Time Temp Pulse Resp B/P Pulse Ox O2 Delivery O2 Flow Rate FiO2 09/16/16 09:55 94 21 09/16/16 06:00 67 09/16/16 04:00 66 09/16/16 04:00 97.4 66 24 164/104 96 09/16/16 02:00 64 09/16/16 00:00 97.3 64 20 158/64 95 09/16/16 00:00 64 09/15/16 22:00 71 09/15/16 20:05 94 21 09/15/16 20:00 66 09/15/16 20:00 97.6 71 20 184/95 95 09/15/16 18:00 64 I/O 09/15/16 09/15/16 09/15/16 09/16/16 09/16/16 09/16/16 07:00 15:00 23:00 07:00 15:00 23:00 Intake Total 1892 ml 2309 ml 1320 ml 622 ml Output Total 700 ml 650 ml 500 ml 400 ml Balance 1192 ml 1659 ml 820 ml 222 ml Intake Oral 600 ml IV Total 1292 ml 1002 ml 591 ml 90 ml Tube Feeding 1307 ml 529 ml 232 ml Other 200 ml 300 ml Output Urine Total 700 ml 650 ml 500 ml 400 ml # Bowel Movements 1 2 1 Physical Exam GENERAL: In NAD, confused SKIN: Warm and dry. HEAD: Normocephalic. EYES: No scleral icterus. No injection or drainage. NECK: Supple, trachea midline. No JVD or lymphadenopathy. CARDIOVASCULAR: Regular rate and rhythm without murmurs, gallops, or rubs. RESPIRATORY: Breath sounds equal bilaterally. No accessory muscle use. GASTROINTESTINAL: Abdomen soft, non-tender, nondistended. MUSCULOSKELETAL: No cyanosis, or edema, dark discoloration. Laboratory Laboratory Tests Test 09/16/16 04:25 White Blood Count 7.1 TH/MM3 Red Blood Count 3.60 MIL/MM3 Hemoglobin 12.3 GM/DL Hematocrit 36.0 % Mean Corpuscular Volume 99.9 FL Mean Corpuscular Hemoglobin 34.3 PG Mean Corpuscular Hemoglobin 34.3 % Concent Red Cell Distribution Width 15.2 % Platelet Count 25 TH/MM3 Mean Platelet Volume 10.8 FL Neutrophils (%) (Auto) 67.2 % Lymphocytes (%) (Auto) 16.2 % Monocytes (%) (Auto) 12.5 % Eosinophils (%) (Auto) 3.2 % Basophils (%) (Auto) 0.9 % Neutrophils # (Auto) 4.8 TH/MM3 Lymphocytes # (Auto) 1.2 TH/MM3 Monocytes # (Auto) 0.9 TH/MM3 Eosinophils # (Auto) 0.2 TH/MM3 Basophils # (Auto) 0.1 TH/MM3 CBC Comment AUTO DIFF Differential Total Cells 100 Counted Neutrophils % (Manual) 58 % Band Neutrophils % 15 % Lymphocytes % 17 % Monocytes % 5 % Eosinophils % 3 % Neutrophils # (Manual) 5.3 TH/MM3 Myelocytes 2 % Nucleated Red Blood Cells 3 /100 WBC Differential Comment FINAL DIFF MANUAL Platelet Estimate LOW Platelet Morphology Comment ENLARGED Acanthocytes OCC Keratocytes OCC Sodium Level 145 MEQ/L Potassium Level 3.5 MEQ/L Chloride Level 117 MEQ/L Carbon Dioxide Level 19.4 MEQ/L Anion Gap 9 MEQ/L Blood Urea Nitrogen 14 MG/DL Creatinine 0.75 MG/DL Estimat Glomerular Filtration 106 ML/MIN Rate Random Glucose 127 MG/DL Calcium Level 7.7 MG/DL Phosphorus Level 2.7 MG/DL Magnesium Level 1.8 MG/DL Total Bilirubin 2.6 MG/DL Aspartate Amino Transf 92 U/L (AST/SGOT) Alanine Aminotransferase 41 U/L (ALT/SGPT) Alkaline Phosphatase 114 U/L Total Protein 6.2 GM/DL Albumin 2.3 GM/DL Imaging Last Impressions Neck CTA 09/16/16 Signed Impressions: Service Date/Time: Friday, September 16, 2016 11:02 - CONCLUSION: Mild atherosclerotic changes at the bulbs bilaterally but no significant stenosis identified. Benny Lima MD Head CTA 09/16/16 Signed Impressions: Service Date/Time: Friday, September 16, 2016 11:02 - CONCLUSION: Brain CTA within normal limits. Junior Recio MD Head CT 09/16/16 Signed Impressions: Service Date/Time: Friday, September 16, 2016 10:59 - CONCLUSION: No acute intracranial findings. Juinor Recio MD Brain MRI 09/13/16 Signed Impressions: Service Date/Time: Tuesday, September 13, 2016 11:17 - CONCLUSION: 1. No acute hemorrhage, mass effect or acute infarction. 2. Mild increased signal in the white matter. This is not significantly changed. 3. Mild motion artifact. Mayo Moncada MD Chest X-Ray 09/08/16 Signed Impressions: Service Date/Time: Thursday, September 08, 2016 04:30 - CONCLUSION: 1. Cardiomegaly and findings of vascular congestion without overt failure. The findings have worsened when compared with the prior examination. Cleve Hernandez MD Lower Extremity Ultrasound 09/05/16 Signed Impressions: Service Date/Time: Monday, September 05, 2016 09:36 - CONCLUSION: There is normal compressibility of the deep venous system from the inguinal region to the proximal calf. No echogenic clot is seen in the lumen of the common femoral, femoral, popliteal, and posterior tibial veins. There is a normal response of the venous system to proximal and distal augmentation and respiration. CONCLUSION: Negative for deep venous thrombosis. Aman Freeman MD Liver Ultrasound 09/05/16 Signed Impressions: Service Date/Time: Monday, September 05, 2016 08:55 - CONCLUSION: 1. Moderate splenomegaly with no focal lesion. 2. Liver is normal in size but mildly increased in echogenicity. Mayo Moncada MD ADDENDUM: This study was rereviewed at Dr. Cross's request. The main portal vein and branch vessels are patent and demonstrate normal hepatopedal blood flow. Mayo Moncada MD Head Magnetic Resonance Angiography 09/05/16 0000 Signed Impressions: Service Date/Time: Monday, September 05, 2016 17:27 - CONCLUSION: Normal MRA. Marcin Appiah MD Cervical Spine CT 09/05/16 0000 Signed Impressions: Service Date/Time: Monday, September 05, 2016 07:34 - CONCLUSION: Degenerative changes, negative for fracture. Aman Freeman MD FACR Assessment and Plan Problem List: (1) Elevated troponin (2) Altered mental status (3) Seizures (4) Cirrhosis of liver (5) Acute respiratory failure (6) DM (diabetes mellitus) (7) Hepatitis C (8) Thrombocytopenia (9) Septic shock Assessment and Plan Mental status not improving. Remains stable from cardiac standpoint. No arrhythmias.Troponin was mildly elevated, but echo showed nl LV function and no WMA. No further cardiac evaluation planned at this time. Continue ICU care. Increase activity. PT/OT. Problem Qualifiers (1) Cirrhosis of liver: Qualified Code: K70.30 - Alcoholic cirrhosis of liver without ascites (2) Acute respiratory failure: Qualified Code: J96.01 - Acute respiratory failure with hypoxia and hypercapnia Rosa Menchaca MD September 16, 2016 16:35
[2016-09-17] VITALS (19 sets, daily range): BP systolic 110–195; BP diastolic 59–110; PULSE 62–69; RESP 16–32; TEMP 97.5–98.7; O2SAT 92–96
[2016-09-17] MEDS: INSULIN ASPART SUPPLEMENTAL SCALE SQ SCH ×5 (00:23→23:12)
[2016-09-17] MEDS: CEFEPIME INJ 2,000 MG in SODIUM CHLORIDE 0.9% INJ 100 ML IV SCH ×4 (00:24→23:15)
[2016-09-17] MEDS: RESP: ALBUTEROL 2.5 MG/IPRATROPIUM 0.5 MG NEB (SCH) INH ×3 (03:18→16:47)
[2016-09-17] MEDS: hydrALAZINE HCL 20 MG/ML VIAL IV PUSH PRN ×2 (03:47→13:02)
[2016-09-17] MEDS: CHLORHEXIDINE GLUCONATE 2 % 1 PACK (2 CLOTHS) TOP SCH ×2 (03:48→23:15)
[2016-09-17 04:26] LABS: AUTOMATED NEUTROPHIL # 6.1 TH/MM3 (1.8-7.7); BASOPHIL # 0.1 TH/MM3 (0-0.2); BASOPHIL % 0.7 % (0.0-2.0); EOSINOPHIL # 0.3 TH/MM3 (0-0.4); EOSINOPHIL % 3.5 % (0.0-4.0); HEMATOCRIT 38.4 % (39.0-51.0); LYMPH % 12.7 % (9.0-44.0); LYMPHOCYTE # 1.1 TH/MM3 (1.0-4.8); MEAN CELL VOLUME 98.5 FL (80.0-100.0); MEAN CORPUSCULAR HEMOGLOBIN 33.8 PG (27.0-34.0); MEAN CORPUSCULAR HGB CONC 34.3 % (32.0-36.0); MONO % 11.3 % (0.0-8.0); NEUT % 71.8 % (16.0-70.0); PLATELET COUNT 36 TH/MM3 (150-450); RED CELL DISTRIBUTION WIDTH 14.8 % (11.6-17.2); WHITE BLOOD COUNT 8.6 TH/MM3 (4.0-11.0)
[2016-09-17 04:29] LABS: HEMO FLAGS AUTO DIFF
[2016-09-17 04:42] LABS: ANION GAP 10 MEQ/L (5-15); AST (GOT) 85 U/L (15-37); BICARBONATE 19.5 MEQ/L (21.0-32.0); BLOOD UREA NITROGEN 12 MG/DL (7-18); CHLORIDE 112 MEQ/L (98-107); GLOMERULAR FILTRATION RATE 109 ML/MIN (>89); MAGNESIUM 1.7 MG/DL (1.5-2.5); POTASSIUM 3.5 MEQ/L (3.5-5.1); SODIUM (NA) 141 MEQ/L (136-145)
[2016-09-17 04:46] LABS: ALKALINE PHOSPHATASE 101 U/L (45-117); ALT (GPT) 39 U/L (12-78)
[2016-09-17] MEDS: FREE WATER G-TUBE SCH ×5 (06:00→23:02)
[2016-09-17] MEDS: CHLORHEXIDINE 0.12% (ORAL KIT) 15 ML CUP MT SCH ×2 (08:00→20:00)
[2016-09-17 08:10] LABS: ACANTHOCYTES OCC (NORMAL); BANDS 20 % (0-6); CORRECTED NUCLEATED RBC 2 /100 WBC (0-0); KERATOCYTES OCC (NORMAL); OVALOCYTES 1+ (NORMAL); PLATELET ESTIMATE SMEAR LOW (NORMAL); PLATELET MORPHOLOGY NORMAL (NORMAL); POLYS (SEG NEUTROPHILS) 61 % (16-70); SCAN/DIFF FINAL DIFF MANUAL; WBC DIFF SAMPLE 100
[2016-09-17] MEDS: LISINOPRIL 10 MG TAB PO SCH (08:55)
[2016-09-17] MEDS: LACTULOSE SYRUP 20 GM/30 ML CUP PO SCH ×4 (08:55→20:45)
[2016-09-17] MEDS: RIFAXIMIN 550 MG TAB PO SCH ×2 (08:55→20:45)
[2016-09-17] MEDS: PROPRANOLOL HCL 20 MG TAB PO SCH ×2 (08:55→20:45)
[2016-09-17] MEDS: FOLIC ACID 1 MG TAB PO SCH (08:55)
[2016-09-17] MEDS: THIAMINE INJ 100 MG in SODIUM CHLORIDE 0.9% INJ 100 ML IV SCH (08:55)
[2016-09-17] MEDS: MULTIVITAMIN TAB PO SCH (08:55)
[2016-09-17] MEDS: LANSOPRAZOLE SOLUTAB 30 MG TAB NG SCH (08:55)
--- NOTE | 2016-09-17 09:00 | HHI.PR ---
Review/Management Diagnosis encephalopathy seizure history of ETOH abuse pupil change yesterday probably an autonomic reaction. No sign of third CN palsey today and ct and cta normal Plan continue [facility] Diagnosis/Plan: Subjective Subjective Comments No acute events reported THe anisacoria has resolved. Active Medications Current Medications Medications (Trade) Dose Ordered Sig/Dariana Route Start Time Stop Time Status Last Admin (Maxipime Inj/NS Inj) 100 ml @ 200 mls/hr Q8H IV 09/05/16 09:00 09/18/16 08:59 09/17/16 00:24 Miscellaneous Information 1 Q361D XX 09/05/16 08:15 (Chlorhexidine 2% Cloth) Taper DAILY@04 TOP 09/06/16 04:00 09/02/17 03:59 09/17/16 03:48 (Chlorhexidine 2% Cloth) 3 pack UNSCH PRN TOP 09/05/16 08:15 (Lactulose Liq) 30 ml QID PO 09/05/16 09:00 09/16/16 19:47 (Xifaxan) 550 mg BID PO 09/05/16 10:00 09/16/16 19:47 (NS Flush) 2 ml UNSCH PRN IV FLUSH 09/05/16 08:30 (NS Flush) 2 ml BID IV FLUSH 09/05/16 09:00 09/16/16 19:46 (Tylenol) 650 mg Q6H PRN PO 09/05/16 08:30 09/15/16 12:05 Ondansetron HCl 4 mg 4 mg Q6H PRN IV 09/05/16 08:30 Potassium Chloride 100 ml @ 50 mls/hr Q2H PRN IV 09/05/16 08:30 (KCl 20 Meq Premix Inj) 100 ml @ 50 mls/hr Q2H PRN IV 09/05/16 08:30 09/15/16 17:45 Potassium Bicarb/ Potassium Chloride 50 meq 50 meq UNSCH PRN PO 09/05/16 08:30 09/16/16 09:24 Potassium Chloride 100 ml @ 25 mls/hr UNSCH PRN IV 09/05/16 08:30 Potassium Chloride 100 ml @ 50 mls/hr Q2H PRN IV 09/05/16 08:30 09/07/16 08:29 (Magnesium Sulfate Inj/NS Inj) 100 ml @ 50 mls/hr UNSCH PRN IV 09/05/16 08:30 Magnesium Oxide 800 mg 800 mg UNSCH PRN PO 09/05/16 08:30 (Magnesium Sulfate Inj/NS Inj) 100 ml @ 50 mls/hr UNSCH PRN IV 09/05/16 08:30 09/15/16 11:37 Potassium Phosphate 2000 mg 2,000 mg Q4H PRN PO 09/05/16 08:30 09/07/16 05:34 (Sodium Phosphate Inj/NS 250 ml Inj) 250 ml @ 42 mls/hr UNSCH PRN IV 09/05/16 08:30 09/15/16 11:38 (K-Phos) 2,000 mg UNSCH PRN PO/TUBE 09/05/16 08:30 (D50w (Vial) Inj) 25 ml UNSCH PRN IV PUSH 09/05/16 08:45 (Nitroglycerin 2% Oint) 2 inch Q6HR PRN TOPICAL 09/05/16 08:45 (Folate) 1 mg DAILY PO 09/06/16 09:00 09/16/16 09:20 (Theragran) 1 tab DAILY PO 09/06/16 09:00 09/16/16 09:20 Chlorhexidine Gluconate 15 ml 15 ml BID@08,20 MT 09/05/16 20:00 09/16/16 19:46 (Keppra Inj/NS Inj) 105 ml @ 420 mls/hr Q6H IV 09/05/16 18:00 Hold 09/14/16 05:18 (Romazicon Inj) 0.2 mg Q1M PRN IV PUSH 09/10/16 00:45 09/11/16 12:17 (Ativan) 1 mg Q4H PRN PO 09/10/16 00:45 (Ativan Inj) 1 mg Q4H PRN IV PUSH 09/10/16 00:45 (Ativan) 2 mg Q2H PRN PO 09/10/16 00:45 (Ativan Inj) 2 mg Q2H PRN IV PUSH 09/10/16 00:45 09/12/16 21:46 (Ativan Inj) 2 mg Q1H PRN IV PUSH 09/10/16 00:45 (Ativan Inj) 2 mg Q15M PRN IV PUSH 09/10/16 00:45 (Inderal) 20 mg Q12HR PO 09/10/16 21:00 09/16/16 19:46 (Trandate Inj) 10 mg Q20M PRN IV PUSH 09/10/16 14:30 09/13/16 12:42 (Apresoline Inj) 10 mg Q1HR PRN IV PUSH 09/10/16 14:30 09/17/16 03:47 (Glucagon Inj) 1 mg UNSCH PRN OTHER 09/10/16 15:00 (NovoLOG SUPPLEMENTAL SCALE) 1 Q6HR SQ 09/13/16 12:00 09/17/16 06:01 Water 300 ml 300 ml Q6HR G-TUBE 09/13/16 12:00 09/17/16 06:00 (Thiamine Inj/NS Inj) 101 ml @ 101 mls/hr DAILY IV 09/14/16 09:00 09/16/16 09:21 (Prevacid Odt) 30 mg DAILY NG 09/14/16 09:00 09/16/16 09:20 (Prinivil) 10 mg DAILY PO 09/17/16 09:00 Allergies Allergies Coded Allergies *MDRO Multi-Drug Resistant Organism (Verified Adverse Reaction, Unknown, ) Exam I&O / VS 09/16/16 09/16/16 09/17/16 15:00 23:00 07:00 Intake Total 500 ml 863 ml 971 ml Output Total 900 ml 500 ml 300 ml Balance -400 ml 363 ml 671 ml IV Total 200 ml 141 ml 141 ml Tube Feeding 422 ml 430 ml Other 300 ml 300 ml 400 ml Output Urine Total 900 ml 500 ml 300 ml # Bowel Movements 2 1 Vital Signs Date Time Temp Pulse Resp B/P Pulse Ox O2 Delivery O2 Flow Rate FiO2 09/17/16 06:00 68 09/17/16 04:00 97.5 69 22 142/77 92 09/17/16 04:00 69 09/17/16 02:00 66 09/17/16 00:00 63 09/17/16 00:00 98.4 63 20 185/110 93 09/16/16 22:00 65 09/16/16 20:13 94 21 09/16/16 20:00 68 09/16/16 20:00 98.2 68 20 152/93 93 09/16/16 18:00 67 17 138/80 93 09/16/16 17:00 68 17 147/83 94 09/16/16 16:00 98.6 64 18 161/89 92 09/16/16 15:00 63 13 149/83 94 09/16/16 14:01 64 25 185/108 94 09/16/16 14:00 64 27 96 09/16/16 13:26 63 15 170/98 94 09/16/16 13:01 64 17 183/100 94 09/16/16 13:00 64 18 93 09/16/16 12:51 63 17 175/104 93 09/16/16 12:00 98.5 64 19 174/102 93 09/16/16 11:19 63 17 153/90 92 09/16/16 11:00 65 34 147/91 94 09/16/16 10:55 64 18 166/98 94 09/16/16 10:00 64 18 146/88 94 09/16/16 09:55 94 21 09/16/16 09:00 64 16 156/86 94 Exam Comments lethargic but arousable. Answers questions appropriately, follows simple commands pupils are equal today at 2 mm and react to light. THere is no ptosis. Extra- occular motility is normal Motor--moves BUE and BLE equally Objective Radiology Results CT brain--no acute change, no hemorrhage CTA brain--normal CTA neck--minimal atherosclerosis in carotids without significant stenosis Micro and Labs Laboratory Tests Test 09/17/16 03:32 White Blood Count 8.6 Red Blood Count 3.90 Hemoglobin 13.2 Hematocrit 38.4 Mean Corpuscular Volume 98.5 Mean Corpuscular Hemoglobin 33.8 Mean Corpuscular Hemoglobin 34.3 Concent Red Cell Distribution Width 14.8 Platelet Count 36 Mean Platelet Volume 11.3 Neutrophils (%) (Auto) 71.8 Lymphocytes (%) (Auto) 12.7 Monocytes (%) (Auto) 11.3 Eosinophils (%) (Auto) 3.5 Basophils (%) (Auto) 0.7 Neutrophils # (Auto) 6.1 Lymphocytes # (Auto) 1.1 Monocytes # (Auto) 1.0 Eosinophils # (Auto) 0.3 Basophils # (Auto) 0.1 CBC Comment AUTO DIFF Differential Total Cells 100 Counted Neutrophils % (Manual) 61 Band Neutrophils % 20 Lymphocytes % 8 Monocytes % 11 Neutrophils # (Manual) 7.0 Nucleated Red Blood Cells 2 Differential Comment FINAL DIFF MANUAL Platelet Estimate LOW Platelet Morphology Comment NORMAL Ovalocytes 1+ Acanthocytes OCC Keratocytes OCC Sodium Level 141 Potassium Level 3.5 Chloride Level 112 Carbon Dioxide Level 19.5 Anion Gap 10 Blood Urea Nitrogen 12 Creatinine 0.73 Estimat Glomerular Filtration 109 Rate Random Glucose 165 Calcium Level 7.9 Phosphorus Level 2.5 Magnesium Level 1.7 Total Bilirubin 3.0 Aspartate Amino Transf 85 (AST/SGOT) Alanine Aminotransferase 39 (ALT/SGPT) Alkaline Phosphatase 101 Total Protein 6.2 Albumin 2.3 Junaid Rodríguez PhD MD September 17, 2016 09:00
[2016-09-17] MEDS: POTASSIUM CHLORIDE 25 MEQ EFFERVESCENT TAB PO PRN (10:55)
--- NOTE | 2016-09-17 12:18 | HHI.CCPN ---
Subjective Remarks/Hospital Course 61yo male. Date of admission 09/05/2016. Past medical history includes depression, hypertension, hepatitis C with cirrhotic liver, diabetes mellitus with peripheral neuropathy, history of right lower extremity DVT, chronic thrombocytopenia and history of MRSA to left leg 2015. He is on metformin for diabetes. He presents to [facility] this a.m. with altered mental status. According to EMS report, pt's roommate states he has been " in and out of it " for 2 days. Today patient was found unresponsive on a couch by EMS. He has had 2 seizures in route the first lasted approximately 5 minutes was given 2 mg Ativan with another one approximate 1 minute duration received another 2 mg Ativan.. Given 2mg ativan and then another seizure about 10 min after the ativan so another 2 mg ativan given. Pt was moving all extremities but tachypneic and not responding to verbal stimuli. Pt was febrile in the ED. Patient was emergently intubated with a 7.5 ET tube after receiving 20 mg IV etomidate along with 60 mg IV rocuronium by Dr. Roblero. CT head - superior nasal spine fracture otherwise unremarkable CT C-spine -C5/6 mild disc bulge otherwise unremarkable Chest x-ray - bilateral hilar infiltrates. Cardiomegaly Pertinent labs revealed a normal white cell count, platelet count 37,000. Normal BMP, Lactic acidosis of 9.2, troponin 0.23, alcohol level 37 with positive THC level. NH3+ was 86 patient was going to be lumbar puncture in ED however platelet count is less than 50,000 the present time. Risk of spinal hematoma outweighs benefits of lumbar puncture this time. No consentable family members available currently. Patient is with one daughter he is close to. He also has a dog. In the ED, there is copious amounts of blood coming from the mouth. This was Yankauer suction to clear. Blood tinged sputum from ETT. NG tube with greenish bile gastric output. I removed one right lower denture. The left lower side is missing. 09/06 EEG showed generalized slowing. Imaging workup RN has noted ongoing bleeding from mouth and platelets 25k. Lactic acidosis cleared and urine output adequate. Ammonia 73. Has received 2 doses of lactulose and no bowel movement yet. 09/07 Following some commands intermittently today, RN resuming propofol after sedation vacation due to repeated coughing. Having BMs, ammonia downtrend to 67. Tolerating tube feeds. Hypertensive. 09/08: per nursing, following intermittent commands. however, was agitated requiring propofol for sedation and does not follow commands for me. continues to have diarrhea likely secondary to lactulose. 09/09: following commands this morning, still slightly somnolent, but much more awake than yesterday. diarrhea secondary to lactulose persists. 09/10: Extubated yesterday without application. Currently on 2 L nasal cannula. Passed swallow evaluation. Required intermittent Ativan for agitation withdrawal. 09/11: Received 4 mg Ativan overnight. Appropriate with responses but more somnolent this a.m. Compared to Yesterday. Tolerating diet. Positive BM. 09/12 No acute events overnight. Afebrile. 09/13: Patient currently moaning only. Not verbalizing words. Afebrile. On room air. Tube feeds started secondary to lack of oral intake 09/14: Remains minimally responsive. Protecting his airway though. Occasionally will squeeze hands to command. Noted ammonia level 67 today. 09/15 Patient remains encephalopathic afebrile. 09/16 Patient noted to have dilated /fixed right pupil this morning . For CTA brain per neuro. Afebrile. Subjective: 09/17: Pupils are now equal. More awake and alert today than 2 days ago. Passed swallow evaluation. Normotensive. Objective Vital Signs Date Time Temp Pulse Resp B/P Pulse Ox O2 Delivery O2 Flow Rate FiO2 09/17/16 09:20 95 21 09/17/16 06:00 68 09/17/16 04:00 97.5 22 142/77 Intake and Output 09/16/16 09/16/16 09/17/16 08:00 16:00 00:00 Intake Total 622 ml 500 ml 863 ml Output Total 400 ml 900 ml 500 ml Balance 222 ml -400 ml 363 ml Result Diagram: 09/17/16 0332 09/17/16 0332 Imaging Last Impressions Neck CTA 09/16/16 0000 Signed Impressions: Service Date/Time: Friday, September 16, 2016 11:02 - CONCLUSION: Mild atherosclerotic changes at the bulbs bilaterally but no significant stenosis identified. Benny Lima MD Head CTA 09/16/16 0000 Signed Impressions: Service Date/Time: Friday, September 16, 2016 11:02 - CONCLUSION: Brain CTA within normal limits. Junior Recio MD Head CT 09/16/16 Signed Impressions: Service Date/Time: Friday, September 16, 2016 10:59 - CONCLUSION: No acute intracranial findings. Jnuior Recio MD Brain MRI 09/13/16 Signed Impressions: Service Date/Time: Tuesday, September 13, 2016 11:17 - CONCLUSION: 1. No acute hemorrhage, mass effect or acute infarction. 2. Mild increased signal in the white matter. This is not significantly changed. 3. Mild motion artifact. Mayo Moncada MD Chest X-Ray 09/08/16 Signed Impressions: Service Date/Time: Thursday, September 08, 2016 04:30 - CONCLUSION: 1. Cardiomegaly and findings of vascular congestion without overt failure. The findings have worsened when compared with the prior examination. Cleve Hernandez MD Lower Extremity Ultrasound 09/05/16 Signed Impressions: Service Date/Time: Monday, September 05, 2016 09:36 - CONCLUSION: There is normal compressibility of the deep venous system from the inguinal region to the proximal calf. No echogenic clot is seen in the lumen of the common femoral, femoral, popliteal, and posterior tibial veins. There is a normal response of the venous system to proximal and distal augmentation and respiration. CONCLUSION: Negative for deep venous thrombosis. Aman Freeman MD Liver Ultrasound 09/05/16 Signed Impressions: Service Date/Time: Monday, September 05, 2016 08:55 - CONCLUSION: 1. Moderate splenomegaly with no focal lesion. 2. Liver is normal in size but mildly increased in echogenicity. Mayo Moncada MD ADDENDUM: This study was rereviewed at Dr. Cross's request. The main portal vein and branch vessels are patent and demonstrate normal hepatopedal blood flow. Mayo Moncada MD Head Magnetic Resonance Angiography 09/05/16 Signed Impressions: Service Date/Time: Monday, September 05, 2016 17:27 - CONCLUSION: Normal MRA. Marcin Appiah MD Cervical Spine CT 09/05/16 Signed Impressions: Service Date/Time: Monday, September 05, 2016 07:34 - CONCLUSION: Degenerative changes, negative for fracture. Aman Freeman MD FACR Objective Remarks GENERAL: 61-year-old male, currently on nasal cannula in no acute distress SKIN: Warm and dry. No rash HEAD: Atraumatic. Normocephalic. EYES: Equally round and react about 3 millimeters bilaterally. + Scleral icterus. No injection or drainage. ENT: No nasal bleeding or discharge. Mucous membranes pink and moist. Oropharynx without erythema or exudate or bleeding NECK: Trachea midline. No JVD. CARDIOVASCULAR: Tachycardic, RR. S1, S2 no S4 without murmur RESPIRATORY: Few crackles patient bases bilateral. No wheeze GASTROINTESTINAL: Abdomen soft, non-tender, minimally distended. Hypoactive bowel sounds MUSCULOSKELETAL: Extremities with trace lower extremity peripheral edema. No obvious deformities. NEUROLOGICAL: Cranial nerves II through grossly intact. Strength is equal/ symmetric bilaterally. Normal sensation. A/P Assessment and Plan Neuro/Psych: Acute toxic metabolic encephalopathy Hepatic encephalopathy History of depression THC positive Alcohol abuse Seizure Negative CT/head CTA head and neck yesterday. Anisocoria likely autonomic reaction. EEG 09/14: mod severe diffuse encephalopathy MRI brain 09/13: No acute hemorrhage, mass effect or acute infarction. Mild increased signal in the white matter. CT head 09/05 revealed no acute intracranial findings. MRI brain 09/05minimal increased periventricular white matter changes and abnormal focus of signal in right frontal lobe. MRA brain 09/05 normal EEG 09/05generalized slowing consistent with severe encephalopathy. No seizure activity Neurology consult. Appreciate Dr. Rodríguez's assistance Keppra 500 twice a day Continue. Thiamine/folate/multivitamin daily Monitor for DTs Seizure precautions Currently on CIWA protocol CV: Elevated troponin Hypertension h/o Dilated cardiomyopathy Seen by Dr. Falcon 07/25 admission. Recommended no intervention with multiple medical issues, alcoholism, thrombocytopenia and no chest pain. 2-D echocardiogram 07/25 - EF 55-60% right ventricle systolic pressure around 90 mmHg. Mild AR, MR. Left atrium and left ventricle and right ventricle all dilated Echo 09/05/16LVEF 60%. LV cavity size reported normal. No regional wall motion abnormalities. RV dilated. Normal wall thickness.TRUE 41 mmHg. EKG reveals sinus tachycardia 111. Left atrial enlargement. Incomplete RBBB with ST depression in V1 through V5. Troponin peaked at 2.38. Dr. Menchaca evaluated. [facility]. On propranolol 20 twice a day, Increase lisinopril 10 milligrams daily Resp: Acute respiratory failure- resolved Community acquired Pneumonia History of prior tobaccoism Continue with oxygen keep sat > 92% Bronchodilator therapy with DuoNeb's every 6 hours with albuterol every 2 hours when necessary dyspnea Aspiration precautions Patient had a negative CT of the chest 07/25 for pulmonary embolism GI: Hepatitis C unknown genotype Cirrhosis Elevated total bilirubin , downtrending Chronic mild protein energy malnutrition Hyperammonia Continue with tube feeds- Neutra hep at 60 cc an hour goal Past wall eval today. Liver ultrasoundmoderate splenomegaly. Increased echogenicity of the liver. Gallbladder normal. Protonix for GI prophylaxis Continue Xifaxan 550 milligrams twice a day; Lactulose 30 cc 4 times a day Ammonia level 62 FEN/RENAL: Acute kidney injury Hypokalemia Receiving potassium today Monitor renal function, I/O's, avoid nephrotoxins. On Free water 300ml Q6, Endo: Diabetes mellitus with neuropathy Sliding scale insulin with Accu-Cheks every 6 hours to maintain glycemia/medium protocol TSH normal Heme: Hypofibrinogenemia due underlying end-stage liver disease Prolonged PTT Thrombocytopenia - chronic History of right lower extremity DVT Right lower extremity Doppler 09/05negative for DVT Daily CBC. Hematology has signed off. s/p 1 pk platelets 09/14 ID: Community-acquired pneumonia vs aspiration Continue abx(cefepime) till 09/18 to finish 14 day course, off Azithromycin. Monitor for signs of infections ( Fever, WBC) Pertinent cultures Influenza negative negative 09/05 - blood cultures 2 - NGTD 09/05urine pneumococcal antigen and Legionella antigen negative. 09/05U/A negative for evidence of infection 09/06 - sputum culturenegative MAXILLOFACIAL: Superior nasal spine fracture Nonsurgical. Supportive care Access - PIV Prophylaxis - GI - Prevacid - DVT - SCD/holding pharmacological prophylaxis with thrombocytopenia level 2 Klever Cross MD September 17, 2016 12:18
[2016-09-17] MEDS ORDERED: POTASSIUM CHLORIDE 20 MEQ PWD PACKET PO ONE (12:30)
[2016-09-17] MEDS: MAGNESIUM SULFATE 1 GM PREMIX 100 ML IV SCH ×2 (12:36→13:35)
[2016-09-17] MEDS: SODIUM CHLORIDE 0.9% FLUSH 10 ML FLUSH IV FLUSH SCH ×2 (12:37→20:46)
[2016-09-17] MEDS: levETIRAcetam INJ 500 MG in SODIUM CHLORIDE 0.9% INJ 100 ML IV SCH (20:45)
[2016-09-18] VITALS (14 sets, daily range): BP systolic 98–163; BP diastolic 51–91; PULSE 60–73; RESP 18–22; TEMP 98.2–98.7; O2SAT 91–100
[2016-09-18] MEDS: RESP: ALBUTEROL 2.5 MG/IPRATROPIUM 0.5 MG NEB (SCH) INH ×5 (01:32→22:06)
[2016-09-18] MEDS: LORazepam 2 MG/ML VIAL IV PUSH PRN ×2 (03:12→07:56)
[2016-09-18 03:44] LABS: AUTOMATED NEUTROPHIL # 3.9 TH/MM3 (1.8-7.7); BASOPHIL % 0.6 % (0.0-2.0); EOSINOPHIL # 0.3 TH/MM3 (0-0.4); HEMATOCRIT 35.1 % (39.0-51.0); LYMPH % 19.8 % (9.0-44.0); LYMPHOCYTE # 1.2 TH/MM3 (1.0-4.8); MEAN CELL VOLUME 99.1 FL (80.0-100.0); MEAN CORPUSCULAR HGB CONC 34.3 % (32.0-36.0); MONO % 13.3 % (0.0-8.0); NEUT % 61.3 % (16.0-70.0); PLATELET COUNT 29 TH/MM3 (150-450); RED BLOOD COUNT 3.54 MIL/MM3 (4.50-5.90); RED CELL DISTRIBUTION WIDTH 16.2 % (11.6-17.2); WHITE BLOOD COUNT 6.3 TH/MM3 (4.0-11.0)
[2016-09-18 03:48] LABS: HEMO FLAGS AUTO DIFF
[2016-09-18 03:49] LABS: HCV RNA PCR IU/ML LESS THAN 15 IU/mL (()); HCV RNA PCR LOGIU/ML LESS THAN 1.18 (()); HEPATITIS C RNA GENOTYPE NOT DETECTED (())
[2016-09-18 04:02] LABS: ANION GAP 5 MEQ/L (5-15); AST (GOT) 83 U/L (15-37); BLOOD UREA NITROGEN 11 MG/DL (7-18); CHLORIDE 112 MEQ/L (98-107); GLOMERULAR FILTRATION RATE 96 ML/MIN (>89); MAGNESIUM 1.7 MG/DL (1.5-2.5); POTASSIUM 3.6 MEQ/L (3.5-5.1); SODIUM (NA) 142 MEQ/L (136-145)
[2016-09-18 04:05] LABS: ALKALINE PHOSPHATASE 113 U/L (45-117); ALT (GPT) 39 U/L (12-78); TOTAL BILIRUBIN ADULT 2.6 MG/DL (0.2-1.0)
[2016-09-18 05:19] LABS: PLATELET ESTIMATE SMEAR LOW (NORMAL); PLATELET MORPHOLOGY NORMAL (NORMAL); SCAN/DIFF AUTO DIFF CONFIRMED
[2016-09-18 05:20] LABS: ACANTHOCYTES OCC (NORMAL)
[2016-09-18] MEDS: FREE WATER G-TUBE SCH ×4 (05:23→23:45)
[2016-09-18] MEDS: INSULIN ASPART SUPPLEMENTAL SCALE SQ SCH ×4 (05:23→23:47)
[2016-09-18] MEDS: RIFAXIMIN 550 MG TAB PO SCH ×2 (07:54→20:48)
[2016-09-18] MEDS: MULTIVITAMIN TAB PO SCH (07:54)
[2016-09-18] MEDS: LISINOPRIL 10 MG TAB PO SCH (07:54)
[2016-09-18] MEDS: PROPRANOLOL HCL 20 MG TAB PO SCH ×2 (07:54→20:48)
[2016-09-18] MEDS: LANSOPRAZOLE SOLUTAB 30 MG TAB NG SCH (07:55)
[2016-09-18] MEDS: levETIRAcetam INJ 500 MG in SODIUM CHLORIDE 0.9% INJ 100 ML IV SCH ×2 (07:55→20:50)
[2016-09-18] MEDS: FOLIC ACID 1 MG TAB PO SCH (07:55)
[2016-09-18] MEDS: CHLORHEXIDINE 0.12% (ORAL KIT) 15 ML CUP MT SCH ×2 (07:57→20:51)
[2016-09-18] MEDS: THIAMINE INJ 100 MG in SODIUM CHLORIDE 0.9% INJ 100 ML IV SCH (08:06)
[2016-09-18] MEDS: SODIUM CHLORIDE 0.9% FLUSH 10 ML FLUSH IV FLUSH SCH ×2 (08:07→20:49)
[2016-09-18] MEDS: LACTULOSE SYRUP 20 GM/30 ML CUP PO SCH ×4 (08:11→20:48)
[2016-09-18] MEDS: MAGNESIUM SULFATE 1 GM PREMIX 100 ML IV SCH ×2 (11:15→12:17)
[2016-09-18] MEDS: POTASSIUM PHOSPHATE/SODIUM PHOSPHATE 250 MG TAB PO SCH ×3 (12:20→23:45)
--- NOTE | 2016-09-18 14:16 | HHI.CCPN ---
Subjective Remarks/Hospital Course 61yo male. Date of admission 09/05/2016. Past medical history includes depression, hypertension, hepatitis C with cirrhotic liver, diabetes mellitus with peripheral neuropathy, history of right lower extremity DVT, chronic thrombocytopenia and history of MRSA to left leg 2015. He is on metformin for diabetes. He presents to [facility] [address] this a.m. with altered mental status. According to EMS report, pt's roommate states he has been " in and out of it " for 2 days. Today patient was found unresponsive on a couch by EMS. He has had 2 seizures in route the first lasted approximately 5 minutes was given 2 mg Ativan with another one approximate 1 minute duration received another 2 mg Ativan.. Given 2mg ativan and then another seizure about 10 min after the ativan so another 2 mg ativan given. Pt was moving all extremities but tachypneic and not responding to verbal stimuli. Pt was febrile in the ED. Patient was emergently intubated with a 7.5 ET tube after receiving 20 mg IV etomidate along with 60 mg IV rocuronium by Dr. Roblero. CT head - superior nasal spine fracture otherwise unremarkable CT C-spine -C5/6 mild disc bulge otherwise unremarkable Chest x-ray - bilateral hilar infiltrates. Cardiomegaly Pertinent labs revealed a normal white cell count, platelet count 37,000. Normal BMP, Lactic acidosis of 9.2, troponin 0.23, alcohol level 37 with positive THC level. NH3+ was 86 patient was going to be lumbar puncture in ED however platelet count is less than 50,000 the present time. Risk of spinal hematoma outweighs benefits of lumbar puncture this time. No consentable family members available currently. Patient is with one daughter he is close to. He also has a dog. In the ED, there is copious amounts of blood coming from the mouth. This was Yankauer suction to clear. Blood tinged sputum from ETT. NG tube with greenish bile gastric output. I removed one right lower denture. The left lower side is missing. 09/06 EEG showed generalized slowing. Imaging workup RN has noted ongoing bleeding from mouth and platelets 25k. Lactic acidosis cleared and urine output adequate. Ammonia 73. Has received 2 doses of lactulose and no bowel movement yet. 09/07 Following some commands intermittently today, RN resuming propofol after sedation vacation due to repeated coughing. Having BMs, ammonia downtrend to 67. Tolerating tube feeds. Hypertensive. 09/08: per nursing, following intermittent commands. however, was agitated requiring propofol for sedation and does not follow commands for me. continues to have diarrhea likely secondary to lactulose. 09/09: following commands this morning, still slightly somnolent, but much more awake than yesterday. diarrhea secondary to lactulose persists. 09/10: Extubated yesterday without application. Currently on 2 L nasal cannula. Passed swallow evaluation. Required intermittent Ativan for agitation withdrawal. 09/11: Received 4 mg Ativan overnight. Appropriate with responses but more somnolent this a.m. Compared to Yesterday. Tolerating diet. Positive BM. 09/12 No acute events overnight. Afebrile. 09/13: Patient currently moaning only. Not verbalizing words. Afebrile. On room air. Tube feeds started secondary to lack of oral intake 09/14: Remains minimally responsive. Protecting his airway though. Occasionally will squeeze hands to command. Noted ammonia level 67 today. 09/15 Patient remains encephalopathic afebrile. 09/16 Patient noted to have dilated /fixed right pupil this morning . For CTA brain per neuro. Afebrile. 09/17: Pupils are now equal. More awake and alert today than 2 days ago. Passed swallow evaluation. Normotensive. Subjective: 09/18: Afebrile. Received Ativan overnight and currently quite somnolent. When he levels currently 26. Tolerating tube feeding with positive BMs. Objective Vital Signs Date Time Temp Pulse Resp B/P Pulse Ox O2 Delivery O2 Flow Rate FiO2 09/18/16 12:00 61 09/18/16 12:00 98.2 20 105/62 97 09/17/16 09:20 21 Intake and Output 09/17/16 09/17/16 09/18/16 08:00 16:00 00:00 Intake Total 971 ml 950 ml 819 ml Output Total 300 ml 550 ml 1000 ml Balance 671 ml 400 ml -181 ml Result Diagram: 09/18/16 0325 09/18/16 0325 Imaging Last Impressions Neck CTA 09/16/16 0000 Signed Impressions: Service Date/Time: Friday, September 16, 2016 11:02 - CONCLUSION: Mild atherosclerotic changes at the bulbs bilaterally but no significant stenosis identified. Benny Lima MD Head CTA 09/16/16 Signed Impressions: Service Date/Time: Friday, September 16, 2016 11:02 - CONCLUSION: Brain CTA within normal limits. Junior Recio MD Head CT 09/16/16 Signed Impressions: Service Date/Time: Friday, September 16, 2016 10:59 - CONCLUSION: No acute intracranial findings. Junior Recio MD Brain MRI 09/13/16 Signed Impressions: Service Date/Time: Tuesday, September 13, 2016 11:17 - CONCLUSION: 1. No acute hemorrhage, mass effect or acute infarction. 2. Mild increased signal in the white matter. This is not significantly changed. 3. Mild motion artifact. Mayo Moncada MD Chest X-Ray 09/08/16 Signed Impressions: Service Date/Time: Thursday, September 08, 2016 04:30 - CONCLUSION: 1. Cardiomegaly and findings of vascular congestion without overt failure. The findings have worsened when compared with the prior examination. Cleve Hernandez MD Lower Extremity Ultrasound 09/05/16 Signed Impressions: Service Date/Time: Monday, September 05, 2016 09:36 - CONCLUSION: There is normal compressibility of the deep venous system from the inguinal region to the proximal calf. No echogenic clot is seen in the lumen of the common femoral, femoral, popliteal, and posterior tibial veins. There is a normal response of the venous system to proximal and distal augmentation and respiration. MD CONCLUSION: Negative for deep venous thrombosis. Aman Freeman MD Liver Ultrasound 09/05/16 Signed Impressions: Service Date/Time: Monday, September 05, 2016 08:55 - CONCLUSION: 1. Moderate splenomegaly with no focal lesion. 2. Liver is normal in size but mildly increased in echogenicity. Mayo Moncada MD ADDENDUM: This study was rereviewed at Dr. Cross's request. The main portal vein and branch vessels are patent and demonstrate normal hepatopedal blood flow. Mayo Moncada MD Head Magnetic Resonance Angiography 09/05/16 Signed Impressions: Service Date/Time: Monday, September 05, 2016 17:27 - CONCLUSION: Normal MRA. Marcin Appiah MD Cervical Spine CT 4/28/17 0000 Signed Impressions: Service Date/Time: Monday, September 05, 2016 07:34 - CONCLUSION: Degenerative changes, negative for fracture. Aman Freeman MD FACR Objective Remarks GENERAL: 61-year-old male, currently on nasal cannula in no acute distress SKIN: Warm and dry. No rash HEAD: Atraumatic. Normocephalic. EYES: Equally round and react about 3 millimeters bilaterally. + Scleral icterus. No injection or drainage. ENT: No nasal bleeding or discharge. Mucous membranes pink and moist. Oropharynx without erythema or exudate or bleeding NECK: Trachea midline. No JVD. CARDIOVASCULAR: Tachycardic, RR. S1, S2 no S4 without murmur RESPIRATORY: Few crackles patient bases bilateral. No wheeze GASTROINTESTINAL: Abdomen soft, non-tender, minimally distended. Hypoactive bowel sounds MUSCULOSKELETAL: Extremities with trace lower extremity peripheral edema. No obvious deformities. NEUROLOGICAL: Cranial nerves II through grossly intact. Strength is equal/ symmetric bilaterally. Normal sensation. A/P Assessment and Plan Neuro/Psych: Acute toxic metabolic encephalopathy Hepatic encephalopathy History of depression THC positive Alcohol abuse Seizure Negative CT/head CTA head and neck yesterday. Anisocoria likely autonomic reaction. EEG 09/14: mod severe diffuse encephalopathy MRI brain 09/13: No acute hemorrhage, mass effect or acute infarction. Mild increased signal in the white matter. CT head 09/05 revealed no acute intracranial findings. MRI brain 09/05minimal increased periventricular white matter changes and abnormal focus of signal in right frontal lobe. MRA brain 09/05 normal EEG 09/05generalized slowing consistent with severe encephalopathy. No seizure activity Neurology consult. Appreciate Dr. Rodríguez's assistance Keppra 500 twice a day Continue. Thiamine/folate/multivitamin daily Monitor for DTs Seizure precautions D/C CIWA protocol. Patient with GCS around 8 this a.m. CV: Elevated troponin Hypertension h/o Dilated cardiomyopathy Seen by Dr. Falcon 07/25 admission. Recommended no intervention with multiple medical issues, alcoholism, thrombocytopenia and no chest pain. 2-D echocardiogram 07/25 - EF 55-60% right ventricle systolic pressure around 90 mmHg. Mild AR, MR. Left atrium and left ventricle and right ventricle all dilated Echo 09/05/16LVEF 60%. LV cavity size reported normal. No regional wall motion abnormalities. RV dilated. Normal wall thickness.TRUE 41 mmHg. EKG reveals sinus tachycardia 111. Left atrial enlargement. Incomplete RBBB with ST depression in V1 through V5. Troponin peaked at 2.38. Dr. Menchaca evaluated. Recommended follow-up with [facility] upon discharge. On propranolol 20 twice a day, with increased lisinopril 10 milligrams daily Resp: Acute respiratory failure- resolved Community acquired Pneumonia History of prior tobaccoism Continue with oxygen keep sat > 92% Bronchodilator therapy with DuoNeb's every 6 hours with albuterol every 2 hours when necessary dyspnea Aspiration precautions Patient had a negative CT of the chest 07/25 for pulmonary embolism GI: Hepatitis C unknown genotype Cirrhosis Elevated total bilirubin , downtrending Chronic mild protein energy malnutrition Hyperammonia Continue with tube feeds- Neutra hep at 60 cc an hour goal Past wall eval today. Liver ultrasoundmoderate splenomegaly. Increased echogenicity of the liver. Gallbladder normal. Protonix for GI prophylaxis Continue Xifaxan 550 milligrams twice a day; Lactulose 30 cc 4 times a day Ammonia level 26 FEN/RENAL: Acute kidney injury Hypokalemia Receiving potassium today Monitor renal function, I/O's, avoid nephrotoxins. On Free water 300ml Q6, Endo: Diabetes mellitus with neuropathy Sliding scale insulin with Accu-Cheks every 6 hours to maintain glycemia/medium protocol TSH normal Heme: Hypofibrinogenemia due underlying end-stage liver disease Prolonged PTT Thrombocytopenia - chronic History of right lower extremity DVT Right lower extremity Doppler 09/05negative for DVT Daily CBC. Hematology has signed off. s/p 1 pk platelets 09/14 ID: Community-acquired pneumonia vs aspiration Continue abx(cefepime) till 09/18 to finish 14 day course, off Azithromycin. Monitor for signs of infections ( Fever, WBC) Pertinent cultures Influenza negative negative 09/05 - blood cultures 2 - NGTD 09/05urine pneumococcal antigen and Legionella antigen negative. 09/05U/A negative for evidence of infection 09/06 - sputum culturenegative MAXILLOFACIAL: Superior nasal spine fracture Nonsurgical. Supportive care Access - PIV Prophylaxis - GI - Prevacid - DVT - SCD/holding pharmacological prophylaxis with thrombocytopenia level 2 Klever Cross MD September 18, 2016 14:16
[2016-09-19] VITALS (13 sets, daily range): BP systolic 92–173; BP diastolic 78–92; PULSE 63–79; RESP 18–24; TEMP 98.2–99.3; O2SAT 95–100
[2016-09-19] MEDS: RESP: ALBUTEROL 2.5 MG/IPRATROPIUM 0.5 MG NEB (SCH) INH ×4 (03:02→21:16)
[2016-09-19] MEDS: hydrALAZINE HCL 20 MG/ML VIAL IV PUSH PRN ×2 (03:13→20:23)
[2016-09-19] MEDS: CHLORHEXIDINE GLUCONATE 2 % 1 PACK (2 CLOTHS) TOP SCH (04:00)
[2016-09-19] MEDS: FREE WATER G-TUBE SCH ×3 (06:00→17:48)
[2016-09-19] MEDS: INSULIN ASPART SUPPLEMENTAL SCALE SQ SCH ×3 (06:03→17:48)
[2016-09-19] MEDS: POTASSIUM PHOSPHATE/SODIUM PHOSPHATE 250 MG TAB PO SCH ×3 (06:21→17:48)
[2016-09-19 07:00] LABS: HEMATOCRIT 34.3 % (39.0-51.0); MEAN CELL VOLUME 96.7 FL (80.0-100.0); MEAN CORPUSCULAR HEMOGLOBIN 33.8 PG (27.0-34.0); MEAN CORPUSCULAR HGB CONC 34.9 % (32.0-36.0); PLATELET COUNT 33 TH/MM3 (150-450); RED BLOOD COUNT 3.55 MIL/MM3 (4.50-5.90); RED CELL DISTRIBUTION WIDTH 15.9 % (11.6-17.2); WHITE BLOOD COUNT 5.6 TH/MM3 (4.0-11.0)
[2016-09-19 07:08] LABS: REVIEW FLAG FINAL
[2016-09-19 07:21] LABS: BICARBONATE 21.7 MEQ/L (21.0-32.0); MAGNESIUM 1.6 MG/DL (1.5-2.5); POTASSIUM 3.6 MEQ/L (3.5-5.1)
[2016-09-19] MEDS: CHLORHEXIDINE 0.12% (ORAL KIT) 15 ML CUP MT SCH ×2 (08:00→20:22)
[2016-09-19] MEDS: SODIUM CHLORIDE 0.9% FLUSH 10 ML FLUSH IV FLUSH SCH ×2 (09:00→20:22)
[2016-09-19] MEDS: LANSOPRAZOLE SOLUTAB 30 MG TAB NG SCH (09:58)
[2016-09-19] MEDS: levETIRAcetam INJ 500 MG in SODIUM CHLORIDE 0.9% INJ 100 ML IV SCH ×2 (09:58→20:21)
[2016-09-19] MEDS: LACTULOSE SYRUP 20 GM/30 ML CUP PO SCH ×4 (09:58→20:22)
[2016-09-19] MEDS: THIAMINE INJ 100 MG in SODIUM CHLORIDE 0.9% INJ 100 ML IV SCH (09:58)
[2016-09-19] MEDS: FOLIC ACID 1 MG TAB PO SCH (09:59)
[2016-09-19] MEDS: MULTIVITAMIN TAB PO SCH (09:59)
[2016-09-19] MEDS: PROPRANOLOL HCL 20 MG TAB PO SCH ×2 (09:59→20:22)
[2016-09-19] MEDS: RIFAXIMIN 550 MG TAB PO SCH ×2 (09:59→20:22)
[2016-09-19] MEDS: LISINOPRIL 10 MG TAB PO SCH (09:59)
[2016-09-19] MEDS: POTASSIUM CHLOR 10 MEQ PREMIX 100 ML IV SCH ×3 (14:30→16:30)
[2016-09-19] MEDS ORDERED: SODIUM PHOSPHATE INJ 30 MMOL in SODIUM CHLOR 0.9% 250 ML INJ 250 ML IV ONE (14:30)
--- NOTE | 2016-09-19 14:30 | HHI.CCPN ---
Subjective Remarks/Hospital Course 61yo male. Date of admission 09/05/2016. Past medical history includes depression, hypertension, hepatitis C with cirrhotic liver, diabetes mellitus with peripheral neuropathy, history of right lower extremity DVT, chronic thrombocytopenia and history of MRSA to left leg 2015. He is on metformin for diabetes. He presents to [facility] this a.m. with altered mental status. According to EMS report, pt's roommate states he has been " in and out of it " for 2 days. Today patient was found unresponsive on a couch by EMS. He has had 2 seizures in route the first lasted approximately 5 minutes was given 2 mg Ativan with another one approximate 1 minute duration received another 2 mg Ativan.. Given 2mg ativan and then another seizure about 10 min after the ativan so another 2 mg ativan given. Pt was moving all extremities but tachypneic and not responding to verbal stimuli. Pt was febrile in the ED. Patient was emergently intubated with a 7.5 ET tube after receiving 20 mg IV etomidate along with 60 mg IV rocuronium by Dr. Roblero. CT head - superior nasal spine fracture otherwise unremarkable CT C-spine -C5/6 mild disc bulge otherwise unremarkable Chest x-ray - bilateral hilar infiltrates. Cardiomegaly Pertinent labs revealed a normal white cell count, platelet count 37,000. Normal BMP, Lactic acidosis of 9.2, troponin 0.23, alcohol level 37 with positive THC level. NH3+ was 86 patient was going to be lumbar puncture in ED however platelet count is less than 50,000 the present time. Risk of spinal hematoma outweighs benefits of lumbar puncture this time. No consentable family members available currently. Patient is with one daughter he is close to. He also has a dog. In the ED, there is copious amounts of blood coming from the mouth. This was Yankauer suction to clear. Blood tinged sputum from ETT. NG tube with greenish bile gastric output. I removed one right lower denture. The left lower side is missing. 09/06 EEG showed generalized slowing. Imaging workup RN has noted ongoing bleeding from mouth and platelets 25k. Lactic acidosis cleared and urine output adequate. Ammonia 73. Has received 2 doses of lactulose and no bowel movement yet. 09/07 Following some commands intermittently today, RN resuming propofol after sedation vacation due to repeated coughing. Having BMs, ammonia downtrend to 67. Tolerating tube feeds. Hypertensive. 09/08: per nursing, following intermittent commands. however, was agitated requiring propofol for sedation and does not follow commands for me. continues to have diarrhea likely secondary to lactulose. 09/09: following commands this morning, still slightly somnolent, but much more awake than yesterday. diarrhea secondary to lactulose persists. 09/10: Extubated yesterday without application. Currently on 2 L nasal cannula. Passed swallow evaluation. Required intermittent Ativan for agitation withdrawal. 09/11: Received 4 mg Ativan overnight. Appropriate with responses but more somnolent this a.m. Compared to Yesterday. Tolerating diet. Positive BM. 09/12 No acute events overnight. Afebrile. 09/13: Patient currently moaning only. Not verbalizing words. Afebrile. On room air. Tube feeds started secondary to lack of oral intake 09/14: Remains minimally responsive. Protecting his airway though. Occasionally will squeeze hands to command. Noted ammonia level 67 today. 09/15 Patient remains encephalopathic afebrile. 09/16 Patient noted to have dilated /fixed right pupil this morning . For CTA brain per neuro. Afebrile. 09/17: Pupils are now equal. More awake and alert today than 2 days ago. Passed swallow evaluation. Normotensive. 09/18: Afebrile. Received Ativan overnight and currently quite somnolent. When he levels currently 26. Tolerating tube feeding with positive BMs. Subjective: 09/19: Afebrile. Pulled out NG tube overnight. Will need to be replaced. Occasionally lasting giggles inappropriately. Objective Vital Signs Date Time Temp Pulse Resp B/P Pulse Ox O2 Delivery O2 Flow Rate FiO2 09/19/16 12:00 67 09/19/16 08:00 98.2 20 161/86 99 09/17/16 09:20 21 Intake and Output 09/18/16 09/18/16 09/18/16 07:59 15:59 23:59 Intake Total 1080 ml 640 ml 1191 ml Output Total 900 ml 950 ml 900 ml Balance 180 ml -310 ml 291 ml Result Diagram: 09/19/16 0626 09/19/16 0621 Imaging Last Impressions Neck CTA 09/16/16 0000 Signed Impressions: Service Date/Time: Friday, September 16, 2016 11:02 - CONCLUSION: Mild atherosclerotic changes at the bulbs bilaterally but no significant stenosis identified. Benny Lima MD Head CTA 09/16/16 Signed Impressions: Service Date/Time: Friday, September 16, 2016 11:02 - CONCLUSION: Brain CTA within normal limits. Junior Recio MD Head CT 09/16/16 Signed Impressions: Service Date/Time: Friday, September 16, 2016 10:59 - CONCLUSION: No acute intracranial findings. Junior Recio MD Brain MRI 09/13/16 Signed Impressions: Service Date/Time: Tuesday, September 13, 2016 11:17 - CONCLUSION: 1. No acute hemorrhage, mass effect or acute infarction. 2. Mild increased signal in the white matter. This is not significantly changed. 3. Mild motion artifact. Mayo Moncada MD Chest X-Ray 09/08/16 Signed Impressions: Service Date/Time: Thursday, September 08, 2016 04:30 - CONCLUSION: 1. Cardiomegaly and findings of vascular congestion without overt failure. The findings have worsened when compared with the prior examination. Cleve Hernandez MD Lower Extremity Ultrasound 09/05/16 Signed Impressions: Service Date/Time: Monday, September 05, 2016 09:36 - CONCLUSION: There is normal compressibility of the deep venous system from the inguinal region to the proximal calf. No echogenic clot is seen in the lumen of the common femoral, femoral, popliteal, and posterior tibial veins. There is a normal response of the venous system to proximal and distal augmentation and respiration. CONCLUSION: Negative for deep venous thrombosis. Aman Freeman MD Liver Ultrasound 09/05/16 Signed Impressions: Service Date/Time: Monday, September 05, 2016 08:55 - CONCLUSION: 1. Moderate splenomegaly with no focal lesion. 2. Liver is normal in size but mildly increased in echogenicity. Mayo Moncada MD ADDENDUM: This study was rereviewed at Dr. Cross's request. The main portal vein and branch vessels are patent and demonstrate normal hepatopedal blood flow. Mayo Moncada MD Head Magnetic Resonance Angiography 09/05/16 Signed Impressions: Service Date/Time: Monday, September 05, 2016 17:27 - CONCLUSION: Normal MRA. Marcin Appiah MD Cervical Spine CT 09/05/16 0000 Signed Impressions: Service Date/Time: Monday, September 05, 2016 07:34 - CONCLUSION: Degenerative changes, negative for fracture. Aman Freeman MD FACR Objective Remarks GENERAL: 61-year-old male, currently on room air in no acute distress SKIN: Warm and dry. No rash HEAD: Atraumatic. Normocephalic. EYES: Equally round and react about 3 millimeters bilaterally. + Scleral icterus. No injection or drainage. ENT: No nasal bleeding or discharge. Mucous membranes pink and moist. Oropharynx without erythema or exudate or bleeding NECK: Trachea midline. No JVD. CARDIOVASCULAR: Tachycardic, RR. S1, S2 no S4 without murmur RESPIRATORY: Few crackles patient bases bilateral. No wheeze GASTROINTESTINAL: Abdomen soft, non-tender, minimally distended. Hypoactive bowel sounds MUSCULOSKELETAL: Extremities with trace lower extremity peripheral edema. No obvious deformities. NEUROLOGICAL: Cranial nerves II through grossly intact. Strength is equal/ symmetric bilaterally. Normal sensation. A/P Assessment and Plan Neuro/Psych: Acute toxic metabolic encephalopathy Hepatic encephalopathy History of depression THC positive Alcohol abuse Seizure Negative CT/head CTA head and neck yesterday. Anisocoria likely autonomic reaction. EEG 09/14: mod severe diffuse encephalopathy MRI brain 09/13: No acute hemorrhage, mass effect or acute infarction. Mild increased signal in the white matter. CT head 09/05 revealed no acute intracranial findings. MRI brain 09/05minimal increased periventricular white matter changes and abnormal focus of signal in right frontal lobe. MRA brain 09/05 normal EEG 09/05generalized slowing consistent with severe encephalopathy. No seizure activity Neurology consult. Appreciate Dr. Rodríguez's assistance Keppra 500 twice a day Continue. Thiamine/folate/multivitamin daily Monitor for DTs Seizure precautions D/C CIWA protocol. Check CT head today with thrombocytopenia CV: Elevated troponin Hypertension h/o Dilated cardiomyopathy Seen by Dr. Falcon 07/25 admission. Recommended no intervention with multiple medical issues, alcoholism, thrombocytopenia and no chest pain. 2-D echocardiogram 07/25 - EF 55-60% right ventricle systolic pressure around 90 mmHg. Mild AR, MR. Left atrium and left ventricle and right ventricle all dilated Echo 09/05/16LVEF 60%. LV cavity size reported normal. No regional wall motion abnormalities. RV dilated. Normal wall thickness.TRUE 41 mmHg. EKG reveals sinus tachycardia 111. Left atrial enlargement. Incomplete RBBB with ST depression in V1 through V5. Troponin peaked at 2.38. Dr. Menchaca evaluated. Recommended follow-up with [facility] upon discharge. On propranolol 20 twice a day, with increased lisinopril 10 milligrams daily Resp: Acute respiratory failure- resolved Community acquired Pneumonia History of prior tobaccoism Continue with oxygen if necessary keep sat > 92%. Currently ion room air Bronchodilator therapy with DuoNeb's every 6 hours with albuterol every 2 hours when necessary dyspnea Aspiration precautions Patient had a negative CT of the chest 07/25 for pulmonary embolism GI: Hepatitis C unknown genotype Cirrhosis Elevated total bilirubin , downtrending Chronic mild protein energy malnutrition Hyperammonia Continue with tube feeds- Neutra hep at 60 cc an hour goal Past wall eval today. Liver ultrasoundmoderate splenomegaly. Increased echogenicity of the liver. Gallbladder normal. Protonix for GI prophylaxis Continue Xifaxan 550 milligrams twice a day; Lactulose 30 cc 4 times a day Ammonia level 26 FEN/RENAL: Acute kidney injury Hypokalemia Hypophosphatemia Receiving potassium today 30 mEq 1 30 mmol sodium phosphate IV 1 Monitor renal function, I/O's, avoid nephrotoxins. On Free water 300ml Q6, Endo: Diabetes mellitus with neuropathy Sliding scale insulin with Accu-Cheks every 6 hours to maintain glycemia/medium protocol TSH normal Heme: Hypofibrinogenemia due underlying end-stage liver disease Prolonged PTT Thrombocytopenia - chronic History of right lower extremity DVT Right lower extremity Doppler 09/05negative for DVT Daily CBC. Hematology has signed off. s/p 1 pk platelets 09/14 ID: Community-acquired pneumonia vs aspiration Continue abx(cefepime) till 09/18 to finish 14 day course, off Azithromycin. Monitor for signs of infections ( Fever, WBC) Pertinent cultures Influenza negative negative 09/05 - blood cultures 2 - NGTD 09/05urine pneumococcal antigen and Legionella antigen negative. 09/05U/A negative for evidence of infection 09/06 - sputum culturenegative MAXILLOFACIAL: Superior nasal spine fracture Nonsurgical. Supportive care Access - PIV Prophylaxis - GI - Prevacid - DVT - SCD/holding pharmacological prophylaxis with thrombocytopenia level 2 Klever Cross MD September 19, 2016 14:30
--- NOTE | 2016-09-19 22:42 | RADRPT ---
EXAM DATE/TIME: 09/19/2016 22:09 [place] COMPARISON: CT BRAIN W/O CONTRAST, September 16, 2016, 10:59. INDICATIONS : Altered mental status. RADIATION DOSE: 36.71 CTDIvol (mGy) MEDICAL HISTORY : Hypertension. Cardiovascular disease Diabetes mellitus type 1.Hep C, cirrhosis SURGICAL HISTORY : None. ENCOUNTER: Subsequent ACUITY: 3 days PAIN SCALE: Non-responsive LOCATION: cranial TECHNIQUE: Multiple contiguous axial images were obtained of the head. Using automated exposure control and adj ustment of the mA and/or kV according to patient size, radiation dose was kept as low as reasonably a chievable to obtain optimal diagnostic quality images. FINDINGS: CEREBRUM: The ventricles are normal for age. No evidence of midline shift, mass lesion, hemorrhage or acute in farction. No extra-axial fluid collections are seen. POSTERIOR FOSSA: The cerebellum and brainstem are intact. The 4th ventricle is midline. The cerebellopontine angle i s unremarkable. EXTRACRANIAL: The visualized portion of the orbits is intact. SKULL: The calvaria is intact. No evidence of skull fracture. CONCLUSION: Normal examination. Marcin Gandhi MD on September 19, 2016 at 22:39 Board Certified Radiologist. This report was verified electronically.
[2016-09-20] VITALS (12 sets, daily range): BP systolic 142–166; BP diastolic 89–103; PULSE 63–95; RESP 16–24; TEMP 97.3–99.2; O2SAT 93–99
[2016-09-20] MEDS: CHLORHEXIDINE GLUCONATE 2 % 1 PACK (2 CLOTHS) TOP SCH (01:33)
[2016-09-20] MEDS: RESP: ALBUTEROL 2.5 MG/IPRATROPIUM 0.5 MG NEB (SCH) INH ×4 (03:39→21:14)
[2016-09-20 05:35] LABS: AUTOMATED NEUTROPHIL # 2.7 TH/MM3 (1.8-7.7); BASOPHIL % 0.8 % (0.0-2.0); EOSINOPHIL # 0.2 TH/MM3 (0-0.4); EOSINOPHIL % 3.8 % (0.0-4.0); HEMATOCRIT 36.7 % (39.0-51.0); LYMPH % 19.1 % (9.0-44.0); LYMPHOCYTE # 0.8 TH/MM3 (1.0-4.8); MEAN CELL VOLUME 97.3 FL (80.0-100.0); MEAN CORPUSCULAR HGB CONC 34.9 % (32.0-36.0); MONO % 14.2 % (0.0-8.0); NEUT % 62.1 % (16.0-70.0); PLATELET COUNT 32 TH/MM3 (150-450); RED BLOOD COUNT 3.77 MIL/MM3 (4.50-5.90); RED CELL DISTRIBUTION WIDTH 16.2 % (11.6-17.2); WHITE BLOOD COUNT 4.4 TH/MM3 (4.0-11.0)
[2016-09-20 05:37] LABS: HEMO FLAGS AUTO DIFF
[2016-09-20 05:57] LABS: ALKALINE PHOSPHATASE 95 U/L (45-117); ALT (GPT) 40 U/L (12-78); ANION GAP 10 MEQ/L (5-15); AST (GOT) 84 U/L (15-37); BICARBONATE 23.3 MEQ/L (21.0-32.0); BLOOD UREA NITROGEN 11 MG/DL (7-18); CHLORIDE 108 MEQ/L (98-107); CREATINE KINASE 104 U/L (39-308); GLOMERULAR FILTRATION RATE 132 ML/MIN (>89); MAGNESIUM 1.4 MG/DL (1.5-2.5); POTASSIUM 3.5 MEQ/L (3.5-5.1); SODIUM (NA) 141 MEQ/L (136-145)
[2016-09-20] MEDS: INSULIN ASPART SUPPLEMENTAL SCALE SQ SCH ×4 (05:58→17:30)
[2016-09-20] MEDS: FREE WATER G-TUBE SCH ×2 (05:58)
[2016-09-20 07:26] LABS: ACANTHOCYTES OCC (NORMAL); PLATELET ESTIMATE SMEAR LOW (NORMAL); PLATELET MORPHOLOGY NORMAL (NORMAL); SCAN/DIFF AUTO DIFF CONFIRMED
[2016-09-20] MEDS: MAGNESIUM SULFATE INJ 2 GM in SODIUM CHLORIDE 0.9% INJ 96 ML IV PRN (09:23)
[2016-09-20] MEDS: POTASSIUM CHLOR 20 MEQ PREMIX 100 ML IV PRN ×2 (09:24→13:33)
[2016-09-20] MEDS: CHLORHEXIDINE 0.12% (ORAL KIT) 15 ML CUP MT SCH (09:24)
[2016-09-20] MEDS: THIAMINE INJ 100 MG in SODIUM CHLORIDE 0.9% INJ 100 ML IV SCH (09:25)
[2016-09-20] MEDS: SODIUM CHLORIDE 0.9% FLUSH 10 ML FLUSH IV FLUSH SCH ×2 (09:25→22:00)
[2016-09-20] MEDS: levETIRAcetam INJ 500 MG in SODIUM CHLORIDE 0.9% INJ 100 ML IV SCH ×2 (09:25→22:07)
[2016-09-20] MEDS: LISINOPRIL 10 MG TAB PO SCH (09:25)
[2016-09-20] MEDS: PROPRANOLOL HCL 20 MG TAB PO SCH ×2 (09:25→22:00)
[2016-09-20] MEDS: RIFAXIMIN 550 MG TAB PO SCH ×2 (09:25→22:00)
[2016-09-20] MEDS: LANSOPRAZOLE SOLUTAB 30 MG TAB NG SCH (09:25)
[2016-09-20] MEDS: LACTULOSE SYRUP 20 GM/30 ML CUP PO SCH ×4 (09:26→22:00)
[2016-09-20] MEDS: FOLIC ACID 1 MG TAB PO SCH (09:26)
[2016-09-20] MEDS: MULTIVITAMIN TAB PO SCH (09:26)
--- NOTE | 2016-09-20 11:24 | HHI.CCPN ---
Subjective Remarks/Hospital Course 61yo male. Date of admission 09/05/2016. Past medical history includes depression, hypertension, hepatitis C with cirrhotic liver, diabetes mellitus with peripheral neuropathy, history of right lower extremity DVT, chronic thrombocytopenia and history of MRSA to left leg 2015. He is on metformin for diabetes. He presents to [facility] this a.m. with altered mental status. According to EMS report, pt's roommate states he has been " in and out of it " for 2 days. Today patient was found unresponsive on a couch by EMS. He has had 2 seizures in route the first lasted approximately 5 minutes was given 2 mg Ativan with another one approximate 1 minute duration received another 2 mg Ativan.. Given 2mg ativan and then another seizure about 10 min after the ativan so another 2 mg ativan given. Pt was moving all extremities but tachypneic and not responding to verbal stimuli. Pt was febrile in the ED. Patient was emergently intubated with a 7.5 ET tube after receiving 20 mg IV etomidate along with 60 mg IV rocuronium by Dr. Roblero. CT head - superior nasal spine fracture otherwise unremarkable CT C-spine -C5/6 mild disc bulge otherwise unremarkable Chest x-ray - bilateral hilar infiltrates. Cardiomegaly Pertinent labs revealed a normal white cell count, platelet count 37,000. Normal BMP, Lactic acidosis of 9.2, troponin 0.23, alcohol level 37 with positive THC level. NH3+ was 86 patient was going to be lumbar puncture in ED however platelet count is less than 50,000 the present time. Risk of spinal hematoma outweighs benefits of lumbar puncture this time. No consentable family members available currently. Patient is with one daughter he is close to. He also has a dog. In the ED, there is copious amounts of blood coming from the mouth. This was Yankauer suction to clear. Blood tinged sputum from ETT. NG tube with greenish bile gastric output. I removed one right lower denture. The left lower side is missing. 09/06 EEG showed generalized slowing. Imaging workup RN has noted ongoing bleeding from mouth and platelets 25k. Lactic acidosis cleared and urine output adequate. Ammonia 73. Has received 2 doses of lactulose and no bowel movement yet. 09/07 Following some commands intermittently today, RN resuming propofol after sedation vacation due to repeated coughing. Having BMs, ammonia downtrend to 67. Tolerating tube feeds. Hypertensive. 09/08: per nursing, following intermittent commands. however, was agitated requiring propofol for sedation and does not follow commands for me. continues to have diarrhea likely secondary to lactulose. 09/09: following commands this morning, still slightly somnolent, but much more awake than yesterday. diarrhea secondary to lactulose persists. 09/10: Extubated yesterday without application. Currently on 2 L nasal cannula. Passed swallow evaluation. Required intermittent Ativan for agitation withdrawal. 09/11: Received 4 mg Ativan overnight. Appropriate with responses but more somnolent this a.m. Compared to Yesterday. Tolerating diet. Positive BM. 09/12 No acute events overnight. Afebrile. 09/13: Patient currently moaning only. Not verbalizing words. Afebrile. On room air. Tube feeds started secondary to lack of oral intake 09/14: Remains minimally responsive. Protecting his airway though. Occasionally will squeeze hands to command. Noted ammonia level 67 today. 09/15 Patient remains encephalopathic afebrile. 09/16 Patient noted to have dilated /fixed right pupil this morning . For CTA brain per neuro. Afebrile. 09/17: Pupils are now equal. More awake and alert today than 2 days ago. Passed swallow evaluation. Normotensive. 09/18: Afebrile. Received Ativan overnight and currently quite somnolent. When he levels currently 26. Tolerating tube feeding with positive BMs. 09/19: Afebrile. Pulled out NG tube overnight. Will need to be replaced. Occasionally lasting giggles inappropriately. Subjective: 09/20: passed swallow eval. did not replace NG tube due to passed swallow study. replacing K and Mg. much more awake and alert today. still confused. Objective Vital Signs Date Time Temp Pulse Resp B/P Pulse Ox O2 Delivery O2 Flow Rate FiO2 09/20/16 08:35 97 09/20/16 06:00 79 09/20/16 04:00 98.2 24 162/103 09/17/16 09:20 21 Intake and Output 09/19/16 09/19/16 09/20/16 08:00 16:00 00:00 Intake Total 796 ml 450 ml 236 ml Output Total 900 ml 400 ml 450 ml Balance -104 ml 50 ml -214 ml Result Diagram: 09/20/1618 09/20/16517 Imaging Last Impressions Neck CTA 09/16/16 Signed Impressions: Service Date/Time: Friday, September 16, 2016 11:02 - CONCLUSION: Mild atherosclerotic changes at the bulbs bilaterally but no significant stenosis identified. Benny Lima MD Head CTA 09/16/16 Signed Impressions: Service Date/Time: Friday, September 16, 2016 11:02 - CONCLUSION: Brain CTA within normal limits. Junior Recio MD Head CT 09/16/16 Signed Impressions: Service Date/Time: Friday, September 16, 2016 10:59 - CONCLUSION: No acute intracranial findings. Junior Recio MD Brain MRI 09/13/16 Signed Impressions: Service Date/Time: Tuesday, September 13, 2016 11:17 - CONCLUSION: 1. No acute hemorrhage, mass effect or acute infarction. 2. Mild increased signal in the white matter. This is not significantly changed. 3. Mild motion artifact. Mayo Moncada MD Chest X-Ray 09/08/16 Signed Impressions: Service Date/Time: Thursday, September 08, 2016 04:30 - CONCLUSION: 1. Cardiomegaly and findings of vascular congestion without overt failure. The findings have worsened when compared with the prior examination. Cleve Hernandez MD Lower Extremity Ultrasound 09/05/16 Signed Impressions: Service Date/Time: Monday, September 05, 2016 09:36 - CONCLUSION: There is normal compressibility of the deep venous system from the inguinal region to the proximal calf. No echogenic clot is seen in the lumen of the common femoral, femoral, popliteal, and posterior tibial veins. There is a normal response of the venous system to proximal and distal augmentation and respiration. CONCLUSION: Negative for deep venous thrombosis. Aman Freeman MD Liver Ultrasound 09/05/16 Signed Impressions: Service Date/Time: Monday, September 05, 2016 08:55 - CONCLUSION: 1. Moderate splenomegaly with no focal lesion. 2. Liver is normal in size but mildly increased in echogenicity. Mayo Moncada MD ADDENDUM: This study was rereviewed at Dr. Cross's request. The main portal vein and branch vessels are patent and demonstrate normal hepatopedal blood flow. Mayo Moncada MD Head Magnetic Resonance Angiography 09/05/16 0000 Signed Impressions: Service Date/Time: Monday, September 05, 2016 17:27 - CONCLUSION: Normal MRA. Maricn Appiah MD Cervical Spine CT 09/05/16 0000 Signed Impressions: Service Date/Time: Monday, September 05, 2016 07:34 - CONCLUSION: Degenerative changes, negative for fracture. Aman Freeman MD FACR Objective Remarks GENERAL: 61-year-old male, currently on room air in no acute distress SKIN: Warm and dry. No rash HEAD: Atraumatic. Normocephalic. EYES: Equally round and react about 3 millimeters bilaterally. + Scleral icterus. No injection or drainage. ENT: No nasal bleeding or discharge. Mucous membranes pink and moist. Oropharynx without erythema or exudate or bleeding NECK: Trachea midline. No JVD. CARDIOVASCULAR: normal rate, regular rhythm. sinus by tele. RESPIRATORY: Few crackles patient bases bilateral. No wheeze. on room air. GASTROINTESTINAL: Abdomen soft, non-tender, minimally distended. Hypoactive bowel sounds MUSCULOSKELETAL: Extremities with trace lower extremity peripheral edema. No obvious deformities. NEUROLOGICAL: Cranial nerves II through grossly intact. Strength is equal/ symmetric bilaterally. Normal sensation. not oriented this morning, but very awake. RASS 0. CAM + A/P Assessment and Plan Neuro/Psych: Acute toxic metabolic encephalopathy Hepatic encephalopathy History of depression THC positive Alcohol abuse Seizure Negative CT/head CTA head and neck yesterday. Anisocoria likely autonomic reaction. EEG 09/14: mod severe diffuse encephalopathy MRI brain 09/13: No acute hemorrhage, mass effect or acute infarction. Mild increased signal in the white matter. CT head 09/05 revealed no acute intracranial findings. MRI brain 09/05minimal increased periventricular white matter changes and abnormal focus of signal in right frontal lobe. MRA brain 09/05 normal EEG 09/05generalized slowing consistent with severe encephalopathy. No seizure activity Neurology consult. Appreciate Dr. Rodríguez's assistance Keppra 500 twice a day Continue. Thiamine/folate/multivitamin daily Monitor for DTs Seizure precautions CT head 09/19 negative. much more awake. avoid sedating meds. CV: Elevated troponin Hypertension h/o Dilated cardiomyopathy Seen by Dr. Falcon 07/25 admission. Recommended no intervention with multiple medical issues, alcoholism, thrombocytopenia and no chest pain. 2-D echocardiogram 07/25 - EF 55-60% right ventricle systolic pressure around 90 mmHg. Mild AR, MR. Left atrium and left ventricle and right ventricle all dilated Echo 09/05/16LVEF 60%. LV cavity size reported normal. No regional wall motion abnormalities. RV dilated. Normal wall thickness.TRUE 41 mmHg. EKG reveals sinus tachycardia 111. Left atrial enlargement. Incomplete RBBB with ST depression in V1 through V5. Troponin peaked at 2.38. Dr. Menchaca evaluated. Recommended follow-up with [facility] upon discharge. On propranolol 20 twice a day, lisinopril 10 milligrams daily Resp: Acute respiratory failure- resolved Community acquired Pneumonia History of prior tobaccoism Continue with oxygen if necessary keep sat > 92%. Currently ion room air Bronchodilator therapy with DuoNeb's every 6 hours with albuterol every 2 hours when necessary dyspnea Aspiration precautions Patient had a negative CT of the chest 07/25 for pulmonary embolism Will attempt to get patient OOB and walking. to chair daily. GI: Hepatitis C unknown genotype Cirrhosis Elevated total bilirubin , downtrending Chronic mild protein energy malnutrition Hyperammonia on soft mechanical diet. stop TF. Liver ultrasoundmoderate splenomegaly. Increased echogenicity of the liver. Gallbladder normal. Protonix for GI prophylaxis Continue Xifaxan 550 milligrams twice a day; Lactulose 30 cc 4 times a day Ammonia level 26 FEN/RENAL: Acute kidney injury Hypokalemia Hypophosphatemia continue aggressive electrolyte replacement daily BMP Monitor renal function, I/O's, avoid nephrotoxins. Endo: Diabetes mellitus with neuropathy Sliding scale insulin with Accu-Cheks every 6 hours to maintain glycemia/medium protocol TSH normal Heme: Hypofibrinogenemia due underlying end-stage liver disease Prolonged PTT Thrombocytopenia - chronic History of right lower extremity DVT Right lower extremity Doppler 09/05negative for DVT Daily CBC. Hematology has signed off. s/p 1 pk platelets 09/14 ID: Community-acquired pneumonia vs aspiration- resolved. s/p Azithro and 14 day course of Cefepime. Pertinent cultures Influenza negative negative 09/05 - blood cultures 2 - NGTD 09/05urine pneumococcal antigen and Legionella antigen negative. 09/05U/A negative for evidence of infection 09/06 - sputum culturenegative MAXILLOFACIAL: Superior nasal spine fracture Nonsurgical. Supportive care Access - PIV - d/c stanford catheter. Prophylaxis - GI - Prevacid - DVT - SCD/holding pharmacological prophylaxis with thrombocytopenia Dispo: transfer to hospitalist service. transfer to floor. Favian Daniel MD September 20, 2016 11:24
[2016-09-20] MEDS ORDERED: ACETAMINOPHEN 500 MG CPLT PO PRN (11:30)
[2016-09-20] MEDS: hydrALAZINE HCL 20 MG/ML VIAL IV PUSH PRN (12:30)
[2016-09-21] VITALS (8 sets, daily range): BP systolic 142–159; BP diastolic 81–93; PULSE 71–86; RESP 16–20; TEMP 97.1–98.9; O2SAT 94–97
[2016-09-21] MEDS: CHLORHEXIDINE GLUCONATE 2 % 1 PACK (2 CLOTHS) TOP SCH (04:00)
[2016-09-21] MEDS: RESP: ALBUTEROL 2.5 MG/IPRATROPIUM 0.5 MG NEB (SCH) INH ×4 (05:02→21:02)
[2016-09-21] MEDS: INSULIN ASPART SUPPLEMENTAL SCALE SQ SCH ×5 (05:08→23:50)
[2016-09-21 06:02] LABS: HEMATOCRIT 39.2 % (39.0-51.0); MEAN CELL VOLUME 97.7 FL (80.0-100.0); MEAN CORPUSCULAR HEMOGLOBIN 33.9 PG (27.0-34.0); MEAN CORPUSCULAR HGB CONC 34.7 % (32.0-36.0); PLATELET COUNT 45 TH/MM3 (150-450); RED BLOOD COUNT 4.01 MIL/MM3 (4.50-5.90); RED CELL DISTRIBUTION WIDTH 16.4 % (11.6-17.2); WHITE BLOOD COUNT 5.6 TH/MM3 (4.0-11.0)
[2016-09-21 06:11] LABS: REVIEW FLAG FINAL
[2016-09-21 06:26] LABS: BICARBONATE 22.1 MEQ/L (21.0-32.0)
[2016-09-21] MEDS: LANSOPRAZOLE SOLUTAB 30 MG TAB NG SCH (07:50)
[2016-09-21] MEDS: LACTULOSE SYRUP 20 GM/30 ML CUP PO SCH ×4 (07:51→20:43)
[2016-09-21] MEDS: levETIRAcetam INJ 500 MG in SODIUM CHLORIDE 0.9% INJ 100 ML IV SCH ×2 (07:51→20:42)
[2016-09-21] MEDS: RIFAXIMIN 550 MG TAB PO SCH ×2 (07:51→20:42)
[2016-09-21] MEDS: FOLIC ACID 1 MG TAB PO SCH (07:51)
[2016-09-21] MEDS: PROPRANOLOL HCL 20 MG TAB PO SCH ×2 (07:51→20:43)
[2016-09-21] MEDS: LISINOPRIL 10 MG TAB PO SCH (07:51)
[2016-09-21] MEDS: MULTIVITAMIN TAB PO SCH (07:51)
[2016-09-21] MEDS: SODIUM CHLORIDE 0.9% FLUSH 10 ML FLUSH IV FLUSH SCH ×2 (07:52→20:42)
[2016-09-21] MEDS: THIAMINE INJ 100 MG in SODIUM CHLORIDE 0.9% INJ 100 ML IV SCH (07:52)
--- NOTE | 2016-09-21 17:00 | HHI.PR ---
Subjective Remarks when I first walked into pt's room he was laying on his left side, staring, not moving. I called out his name multiple times and he didn't answer or make any movements. I spoke w RN and apparently he has been like this all morning, didn' t eat anything, but last night he had eaten 50% of his meals and was more awake and alert. Pt mumbled for her and said about 3 words but no more. I called Dr. Daniel, data entry, who is familiar w patient, he came down to see the patient again with me and when we both arrived, pt was sitting up, had a smile on his face w this strange laugh, mumbled a few words but didn't really speak, he was able to move his hands a bit but we had to stimulate him to do so. Family member was present and tried to hold his hand and noticed that thumb was stiff, but when Dr. Daniel move it around it wasn't. Per nursing aid, pt took a few sips of water for her throughout the day. Objective Vitals Vital Signs Date Time Temp Pulse Resp B/P Pulse Ox O2 Delivery O2 Flow Rate FiO2 09/21/16 16:11 21 09/21/16 12:00 98.9 74 20 147/81 97 09/21/16 09:59 94 21 09/21/16 08:00 86 09/21/16 08:00 98.2 74 16 144/82 95 09/21/16 04:00 97.3 73 20 157/90 96 09/21/16 00:00 97.4 72 20 142/83 96 09/20/16 21:15 96 21 09/20/16 20:00 72 09/20/16 20:00 97.3 65 20 155/103 97 I/O 09/20/16 09/20/16 09/20/16 09/21/16 09/21/16 09/21/16 07:00 15:00 23:00 07:00 15:00 23:00 Intake Total 273 ml 972 ml 120 ml Output Total 350 ml 300 ml 0 ml 450 ml Balance -77 ml 672 ml 120 ml -450 ml Intake Oral 360 ml 120 ml IV Total 273 ml 612 ml Tube Feeding 0 ml Output Urine Total 350 ml 300 ml 0 ml 450 ml Bladder Scan Volume Amount 400 ml # Voids 0 # Bowel Movements 1 0 5 Result Diagram: 09/21/16 0544 09/21/16 0544 Imaging Last Impressions Head CT 09/19/16 Signed Impressions: Service Date/Time: Monday, September 19, 2016 22:09 - CONCLUSION: Normal examination. Marcin Gandhi MD Neck CTA 09/16/16 Signed Impressions: Service Date/Time: Friday, September 16, 2016 11:02 - CONCLUSION: Mild atherosclerotic changes at the bulbs bilaterally but no significant stenosis identified. Benny Lima MD Head CTA 09/16/16 Signed Impressions: Service Date/Time: Friday, September 16, 2016 11:02 - CONCLUSION: Brain CTA within normal limits. Junior Recio MD Brain MRI 09/13/16 Signed Impressions: Service Date/Time: Tuesday, September 13, 2016 11:17 - CONCLUSION: 1. No acute hemorrhage, mass effect or acute infarction. 2. Mild increased signal in the white matter. This is not significantly changed. 3. Mild motion artifact. Mayo Moncada MD Chest X-Ray 09/08/16 Signed Impressions: Service Date/Time: Thursday, September 08, 2016 04:30 - CONCLUSION: 1. Cardiomegaly and findings of vascular congestion without overt failure. The findings have worsened when compared with the prior examination. Cleve Hernandez MD Lower Extremity Ultrasound 09/05/16 Signed Impressions: Service Date/Time: Monday, September 05, 2016 09:36 - CONCLUSION: There is normal compressibility of the deep venous system from the inguinal region to the proximal calf. No echogenic clot is seen in the lumen of the common femoral, femoral, popliteal, and posterior tibial veins. There is a normal response of the venous system to proximal and distal augmentation and respiration. CONCLUSION: Negative for deep venous thrombosis. Aman Freeman MD Liver Ultrasound 09/05/16 Signed Impressions: Service Date/Time: Monday, September 05, 2016 08:55 - CONCLUSION: 1. Moderate splenomegaly with no focal lesion. 2. Liver is normal in size but mildly increased in echogenicity. Mayo Moncada MD ADDENDUM: This study was rereviewed at Dr. Cross's request. The main portal vein and branch vessels are patent and demonstrate normal hepatopedal blood flow. Mayo Moncada MD Head Magnetic Resonance Angiography 09/05/16 0000 Signed Impressions: Service Date/Time: Monday, September 05, 2016 17:27 - CONCLUSION: Normal MRA. Marcin Appiah MD Cervical Spine CT 09/05/16 0000 Signed Impressions: Service Date/Time: Monday, September 05, 2016 07:34 - CONCLUSION: Degenerative changes, negative for fracture. Aman Freeman MD FACR Objective Remarks GENERAL: 61-year-old male, currently on room air in no acute distress SKIN: Warm and dry. No rash HEAD: Atraumatic. Normocephalic. EYES: Equally round and react about 3 millimeters bilaterally. + Scleral icterus. No injection or drainage. CARDIOVASCULAR: normal rate, regular rhythm. sinus by tele. RESPIRATORY: Few crackles patient bases bilateral. No wheeze. on room air. GASTROINTESTINAL: Abdomen soft, non-tender, minimally distended. Hypoactive bowel sounds MUSCULOSKELETAL: Extremities with trace lower extremity peripheral edema. No obvious deformities. NEUROLOGICAL: Cranial nerves II through grossly intact. initially pt was just laying on his left side, he was difficult to move as he was somewhat stiff, he stared down and wouldn't interact w myself and RN, when I stroke the bottom of his feet, he would move his lower extremities. I attempted to give him some ensure but he wouldn't even try to drink through the straw. During my second encounter, Dr Daniel was present and pt was sitting, with a smile and strange laugh, he did move arms and legs a bit, unsure if he understands what we ask him. Difficult to truly assess strength at this time, but he is more alert and awake. A/P Problem List: (1) Altered mental status ICD Code: R41.82 Status: Acute (2) HCV (hepatitis C virus) ICD Code: B19.20 Status: Acute (3) Major depressive disorder ICD Code: F32.9 Status: Acute (4) Cirrhosis of liver ICD Code: K74.60 Status: Acute (5) Diabetic peripheral neuropathy ICD Code: E13.42 Status: Acute (6) DM (diabetes mellitus), type 2, uncontrolled ICD Code: E11.65 Status: Acute (7) Thrombocytopenia ICD Code: D69.6 Status: Acute (8) Hyperammonemia ICD Code: E72.20 Status: Acute (9) Lactic acidosis ICD Code: E87.2 Status: Acute (10) History of DVT (deep vein thrombosis) ICD Code: Z86.718 Status: Acute (11) Elevated troponin ICD Code: R74.8 Status: Acute (12) Tetrahydrocannabinol (THC) use disorder, mild, abuse ICD Code: F12.10 Status: Acute (13) Hypertension ICD Code: I10 Status: Acute (14) Bulge of cervical disc without myelopathy ICD Code: M50.20 Status: Acute (15) Acute respiratory failure ICD Code: J96.00 Status: Acute (16) Septic shock ICD Code: A41.9 Status: Acute Assessment and Plan Neuro/Psych: Acute toxic metabolic encephalopathy Hepatic encephalopathy History of depression THC positive Alcohol abuse Seizure Negative CT/head CTA head and neck yesterday. Anisocoria likely autonomic reaction. EEG 09/14: mod severe diffuse encephalopathy MRI brain 09/13: No acute hemorrhage, mass effect or acute infarction. Mild increased signal in the white matter. CT head 09/05 revealed no acute intracranial findings. MRI brain 09/05minimal increased periventricular white matter changes and abnormal focus of signal in right frontal lobe. MRA brain 09/05 normal EEG 09/05generalized slowing consistent with severe encephalopathy. No seizure activity Neurology consult. Appreciate Dr. Rodríguez's assistance Keppra 500 twice a day Continue. Thiamine/folate/multivitamin daily Monitor for DTs Seizure precautions CT head 09/19 negative. awake after my second visit which was totally different from when I initially saw him today. Will get a psychiatry consult to evaluate pt. After extensive discussion w Dr. Daniel, it appears that it has been difficult to pinpoint a cause to pt's condition from a neurologic standpoint. EEGs have been neg for seizure and only concerning for encephalopathy. Continue to avoid any sedating meds. Ammonia level yesterday was 33. will recheck in AM. CV: Elevated troponin Hypertension h/o Dilated cardiomyopathy Seen by Dr. Falcon 07/25 admission. Recommended no intervention with multiple medical issues, alcoholism, thrombocytopenia and no chest pain. 2-D echocardiogram 07/25 - EF 55-60% right ventricle systolic pressure around 90 mmHg. Mild AR, MR. Left atrium and left ventricle and right ventricle all dilated Echo 09/05/16LVEF 60%. LV cavity size reported normal. No regional wall motion abnormalities. RV dilated. Normal wall thickness.TRUE 41 mmHg. EKG reveals sinus tachycardia 111. Left atrial enlargement. Incomplete RBBB with ST depression in V1 through V5. Troponin peaked at 2.38. Dr. Menchaca evaluated. Recommended follow-up with [facility] upon discharge. On propranolol 20 twice a day, lisinopril 10 milligrams daily Resp: Acute respiratory failure- resolved Community acquired Pneumonia History of prior tobaccoism Continue with oxygen if necessary keep sat > 92%. Currently ion room air Bronchodilator therapy with DuoNeb's every 6 hours with albuterol every 2 hours when necessary dyspnea Aspiration precautions Patient had a negative CT of the chest 07/25 for pulmonary embolism PT to continue to work w pt GI: Hepatitis C unknown genotype Cirrhosis Elevated total bilirubin , downtrending Chronic mild protein energy malnutrition Hyperammonia on soft mechanical diet. but apparently pt hasn't eaten anything all day. will consult education professor to assist w calory count. Liver ultrasoundmoderate splenomegaly. Increased echogenicity of the liver. Gallbladder normal. Protonix for GI prophylaxis Continue Xifaxan 550 milligrams twice a day; Lactulose 30 cc 4 times a day Ammonia level 26 FEN/RENAL: Acute kidney injury Hypokalemia Hypophosphatemia continue aggressive electrolyte replacement daily BMP Monitor renal function, I/O's, avoid nephrotoxins. Endo: Diabetes mellitus with neuropathy Sliding scale insulin with Accu-Cheks every 6 hours to maintain glycemia/medium protocol TSH normal Heme: Hypofibrinogenemia due underlying end-stage liver disease Prolonged PTT Thrombocytopenia - chronic History of right lower extremity DVT Right lower extremity Doppler 09/05negative for DVT Daily CBC. Hematology has signed off. s/p 1 pk platelets 09/14 ID: Community-acquired pneumonia vs aspiration- resolved. s/p Azithro and 14 day course of Cefepime. Pertinent cultures Influenza negative negative 09/05 - blood cultures 2 - NGTD 09/05urine pneumococcal antigen and Legionella antigen negative. 09/05U/A negative for evidence of infection 09/06 - sputum culturenegative MAXILLOFACIAL: Superior nasal spine fracture Nonsurgical. Supportive care Prophylaxis - GI - Prevacid - DVT - SCD/holding pharmacological prophylaxis with thrombocytopenia Discharge Planning d/c pending further work-up and clinical improvement. psychiatry consult pending Problem Qualifiers (1) Altered mental status: Qualified Code: R40.2431 - [place] coma scale total score 3-8, in the field ( EMT or ambulance) (2) HCV (hepatitis C virus): Qualified Code: B19.20 - Hepatitis C virus infection without hepatic coma, unspecified chronicity (3) Major depressive disorder: Qualified Code: F33.9 - Recurrent major depressive disorder, remission status unspecified (4) Cirrhosis of liver: Qualified Code: K70.30 - Alcoholic cirrhosis of liver without ascites (5) DM (diabetes mellitus), type 2, uncontrolled: Qualified Code: E11.42 - Uncontrolled type 2 diabetes mellitus with diabetic polyneuropathy, without long-term current use of insulin (6) Hypertension: Qualified Code: I10 - Essential hypertension (7) Acute respiratory failure: Qualified Code: J96.01 - Acute respiratory failure with hypoxia and hypercapnia Shey Yuen MD September 21, 2016 17:00
[2016-09-22] VITALS (9 sets, daily range): BP systolic 150–166; BP diastolic 74–93; PULSE 64–84; RESP 16–20; TEMP 97.3–98.1; O2SAT 95–98
[2016-09-22] MEDS: RESP: ALBUTEROL 2.5 MG/IPRATROPIUM 0.5 MG NEB (SCH) INH ×2 (04:00→09:10)
[2016-09-22] MEDS: CHLORHEXIDINE GLUCONATE 2 % 1 PACK (2 CLOTHS) TOP SCH (04:00)
[2016-09-22] MEDS: INSULIN ASPART SUPPLEMENTAL SCALE SQ SCH ×3 (05:00→18:00)
[2016-09-22 06:18] LABS: AUTOMATED NEUTROPHIL # 1.9 TH/MM3 (1.8-7.7); BASOPHIL % 0.7 % (0.0-2.0); EOSINOPHIL # 0.1 TH/MM3 (0-0.4); EOSINOPHIL % 2.8 % (0.0-4.0); HEMATOCRIT 32.7 % (39.0-51.0); LYMPH % 27.9 % (9.0-44.0); LYMPHOCYTE # 1.1 TH/MM3 (1.0-4.8); MEAN CELL VOLUME 97.3 FL (80.0-100.0); MONO % 20.1 % (0.0-8.0); NEUT % 48.5 % (16.0-70.0); PLATELET COUNT 38 TH/MM3 (150-450); RED BLOOD COUNT 3.36 MIL/MM3 (4.50-5.90); RED CELL DISTRIBUTION WIDTH 16.3 % (11.6-17.2); WHITE BLOOD COUNT 3.9 TH/MM3 (4.0-11.0)
[2016-09-22 06:20] LABS: HEMO FLAGS AUTO DIFF
[2016-09-22 06:33] LABS: BICARBONATE 21.8 MEQ/L (21.0-32.0); POTASSIUM 3.8 MEQ/L (3.5-5.1)
[2016-09-22 07:06] LABS: BANDS 1 % (0-6); BASOPHILS 1 % (0-2); EOSINOPHILS 2 % (0-4); NEUTROPHIL # MANUAL DIFF 2.5 TH/MM3 (1.8-7.7); POLYS (SEG NEUTROPHILS) 64 % (16-70); WBC DIFF SAMPLE 100
[2016-09-22 07:08] LABS: HELMET CELLS OCC (NORMAL); PLATELET ESTIMATE SMEAR LOW (NORMAL); PLATELET MORPHOLOGY NORMAL (NORMAL); SCAN/DIFF FINAL DIFF MANUAL
[2016-09-22] MEDS: LACTULOSE SYRUP 20 GM/30 ML CUP PO SCH ×4 (09:05→21:21)
[2016-09-22] MEDS: FOLIC ACID 1 MG TAB PO SCH (09:06)
[2016-09-22] MEDS: MULTIVITAMIN TAB PO SCH (09:06)
[2016-09-22] MEDS: levETIRAcetam INJ 500 MG in SODIUM CHLORIDE 0.9% INJ 100 ML IV SCH ×2 (09:06→21:21)
[2016-09-22] MEDS: SODIUM CHLORIDE 0.9% FLUSH 10 ML FLUSH IV FLUSH SCH ×2 (09:06→21:24)
[2016-09-22] MEDS: LISINOPRIL 10 MG TAB PO SCH (09:06)
[2016-09-22] MEDS: LANSOPRAZOLE SOLUTAB 30 MG TAB NG SCH (09:06)
[2016-09-22] MEDS: RIFAXIMIN 550 MG TAB PO SCH ×2 (09:06→21:20)
[2016-09-22] MEDS: PROPRANOLOL HCL 20 MG TAB PO SCH ×2 (09:06→21:20)
[2016-09-22] MEDS: THIAMINE INJ 100 MG in SODIUM CHLORIDE 0.9% INJ 100 ML IV SCH (09:10)
--- NOTE | 2016-09-22 14:23 | PD.CONS ---
Provisional Diagnosis Admission Date Sep 05, 2016 at 08:15 [place]. Major neurocognitive disorder vs delirium due to underlying medical conditions, history of depression History of Present Illness Service Psychiatry Consult Requested By Primary Care Physician [facility] HPI The patient is a 61 year old man, with psychiatric history of depression as per record, admitted in the hospital last 09/05/2016, medical history includes hypertension, hepatitis C with cirrhotic liver, diabetes mellitus with peripheral neuropathy, history of right lower extremity DVT, chronic thrombocytopenia and history of MRSA to left leg 2014, who presents to [facility] this a.m. with altered mental status. According to EMS report, pt's roommate states he has been " in and out of it " for 2 days. Today patient was found unresponsive on a couch by EMS. Patient was emergently intubated with a 7.5 ET tube after receiving 20 mg IV etomidate along with 60 mg IV rocuronium.Pertinent labs revealed a normal white cell count, platelet count 37,000. Normal BMP, Lactic acidosis of 9.2, troponin 0.23, alcohol level 37 with positive THC level. NH3+ was 86 patient was going to be lumbar puncture in ED however platelet count is less than 50,000 the present time. Risk of spinal hematoma outweighs benefits of lumbar puncture this time. No consentable family members available currently. Patient is with one daughter he is close to. He also has a dog. 09/06 EEG showed generalized slowing. Imaging workup RN has noted ongoing bleeding from mouth and platelets 25k. Lactic acidosis cleared and urine output adequate. Ammonia 73. Has received 2 doses of lactulose and no bowel movement yet. 09/07 Following some commands intermittently today, RN resuming propofol after sedation vacation due to repeated coughing. Having BMs, ammonia downtrend to 67. Tolerating tube feeds. Hypertensive. 09/08: per nursing, following intermittent commands. however, was agitated requiring propofol for sedation and does not follow commands for me. continues to have diarrhea likely secondary to lactulose. 2: following commands this morning, still slightly somnolent, but much more awake than yesterday. diarrhea secondary to lactulose persists. 09/10: Extubated yesterday without application. Currently on 2 L nasal cannula. Passed swallow evaluation. Required intermittent Ativan for agitation withdrawal. 09/11: Received 4 mg Ativan overnight. Appropriate with responses but more somnolent this a.m. Compared to Yesterday. Tolerating diet. Positive BM. 09/12 No acute events overnight. Afebrile. 09/13: Patient currently moaning only. Not verbalizing words. Afebrile. On room air. Tube feeds started secondary to lack of oral intake 09/14: Remains minimally responsive. Protecting his airway though. Occasionally will squeeze hands to command. Noted ammonia level 67 today. 09/15 Patient remains encephalopathic afebrile. 09/16 Patient noted to have dilated /fixed right pupil this morning . For CTA brain per neuro. Afebrile. 09/17: Pupils are now equal. More awake and alert today than 2 days ago. Passed swallow evaluation. Normotensive. 09/18: Afebrile. Received Ativan overnight and currently quite somnolent. When he levels currently 26. Tolerating tube feeding with positive BMs. On psychiatric evaluation today patient is alert, but completely incoherent, unable to provide any meaningful information for the psychiatric assessment, disoriented, he follow simple commands, but is unable to follow 2-3 steps commands. Review of Systems ROS Limitations: Altered Mental Status, Uncooperative Past Family Social History Coded Allergies: *MDRO Multi-Drug Resistant Organism (Verified Adverse Reaction, Unknown, ) MRSA PCR screen NEGATIVE 07/27/16 & 07/29/16 Cleared per Infection Control 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 Active Scripts Metoprolol Tartrate 25 Mg Tab25 Mg PO Q12HR #30 TAB Ref 0 Prov:Guera Durham MD 07/29/16 Lisinopril 5 Mg Tab5 Mg PO DAILY #30 TAB Ref 0 Prov:Guera Durham MD 07/29/16 Reported Medications Propranolol 20 Mg Tab20 Mg PO BID #60 TAB Ref 0 09/05/16 Metformin ER 500 Mg [id number] Mg PO DAILY Ref 0 With evening meal 09/05/16 Current Medications Medications (Trade) Dose Ordered Sig/Dariana Route Start Time Stop Time Status Last Admin Miscellaneous Information 1 Q361D XX 09/05/16 08:15 (Chlorhexidine 2% Cloth) Taper DAILY@04 TOP 09/06/16 04:00 09/02/17 03:59 09/19/16 04:00 (Chlorhexidine 2% Cloth) 3 pack UNSCH PRN TOP 09/05/16 08:15 (Lactulose Liq) 30 ml QID PO 09/05/16 09:00 09/22/16 09:05 (Xifaxan) 550 mg BID PO 09/05/16 10:00 09/22/16 09:06 (NS Flush) 2 ml UNSCH PRN IV FLUSH 09/05/16 08:30 (NS Flush) 2 ml BID IV FLUSH 09/05/16 09:00 09/22/16 09:06 (Zofran Inj) 4 mg Q6H PRN IV 09/05/16 08:30 (D50w (Vial) Inj) 25 ml UNSCH PRN IV PUSH 09/05/16 08:45 (Folate) 1 mg DAILY PO 09/06/16 09:00 09/22/16 09:06 Multivitamins 1 tab 1 tab DAILY PO 09/06/16 09:00 09/22/16 09:06 (Keppra Inj/NS Inj) 105 ml @ 420 mls/hr Q6H IV 09/05/16 18:00 Hold 09/14/16 05:18 (Inderal) 20 mg Q12HR PO 09/10/16 21:00 09/22/16 09:06 (Trandate Inj) 10 mg Q20M PRN IV PUSH 09/10/16 14:30 09/13/16 12:42 (Apresoline Inj) 10 mg Q1HR PRN IV PUSH 09/10/16 14:30 09/20/16 12:30 Insulin Aspart 1 1 Q6HR SQ 09/13/16 12:00 09/21/16 23:50 (Thiamine Inj/NS Inj) 101 ml @ 101 mls/hr DAILY IV 09/14/16 09:00 09/22/16 09:10 (Prevacid Odt) 30 mg DAILY NG 09/14/16 09:00 09/22/16 09:06 Lisinopril 10 mg 10 mg DAILY PO 09/17/16 09:00 09/22/16 09:06 (Keppra Inj/NS Inj) 105 ml @ 420 mls/hr Q12HR IV 09/17/16 21:00 09/22/16 09:06 (Tylenol) 500 mg Q4H PRN PO 09/20/16 11:30 Physical Exam Vital Signs Vital Signs Date Time Temp Pulse Resp B/P Pulse Ox O2 Delivery O2 Flow Rate FiO2 09/22/16 12:00 97.3 71 20 152/88 96 09/22/16 09:11 21 I/O 09/21/16 09/21/16 09/22/16 08:00 16:00 00:00 Intake Total 100 ml 120 ml Output Total 450 ml 450 ml Balance -450 ml -350 ml 120 ml Mental Status Examination Altered mental status, patient is unable to cooperate Appearance man, age appearing, [facility], non-cooperative, incoherent Speech: Incoherent Memory: Impaired (describe) Assessment & Plan Problem List: (1) Delirium due to another medical condition Assessment & Plan: On psychiatric evaluation today patient is incoherent, disoriented, unable to provide any meaningful information for the psychiatric assessment. Current presentation since to be related with neurocognitive disorder and delirium most probably related with underlying medical conditions. Patient does not benefit of psychiatric hospitalization. No aggressive behavior or agitation reported. No psychotropics indicated at this moment. Please reconsult once patient is more medically stable and able to cooperate with psychiatric evaluation. ICD Code: F05 Assessment & Plan Estimated LOS: days Chacorta Holder MD September 22, 2016 14:23
--- NOTE | 2016-09-22 16:51 | HHI.PR ---
Subjective Remarks Pt more alert today, still has smiling, answers w yes and no. seems confused Objective Vitals Vital Signs Date Time Temp Pulse Resp B/P Pulse Ox O2 Delivery O2 Flow Rate FiO2 09/22/16 16:00 97.4 72 19 150/74 97 09/22/16 12:00 97.3 71 20 152/88 96 09/22/16 09:11 95 21 09/22/16 09:04 84 09/22/16 08:00 98.1 68 18 166/77 97 09/22/16 04:00 97.7 64 18 160/78 98 09/22/16 00:00 97.8 66 16 158/93 96 09/21/16 20:07 72 09/21/16 20:00 98.1 74 16 159/93 95 I/O 09/21/16 09/21/16 09/21/16 09/22/16 09/22/16 09/22/16 07:00 15:00 23:00 07:00 15:00 23:00 Intake Total 100 ml 120 ml 0 ml 360 ml Output Total 450 ml 450 ml 300 ml 400 ml Balance -450 ml -350 ml 120 ml -300 ml -40 ml Intake Oral 100 ml 120 ml 0 ml 360 ml Output Urine Total 450 ml 450 ml 300 ml 400 ml Bladder Scan Volume Amount 400 ml 400 ml # Voids 0 # Bowel Movements 5 0 2 0 Result Diagram: 09/22/16 0600 09/22/16 0600 Imaging Last Impressions Head CT 09/19/16 0000 Signed Impressions: Service Date/Time: Monday, September 19, 2016 22:09 - CONCLUSION: Normal examination. Marcin Gandhi MD Neck CTA 09/16/16 0000 Signed Impressions: Service Date/Time: Friday, September 16, 2016 11:02 - CONCLUSION: Mild atherosclerotic changes at the bulbs bilaterally but no significant stenosis identified. Benny Lima MD Head CTA 09/16/16 0000 Signed Impressions: Service Date/Time: Friday, September 16, 2016 11:02 - CONCLUSION: Brain CTA within normal limits. Junior Recio MD Brain MRI 09/13/16 0000 Signed Impressions: Service Date/Time: Tuesday, September 13, 2016 11:17 - CONCLUSION: 1. No acute hemorrhage, mass effect or acute infarction. 2. Mild increased signal in the white matter. This is not significantly changed. 3. Mild motion artifact. Mayo Moncada MD Chest X-Ray 09/08/16 Signed Impressions: Service Date/Time: Thursday, September 08, 2016 04:30 - CONCLUSION: 1. Cardiomegaly and findings of vascular congestion without overt failure. The findings have worsened when compared with the prior examination. Cleve Hernandez MD Lower Extremity Ultrasound 09/05/16 Signed Impressions: Service Date/Time: Monday, September 05, 2016 09:36 - CONCLUSION: There is normal compressibility of the deep venous system from the inguinal region to the proximal calf. No echogenic clot is seen in the lumen of the common femoral, femoral, popliteal, and posterior tibial veins. There is a normal response of the venous system to proximal and distal augmentation and respiration. MD CONCLUSION: Negative for deep venous thrombosis. Aman Freeman MD Liver Ultrasound 09/05/16 Signed Impressions: Service Date/Time: Monday, September 05, 2016 08:55 - CONCLUSION: 1. Moderate splenomegaly with no focal lesion. 2. Liver is normal in size but mildly increased in echogenicity. Mayo Moncada MD ADDENDUM: This study was rereviewed at Dr. Cross's request. The main portal vein and branch vessels are patent and demonstrate normal hepatopedal blood flow. Mayo Moncada MD Head Magnetic Resonance Angiography 09/05/16 Signed Impressions: Service Date/Time: Monday, September 05, 2016 17:27 - CONCLUSION: Normal MRA. Marcin Appiah MD Cervical Spine CT 09/05/16 Signed Impressions: Service Date/Time: Monday, September 05, 2016 07:34 - CONCLUSION: Degenerative changes, negative for fracture. Aman Freeman MD FACR Objective Remarks GENERAL: 61-year-old male, currently on room air in no acute distress CARDIOVASCULAR: normal rate, regular rhythm. RESPIRATORY: Few crackles patient bases bilateral. No wheeze. on room air. GASTROINTESTINAL: Abdomen soft, non-tender, minimally distended. Hypoactive bowel sounds MUSCULOSKELETAL: Extremities with trace lower extremity peripheral edema. No obvious deformities. NEUROLOGICAL: Cranial nerves II through grossly intact. follows some commands, moving extremities. A/P Problem List: (1) Altered mental status ICD Code: R41.82 Status: Acute (2) HCV (hepatitis C virus) ICD Code: B19.20 Status: Acute (3) Major depressive disorder ICD Code: F32.9 Status: Acute (4) Cirrhosis of liver ICD Code: K74.60 Status: Acute (5) Diabetic peripheral neuropathy ICD Code: E13.42 Status: Acute (6) DM (diabetes mellitus), type 2, uncontrolled ICD Code: E11.65 Status: Acute (7) Thrombocytopenia ICD Code: D69.6 Status: Acute (8) Hyperammonemia ICD Code: E72.20 Status: Acute (9) Lactic acidosis ICD Code: E87.2 Status: Acute (10) History of DVT (deep vein thrombosis) ICD Code: Z86.718 Status: Acute (11) Elevated troponin ICD Code: R74.8 Status: Acute (12) Tetrahydrocannabinol (THC) use disorder, mild, abuse ICD Code: F12.10 Status: Acute (13) Hypertension ICD Code: I10 Status: Acute (14) Bulge of cervical disc without myelopathy ICD Code: M50.20 Status: Acute (15) Acute respiratory failure ICD Code: J96.00 Status: Acute (16) Septic shock ICD Code: A41.9 Status: Acute Assessment and Plan Neuro/Psych: Acute toxic metabolic encephalopathy Hepatic encephalopathy History of depression THC positive Alcohol abuse Seizure Negative CT/head CTA head and neck. Anisocoria likely autonomic reaction. EEG 09/14: mod severe diffuse encephalopathy MRI brain 09/13: No acute hemorrhage, mass effect or acute infarction. Mild increased signal in the white matter. CT head 09/05 revealed no acute intracranial findings. MRI brain 09/05minimal increased periventricular white matter changes and abnormal focus of signal in right frontal lobe. MRA brain 09/05 normal EEG 09/05generalized slowing consistent with severe encephalopathy. No seizure activity Neurology consult. Appreciate Dr. Rodríguez's assistance Keppra 500 twice a day Continue. Thiamine/folate/multivitamin daily Monitor for DTs Seizure precautions CT head 09/19 negative. Pt more alert today. Still confused but at least follows some commands. Continue to avoid any sedating meds. Ammonia level 35 today. will recheck in AM. CV: Elevated troponin Hypertension h/o Dilated cardiomyopathy Seen by Dr. Falcon 07/25 admission. Recommended no intervention with multiple medical issues, alcoholism, thrombocytopenia and no chest pain. 2-D echocardiogram 07/25 - EF 55-60% right ventricle systolic pressure around 90 mmHg. Mild AR, MR. Left atrium and left ventricle and right ventricle all dilated Echo 09/05/16LVEF 60%. LV cavity size reported normal. No regional wall motion abnormalities. RV dilated. Normal wall thickness.TRUE 41 mmHg. EKG reveals sinus tachycardia 111. Left atrial enlargement. Incomplete RBBB with ST depression in V1 through V5. Troponin peaked at 2.38. Dr. Menchaca evaluated. Recommended follow-up with [facility] upon discharge. On propranolol 20 twice a day, lisinopril 10 milligrams daily Resp: Acute respiratory failure- resolved Community acquired Pneumonia History of prior tobaccoism Continue with oxygen if necessary keep sat > 92%. Currently ion room air Bronchodilator therapy with DuoNeb's every 6 hours with albuterol every 2 hours when necessary dyspnea Aspiration precautions Patient had a negative CT of the chest 07/25 for pulmonary embolism PT to continue to work w pt GI: Hepatitis C unknown genotype Cirrhosis Elevated total bilirubin , downtrending Chronic mild protein energy malnutrition Hyperammonia on soft mechanical diet. but apparently pt hasn't eaten anything all day. will consult hr director to assist w calory count. Liver ultrasoundmoderate splenomegaly. Increased echogenicity of the liver. Gallbladder normal. Protonix for GI prophylaxis Continue Xifaxan 550 milligrams twice a day; Lactulose 30 cc 4 times a day Ammonia level 26 FEN/RENAL: Acute kidney injury Hypokalemia Hypophosphatemia continue aggressive electrolyte replacement daily BMP Monitor renal function, I/O's, avoid nephrotoxins. Endo: Diabetes mellitus with neuropathy Sliding scale insulin with Accu-Cheks every 6 hours to maintain glycemia/medium protocol TSH normal Heme: Hypofibrinogenemia due underlying end-stage liver disease Prolonged PTT Thrombocytopenia - chronic History of right lower extremity DVT Right lower extremity Doppler 09/05negative for DVT Daily CBC. Hematology has signed off. s/p 1 pk platelets 09/14 ID: Community-acquired pneumonia vs aspiration- resolved. s/p Azithro and 14 day course of Cefepime. Pertinent cultures Influenza negative negative 09/05 - blood cultures 2 - NGTD 09/05urine pneumococcal antigen and Legionella antigen negative. 09/05U/A negative for evidence of infection 09/06 - sputum culturenegative MAXILLOFACIAL: Superior nasal spine fracture Nonsurgical. Supportive care Prophylaxis - GI - Prevacid - DVT - SCD/holding pharmacological prophylaxis with thrombocytopenia Discharge Planning d/c pending further work-up and clinical improvement. psychiatry evaluated the patient, unfortunately patient was incoherent, disoriented, unable to provide any meaningful information for the psychiatric assessment. Psych feels that pt's condition is related with neurocognitive disorder and delirium most probably related with underlying medical conditions. Problem Qualifiers (1) Altered mental status: Qualified Code: R40.2431 - Jack coma scale total score 3-8, in the field ( EMT or ambulance) (2) HCV (hepatitis C virus): Qualified Code: B19.20 - Hepatitis C virus infection without hepatic coma, unspecified chronicity (3) Major depressive disorder: Qualified Code: F33.9 - Recurrent major depressive disorder, remission status unspecified (4) Cirrhosis of liver: Qualified Code: K70.30 - Alcoholic cirrhosis of liver without ascites (5) DM (diabetes mellitus), type 2, uncontrolled: Qualified Code: E11.42 - Uncontrolled type 2 diabetes mellitus with diabetic polyneuropathy, without long-term current use of insulin (6) Hypertension: Qualified Code: I10 - Essential hypertension (7) Acute respiratory failure: Qualified Code: J96.01 - Acute respiratory failure with hypoxia and hypercapnia Shey Yuen MD September 22, 2016 16:51
[2016-09-22] MEDS: LISINOPRIL 20 MG TAB PO SCH (21:21)
[2016-09-23] VITALS: BP 136/75; PULSE 57; RESP 18; TEMP 97.1; O2SAT 96
[2016-09-23] MEDS: CHLORHEXIDINE GLUCONATE 2 % 1 PACK (2 CLOTHS) TOP SCH (03:51)
[2016-09-23 04:00] VITALS: BP 140/79; PULSE 56; RESP 16; TEMP 97.9; O2SAT 97
[2016-09-23] MEDS: INSULIN ASPART SUPPLEMENTAL SCALE SQ SCH ×5 (05:54→21:34)
[2016-09-23 07:38] LABS: HEMATOCRIT 31.1 % (39.0-51.0); MEAN CELL VOLUME 98.3 FL (80.0-100.0); MEAN CORPUSCULAR HEMOGLOBIN 34.2 PG (27.0-34.0); MEAN CORPUSCULAR HGB CONC 34.8 % (32.0-36.0); PLATELET COUNT 27 TH/MM3 (150-450); RED BLOOD COUNT 3.16 MIL/MM3 (4.50-5.90); RED CELL DISTRIBUTION WIDTH 15.9 % (11.6-17.2); WHITE BLOOD COUNT 2.3 TH/MM3 (4.0-11.0)
[2016-09-23 08:00] VITALS: BP 159/77; PULSE 53; PULSE 60; RESP 18; TEMP 97.6; O2SAT 97
[2016-09-23 08:02] LABS: BICARBONATE 25.2 MEQ/L (21.0-32.0); POTASSIUM 3.6 MEQ/L (3.5-5.1)
[2016-09-23 08:25] LABS: REVIEW FLAG FINAL
[2016-09-23] MEDS: FOLIC ACID 1 MG TAB PO SCH (09:34)
[2016-09-23] MEDS: LACTULOSE SYRUP 20 GM/30 ML CUP PO SCH ×4 (09:34→21:34)
[2016-09-23] MEDS: MULTIVITAMIN TAB PO SCH (09:35)
[2016-09-23] MEDS: SODIUM CHLORIDE 0.9% FLUSH 10 ML FLUSH IV FLUSH SCH ×2 (09:35→21:00)
[2016-09-23] MEDS: LISINOPRIL 20 MG TAB PO SCH ×2 (09:35→21:34)
[2016-09-23] MEDS: LANSOPRAZOLE SOLUTAB 30 MG TAB NG SCH (09:35)
[2016-09-23] MEDS: RIFAXIMIN 550 MG TAB PO SCH ×2 (09:35→21:34)
[2016-09-23] MEDS: PROPRANOLOL HCL 20 MG TAB PO SCH ×2 (09:35→21:34)
[2016-09-23] MEDS: THIAMINE INJ 100 MG in SODIUM CHLORIDE 0.9% INJ 100 ML IV SCH (09:36)
[2016-09-23] MEDS: levETIRAcetam INJ 500 MG in SODIUM CHLORIDE 0.9% INJ 100 ML IV SCH ×2 (10:16→21:31)
[2016-09-23 12:00] VITALS: BP 143/86; PULSE 64; RESP 18; TEMP 98.2; O2SAT 97
--- NOTE | 2016-09-23 12:17 | HHI.PR ---
Subjective Remarks Pt answers w yes and no. still smiling, no new changes Objective Vitals Vital Signs Date Time Temp Pulse Resp B/P Pulse Ox O2 Delivery O2 Flow Rate FiO2 09/23/16 12:00 98.2 64 18 143/86 97 09/23/16 08:00 97.6 60 18 159/77 97 09/23/16 04:00 97.9 56 16 140/79 97 09/23/16 00:00 97.1 57 18 136/75 96 09/22/16 20:33 67 09/22/16 20:00 98.0 72 18 153/85 97 09/22/16 16:00 97.4 72 19 150/74 97 I/O 09/22/16 09/22/16 09/22/16 09/23/16 09/23/16 09/23/16 07:00 15:00 23:00 07:00 15:00 23:00 Intake Total 0 ml 360 ml 120 ml 0 ml Output Total 300 ml 400 ml 200 ml 200 ml Balance -300 ml -40 ml -80 ml -200 ml Intake Oral 0 ml 360 ml 120 ml 0 ml Output Urine Total 300 ml 400 ml 200 ml 200 ml Bladder Scan Volume Amount 400 ml # Bowel Movements 0 0 0 Result Diagram: 09/23/16 0659 09/23/16 0659 Imaging Last Impressions Head CT 09/19/16 0000 Signed Impressions: Service Date/Time: Monday, September 19, 2016 22:09 - CONCLUSION: Normal examination. Marcin Gandhi MD Neck CTA 09/16/16 0000 Signed Impressions: Service Date/Time: Friday, September 16, 2016 11:02 - CONCLUSION: Mild atherosclerotic changes at the bulbs bilaterally but no significant stenosis identified. Benny Lima MD Head CTA 09/16/16 0000 Signed Impressions: Service Date/Time: Friday, September 16, 2016 11:02 - CONCLUSION: Brain CTA within normal limits. Junior Recio MD Brain MRI 09/13/16 0000 Signed Impressions: Service Date/Time: Tuesday, September 13, 2016 11:17 - CONCLUSION: 1. No acute hemorrhage, mass effect or acute infarction. 2. Mild increased signal in the white matter. This is not significantly changed. 3. Mild motion artifact. Mayo Moncada MD Chest X-Ray 09/08/16 0000 Signed Impressions: Service Date/Time: Thursday, September 08, 2016 04:30 - CONCLUSION: 1. Cardiomegaly and findings of vascular congestion without overt failure. The findings have worsened when compared with the prior examination. Cleve Hernandez MD Lower Extremity Ultrasound 09/05/16 Signed Impressions: Service Date/Time: Monday, September 05, 2016 09:36 - CONCLUSION: There is normal compressibility of the deep venous system from the inguinal region to the proximal calf. No echogenic clot is seen in the lumen of the common femoral, femoral, popliteal, and posterior tibial veins. There is a normal response of the venous system to proximal and distal augmentation and respiration. CONCLUSION: Negative for deep venous thrombosis. Aman Freeman MD Liver Ultrasound 09/05/16 Signed Impressions: Service Date/Time: Monday, September 05, 2016 08:55 - CONCLUSION: 1. Moderate splenomegaly with no focal lesion. 2. Liver is normal in size but mildly increased in echogenicity. Mayo Moncada MD ADDENDUM: This study was rereviewed at Dr. Cross's request. The main portal vein and branch vessels are patent and demonstrate normal hepatopedal blood flow. Mayo Moncada MD Head Magnetic Resonance Angiography 09/05/16 Signed Impressions: Service Date/Time: Monday, September 05, 2016 17:27 - CONCLUSION: Normal MRA. Marcin Appiah MD Cervical Spine CT 09/05/16 Signed Impressions: Service Date/Time: Monday, September 05, 2016 07:34 - CONCLUSION: Degenerative changes, negative for fracture. Aman Freeman MD FACR Objective Remarks GENERAL: 61-year-old male, currently on room air in no acute distress CARDIOVASCULAR: normal rate, regular rhythm. RESPIRATORY: Few crackles patient bases bilateral. No wheeze. on room air. GASTROINTESTINAL: Abdomen soft, non-tender, minimally distended. MUSCULOSKELETAL: Extremities with trace lower extremity peripheral edema. No obvious deformities. NEUROLOGICAL: Cranial nerves II through grossly intact. follows some commands, moving extremities. A/P Problem List: (1) Altered mental status ICD Code: R41.82 Status: Acute (2) HCV (hepatitis C virus) ICD Code: B19.20 Status: Acute (3) Major depressive disorder ICD Code: F32.9 Status: Acute (4) Cirrhosis of liver ICD Code: K74.60 Status: Acute (5) Diabetic peripheral neuropathy ICD Code: E13.42 Status: Acute (6) DM (diabetes mellitus), type 2, uncontrolled ICD Code: E11.65 Status: Acute (7) Thrombocytopenia ICD Code: D69.6 Status: Acute (8) Hyperammonemia ICD Code: E72.20 Status: Acute (9) Lactic acidosis ICD Code: E87.2 Status: Acute (10) History of DVT (deep vein thrombosis) ICD Code: Z86.718 Status: Acute (11) Elevated troponin ICD Code: R74.8 Status: Acute (12) Tetrahydrocannabinol (THC) use disorder, mild, abuse ICD Code: F12.10 Status: Acute (13) Hypertension ICD Code: I10 Status: Acute (14) Bulge of cervical disc without myelopathy ICD Code: M50.20 Status: Acute (15) Acute respiratory failure ICD Code: J96.00 Status: Acute (16) Septic shock ICD Code: A41.9 Status: Acute Assessment and Plan Neuro/Psych: Acute toxic metabolic encephalopathy Hepatic encephalopathy History of depression THC positive Alcohol abuse Seizure Negative CT/head CTA head and neck. Anisocoria likely autonomic reaction. EEG 09/14: mod severe diffuse encephalopathy MRI brain 09/13: No acute hemorrhage, mass effect or acute infarction. Mild increased signal in the white matter. CT head 09/05 revealed no acute intracranial findings. MRI brain 09/05minimal increased periventricular white matter changes and abnormal focus of signal in right frontal lobe. MRA brain 09/05 normal EEG 09/05generalized slowing consistent with severe encephalopathy. No seizure activity Neurology consult. Appreciate Dr. Rodríguez's assistance Keppra 500 twice a day Continue. Thiamine/folate/multivitamin daily Monitor for DTs Seizure precautions CT head 09/19 negative. Pt more alert today. Still confused but at least follows some commands. Continue to avoid any sedating meds. Ammonia level 35 today. will recheck in AM. CV: Elevated troponin Hypertension h/o Dilated cardiomyopathy Seen by Dr. Falcon 07/25 admission. Recommended no intervention with multiple medical issues, alcoholism, thrombocytopenia and no chest pain. 2-D echocardiogram 07/25 - EF 55-60% right ventricle systolic pressure around 90 mmHg. Mild AR, MR. Left atrium and left ventricle and right ventricle all dilated Echo 09/05/16LVEF 60%. LV cavity size reported normal. No regional wall motion abnormalities. RV dilated. Normal wall thickness.TRUE 41 mmHg. EKG reveals sinus tachycardia 111. Left atrial enlargement. Incomplete RBBB with ST depression in V1 through V5. Troponin peaked at 2.38. Dr. Menchaca evaluated. Recommended follow-up with [facility] upon discharge. On propranolol 20 twice a day, lisinopril 10 milligrams daily Resp: Acute respiratory failure- resolved Community acquired Pneumonia History of prior tobaccoism Continue with oxygen if necessary keep sat > 92%. Currently ion room air Bronchodilator therapy with DuoNeb's every 6 hours with albuterol every 2 hours when necessary dyspnea Aspiration precautions Patient had a negative CT of the chest 07/25 for pulmonary embolism PT to continue to work w pt GI: Hepatitis C unknown genotype Cirrhosis Elevated total bilirubin , downtrending Chronic mild protein energy malnutrition Hyperammonia on soft mechanical diet. but apparently pt's appetite is poor. 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 Liver ultrasoundmoderate splenomegaly. Increased echogenicity of the liver. Gallbladder normal. Protonix for GI prophylaxis Continue Xifaxan 550 milligrams twice a day; Lactulose 30 cc 4 times a day Ammonia level 26 FEN/RENAL: Acute kidney injury Hypokalemia Hypophosphatemia continue aggressive electrolyte replacement daily BMP Monitor renal function, I/O's, avoid nephrotoxins. Endo: Diabetes mellitus with neuropathy Sliding scale insulin with Accu-Cheks every 6 hours to maintain glycemia/medium protocol TSH normal Heme: Hypofibrinogenemia due underlying end-stage liver disease Prolonged PTT Thrombocytopenia - chronic History of right lower extremity DVT Right lower extremity Doppler 09/05negative for DVT Daily CBC. Hematology has signed off. s/p 1 pk platelets 09/14 ID: Community-acquired pneumonia vs aspiration- resolved. s/p Azithro and 14 day course of Cefepime. Pertinent cultures Influenza negative negative 09/05 - blood cultures 2 - NGTD 09/05urine pneumococcal antigen and Legionella antigen negative. 09/05U/A negative for evidence of infection 09/06 - sputum culturenegative MAXILLOFACIAL: Superior nasal spine fracture Nonsurgical. Supportive care Prophylaxis - GI - Prevacid - DVT - SCD/holding pharmacological prophylaxis with thrombocytopenia Discharge Planning psychiatry evaluated the patient, unfortunately patient was incoherent, disoriented, unable to provide any meaningful information for the psychiatric assessment. Psych feels that pt's condition is related with neurocognitive disorder and delirium most probably related with underlying medical conditions. Pt w poor appetite. Calorie count in progress. f/u PT/OT following Per CM's note, pt will need to switch to Medicare for admission to SNF. Family would like him to go to [facility]. Problem Qualifiers (1) Altered mental status: Qualified Code: R40.2431 - [place] coma scale total score 3-8, in the field ( EMT or ambulance) (2) HCV (hepatitis C virus): Qualified Code: B19.20 - Hepatitis C virus infection without hepatic coma, unspecified chronicity (3) Major depressive disorder: Qualified Code: F33.9 - Recurrent major depressive disorder, remission status unspecified (4) Cirrhosis of liver: Qualified Code: K70.30 - Alcoholic cirrhosis of liver without ascites (5) DM (diabetes mellitus), type 2, uncontrolled: Qualified Code: E11.42 - Uncontrolled type 2 diabetes mellitus with diabetic polyneuropathy, without long-term current use of insulin (6) Hypertension: Qualified Code: I10 - Essential hypertension (7) Acute respiratory failure: Qualified Code: J96.01 - Acute respiratory failure with hypoxia and hypercapnia Shey Yuen MD September 23, 2016 12:17
[2016-09-23 16:00] VITALS: BP 167/90; PULSE 64; RESP 18; TEMP 97.9; O2SAT 97
[2016-09-23 20:00] VITALS: BP 160/98; PULSE 62; RESP 18; TEMP 98.1; O2SAT 95
[2016-09-24] VITALS (8 sets, daily range): BP systolic 144–181; BP diastolic 89–95; PULSE 59–63; RESP 16–20; TEMP 97.4–98.1; O2SAT 94–98
[2016-09-24] MEDS: CHLORHEXIDINE GLUCONATE 2 % 1 PACK (2 CLOTHS) TOP SCH (04:00)
[2016-09-24] MEDS: INSULIN ASPART SUPPLEMENTAL SCALE SQ SCH ×4 (05:54→21:03)
[2016-09-24 05:58] LABS: AUTOMATED NEUTROPHIL # 1.5 TH/MM3 (1.8-7.7); BASOPHIL % 0.5 % (0.0-2.0); EOSINOPHIL # 0.1 TH/MM3 (0-0.4); EOSINOPHIL % 3.8 % (0.0-4.0); HEMATOCRIT 31.8 % (39.0-51.0); LYMPH % 25.3 % (9.0-44.0); LYMPHOCYTE # 0.6 TH/MM3 (1.0-4.8); MEAN CORPUSCULAR HEMOGLOBIN 35.1 PG (27.0-34.0); MEAN CORPUSCULAR HGB CONC 35.9 % (32.0-36.0); MONO % 13.7 % (0.0-8.0); NEUT % 56.7 % (16.0-70.0); PLATELET COUNT 32 TH/MM3 (150-450); RED BLOOD COUNT 3.25 MIL/MM3 (4.50-5.90); RED CELL DISTRIBUTION WIDTH 16.1 % (11.6-17.2); WHITE BLOOD COUNT 2.6 TH/MM3 (4.0-11.0)
[2016-09-24 06:04] LABS: HEMO FLAGS AUTO DIFF
[2016-09-24 06:16] LABS: POTASSIUM 3.4 MEQ/L (3.5-5.1)
[2016-09-24 08:10] LABS: PLATELET ESTIMATE SMEAR LOW (NORMAL); PLATELET MORPHOLOGY NORMAL (NORMAL); SCAN/DIFF AUTO DIFF CONFIRMED
[2016-09-24] MEDS: MULTIVITAMIN TAB PO SCH (09:45)
[2016-09-24] MEDS: LISINOPRIL 20 MG TAB PO SCH ×2 (09:45→21:00)
[2016-09-24] MEDS: LANSOPRAZOLE SOLUTAB 30 MG TAB NG SCH (09:45)
[2016-09-24] MEDS: PROPRANOLOL HCL 20 MG TAB PO SCH ×2 (09:45→21:00)
[2016-09-24] MEDS: FOLIC ACID 1 MG TAB PO SCH (09:45)
[2016-09-24] MEDS: RIFAXIMIN 550 MG TAB PO SCH ×2 (09:45→21:00)
[2016-09-24] MEDS: THIAMINE INJ 100 MG in SODIUM CHLORIDE 0.9% INJ 100 ML IV SCH (09:45)
[2016-09-24] MEDS: LACTULOSE SYRUP 20 GM/30 ML CUP PO SCH ×4 (09:45→21:00)
[2016-09-24] MEDS: levETIRAcetam INJ 500 MG in SODIUM CHLORIDE 0.9% INJ 100 ML IV SCH ×2 (09:46→21:03)
[2016-09-24] MEDS: SODIUM CHLORIDE 0.9% FLUSH 10 ML FLUSH IV FLUSH SCH ×2 (09:46→21:00)
--- NOTE | 2016-09-24 09:53 | HHI.PR ---
Subjective Remarks Follow-up encephalopathy, seizures. The patient has no complaints at this time. He is more verbal today per nursing. Denies pain, dyspnea, nausea, vomiting. Objective Vitals Vital Signs Date Time Temp Pulse Resp B/P Pulse Ox O2 Delivery O2 Flow Rate FiO2 09/24/16 08:11 97.8 62 18 144/89 94 09/24/16 04:00 Room Air 09/24/16 00:00 97.8 59 18 179/92 95 09/24/16 00:00 Room Air 09/23/16 20:00 98.1 62 18 160/98 95 09/23/16 20:00 62 09/23/16 16:00 97.9 64 18 167/90 97 09/23/16 12:00 98.2 64 18 143/86 97 I/O 09/23/16 09/23/16 09/23/16 09/24/16 09/24/16 09/24/16 07:00 15:00 23:00 07:00 15:00 23:00 Intake Total 0 ml 1527 ml 180 ml 0 ml Output Total 200 ml 350 ml 250 ml 300 ml Balance -200 ml 1177 ml -70 ml -300 ml Intake Oral 0 ml 1320 ml 180 ml 0 ml IV Total 207 ml Output Urine Total 200 ml 350 ml 250 ml 300 ml # Bowel Movements 0 0 2 0 Result Diagram: 09/24/16 0500 09/24/16 0500 Imaging Last Impressions Head CT 09/19/16 0000 Signed Impressions: Service Date/Time: Monday, September 19, 2016 22:09 - CONCLUSION: Normal examination. Marcin Gandhi MD Neck CTA 09/16/16 0000 Signed Impressions: Service Date/Time: Friday, September 16, 2016 11:02 - CONCLUSION: Mild atherosclerotic changes at the bulbs bilaterally but no significant stenosis identified. Benny Lima MD Head CTA 09/16/16 0000 Signed Impressions: Service Date/Time: Friday, September 16, 2016 11:02 - CONCLUSION: Brain CTA within normal limits. Junior Recio MD Brain MRI 09/13/16 0000 Signed Impressions: Service Date/Time: Tuesday, September 13, 2016 11:17 - CONCLUSION: 1. No acute hemorrhage, mass effect or acute infarction. 2. Mild increased signal in the white matter. This is not significantly changed. 3. Mild motion artifact. Mayo Moncada MD Chest X-Ray 09/08/16 Signed Impressions: Service Date/Time: Thursday, September 08, 2016 04:30 - CONCLUSION: 1. Cardiomegaly and findings of vascular congestion without overt failure. The findings have worsened when compared with the prior examination. Cleve Hernandez MD Lower Extremity Ultrasound 09/05/16 Signed Impressions: Service Date/Time: Monday, September 05, 2016 09:36 - CONCLUSION: There is normal compressibility of the deep venous system from the inguinal region to the proximal calf. No echogenic clot is seen in the lumen of the common femoral, femoral, popliteal, and posterior tibial veins. There is a normal response of the venous system to proximal and distal augmentation and respiration. CONCLUSION: Negative for deep venous thrombosis. Aman Freeman MD Liver Ultrasound 09/05/16 Signed Impressions: Service Date/Time: Monday, September 05, 2016 08:55 - CONCLUSION: 1. Moderate splenomegaly with no focal lesion. 2. Liver is normal in size but mildly increased in echogenicity. Mayo Moncada MD ADDENDUM: This study was rereviewed at Dr. Cross's request. The main portal vein and branch vessels are patent and demonstrate normal hepatopedal blood flow. Mayo Moncada MD Head Magnetic Resonance Angiography 09/05/16 Signed Impressions: Service Date/Time: Monday, September 05, 2016 17:27 - CONCLUSION: Normal MRA. Marcin Appiah MD Cervical Spine CT 09/05/16 Signed Impressions: Service Date/Time: Monday, September 05, 2016 07:34 - CONCLUSION: Degenerative changes, negative for fracture. Aman Freeman MD FACR Objective Remarks General: No acute distress. Heart: Regular rate and rhythm. No murmur. Lungs: Mild bibasilar crackles. Breathing is nonlabored. Abdomen: Soft, nontender, nondistended. Extremities: No lower extremity edema. Psych: Alert, confused. Procedures None Urinary Catheter: Yes Vascular Central Line Catheter: No A/P Problem List: (1) Altered mental status ICD Code: R41.82 Status: Acute (2) HCV (hepatitis C virus) ICD Code: B19.20 Status: Chronic (3) Major depressive disorder ICD Code: F32.9 Status: Chronic (4) Cirrhosis of liver ICD Code: K74.60 Status: Chronic (5) Diabetic peripheral neuropathy ICD Code: E13.42 Status: Chronic (6) DM (diabetes mellitus), type 2, uncontrolled ICD Code: E11.65 Status: Chronic (7) Thrombocytopenia ICD Code: D69.6 Status: Acute (8) Hyperammonemia ICD Code: E72.20 Status: Acute (9) Lactic acidosis ICD Code: E87.2 Status: Resolved (10) History of DVT (deep vein thrombosis) ICD Code: Z86.718 Status: Chronic (11) Elevated troponin ICD Code: R74.8 Status: Acute (12) Tetrahydrocannabinol (THC) use disorder, mild, abuse ICD Code: F12.10 Status: Acute (13) Hypertension ICD Code: I10 Status: Chronic (14) Bulge of cervical disc without myelopathy ICD Code: M50.20 Status: Acute (15) Acute respiratory failure ICD Code: J96.00 Status: Acute (16) Septic shock ICD Code: A41.9 Status: Resolved (17) Delirium due to another medical condition ICD Code: F05 Status: Acute (18) Seizure ICD Code: R56.9 Status: Acute (19) Encephalopathy ICD Code: G93.40 Status: Acute Assessment and Plan 1. Acute toxic metabolic encephalopathy, hepatic encephalopathy: Appreciate neurology recommendations. Continue Keppra. Head CT/CTA negative. EEG on 09/15/15 showed moderate severe diffuse encephalopathy. Follow serum ammonia level. Continue Xifaxan, lactulose. Evaluated by psychiatry. Symptoms felt to be secondary to neurocognitive disorder and delirium. 2. Seizure: Continue Keppra, seizure precautions. 3. History of alcohol abuse: Continue thiamine, folate, multivitamin. 4. Elevated troponin, history of dilated cardiomyopathy: 2-D echocardiogram from July 2016 showed ejection fraction 55-60% with dilatation of the left atrium, left ventricle, and right ventricle. Echocardiogram 09/05/16 showed ejection fraction 60%. Appreciate cardiology recommendations. Follow-up with [facility] after discharge. 5. Hypertension: Continue propranolol, lisinopril. 6. Acute respiratory failure: Resolved. 7. Community-acquired pneumonia: Completed course of antibiotics. Currently stable on room air. Bronchodilators as needed. 8. Hepatitis C: Follow-up as outpatient. 9. Cirrhosis of the liver, elevated bilirubin: Monitor labs. 10. Chronic mild protein calorie malnutrition, poor oral intake: Continue pure diet with thin liquids per speech therapy. Appreciate dietary recommendations. Calorie count in process. 11. GI prophylaxis: Prevacid. 12. Acute kidney injury: Improved. Continue IV. 13. Diabetes mellitus with neuropathy: Monitor Accu-Cheks and cover with sliding scale insulin. 14. Thrombocytopenia: Chronic. Likely secondary to chronic liver disease, alcohol abuse. Hematology signed off. Status post transfusion of 1 unit of platelets. 15. Superior nasal spine fracture: Nonsurgical care. 16. DVT prophylaxis: SCDs. Avoid chemical prophylaxis secondary to thrombocytopenia. Discharge Planning Will need SNF at discharge. Case management to assist with discharge planning. Problem Qualifiers (1) Altered mental status: Qualified Code: R40.2431 - [place] coma scale total score 3-8, in the field ( EMT or ambulance) (2) HCV (hepatitis C virus): Qualified Code: B19.20 - Hepatitis C virus infection without hepatic coma, unspecified chronicity (3) Major depressive disorder: Qualified Code: F33.9 - Recurrent major depressive disorder, remission status unspecified (4) Cirrhosis of liver: Qualified Code: K70.30 - Alcoholic cirrhosis of liver without ascites (5) DM (diabetes mellitus), type 2, uncontrolled: Qualified Code: E11.42 - Uncontrolled type 2 diabetes mellitus with diabetic polyneuropathy, without long-term current use of insulin (6) Hypertension: Qualified Code: I10 - Essential hypertension (7) Acute respiratory failure: Qualified Code: J96.01 - Acute respiratory failure with hypoxia and hypercapnia Jas Tom MD September 24, 2016 09:53
[2016-09-24] MEDS ORDERED: POTASSIUM CHLORIDE 25 MEQ EFFERVESCENT TAB PO ONE (10:15)
[2016-09-24] MEDS: NS + KCL 20 MEQ INJ 1,000 ML IV SCH (11:23)
[2016-09-24] MEDS: hydrALAZINE HCL 20 MG/ML VIAL IV PUSH PRN (21:00)
[2016-09-25] VITALS (7 sets, daily range): BP systolic 130–164; BP diastolic 73–85; PULSE 58–70; RESP 16–18; TEMP 97.5–98.2; O2SAT 94–97
[2016-09-25] MEDS: CHLORHEXIDINE GLUCONATE 2 % 1 PACK (2 CLOTHS) TOP SCH (04:00)
[2016-09-25] MEDS: INSULIN ASPART SUPPLEMENTAL SCALE SQ SCH ×4 (05:50→23:34)
[2016-09-25] MEDS: NS + KCL 20 MEQ INJ 1,000 ML IV SCH (06:40)
[2016-09-25 07:58] LABS: AUTOMATED NEUTROPHIL # 1.2 TH/MM3 (1.8-7.7); BASOPHIL % 0.7 % (0.0-2.0); EOSINOPHIL # 0.1 TH/MM3 (0-0.4); HEMATOCRIT 33.7 % (39.0-51.0); LYMPH % 27.9 % (9.0-44.0); LYMPHOCYTE # 0.6 TH/MM3 (1.0-4.8); MEAN CORPUSCULAR HEMOGLOBIN 33.6 PG (27.0-34.0); MEAN CORPUSCULAR HGB CONC 33.9 % (32.0-36.0); MONO % 11.4 % (0.0-8.0); PLATELET COUNT 31 TH/MM3 (150-450); RED BLOOD COUNT 3.41 MIL/MM3 (4.50-5.90); RED CELL DISTRIBUTION WIDTH 15.9 % (11.6-17.2); WHITE BLOOD COUNT 2.1 TH/MM3 (4.0-11.0)
[2016-09-25 08:02] LABS: HEMO FLAGS AUTO DIFF
--- NOTE | 2016-09-25 08:19 | HHI.PR ---
Subjective Remarks Follow up encephalopathy, hypertension, hypokalemia. The patient remains confused. Does awaken and answer questions, but is not oriented to year, location. Denies pain. Objective Vitals Vital Signs Date Time Temp Pulse Resp B/P Pulse Ox O2 Delivery O2 Flow Rate FiO2 09/25/16 04:20 97.5 63 16 158/84 97 09/25/16 04:00 Room Air 09/25/16 00:00 Room Air 09/24/16 23:10 97.4 62 16 165/90 94 09/24/16 20:00 Room Air 09/24/16 20:00 61 09/24/16 19:27 98.1 60 16 181/95 95 09/24/16 16:20 97.8 62 18 179/93 97 09/24/16 12:32 98.0 63 20 164/92 98 09/24/16 08:44 Room Air I/O 09/24/16 09/24/16 09/24/16 09/25/16 09/25/16 09/25/16 07:00 15:00 23:00 07:00 15:00 23:00 Intake Total 0 ml 480 ml 0 ml 1000 ml Output Total 300 ml 450 ml 200 ml 350 ml Balance -300 ml 30 ml -200 ml 650 ml Intake Oral 0 ml 0 ml 0 ml Oral Supplement 480 ml IV Total 1000 ml Output Urine Total 300 ml 450 ml 200 ml 350 ml # Bowel Movements 0 0 0 5 Result Diagram: 09/25/16 0731 09/24/16 0500 Imaging Last Impressions Head CT 09/19/16 0000 Signed Impressions: Service Date/Time: Monday, September 19, 2016 22:09 - CONCLUSION: Normal examination. Marcin Gandhi MD Neck CTA 09/16/16 0000 Signed Impressions: Service Date/Time: Friday, September 16, 2016 11:02 - CONCLUSION: Mild atherosclerotic changes at the bulbs bilaterally but no significant stenosis identified. Benny Lima MD Head CTA 09/16/16 0000 Signed Impressions: Service Date/Time: Friday, September 16, 2016 11:02 - CONCLUSION: Brain CTA within normal limits. Junior Recio MD Brain MRI 09/13/16 0000 Signed Impressions: Service Date/Time: Tuesday, September 13, 2016 11:17 - CONCLUSION: 1. No acute hemorrhage, mass effect or acute infarction. 2. Mild increased signal in the white matter. This is not significantly changed. 3. Mild motion artifact. Mayo Moncada MD Chest X-Ray 09/08/16 Signed Impressions: Service Date/Time: Thursday, September 08, 2016 04:30 - CONCLUSION: 1. Cardiomegaly and findings of vascular congestion without overt failure. The findings have worsened when compared with the prior examination. Cleve Hernandez MD Lower Extremity Ultrasound 09/05/16 Signed Impressions: Service Date/Time: Monday, September 05, 2016 09:36 - CONCLUSION: There is normal compressibility of the deep venous system from the inguinal region to the proximal calf. No echogenic clot is seen in the lumen of the common femoral, femoral, popliteal, and posterior tibial veins. There is a normal response of the venous system to proximal and distal augmentation and respiration. CONCLUSION: Negative for deep venous thrombosis. Aman Freeman MD Liver Ultrasound 09/05/16 Signed Impressions: Service Date/Time: Monday, September 05, 2016 08:55 - CONCLUSION: 1. Moderate splenomegaly with no focal lesion. 2. Liver is normal in size but mildly increased in echogenicity. Mayo Moncada MD ADDENDUM: This study was rereviewed at Dr. Cross's request. The main portal vein and branch vessels are patent and demonstrate normal hepatopedal blood flow. Mayo Moncada MD Head Magnetic Resonance Angiography 09/05/16 Signed Impressions: Service Date/Time: Monday, September 05, 2016 17:27 - CONCLUSION: Normal MRA. Marcin Appiah MD Cervical Spine CT 09/05/16 0000 Signed Impressions: Service Date/Time: Monday, September 05, 2016 07:34 - CONCLUSION: Degenerative changes, negative for fracture. Aman Freeman MD FACR Objective Remarks General: No acute distress. Heart: Regular rate and rhythm. No murmur. Lungs: Mild bibasilar crackles. Breathing is nonlabored. Abdomen: Soft, nontender, nondistended. Extremities: No lower extremity edema. Psych: Alert, confused. Procedures None Urinary Catheter: Yes Assessment to: Continue [place] insert reason: Measure Accurate Output Vascular Central Line Catheter: No A/P Problem List: (1) Altered mental status ICD Code: R41.82 Status: Acute (2) HCV (hepatitis C virus) ICD Code: B19.20 Status: Chronic (3) Major depressive disorder ICD Code: F32.9 Status: Chronic (4) Cirrhosis of liver ICD Code: K74.60 Status: Chronic (5) Diabetic peripheral neuropathy ICD Code: E13.42 Status: Chronic (6) DM (diabetes mellitus), type 2, uncontrolled ICD Code: E11.65 Status: Chronic (7) Thrombocytopenia ICD Code: D69.6 Status: Acute (8) Hyperammonemia ICD Code: E72.20 Status: Acute (9) Lactic acidosis ICD Code: E87.2 Status: Resolved (10) History of DVT (deep vein thrombosis) ICD Code: Z86.718 Status: Chronic (11) Elevated troponin ICD Code: R74.8 Status: Acute (12) Tetrahydrocannabinol (THC) use disorder, mild, abuse ICD Code: F12.10 Status: Acute (13) Hypertension ICD Code: I10 Status: Chronic (14) Bulge of cervical disc without myelopathy ICD Code: M50.20 Status: Acute (15) Acute respiratory failure ICD Code: J96.00 Status: Acute (16) Septic shock ICD Code: A41.9 Status: Resolved (17) Delirium due to another medical condition ICD Code: F05 Status: Acute (18) Seizure ICD Code: R56.9 Status: Acute (19) Encephalopathy ICD Code: G93.40 Status: Acute Assessment and Plan 1. Acute toxic metabolic encephalopathy, hepatic encephalopathy: Appreciate neurology recommendations. Continue Keppra. Head CT/CTA negative. EEG on 09/15/15 showed moderate severe diffuse encephalopathy. Follow serum ammonia level. Continue Xifaxan, lactulose. Evaluated by psychiatry. Symptoms felt to be secondary to neurocognitive disorder and delirium. 2. Seizure: Continue Keppra, seizure precautions. 3. History of alcohol abuse: Continue thiamine, folate, multivitamin. 4. Elevated troponin, history of dilated cardiomyopathy: 2-D echocardiogram from July 2016 showed ejection fraction 55-60% with dilatation of the left atrium, left ventricle, and right ventricle. Echocardiogram 09/05/16 showed ejection fraction 60%. Appreciate cardiology recommendations. Follow-up with [facility] after discharge. 5. Hypertension: Continue propranolol, lisinopril. 6. Acute respiratory failure: Resolved. 7. Community-acquired pneumonia: Completed course of antibiotics. Currently stable on room air. Bronchodilators as needed. 8. Hepatitis C: Follow-up as outpatient. 9. Cirrhosis of the liver, elevated bilirubin: Monitor labs. 10. Chronic mild protein calorie malnutrition, poor oral intake: Continue pure diet with thin liquids per speech therapy. Appreciate dietary recommendations. Calorie count in process. Continue IV fluids. 11. GI prophylaxis: Prevacid. 12. Acute kidney injury: Improved. Continue IV fluids, using caution due to history of cardiomyopathy. 13. Diabetes mellitus with neuropathy: Monitor Accu-Cheks and cover with sliding scale insulin. 14. Thrombocytopenia: Chronic. Likely secondary to chronic liver disease, alcohol abuse. Hematology signed off. Has received transfusion of 2 units of platelets during this hospitalization. 15. Superior nasal spine fracture: Nonsurgical care. 16. DVT prophylaxis: SCDs. Avoid chemical prophylaxis secondary to thrombocytopenia. 17. Hypokalemia: Slightly improved today. Discharge Planning Will need SNF at discharge. Case management to assist with discharge planning. Problem Qualifiers (1) Altered mental status: Qualified Code: R40.2431 - [place] coma scale total score 3-8, in the field ( EMT or ambulance) (2) HCV (hepatitis C virus): Qualified Code: B19.20 - Hepatitis C virus infection without hepatic coma, unspecified chronicity (3) Major depressive disorder: Qualified Code: F33.9 - Recurrent major depressive disorder, remission status unspecified (4) Cirrhosis of liver: Qualified Code: K70.30 - Alcoholic cirrhosis of liver without ascites (5) DM (diabetes mellitus), type 2, uncontrolled: Qualified Code: E11.42 - Uncontrolled type 2 diabetes mellitus with diabetic polyneuropathy, without long-term current use of insulin (6) Hypertension: Qualified Code: I10 - Essential hypertension (7) Acute respiratory failure: Qualified Code: J96.01 - Acute respiratory failure with hypoxia and hypercapnia Jas Tom MD September 25, 2016 08:19
[2016-09-25 08:24] LABS: ALKALINE PHOSPHATASE 94 U/L (45-117); ALT (GPT) 48 U/L (12-78); ANION GAP 11 MEQ/L (5-15); AST (GOT) 78 U/L (15-37); BICARBONATE 25.7 MEQ/L (21.0-32.0); BLOOD UREA NITROGEN 9 MG/DL (7-18); CHLORIDE 108 MEQ/L (98-107); GLOMERULAR FILTRATION RATE 97 ML/MIN (>89); POTASSIUM 3.5 MEQ/L (3.5-5.1); SODIUM (NA) 145 MEQ/L (136-145); TOTAL BILIRUBIN ADULT 2.8 MG/DL (0.2-1.0)
[2016-09-25 08:44] LABS: PLATELET ESTIMATE SMEAR LOW (NORMAL); PLATELET MORPHOLOGY NORMAL (NORMAL); SCAN/DIFF AUTO DIFF CONFIRMED
[2016-09-25] MEDS: RIFAXIMIN 550 MG TAB PO SCH ×2 (09:21→20:19)
[2016-09-25] MEDS: MULTIVITAMIN TAB PO SCH (09:21)
[2016-09-25] MEDS: LANSOPRAZOLE SOLUTAB 30 MG TAB NG SCH (09:21)
[2016-09-25] MEDS: PROPRANOLOL HCL 20 MG TAB PO SCH ×2 (09:21→20:19)
[2016-09-25] MEDS: FOLIC ACID 1 MG TAB PO SCH (09:22)
[2016-09-25] MEDS: THIAMINE INJ 100 MG in SODIUM CHLORIDE 0.9% INJ 100 ML IV SCH (09:22)
[2016-09-25] MEDS: levETIRAcetam INJ 500 MG in SODIUM CHLORIDE 0.9% INJ 100 ML IV SCH ×2 (09:22→20:24)
[2016-09-25] MEDS: SODIUM CHLORIDE 0.9% FLUSH 10 ML FLUSH IV FLUSH SCH ×2 (09:22→20:23)
[2016-09-25] MEDS: LISINOPRIL 20 MG TAB PO SCH ×2 (09:22→20:20)
[2016-09-25] MEDS: hydrALAZINE HCL 20 MG/ML VIAL IV PUSH PRN (09:23)
[2016-09-25] MEDS: LACTULOSE SYRUP 20 GM/30 ML CUP PO SCH ×4 (09:23→20:19)
[2016-09-26] VITALS (7 sets, daily range): BP systolic 144–162; BP diastolic 77–85; PULSE 52–65; RESP 16–18; TEMP 97–97.8; O2SAT 94–97
[2016-09-26] MEDS: CHLORHEXIDINE GLUCONATE 2 % 1 PACK (2 CLOTHS) TOP SCH (04:00)
[2016-09-26] MEDS: INSULIN ASPART SUPPLEMENTAL SCALE SQ SCH ×3 (04:44→18:14)
[2016-09-26] MEDS: levETIRAcetam INJ 500 MG in SODIUM CHLORIDE 0.9% INJ 100 ML IV SCH (07:49)
[2016-09-26] MEDS: THIAMINE INJ 100 MG in SODIUM CHLORIDE 0.9% INJ 100 ML IV SCH (07:50)
[2016-09-26] MEDS: SODIUM CHLORIDE 0.9% FLUSH 10 ML FLUSH IV FLUSH SCH ×2 (07:50→21:43)
[2016-09-26] MEDS: LANSOPRAZOLE SOLUTAB 30 MG TAB NG SCH (07:50)
[2016-09-26] MEDS: FOLIC ACID 1 MG TAB PO SCH (07:50)
[2016-09-26] MEDS: MULTIVITAMIN TAB PO SCH (07:51)
[2016-09-26] MEDS: RIFAXIMIN 550 MG TAB PO SCH ×2 (07:51→21:43)
[2016-09-26] MEDS: LACTULOSE SYRUP 20 GM/30 ML CUP PO SCH ×4 (07:51→21:43)
[2016-09-26] MEDS: PROPRANOLOL HCL 20 MG TAB PO SCH ×2 (07:51→21:43)
[2016-09-26] MEDS: LISINOPRIL 20 MG TAB PO SCH ×2 (09:01→21:43)
--- NOTE | 2016-09-26 10:19 | HHI.PR ---
Subjective Remarks Follow up encephalopathy, poor oral intake. The patient is more alert today, but is still confused. He reports abdominal pain. Denies chest pain, dyspnea. Objective Vitals Vital Signs Date Time Temp Pulse Resp B/P Pulse Ox O2 Delivery O2 Flow Rate FiO2 09/26/16 09:23 Room Air 21 09/26/16 08:00 97.6 62 18 162/85 95 09/26/16 04:02 97.4 57 16 162/77 97 09/25/16 23:36 97.9 70 16 152/84 96 09/25/16 20:22 Room Air 09/25/16 20:00 67 09/25/16 19:38 97.9 65 16 152/85 94 09/25/16 16:00 98.2 60 18 159/85 95 09/25/16 12:00 97.7 60 18 130/73 96 I/O 09/25/16 09/25/16 09/25/16 09/26/16 09/26/16 09/26/16 07:00 15:00 23:00 07:00 15:00 23:00 Intake Total 1000 ml 1260 ml 340 ml 0 ml Output Total 350 ml 400 ml 200 ml 250 ml Balance 650 ml 860 ml 140 ml -250 ml Intake Oral 0 ml 720 ml 240 ml 0 ml IV Total 1000 ml 540 ml 100 ml Output Urine Total 350 ml 400 ml 200 ml 250 ml # Bowel Movements 5 2 1 1 Result Diagram: 09/25/16 0731 09/25/16 0731 Imaging Last Impressions Head CT 09/19/16 Signed Impressions: Service Date/Time: Monday, September 19, 2016 22:09 - CONCLUSION: Normal examination. Marcin Gandhi MD Neck CTA 09/16/16 0000 Signed Impressions: Service Date/Time: Friday, September 16, 2016 11:02 - CONCLUSION: Mild atherosclerotic changes at the bulbs bilaterally but no significant stenosis identified. Benny Lima MD Head CTA 09/16/16 0000 Signed Impressions: Service Date/Time: Friday, September 16, 2016 11:02 - CONCLUSION: Brain CTA within normal limits. Junior Recio MD Brain MRI 09/13/16 0000 Signed Impressions: Service Date/Time: Tuesday, September 13, 2016 11:17 - CONCLUSION: 1. No acute hemorrhage, mass effect or acute infarction. 2. Mild increased signal in the white matter. This is not significantly changed. 3. Mild motion artifact. Mayo Moncada MD Chest X-Ray 09/08/16 Signed Impressions: Service Date/Time: Thursday, September 08, 2016 04:30 - CONCLUSION: 1. Cardiomegaly and findings of vascular congestion without overt failure. The findings have worsened when compared with the prior examination. Cleve Hernandez MD Lower Extremity Ultrasound 09/05/16 Signed Impressions: Service Date/Time: Monday, September 05, 2016 09:36 - CONCLUSION: There is normal compressibility of the deep venous system from the inguinal region to the proximal calf. No echogenic clot is seen in the lumen of the common femoral, femoral, popliteal, and posterior tibial veins. There is a normal response of the venous system to proximal and distal augmentation and respiration. CONCLUSION: Negative for deep venous thrombosis. Aman Freeman MD Liver Ultrasound 09/05/16 Signed Impressions: Service Date/Time: Monday, September 05, 2016 08:55 - CONCLUSION: 1. Moderate splenomegaly with no focal lesion. 2. Liver is normal in size but mildly increased in echogenicity. Mayo Moncada MD ADDENDUM: This study was rereviewed at Dr. Cross's request. The main portal vein and branch vessels are patent and demonstrate normal hepatopedal blood flow. Mayo Moncada MD Head Magnetic Resonance Angiography 09/05/16 Signed Impressions: Service Date/Time: Monday, September 05, 2016 17:27 - CONCLUSION: Normal MRA. Marcin Appiah MD Cervical Spine CT 09/05/16 Signed Impressions: Service Date/Time: Monday, September 05, 2016 07:34 - CONCLUSION: Degenerative changes, negative for fracture. Aman Freeman MD FACR Objective Remarks General: No acute distress. Heart: Regular rate and rhythm. No murmur. Lungs: Mild bibasilar crackles. Breathing is nonlabored. Abdomen: Soft, nontender, nondistended. Extremities: No lower extremity edema. Psych: Alert, confused. States the year is 2013 and month is December. Not oriented to location/hospital. Procedures None Urinary Catheter: Yes Assessment to: Continue [place] insert reason: Measure Accurate Output Vascular Central Line Catheter: No A/P Problem List: (1) Altered mental status ICD Code: R41.82 Status: Acute (2) HCV (hepatitis C virus) ICD Code: B19.20 Status: Chronic (3) Major depressive disorder ICD Code: F32.9 Status: Chronic (4) Cirrhosis of liver ICD Code: K74.60 Status: Chronic (5) Diabetic peripheral neuropathy ICD Code: E13.42 Status: Chronic (6) DM (diabetes mellitus), type 2, uncontrolled ICD Code: E11.65 Status: Chronic (7) Thrombocytopenia ICD Code: D69.6 Status: Acute (8) Hyperammonemia ICD Code: E72.20 Status: Acute (9) Lactic acidosis ICD Code: E87.2 Status: Resolved (10) History of DVT (deep vein thrombosis) ICD Code: Z86.718 Status: Chronic (11) Elevated troponin ICD Code: R74.8 Status: Acute (12) Tetrahydrocannabinol (THC) use disorder, mild, abuse ICD Code: F12.10 Status: Acute (13) Hypertension ICD Code: I10 Status: Chronic (14) Bulge of cervical disc without myelopathy ICD Code: M50.20 Status: Acute (15) Acute respiratory failure ICD Code: J96.00 Status: Acute (16) Septic shock ICD Code: A41.9 Status: Resolved (17) Delirium due to another medical condition ICD Code: F05 Status: Acute (18) Seizure ICD Code: R56.9 Status: Acute (19) Encephalopathy ICD Code: G93.40 Status: Acute Assessment and Plan 1. Acute toxic metabolic encephalopathy, hepatic encephalopathy: Appreciate neurology recommendations. Continue Keppra. Head CT/CTA negative. EEG on 09/15/15 showed moderate severe diffuse encephalopathy. Follow serum ammonia level. Continue Xifaxan, lactulose. Evaluated by psychiatry. Symptoms felt to be secondary to neurocognitive disorder and delirium. 2. Seizure: Continue Keppra, seizure precautions. 3. History of alcohol abuse: Continue thiamine, folate, multivitamin. 4. Elevated troponin, history of dilated cardiomyopathy: 2-D echocardiogram from July 2016 showed ejection fraction 55-60% with dilatation of the left atrium, left ventricle, and right ventricle. Echocardiogram 09/05/16 showed ejection fraction 60%. Appreciate cardiology recommendations. Follow-up with [facility] after discharge. 5. Hypertension: Continue propranolol, lisinopril. 6. Acute respiratory failure: Resolved. 7. Community-acquired pneumonia: Completed course of antibiotics. Currently stable on room air. Bronchodilators as needed. 8. Hepatitis C: Follow-up as outpatient. 9. Cirrhosis of the liver, elevated bilirubin: Monitor labs. 10. Chronic mild protein calorie malnutrition, poor oral intake: Continue pure diet with thin liquids per speech therapy. Appreciate dietary recommendations. Patient refusing some meals and only drinking Glucerna shakes for others. Continue IV fluids. ?consider appetite stimulant vs need for tube feeds. 11. GI prophylaxis: Prevacid. 12. Acute kidney injury: Improved. Continue IV fluids, using caution due to history of cardiomyopathy. 13. Diabetes mellitus with neuropathy: Monitor Accu-Cheks and cover with sliding scale insulin. 14. Thrombocytopenia: Chronic. Likely secondary to chronic liver disease, alcohol abuse. Hematology signed off. Has received transfusion of 2 units of platelets during this hospitalization. 15. Superior nasal spine fracture: Nonsurgical care. 16. DVT prophylaxis: SCDs. Avoid chemical prophylaxis secondary to thrombocytopenia. 17. Hypokalemia: Improved. Discharge Planning Will need SNF at discharge. Case management assisting with discharge planning. Problem Qualifiers (1) Altered mental status: Qualified Code: R40.2431 - [place] coma scale total score 3-8, in the field ( EMT or ambulance) (2) HCV (hepatitis C virus): Qualified Code: B19.20 - Hepatitis C virus infection without hepatic coma, unspecified chronicity (3) Major depressive disorder: Qualified Code: F33.9 - Recurrent major depressive disorder, remission status unspecified (4) Cirrhosis of liver: Qualified Code: K70.30 - Alcoholic cirrhosis of liver without ascites (5) DM (diabetes mellitus), type 2, uncontrolled: Qualified Code: E11.42 - Uncontrolled type 2 diabetes mellitus with diabetic polyneuropathy, without long-term current use of insulin (6) Hypertension: Qualified Code: I10 - Essential hypertension (7) Acute respiratory failure: Qualified Code: J96.01 - Acute respiratory failure with hypoxia and hypercapnia Jas Tom MD September 26, 2016 10:19
[2016-09-26] MEDS: levETIRAcetam 500 MG TAB PO SCH (21:43)
[2016-09-27] VITALS (7 sets, daily range): BP systolic 140–158; BP diastolic 73–84; PULSE 54–69; RESP 16–18; TEMP 97.6–98; O2SAT 94–100
[2016-09-27] MEDS: CHLORHEXIDINE GLUCONATE 2 % 1 PACK (2 CLOTHS) TOP SCH (04:00)
[2016-09-27] MEDS: INSULIN ASPART SUPPLEMENTAL SCALE SQ SCH ×5 (06:00→23:55)
[2016-09-27 07:38] LABS: AUTOMATED NEUTROPHIL # 1.1 TH/MM3 (1.8-7.7); BASOPHIL % 0.5 % (0.0-2.0); EOSINOPHIL # 0.1 TH/MM3 (0-0.4); EOSINOPHIL % 4.2 % (0.0-4.0); HEMATOCRIT 33.2 % (39.0-51.0); LYMPH % 27.6 % (9.0-44.0); LYMPHOCYTE # 0.5 TH/MM3 (1.0-4.8); MEAN CELL VOLUME 101.7 FL (80.0-100.0); MEAN CORPUSCULAR HEMOGLOBIN 34.4 PG (27.0-34.0); MEAN CORPUSCULAR HGB CONC 33.8 % (32.0-36.0); MONO % 12.1 % (0.0-8.0); NEUT % 55.6 % (16.0-70.0); PLATELET COUNT 30 TH/MM3 (150-450); RED BLOOD COUNT 3.26 MIL/MM3 (4.50-5.90); RED CELL DISTRIBUTION WIDTH 16.4 % (11.6-17.2)
[2016-09-27 07:39] LABS: MAGNESIUM 1.3 MG/DL (1.5-2.5); POTASSIUM 3.7 MEQ/L (3.5-5.1)
[2016-09-27 07:44] LABS: HEMO FLAGS AUTO DIFF
[2016-09-27] MEDS: MULTIVITAMIN TAB PO SCH (08:41)
[2016-09-27] MEDS: PROPRANOLOL HCL 20 MG TAB PO SCH ×2 (08:42→21:14)
[2016-09-27] MEDS: LACTULOSE SYRUP 20 GM/30 ML CUP PO SCH ×3 (08:42→18:02)
[2016-09-27] MEDS: RIFAXIMIN 550 MG TAB PO SCH ×2 (08:42→21:14)
[2016-09-27] MEDS: levETIRAcetam 500 MG TAB PO SCH ×2 (08:42→21:14)
[2016-09-27] MEDS: LISINOPRIL 20 MG TAB PO SCH ×2 (08:42→21:14)
[2016-09-27] MEDS: THIAMINE HCL 100 MG TAB PO SCH (08:42)
[2016-09-27] MEDS: FOLIC ACID 1 MG TAB PO SCH (08:42)
[2016-09-27] MEDS: LANSOPRAZOLE SOLUTAB 30 MG TAB NG SCH (08:42)
[2016-09-27] MEDS: SODIUM CHLORIDE 0.9% FLUSH 10 ML FLUSH IV FLUSH SCH ×2 (08:42→21:00)
--- NOTE | 2016-09-27 09:19 | HHI.PR ---
Subjective Remarks Follow up encephalopathy, poor oral intake. The patient remains confused. He denies pain. Is eating his breakfast with assistance from the [employer]. Objective Vitals Vital Signs Date Time Temp Pulse Resp B/P Pulse Ox O2 Delivery O2 Flow Rate FiO2 09/27/16 08:00 98.0 54 18 157/84 97 09/27/16 04:45 97.9 58 16 149/80 94 09/26/16 23:20 97.6 59 16 144/80 96 09/26/16 20:15 Room Air 09/26/16 20:00 61 09/26/16 19:32 97.8 62 16 151/77 96 09/26/16 16:00 97.0 65 18 148/84 94 09/26/16 12:00 97.7 52 18 147/79 97 09/26/16 09:23 Room Air 21 I/O 09/26/16 09/26/16 09/26/16 09/27/16 09/27/16 09/27/16 07:00 15:00 23:00 07:00 15:00 23:00 Intake Total 0 ml 480 ml 240 ml 0 ml Output Total 250 ml 500 ml 300 ml 300 ml Balance -250 ml -20 ml -60 ml -300 ml Intake Oral 0 ml 480 ml 240 ml 0 ml Output Urine Total 250 ml 500 ml 300 ml 300 ml # Bowel Movements 1 2 0 0 Result Diagram: 09/27/16 0600 09/27/16 0600 Imaging Last Impressions Head CT 09/19/16 0000 Signed Impressions: Service Date/Time: Monday, September 19, 2016 22:09 - CONCLUSION: Normal examination. Marcin Gandhi MD Neck CTA 09/16/16 0000 Signed Impressions: Service Date/Time: Friday, September 16, 2016 11:02 - CONCLUSION: Mild atherosclerotic changes at the bulbs bilaterally but no significant stenosis identified. Benny Lima MD Head CTA 09/16/16 0000 Signed Impressions: Service Date/Time: Friday, September 16, 2016 11:02 - CONCLUSION: Brain CTA within normal limits. Junior Recio MD Brain MRI 09/13/16 0000 Signed Impressions: Service Date/Time: Tuesday, September 13, 2016 11:17 - CONCLUSION: 1. No acute hemorrhage, mass effect or acute infarction. 2. Mild increased signal in the white matter. This is not significantly changed. 3. Mild motion artifact. Mayo Moncada MD Chest X-Ray 09/08/16 Signed Impressions: Service Date/Time: Thursday, September 08, 2016 04:30 - CONCLUSION: 1. Cardiomegaly and findings of vascular congestion without overt failure. The findings have worsened when compared with the prior examination. Cleve Hernandez MD Lower Extremity Ultrasound 09/05/16 Signed Impressions: Service Date/Time: Monday, September 05, 2016 09:36 - CONCLUSION: There is normal compressibility of the deep venous system from the inguinal region to the proximal calf. No echogenic clot is seen in the lumen of the common femoral, femoral, popliteal, and posterior tibial veins. There is a normal response of the venous system to proximal and distal augmentation and respiration. MD CONCLUSION: Negative for deep venous thrombosis. Aman Freeman MD Liver Ultrasound 09/05/16 Signed Impressions: Service Date/Time: Monday, September 05, 2016 08:55 - CONCLUSION: 1. Moderate splenomegaly with no focal lesion. 2. Liver is normal in size but mildly increased in echogenicity. Mayo Moncada MD ADDENDUM: This study was rereviewed at Dr. Cross's request. The main portal vein and branch vessels are patent and demonstrate normal hepatopedal blood flow. Mayo Moncada MD Head Magnetic Resonance Angiography 09/05/16 Signed Impressions: Service Date/Time: Monday, September 05, 2016 17:27 - CONCLUSION: Normal MRA. Marcin Appiah MD Cervical Spine CT 09/05/16 Signed Impressions: Service Date/Time: Monday, September 05, 2016 07:34 - CONCLUSION: Degenerative changes, negative for fracture. Aman Freeman MD FACR Objective Remarks General: No acute distress. Heart: Regular rate and rhythm. No murmur. Lungs: Mild bibasilar crackles. Breathing is nonlabored. Abdomen: Soft, nontender, nondistended. Extremities: No lower extremity edema. Psych: Alert, confused. States the year is 2001. He is not oriented to month or location. Procedures None Urinary Catheter: Yes Assessment to: Remove Vascular Central Line Catheter: No A/P Problem List: (1) Altered mental status ICD Code: R41.82 Status: Acute (2) HCV (hepatitis C virus) ICD Code: B19.20 Status: Chronic (3) Major depressive disorder ICD Code: F32.9 Status: Chronic (4) Cirrhosis of liver ICD Code: K74.60 Status: Chronic (5) Diabetic peripheral neuropathy ICD Code: E13.42 Status: Chronic (6) DM (diabetes mellitus), type 2, uncontrolled ICD Code: E11.65 Status: Chronic (7) Thrombocytopenia ICD Code: D69.6 Status: Acute (8) Hyperammonemia ICD Code: E72.20 Status: Acute (9) Lactic acidosis ICD Code: E87.2 Status: Resolved (10) History of DVT (deep vein thrombosis) ICD Code: Z86.718 Status: Chronic (11) Elevated troponin ICD Code: R74.8 Status: Acute (12) Tetrahydrocannabinol (THC) use disorder, mild, abuse ICD Code: F12.10 Status: Acute (13) Hypertension ICD Code: I10 Status: Chronic (14) Bulge of cervical disc without myelopathy ICD Code: M50.20 Status: Acute (15) Acute respiratory failure ICD Code: J96.00 Status: Acute (16) Septic shock ICD Code: A41.9 Status: Resolved (17) Delirium due to another medical condition ICD Code: F05 Status: Acute (18) Seizure ICD Code: R56.9 Status: Acute (19) Encephalopathy ICD Code: G93.40 Status: Acute Assessment and Plan 1. Acute toxic metabolic encephalopathy, hepatic encephalopathy: Appreciate neurology recommendations. Continue Keppra. Head CT/CTA negative. EEG on 09/15/15 showed moderate severe diffuse encephalopathy. Follow serum ammonia level. Continue Xifaxan, lactulose. Evaluated by psychiatry. Symptoms felt to be secondary to neurocognitive disorder and delirium. 2. Seizure: Continue Keppra, seizure precautions. 3. History of alcohol abuse: Continue thiamine, folate, multivitamin. 4. Elevated troponin, history of dilated cardiomyopathy: 2-D echocardiogram from July 2016 showed ejection fraction 55-60% with dilatation of the left atrium, left ventricle, and right ventricle. Echocardiogram 09/05/16 showed ejection fraction 60%. Appreciate cardiology recommendations. Follow-up with [facility] after discharge. 5. Hypertension: Continue propranolol, lisinopril. 6. Acute respiratory failure: Resolved. 7. Community-acquired pneumonia: Completed course of antibiotics. Currently stable on room air. Bronchodilators as needed. 8. Hepatitis C: Follow-up as outpatient. 9. Cirrhosis of the liver, elevated bilirubin: Monitor labs. 10. Chronic mild protein calorie malnutrition, poor oral intake: Continue pure diet with thin liquids per speech therapy. Appreciate dietary recommendations. Patient refusing some meals and only drinking Glucerna shakes for others. Continue IV fluids. ?consider appetite stimulant vs need for tube feeds. 11. GI prophylaxis: Prevacid. 12. Acute kidney injury: Improved. Continue IV fluids, using caution due to history of cardiomyopathy. 13. Diabetes mellitus with neuropathy: Monitor Accu-Cheks and cover with sliding scale insulin. 14. Thrombocytopenia: Chronic. Likely secondary to chronic liver disease, alcohol abuse. Hematology signed off. Has received transfusion of 2 units of platelets during this hospitalization. 15. Superior nasal spine fracture: Nonsurgical care. 16. DVT prophylaxis: SCDs. Avoid chemical prophylaxis secondary to thrombocytopenia. 17. Hypokalemia: Improved. 18. Hypomagnesemia: Supplement magnesium and recheck labs in the morning. Discharge Planning Will need SNF at discharge. Case management assisting with discharge planning. Problem Qualifiers (1) Altered mental status: Qualified Code: R40.2431 - [place] coma scale total score 3-8, in the field ( EMT or ambulance) (2) HCV (hepatitis C virus): Qualified Code: B19.20 - Hepatitis C virus infection without hepatic coma, unspecified chronicity (3) Major depressive disorder: Qualified Code: F33.9 - Recurrent major depressive disorder, remission status unspecified (4) Cirrhosis of liver: Qualified Code: K70.30 - Alcoholic cirrhosis of liver without ascites (5) DM (diabetes mellitus), type 2, uncontrolled: Qualified Code: E11.42 - Uncontrolled type 2 diabetes mellitus with diabetic polyneuropathy, without long-term current use of insulin (6) Hypertension: Qualified Code: I10 - Essential hypertension (7) Acute respiratory failure: Qualified Code: J96.01 - Acute respiratory failure with hypoxia and hypercapnia Jas Tom MD September 27, 2016 09:19
[2016-09-27 10:05] LABS: ACANTHOCYTES 1+ (NORMAL); PLATELET ESTIMATE SMEAR LOW (NORMAL); PLATELET MORPHOLOGY NORMAL (NORMAL); ROULEAUX PRESENT (NORMAL); SCAN/DIFF AUTO DIFF CONFIRMED; SPHEROCYTES 1+ (NORMAL)
[2016-09-27] MEDS: MAGNESIUM SULFATE 1 GM PREMIX 100 ML IV SCH ×2 (12:58→13:59)
[2016-09-28] VITALS (7 sets, daily range): BP systolic 131–158; BP diastolic 77–89; PULSE 52–67; RESP 18; TEMP 97.3–98.4; O2SAT 96–97
[2016-09-28] MEDS: CHLORHEXIDINE GLUCONATE 2 % 1 PACK (2 CLOTHS) TOP SCH (04:00)
[2016-09-28] MEDS: INSULIN ASPART SUPPLEMENTAL SCALE SQ SCH ×3 (06:00→17:16)
[2016-09-28 07:39] LABS: BASOPHIL % 1.3 % (0.0-2.0); EOSINOPHIL # 0.1 TH/MM3 (0-0.4); EOSINOPHIL % 4.1 % (0.0-4.0); HEMATOCRIT 32.3 % (39.0-51.0); LYMPH % 29.6 % (9.0-44.0); LYMPHOCYTE # 0.6 TH/MM3 (1.0-4.8); MEAN CELL VOLUME 98.9 FL (80.0-100.0); MEAN CORPUSCULAR HEMOGLOBIN 33.8 PG (27.0-34.0); MEAN CORPUSCULAR HGB CONC 34.2 % (32.0-36.0); MONO % 14.1 % (0.0-8.0); NEUT % 50.9 % (16.0-70.0); PLATELET COUNT 29 TH/MM3 (150-450); RED BLOOD COUNT 3.27 MIL/MM3 (4.50-5.90); RED CELL DISTRIBUTION WIDTH 15.6 % (11.6-17.2); WHITE BLOOD COUNT 1.9 TH/MM3 (4.0-11.0)
[2016-09-28 07:42] LABS: HEMO FLAGS AUTO DIFF
[2016-09-28 08:10] LABS: BICARBONATE 25.4 MEQ/L (21.0-32.0); MAGNESIUM 1.6 MG/DL (1.5-2.5); POTASSIUM 3.5 MEQ/L (3.5-5.1)
[2016-09-28] MEDS: LANSOPRAZOLE SOLUTAB 30 MG TAB NG SCH (09:22)
[2016-09-28] MEDS: FOLIC ACID 1 MG TAB PO SCH (09:22)
[2016-09-28] MEDS: LISINOPRIL 20 MG TAB PO SCH ×2 (09:22→21:56)
[2016-09-28] MEDS: levETIRAcetam 500 MG TAB PO SCH ×2 (09:22→21:56)
[2016-09-28] MEDS: MULTIVITAMIN TAB PO SCH (09:22)
[2016-09-28] MEDS: LACTULOSE SYRUP 20 GM/30 ML CUP PO SCH ×4 (09:23→21:57)
[2016-09-28] MEDS: SODIUM CHLORIDE 0.9% FLUSH 10 ML FLUSH IV FLUSH SCH ×2 (09:24→21:57)
[2016-09-28] MEDS: PROPRANOLOL HCL 20 MG TAB PO SCH ×2 (09:28→21:56)
[2016-09-28] MEDS: RIFAXIMIN 550 MG TAB PO SCH ×2 (09:28→21:56)
[2016-09-28] MEDS: THIAMINE HCL 100 MG TAB PO SCH (09:29)
[2016-09-28 10:28] LABS: BANDS 4 % (0-6); EOSINOPHILS 3 % (0-4); NEUTROPHIL # MANUAL DIFF 1.1 TH/MM3 (1.8-7.7); POLYS (SEG NEUTROPHILS) 54 % (16-70); TEARDROP RBCS 1+ (NORMAL); WBC DIFF SAMPLE 100
[2016-09-28 10:29] LABS: PLATELET ESTIMATE SMEAR LOW (NORMAL); PLATELET MORPHOLOGY NORMAL (NORMAL); SCAN/DIFF FINAL DIFF MANUAL
--- NOTE | 2016-09-28 13:55 | HHI.PR ---
Subjective Remarks Follow up encephalopathy, poor oral intake. Patient is more lethargic today. Does awaken and answers questions. Reports abdominal pain. No other complaints at this time. Objective Vitals Vital Signs Date Time Temp Pulse Resp B/P Pulse Ox O2 Delivery O2 Flow Rate FiO2 09/28/16 08:00 97.9 52 18 144/84 96 09/28/16 08:00 2.00 09/28/16 08:00 66 09/28/16 04:00 97.3 53 18 158/77 96 09/28/16 00:00 97.7 60 18 157/89 97 09/27/16 21:19 Room Air 09/27/16 20:00 97.8 64 18 158/73 99 09/27/16 19:02 69 09/27/16 16:00 97.6 60 18 157/83 100 I/O 09/27/16 09/27/16 09/27/16 09/28/16 09/28/16 09/28/16 07:00 15:00 23:00 07:00 15:00 23:00 Intake Total 0 ml 960 ml 240 ml 240 ml Output Total 300 ml 450 ml Balance -300 ml 510 ml 240 ml 240 ml Intake Oral 0 ml 960 ml 240 ml 240 ml Output Urine Total 300 ml 450 ml # Voids 1 1 # Bowel Movements 0 0 2 1 Result Diagram: 09/28/1612 09/28/16 0712 Imaging Last Impressions Head CT 09/19/16 0000 Signed Impressions: Service Date/Time: Monday, September 19, 2016 22:09 - CONCLUSION: Normal examination. Marcin Gandhi MD Neck CTA 09/16/16 0000 Signed Impressions: Service Date/Time: Friday, September 16, 2016 11:02 - CONCLUSION: Mild atherosclerotic changes at the bulbs bilaterally but no significant stenosis identified. Benny Lima MD Head CTA 09/16/16 0000 Signed Impressions: Service Date/Time: Friday, September 16, 2016 11:02 - CONCLUSION: Brain CTA within normal limits. Junior Recio MD Brain MRI 09/13/16 0000 Signed Impressions: Service Date/Time: Tuesday, September 13, 2016 11:17 - CONCLUSION: 1. No acute hemorrhage, mass effect or acute infarction. 2. Mild increased signal in the white matter. This is not significantly changed. 3. Mild motion artifact. Mayo Moncada MD Chest X-Ray 09/08/16 Signed Impressions: Service Date/Time: Thursday, September 08, 2016 04:30 - CONCLUSION: 1. Cardiomegaly and findings of vascular congestion without overt failure. The findings have worsened when compared with the prior examination. Cleve Hernandez MD Lower Extremity Ultrasound 09/05/16 Signed Impressions: Service Date/Time: Monday, September 05, 2016 09:36 - CONCLUSION: There is normal compressibility of the deep venous system from the inguinal region to the proximal calf. No echogenic clot is seen in the lumen of the common femoral, femoral, popliteal, and posterior tibial veins. There is a normal response of the venous system to proximal and distal augmentation and respiration. CONCLUSION: Negative for deep venous thrombosis. Aman Freeman MD Liver Ultrasound 09/05/16 Signed Impressions: Service Date/Time: Monday, September 05, 2016 08:55 - CONCLUSION: 1. Moderate splenomegaly with no focal lesion. 2. Liver is normal in size but mildly increased in echogenicity. Mayo Moncada MD ADDENDUM: This study was rereviewed at Dr. Cross's request. The main portal vein and branch vessels are patent and demonstrate normal hepatopedal blood flow. Mayo Moncada MD Head Magnetic Resonance Angiography 09/05/16 Signed Impressions: Service Date/Time: Monday, September 05, 2016 17:27 - CONCLUSION: Normal MRA. Marcin Appiah MD Cervical Spine CT 09/05/16 Signed Impressions: Service Date/Time: Monday, September 05, 2016 07:34 - CONCLUSION: Degenerative changes, negative for fracture. Aman Freeman MD FACR Objective Remarks General: No acute distress. Heart: Regular rate and rhythm. No murmur. Lungs: Mild bibasilar crackles. Breathing is nonlabored. Abdomen: Soft, nontender, nondistended. Extremities: No lower extremity edema. Psych: Sleeping, but awakens. Somewhat lethargic. Procedures None Urinary Catheter: No Vascular Central Line Catheter: No A/P Problem List: (1) Altered mental status ICD Code: R41.82 Status: Acute (2) HCV (hepatitis C virus) ICD Code: B19.20 Status: Chronic (3) Major depressive disorder ICD Code: F32.9 Status: Chronic (4) Cirrhosis of liver ICD Code: K74.60 Status: Chronic (5) Diabetic peripheral neuropathy ICD Code: E13.42 Status: Chronic (6) DM (diabetes mellitus), type 2, uncontrolled ICD Code: E11.65 Status: Chronic (7) Thrombocytopenia ICD Code: D69.6 Status: Acute (8) Hyperammonemia ICD Code: E72.20 Status: Acute (9) Lactic acidosis ICD Code: E87.2 Status: Resolved (10) History of DVT (deep vein thrombosis) ICD Code: Z86.718 Status: Chronic (11) Elevated troponin ICD Code: R74.8 Status: Acute (12) Tetrahydrocannabinol (THC) use disorder, mild, abuse ICD Code: F12.10 Status: Acute (13) Hypertension ICD Code: I10 Status: Chronic (14) Bulge of cervical disc without myelopathy ICD Code: M50.20 Status: Acute (15) Acute respiratory failure ICD Code: J96.00 Status: Acute (16) Septic shock ICD Code: A41.9 Status: Resolved (17) Delirium due to another medical condition ICD Code: F05 Status: Acute (18) Seizure ICD Code: R56.9 Status: Acute (19) Encephalopathy ICD Code: G93.40 Status: Acute Assessment and Plan 1. Acute toxic metabolic encephalopathy, hepatic encephalopathy: Appreciate neurology recommendations. Continue Keppra. Head CT/CTA negative. EEG on 09/15/15 showed moderate severe diffuse encephalopathy. Evaluated by psychiatry. Symptoms felt to be secondary to neurocognitive disorder and delirium. Serum ammonia level increased today. Increase lactulose. Continue Xifaxan. 2. Seizure: Continue Keppra, seizure precautions. 3. History of alcohol abuse: Continue thiamine, folate, multivitamin. 4. Elevated troponin, history of dilated cardiomyopathy: 2-D echocardiogram from July 2016 showed ejection fraction 55-60% with dilatation of the left atrium, left ventricle, and right ventricle. Echocardiogram 09/05/16 showed ejection fraction 60%. Appreciate cardiology recommendations. Follow-up with [facility] after discharge. 5. Hypertension: Continue propranolol, lisinopril. 6. Acute respiratory failure: Resolved. 7. Community-acquired pneumonia: Completed course of antibiotics. Currently stable on room air. Bronchodilators as needed. 8. Hepatitis C: Follow-up as outpatient. 9. Cirrhosis of the liver, elevated bilirubin: Monitor labs. 10. Chronic mild protein calorie malnutrition, poor oral intake: Continue pure diet with thin liquids per speech therapy. Appreciate dietary recommendations. Patient refusing some meals and only drinking Glucerna shakes for others. Continue IV fluids. ?consider appetite stimulant vs need for tube feeds. 11. GI prophylaxis: Prevacid. 12. Acute kidney injury: Improved. Continue IV fluids, using caution due to history of cardiomyopathy. 13. Diabetes mellitus with neuropathy: Monitor Accu-Cheks and cover with sliding scale insulin. 14. Thrombocytopenia: Chronic. Likely secondary to chronic liver disease, alcohol abuse. Hematology signed off. Has received transfusion of 2 units of platelets during this hospitalization. 15. Superior nasal spine fracture: Nonsurgical care. 16. DVT prophylaxis: SCDs. Avoid chemical prophylaxis secondary to thrombocytopenia. 17. Hypokalemia: Improved. 18. Hypomagnesemia: Improved. Discharge Planning Will need SNF at discharge. Case management assisting with discharge planning. Problem Qualifiers (1) Altered mental status: Qualified Code: R40.2431 - [place] coma scale total score 3-8, in the field ( EMT or ambulance) (2) HCV (hepatitis C virus): Qualified Code: B19.20 - Hepatitis C virus infection without hepatic coma, unspecified chronicity (3) Major depressive disorder: Qualified Code: F33.9 - Recurrent major depressive disorder, remission status unspecified (4) Cirrhosis of liver: Qualified Code: K70.30 - Alcoholic cirrhosis of liver without ascites (5) DM (diabetes mellitus), type 2, uncontrolled: Qualified Code: E11.42 - Uncontrolled type 2 diabetes mellitus with diabetic polyneuropathy, without long-term current use of insulin (6) Hypertension: Qualified Code: I10 - Essential hypertension (7) Acute respiratory failure: Qualified Code: J96.01 - Acute respiratory failure with hypoxia and hypercapnia Jas Tom MD September 28, 2016 13:55
[2016-09-29] VITALS (7 sets, daily range): BP systolic 126–148; BP diastolic 69–81; PULSE 56–69; RESP 16–20; TEMP 97.6–98.8; O2SAT 94–97
[2016-09-29] MEDS: CHLORHEXIDINE GLUCONATE 2 % 1 PACK (2 CLOTHS) TOP SCH (04:00)
[2016-09-29] MEDS: INSULIN ASPART SUPPLEMENTAL SCALE SQ SCH ×5 (06:00→23:28)
[2016-09-29 07:56] LABS: AUTOMATED NEUTROPHIL # 2.8 TH/MM3 (1.8-7.7); BASOPHIL % 0.4 % (0.0-2.0); EOSINOPHIL # 0.1 TH/MM3 (0-0.4); HEMATOCRIT 32.9 % (39.0-51.0); LYMPH % 15.7 % (9.0-44.0); LYMPHOCYTE # 0.6 TH/MM3 (1.0-4.8); MEAN CELL VOLUME 97.7 FL (80.0-100.0); MEAN CORPUSCULAR HEMOGLOBIN 34.4 PG (27.0-34.0); MEAN CORPUSCULAR HGB CONC 35.2 % (32.0-36.0); MONO % 8.9 % (0.0-8.0); PLATELET COUNT 29 TH/MM3 (150-450); RED BLOOD COUNT 3.37 MIL/MM3 (4.50-5.90); RED CELL DISTRIBUTION WIDTH 15.7 % (11.6-17.2); WHITE BLOOD COUNT 3.8 TH/MM3 (4.0-11.0)
[2016-09-29 08:00] LABS: HEMO FLAGS AUTO DIFF
[2016-09-29 08:14] LABS: BICARBONATE 25.6 MEQ/L (21.0-32.0); MAGNESIUM 1.4 MG/DL (1.5-2.5); POTASSIUM 3.7 MEQ/L (3.5-5.1)
[2016-09-29 08:49] LABS: BANDS 15 % (0-6); EOSINOPHILS 1 % (0-4); PLATELET ESTIMATE SMEAR LOW (NORMAL); PLATELET MORPHOLOGY NORMAL (NORMAL); POLYS (SEG NEUTROPHILS) 64 % (16-70); SCAN/DIFF FINAL DIFF MANUAL; WBC DIFF SAMPLE 100
[2016-09-29] MEDS: LANSOPRAZOLE SOLUTAB 30 MG TAB NG SCH (09:05)
[2016-09-29] MEDS: LACTULOSE SYRUP 20 GM/30 ML CUP PO SCH ×4 (09:05→20:42)
[2016-09-29] MEDS: RIFAXIMIN 550 MG TAB PO SCH ×2 (09:05→20:42)
[2016-09-29] MEDS: PROPRANOLOL HCL 20 MG TAB PO SCH ×2 (09:05→20:42)
[2016-09-29] MEDS: FOLIC ACID 1 MG TAB PO SCH (09:06)
[2016-09-29] MEDS: THIAMINE HCL 100 MG TAB PO SCH (09:06)
[2016-09-29] MEDS: SODIUM CHLORIDE 0.9% FLUSH 10 ML FLUSH IV FLUSH SCH ×2 (09:06→20:42)
[2016-09-29] MEDS: LISINOPRIL 20 MG TAB PO SCH ×2 (09:06→20:43)
[2016-09-29] MEDS: MULTIVITAMIN TAB PO SCH (09:06)
[2016-09-29] MEDS: levETIRAcetam 500 MG TAB PO SCH ×2 (09:06→20:42)
[2016-09-29] MEDS ORDERED: MAGNESIUM SULFATE 1 GM PREMIX 100 ML IV ONE (16:30)
--- NOTE | 2016-09-29 16:42 | HHI.PR ---
Subjective Remarks Follow up encephalopathy. Patient is more alert today. He states that he feels good. He does remain confused. Objective Vitals Vital Signs Date Time Temp Pulse Resp B/P Pulse Ox O2 Delivery O2 Flow Rate FiO2 09/29/16 16:00 97.8 60 16 134/71 97 09/29/16 12:00 98.0 59 20 126/75 96 09/29/16 09:45 58 09/29/16 08:00 98.1 56 16 137/73 94 09/29/16 04:00 97.6 60 18 135/69 96 09/29/16 00:00 97.9 69 20 148/81 97 09/28/16 22:21 Room Air 09/28/16 20:00 98.4 65 18 131/79 97 09/28/16 19:50 67 I/O 09/28/16 09/28/16 09/28/16 09/29/16 09/29/16 09/29/16 07:00 15:00 23:00 07:00 15:00 23:00 Intake Total 240 ml 960 ml 480 ml 0 ml 480 ml Output Total 400 ml 200 ml Balance 240 ml 560 ml 280 ml 0 ml 480 ml Intake Oral 240 ml 960 ml 480 ml 0 ml 480 ml Output Urine Total 400 ml 200 ml # Voids 1 1 3 3 # Bowel Movements 1 1 1 1 3 Result Diagram: 09/29/16 0730 09/29/16 0634 Imaging Last Impressions Head CT 09/19/16 0000 Signed Impressions: Service Date/Time: Monday, September 19, 2016 22:09 - CONCLUSION: Normal examination. Marcin Gandhi MD Neck CTA 09/16/16 0000 Signed Impressions: Service Date/Time: Friday, September 16, 2016 11:02 - CONCLUSION: Mild atherosclerotic changes at the bulbs bilaterally but no significant stenosis identified. Benny Lima MD Head CTA 09/16/16 0000 Signed Impressions: Service Date/Time: Friday, September 16, 2016 11:02 - CONCLUSION: Brain CTA within normal limits. Junior Recio MD Brain MRI 09/13/16 0000 Signed Impressions: Service Date/Time: Tuesday, September 13, 2016 11:17 - CONCLUSION: 1. No acute hemorrhage, mass effect or acute infarction. 2. Mild increased signal in the white matter. This is not significantly changed. 3. Mild motion artifact. Mayo Moncada MD Chest X-Ray 09/08/16 Signed Impressions: Service Date/Time: Thursday, September 08, 2016 04:30 - CONCLUSION: 1. Cardiomegaly and findings of vascular congestion without overt failure. The findings have worsened when compared with the prior examination. Cleve Hernandez MD Lower Extremity Ultrasound 09/05/16 Signed Impressions: Service Date/Time: Monday, September 05, 2016 09:36 - CONCLUSION: There is normal compressibility of the deep venous system from the inguinal region to the proximal calf. No echogenic clot is seen in the lumen of the common femoral, femoral, popliteal, and posterior tibial veins. There is a normal response of the venous system to proximal and distal augmentation and respiration. CONCLUSION: Negative for deep venous thrombosis. Aman Freeman MD Liver Ultrasound 09/05/16 Signed Impressions: Service Date/Time: Monday, September 05, 2016 08:55 - CONCLUSION: 1. Moderate splenomegaly with no focal lesion. 2. Liver is normal in size but mildly increased in echogenicity. Mayo Moncada MD ADDENDUM: This study was rereviewed at Dr. Cross's request. The main portal vein and branch vessels are patent and demonstrate normal hepatopedal blood flow. Mayo Moncada MD Head Magnetic Resonance Angiography 09/05/16 Signed Impressions: Service Date/Time: Monday, September 05, 2016 17:27 - CONCLUSION: Normal MRA. Marcin Appiah MD Cervical Spine CT 09/05/16 0000 Signed Impressions: Service Date/Time: Monday, September 05, 2016 07:34 - CONCLUSION: Degenerative changes, negative for fracture. Aman Freeman MD FACR Objective Remarks General: No acute distress. Heart: Regular rate and rhythm. No murmur. Lungs: Mild bibasilar crackles. Breathing is nonlabored. Abdomen: Soft, nontender, nondistended. Extremities: No lower extremity edema. Psych: Alert, confused. States that we are in [facility]. He is not oriented to year or month. Procedures None Urinary Catheter: No Vascular Central Line Catheter: No A/P Problem List: (1) Altered mental status ICD Code: R41.82 Status: Acute (2) HCV (hepatitis C virus) ICD Code: B19.20 Status: Chronic (3) Major depressive disorder ICD Code: F32.9 Status: Chronic (4) Cirrhosis of liver ICD Code: K74.60 Status: Chronic (5) Diabetic peripheral neuropathy ICD Code: E13.42 Status: Chronic (6) DM (diabetes mellitus), type 2, uncontrolled ICD Code: E11.65 Status: Chronic (7) Thrombocytopenia ICD Code: D69.6 Status: Acute (8) Hyperammonemia ICD Code: E72.20 Status: Acute (9) Lactic acidosis ICD Code: E87.2 Status: Resolved (10) History of DVT (deep vein thrombosis) ICD Code: Z86.718 Status: Chronic (11) Elevated troponin ICD Code: R74.8 Status: Acute (12) Tetrahydrocannabinol (THC) use disorder, mild, abuse ICD Code: F12.10 Status: Acute (13) Hypertension ICD Code: I10 Status: Chronic (14) Bulge of cervical disc without myelopathy ICD Code: M50.20 Status: Acute (15) Acute respiratory failure ICD Code: J96.00 Status: Acute (16) Septic shock ICD Code: A41.9 Status: Resolved (17) Delirium due to another medical condition ICD Code: F05 Status: Acute (18) Seizure ICD Code: R56.9 Status: Acute (19) Encephalopathy ICD Code: G93.40 Status: Acute Assessment and Plan 1. Acute toxic metabolic encephalopathy, hepatic encephalopathy: Appreciate neurology recommendations. Continue Keppra. Head CT/CTA negative. EEG on 09/15/15 showed moderate severe diffuse encephalopathy. Evaluated by psychiatry. Symptoms felt to be secondary to neurocognitive disorder and delirium. Serum ammonia remains elevated. Increase lactulose. Continue Xifaxan. The patient is more alert today, but is still confused. 2. Seizure: Continue Keppra, seizure precautions. 3. History of alcohol abuse: Continue thiamine, folate, multivitamin. 4. Elevated troponin, history of dilated cardiomyopathy: 2-D echocardiogram from July 2016 showed ejection fraction 55-60% with dilatation of the left atrium, left ventricle, and right ventricle. Echocardiogram 09/05/16 showed ejection fraction 60%. Appreciate cardiology recommendations. Follow-up with [facility] after discharge. 5. Hypertension: Continue propranolol, lisinopril. 6. Acute respiratory failure: Resolved. 7. Community-acquired pneumonia: Completed course of antibiotics. Currently stable on room air. Bronchodilators as needed. 8. Hepatitis C: Follow-up as outpatient. 9. Cirrhosis of the liver, elevated bilirubin: Monitor labs. 10. Chronic mild protein calorie malnutrition, poor oral intake: Continue pure diet with thin liquids per speech therapy. Appreciate dietary recommendations. Patient refusing some meals and only drinking Glucerna shakes for others. Continue IV fluids. ?consider appetite stimulant vs need for tube feeds. Oral intake seems to be improving slowly. 11. GI prophylaxis: Prevacid. 12. Acute kidney injury: Improved. Continue IV fluids, using caution due to history of cardiomyopathy. 13. Diabetes mellitus with neuropathy: Monitor Accu-Cheks and cover with sliding scale insulin. 14. Thrombocytopenia: Chronic. Likely secondary to chronic liver disease, alcohol abuse. Hematology signed off. Has received transfusion of 2 units of platelets during this hospitalization. 15. Superior nasal spine fracture: Nonsurgical care. 16. DVT prophylaxis: SCDs. Avoid chemical prophylaxis secondary to thrombocytopenia. 17. Hypokalemia: Improved. 18. Hypomagnesemia: Supplement magnesium. Recheck labs in the morning. Discharge Planning Will need SNF at discharge. Case management assisting with discharge planning. Problem Qualifiers (1) Altered mental status: Qualified Code: R40.2431 - [place] coma scale total score 3-8, in the field ( EMT or ambulance) (2) HCV (hepatitis C virus): Qualified Code: B19.20 - Hepatitis C virus infection without hepatic coma, unspecified chronicity (3) Major depressive disorder: Qualified Code: F33.9 - Recurrent major depressive disorder, remission status unspecified (4) Cirrhosis of liver: Qualified Code: K70.30 - Alcoholic cirrhosis of liver without ascites (5) DM (diabetes mellitus), type 2, uncontrolled: Qualified Code: E11.42 - Uncontrolled type 2 diabetes mellitus with diabetic polyneuropathy, without long-term current use of insulin (6) Hypertension: Qualified Code: I10 - Essential hypertension (7) Acute respiratory failure: Qualified Code: J96.01 - Acute respiratory failure with hypoxia and hypercapnia Jas Tom MD September 29, 2016 16:42
[2016-09-30] VITALS (7 sets, daily range): BP systolic 131–161; BP diastolic 66–84; PULSE 59–65; RESP 16–20; TEMP 97–98.6; O2SAT 94–99
[2016-09-30] MEDS: CHLORHEXIDINE GLUCONATE 2 % 1 PACK (2 CLOTHS) TOP SCH (03:01)
[2016-09-30] MEDS: INSULIN ASPART SUPPLEMENTAL SCALE SQ SCH ×4 (05:10→23:26)
[2016-09-30 08:33] LABS: AUTOMATED NEUTROPHIL # 3.4 TH/MM3 (1.8-7.7); BASOPHIL % 0.3 % (0.0-2.0); EOSINOPHIL # 0.1 TH/MM3 (0-0.4); EOSINOPHIL % 1.3 % (0.0-4.0); HEMATOCRIT 34.3 % (39.0-51.0); LYMPH % 12.4 % (9.0-44.0); LYMPHOCYTE # 0.5 TH/MM3 (1.0-4.8); MEAN CELL VOLUME 98.4 FL (80.0-100.0); MEAN CORPUSCULAR HEMOGLOBIN 33.4 PG (27.0-34.0); MEAN CORPUSCULAR HGB CONC 33.9 % (32.0-36.0); MONO % 8.4 % (0.0-8.0); NEUT % 77.6 % (16.0-70.0); PLATELET COUNT 27 TH/MM3 (150-450); RED BLOOD COUNT 3.48 MIL/MM3 (4.50-5.90); RED CELL DISTRIBUTION WIDTH 15.6 % (11.6-17.2); WHITE BLOOD COUNT 4.3 TH/MM3 (4.0-11.0)
[2016-09-30] MEDS: levETIRAcetam 500 MG TAB PO SCH ×2 (08:39→21:39)
[2016-09-30] MEDS: MULTIVITAMIN TAB PO SCH (08:40)
[2016-09-30] MEDS: PROPRANOLOL HCL 20 MG TAB PO SCH ×2 (08:40→21:39)
[2016-09-30] MEDS: FOLIC ACID 1 MG TAB PO SCH (08:40)
[2016-09-30] MEDS: LANSOPRAZOLE SOLUTAB 30 MG TAB NG SCH (08:40)
[2016-09-30] MEDS: RIFAXIMIN 550 MG TAB PO SCH ×2 (08:40→21:39)
[2016-09-30] MEDS: LACTULOSE SYRUP 20 GM/30 ML CUP PO SCH ×4 (08:40→21:39)
[2016-09-30] MEDS: SODIUM CHLORIDE 0.9% FLUSH 10 ML FLUSH IV FLUSH SCH ×2 (08:40→21:39)
[2016-09-30] MEDS: THIAMINE HCL 100 MG TAB PO SCH (08:40)
[2016-09-30] MEDS: LISINOPRIL 20 MG TAB PO SCH ×2 (08:40→21:39)
[2016-09-30 08:43] LABS: HEMO FLAGS AUTO DIFF
[2016-09-30 09:19] LABS: BICARBONATE 27.6 MEQ/L (21.0-32.0); MAGNESIUM 1.6 MG/DL (1.5-2.5); POTASSIUM 3.6 MEQ/L (3.5-5.1)
[2016-09-30 09:46] LABS: BANDS 9 % (0-6); EOSINOPHILS 1 % (0-4); METAMYELOCYTES 1 % (0-1); NEUTROPHIL # MANUAL DIFF 3.7 TH/MM3 (1.8-7.7); POLYS (SEG NEUTROPHILS) 76 % (16-70); WBC DIFF SAMPLE 100
[2016-09-30 09:47] LABS: ACANTHOCYTES OCC (NORMAL); PLATELET ESTIMATE SMEAR LOW (NORMAL); PLATELET MORPHOLOGY NORMAL (NORMAL)
[2016-09-30 09:48] LABS: SCAN/DIFF FINAL DIFF MANUAL
--- NOTE | 2016-09-30 14:32 | HHI.PR ---
Subjective Remarks Follow-up encephalopathy. Patient remains quite confused, but is alert today. No events reported overnight. Patient has no complaints at this time. Objective Vitals Vital Signs Date Time Temp Pulse Resp B/P Pulse Ox O2 Delivery O2 Flow Rate FiO2 09/30/16 12:08 97.3 59 19 131/75 96 09/30/16 08:11 97.0 62 18 148/68 97 09/30/16 04:00 98.4 65 18 140/66 96 09/30/16 00:00 98.6 63 16 161/84 98 09/29/16 20:00 68 09/29/16 20:00 98.8 66 18 139/73 96 09/29/16 16:00 97.8 60 16 134/71 97 I/O 09/29/16 09/29/16 09/29/16 09/30/16 09/30/16 09/30/16 07:00 15:00 23:00 07:00 15:00 23:00 Intake Total 0 ml 480 ml 340 ml 0 ml Output Total 125 ml Balance 0 ml 480 ml 215 ml 0 ml Intake Oral 0 ml 480 ml 240 ml 0 ml IV Total 0 ml 100 ml Output Urine Total 125 ml # Voids 3 3 2 4 # Bowel Movements 1 3 0 0 Result Diagram: 09/30/1614 09/30/1614 Imaging Last Impressions Head CT 09/19/16 0000 Signed Impressions: Service Date/Time: Monday, September 19, 2016 22:09 - CONCLUSION: Normal examination. Marcin Gandhi MD Neck CTA 09/16/16 0000 Signed Impressions: Service Date/Time: Friday, September 16, 2016 11:02 - CONCLUSION: Mild atherosclerotic changes at the bulbs bilaterally but no significant stenosis identified. Benny Lima MD Head CTA 09/16/16 0000 Signed Impressions: Service Date/Time: Friday, September 16, 2016 11:02 - CONCLUSION: Brain CTA within normal limits. Junior Recio MD Brain MRI 09/13/16 0000 Signed Impressions: Service Date/Time: Tuesday, September 13, 2016 11:17 - CONCLUSION: 1. No acute hemorrhage, mass effect or acute infarction. 2. Mild increased signal in the white matter. This is not significantly changed. 3. Mild motion artifact. Mayo Moncada MD Chest X-Ray 09/08/16 Signed Impressions: Service Date/Time: Thursday, September 08, 2016 04:30 - CONCLUSION: 1. Cardiomegaly and findings of vascular congestion without overt failure. The findings have worsened when compared with the prior examination. Cleve Hernandez MD Lower Extremity Ultrasound 09/05/16 Signed Impressions: Service Date/Time: Monday, September 05, 2016 09:36 - CONCLUSION: There is normal compressibility of the deep venous system from the inguinal region to the proximal calf. No echogenic clot is seen in the lumen of the common femoral, femoral, popliteal, and posterior tibial veins. There is a normal response of the venous system to proximal and distal augmentation and respiration. CONCLUSION: Negative for deep venous thrombosis. Aman Freeman MD Liver Ultrasound 09/05/16 Signed Impressions: Service Date/Time: Monday, September 05, 2016 08:55 - CONCLUSION: 1. Moderate splenomegaly with no focal lesion. 2. Liver is normal in size but mildly increased in echogenicity. Mayo Moncada MD ADDENDUM: This study was rereviewed at Dr. Cross's request. The main portal vein and branch vessels are patent and demonstrate normal hepatopedal blood flow. Mayo Moncada MD Head Magnetic Resonance Angiography 09/05/16 Signed Impressions: Service Date/Time: Monday, September 05, 2016 17:27 - CONCLUSION: Normal MRA. Marcin Appiah MD Cervical Spine CT 09/05/16 Signed Impressions: Service Date/Time: Monday, September 05, 2016 07:34 - CONCLUSION: Degenerative changes, negative for fracture. Aman Freeman MD FACR Objective Remarks General: No acute distress. Heart: Regular rate and rhythm. No murmur. Lungs: Mild bibasilar crackles. Breathing is nonlabored. Abdomen: Soft, nontender, nondistended. Extremities: No lower extremity edema. Psych: Alert, confused. He is not oriented to year, month, location. Procedures None Urinary Catheter: No Vascular Central Line Catheter: No A/P Problem List: (1) Altered mental status ICD Code: R41.82 Status: Acute (2) HCV (hepatitis C virus) ICD Code: B19.20 Status: Chronic (3) Major depressive disorder ICD Code: F32.9 Status: Chronic (4) Cirrhosis of liver ICD Code: K74.60 Status: Chronic (5) Diabetic peripheral neuropathy ICD Code: E13.42 Status: Chronic (6) DM (diabetes mellitus), type 2, uncontrolled ICD Code: E11.65 Status: Chronic (7) Thrombocytopenia ICD Code: D69.6 Status: Acute (8) Hyperammonemia ICD Code: E72.20 Status: Acute (9) Lactic acidosis ICD Code: E87.2 Status: Resolved (10) History of DVT (deep vein thrombosis) ICD Code: Z86.718 Status: Chronic (11) Elevated troponin ICD Code: R74.8 Status: Acute (12) Tetrahydrocannabinol (THC) use disorder, mild, abuse ICD Code: F12.10 Status: Acute (13) Hypertension ICD Code: I10 Status: Chronic (14) Bulge of cervical disc without myelopathy ICD Code: M50.20 Status: Acute (15) Acute respiratory failure ICD Code: J96.00 Status: Acute (16) Septic shock ICD Code: A41.9 Status: Resolved (17) Delirium due to another medical condition ICD Code: F05 Status: Acute (18) Seizure ICD Code: R56.9 Status: Acute (19) Encephalopathy ICD Code: G93.40 Status: Acute Assessment and Plan 1. Acute toxic metabolic encephalopathy, hepatic encephalopathy: Appreciate neurology recommendations. Continue Keppra. Head CT/CTA negative. EEG on 09/15/15 showed moderate severe diffuse encephalopathy. Evaluated by psychiatry. Symptoms felt to be secondary to neurocognitive disorder and delirium. Serum ammonia is now within normal limits. Continue lactulose, Xifaxan. The patient is more alert today, but is still confused. Reconsult psychiatry for further evaluation. 2. Seizure: Continue Keppra, seizure precautions. 3. History of alcohol abuse: Continue thiamine, folate, multivitamin. 4. Elevated troponin, history of dilated cardiomyopathy: 2-D echocardiogram from July 2016 showed ejection fraction 55-60% with dilatation of the left atrium, left ventricle, and right ventricle. Echocardiogram 09/05/16 showed ejection fraction 60%. Appreciate cardiology recommendations. Follow-up with [facility] after discharge. 5. Hypertension: Continue propranolol, lisinopril. 6. Acute respiratory failure: Resolved. 7. Community-acquired pneumonia: Completed course of antibiotics. Currently stable on room air. Bronchodilators as needed. 8. Hepatitis C: Follow-up as outpatient. 9. Cirrhosis of the liver, elevated bilirubin: Monitor labs. 10. Chronic mild protein calorie malnutrition, poor oral intake: Continue pure diet with thin liquids per speech therapy. Appreciate dietary recommendations. Patient refusing some meals and only drinking Glucerna shakes for others. Continue IV fluids. ?consider appetite stimulant vs need for tube feeds. Oral intake seems to be improving slowly. 11. GI prophylaxis: Prevacid. 12. Acute kidney injury: Improved. Continue IV fluids, using caution due to history of cardiomyopathy. 13. Diabetes mellitus with neuropathy: Monitor Accu-Cheks and cover with sliding scale insulin. 14. Thrombocytopenia: Chronic. Likely secondary to chronic liver disease, alcohol abuse. Hematology signed off. Has received transfusion of 2 units of platelets during this hospitalization. 15. Superior nasal spine fracture: Nonsurgical care. 16. DVT prophylaxis: SCDs. Avoid chemical prophylaxis secondary to thrombocytopenia. 17. Hypokalemia: Improved. 18. Hypomagnesemia: Improved. Discharge Planning Will need SNF at discharge. Case management assisting with discharge planning. Problem Qualifiers (1) Altered mental status: Qualified Code: R40.2431 - [place] coma scale total score 3-8, in the field ( EMT or ambulance) (2) HCV (hepatitis C virus): Qualified Code: B19.20 - Hepatitis C virus infection without hepatic coma, unspecified chronicity (3) Major depressive disorder: Qualified Code: F33.9 - Recurrent major depressive disorder, remission status unspecified (4) Cirrhosis of liver: Qualified Code: K70.30 - Alcoholic cirrhosis of liver without ascites (5) DM (diabetes mellitus), type 2, uncontrolled: Qualified Code: E11.42 - Uncontrolled type 2 diabetes mellitus with diabetic polyneuropathy, without long-term current use of insulin (6) Hypertension: Qualified Code: I10 - Essential hypertension (7) Acute respiratory failure: Qualified Code: J96.01 - Acute respiratory failure with hypoxia and hypercapnia Jas Tom MD September 30, 2016 14:32
[2016-10-01] VITALS (9 sets, daily range): BP systolic 136–172; BP diastolic 63–94; PULSE 49–68; RESP 16–20; TEMP 97.3–98; O2SAT 95–99
[2016-10-01] MEDS: CHLORHEXIDINE GLUCONATE 2 % 1 PACK (2 CLOTHS) TOP SCH (03:19)
[2016-10-01] MEDS: INSULIN ASPART SUPPLEMENTAL SCALE SQ SCH ×4 (05:13→23:16)
[2016-10-01] MEDS: SODIUM CHLORIDE 0.9% FLUSH 10 ML FLUSH IV FLUSH SCH ×2 (09:50→21:00)
[2016-10-01] MEDS: LACTULOSE SYRUP 20 GM/30 ML CUP PO SCH ×4 (09:50→23:16)
[2016-10-01] MEDS: MULTIVITAMIN TAB PO SCH (09:50)
[2016-10-01] MEDS: PROPRANOLOL HCL 20 MG TAB PO SCH ×2 (09:50→23:16)
[2016-10-01] MEDS: LANSOPRAZOLE SOLUTAB 30 MG TAB NG SCH (09:50)
[2016-10-01] MEDS: LISINOPRIL 20 MG TAB PO SCH ×2 (09:50→23:16)
[2016-10-01] MEDS: THIAMINE HCL 100 MG TAB PO SCH (09:50)
[2016-10-01] MEDS: RIFAXIMIN 550 MG TAB PO SCH ×2 (09:50→23:16)
[2016-10-01] MEDS: levETIRAcetam 500 MG TAB PO SCH ×2 (09:50→23:16)
[2016-10-01] MEDS: FOLIC ACID 1 MG TAB PO SCH (09:50)
--- NOTE | 2016-10-01 15:18 | HHI.PR ---
Subjective Remarks Follow-up encephalopathy. Patient still confused. He is alert and sitting up in a chair. No events reported by nursing. The patient denies pain. States that he feels good. Objective Vitals Vital Signs Date Time Temp Pulse Resp B/P Pulse Ox O2 Delivery O2 Flow Rate FiO2 10/01/16 12:00 97.5 56 20 152/69 99 10/01/16 08:09 49 10/01/16 08:00 98.0 56 20 150/80 97 10/01/16 04:00 97.8 60 16 140/63 96 10/01/16 00:00 97.4 64 16 136/70 95 09/30/16 20:00 63 09/30/16 20:00 97.8 61 16 144/72 94 09/30/16 16:04 97.3 62 20 157/82 99 I/O 09/30/16 09/30/16 09/30/16 10/01/16 10/01/16 10/01/16 07:00 15:00 23:00 07:00 15:00 23:00 Intake Total 0 ml 600 ml 240 ml 0 ml 2 ml Balance 0 ml 600 ml 240 ml 0 ml 2 ml Intake Oral 0 ml 600 ml 240 ml 0 ml IV Total 2 ml # Voids 4 2 1 1 # Bowel Movements 0 2 1 1 Result Diagram: 09/30/1681309/30/16813 Imaging Last Impressions Head CT 09/19/16 Signed Impressions: Service Date/Time: Monday, September 19, 2016 22:09 - CONCLUSION: Normal examination. Marcin Gandhi MD Neck CTA 09/16/16 Signed Impressions: Service Date/Time: Friday, September 16, 2016 11:02 - CONCLUSION: Mild atherosclerotic changes at the bulbs bilaterally but no significant stenosis identified. Benny Lima MD Head CTA 09/16/16 0000 Signed Impressions: Service Date/Time: Friday, September 16, 2016 11:02 - CONCLUSION: Brain CTA within normal limits. Junior Recio MD Brain MRI 09/13/16 Signed Impressions: Service Date/Time: Tuesday, September 13, 2016 11:17 - CONCLUSION: 1. No acute hemorrhage, mass effect or acute infarction. 2. Mild increased signal in the white matter. This is not significantly changed. 3. Mild motion artifact. Mayo Moncada MD Chest X-Ray 09/08/16 Signed Impressions: Service Date/Time: Thursday, September 08, 2016 04:30 - CONCLUSION: 1. Cardiomegaly and findings of vascular congestion without overt failure. The findings have worsened when compared with the prior examination. Cleve Hernandez MD Lower Extremity Ultrasound 09/05/16 0000 Signed Impressions: Service Date/Time: Monday, September 05, 2016 09:36 - CONCLUSION: There is normal compressibility of the deep venous system from the inguinal region to the proximal calf. No echogenic clot is seen in the lumen of the common femoral, femoral, popliteal, and posterior tibial veins. There is a normal response of the venous system to proximal and distal augmentation and respiration. CONCLUSION: Negative for deep venous thrombosis. Aman Freeman MD Liver Ultrasound 09/05/16 Signed Impressions: Service Date/Time: Monday, September 05, 2016 08:55 - CONCLUSION: 1. Moderate splenomegaly with no focal lesion. 2. Liver is normal in size but mildly increased in echogenicity. Mayo Moncada MD ADDENDUM: This study was rereviewed at Dr. Cross's request. The main portal vein and branch vessels are patent and demonstrate normal hepatopedal blood flow. Mayo Moncada MD Head Magnetic Resonance Angiography 09/05/16 0000 Signed Impressions: Service Date/Time: Monday, September 05, 2016 17:27 - CONCLUSION: Normal MRA. Marcin Appiah MD Cervical Spine CT 09/05/16 0000 Signed Impressions: Service Date/Time: Monday, September 05, 2016 07:34 - CONCLUSION: Degenerative changes, negative for fracture. Aman Freeman MD FACR Objective Remarks General: No acute distress. Heart: Regular rate and rhythm. No murmur. Lungs: Mild bibasilar crackles. Breathing is nonlabored. Abdomen: Soft, nontender, nondistended. Extremities: No lower extremity edema. Psych: Alert, confused. He is not oriented to year, month, location. Procedures None Urinary Catheter: No Vascular Central Line Catheter: No A/P Problem List: (1) Altered mental status ICD Code: R41.82 Status: Acute (2) HCV (hepatitis C virus) ICD Code: B19.20 Status: Chronic (3) Major depressive disorder ICD Code: F32.9 Status: Chronic (4) Cirrhosis of liver ICD Code: K74.60 Status: Chronic (5) Diabetic peripheral neuropathy ICD Code: E13.42 Status: Chronic (6) DM (diabetes mellitus), type 2, uncontrolled ICD Code: E11.65 Status: Chronic (7) Thrombocytopenia ICD Code: D69.6 Status: Acute (8) Hyperammonemia ICD Code: E72.20 Status: Acute (9) Lactic acidosis ICD Code: E87.2 Status: Resolved (10) History of DVT (deep vein thrombosis) ICD Code: Z86.718 Status: Chronic (11) Elevated troponin ICD Code: R74.8 Status: Acute (12) Tetrahydrocannabinol (THC) use disorder, mild, abuse ICD Code: F12.10 Status: Acute (13) Hypertension ICD Code: I10 Status: Chronic (14) Bulge of cervical disc without myelopathy ICD Code: M50.20 Status: Acute (15) Acute respiratory failure ICD Code: J96.00 Status: Acute (16) Septic shock ICD Code: A41.9 Status: Resolved (17) Delirium due to another medical condition ICD Code: F05 Status: Acute (18) Seizure ICD Code: R56.9 Status: Acute (19) Encephalopathy ICD Code: G93.40 Status: Acute Assessment and Plan Reviewed/updated 10/01/16. No change. Discussed with patient's daughter Fanta via phone and nephew Rodrigo at bedside. Planning for discharge soon if he remains stable. Psychiatry consult is pending. 1. Acute toxic metabolic encephalopathy, hepatic encephalopathy: Appreciate neurology recommendations. Continue Keppra. Head CT/CTA negative. EEG on 09/15/15 showed moderate severe diffuse encephalopathy. Evaluated by psychiatry. Symptoms felt to be secondary to neurocognitive disorder and delirium. Serum ammonia is now within normal limits. Continue lactulose, Xifaxan. The patient is more alert today, but is still confused. Reconsult psychiatry for further evaluation. 2. Seizure: Continue Keppra, seizure precautions. 3. History of alcohol abuse: Continue thiamine, folate, multivitamin. 4. Elevated troponin, history of dilated cardiomyopathy: 2-D echocardiogram from July 2016 showed ejection fraction 55-60% with dilatation of the left atrium, left ventricle, and right ventricle. Echocardiogram 09/05/16 showed ejection fraction 60%. Appreciate cardiology recommendations. Follow-up with [facility] after discharge. 5. Hypertension: Continue propranolol, lisinopril. 6. Acute respiratory failure: Resolved. 7. Community-acquired pneumonia: Completed course of antibiotics. Currently stable on room air. Bronchodilators as needed. 8. Hepatitis C: Follow-up as outpatient. 9. Cirrhosis of the liver, elevated bilirubin: Monitor labs. 10. Chronic mild protein calorie malnutrition, poor oral intake: Continue pure diet with thin liquids per speech therapy. Appreciate dietary recommendations. Patient refusing some meals and only drinking Glucerna shakes for others. Continue IV fluids. ?consider appetite stimulant vs need for tube feeds. Oral intake seems to be improving slowly. 11. GI prophylaxis: Prevacid. 12. Acute kidney injury: Improved. Continue IV fluids, using caution due to history of cardiomyopathy. 13. Diabetes mellitus with neuropathy: Monitor Accu-Cheks and cover with sliding scale insulin. 14. Thrombocytopenia: Chronic. Likely secondary to chronic liver disease, alcohol abuse. Hematology signed off. Has received transfusion of 2 units of platelets during this hospitalization. 15. Superior nasal spine fracture: Nonsurgical care. 16. DVT prophylaxis: SCDs. Avoid chemical prophylaxis secondary to thrombocytopenia. 17. Hypokalemia: Improved. 18. Hypomagnesemia: Improved. Discharge Planning Will need SNF at discharge. Case management assisting with discharge planning. Problem Qualifiers (1) Altered mental status: Qualified Code: R40.2431 - [place] coma scale total score 3-8, in the field ( EMT or ambulance) (2) HCV (hepatitis C virus): Qualified Code: B19.20 - Hepatitis C virus infection without hepatic coma, unspecified chronicity (3) Major depressive disorder: Qualified Code: F33.9 - Recurrent major depressive disorder, remission status unspecified (4) Cirrhosis of liver: Qualified Code: K70.30 - Alcoholic cirrhosis of liver without ascites (5) DM (diabetes mellitus), type 2, uncontrolled: Qualified Code: E11.42 - Uncontrolled type 2 diabetes mellitus with diabetic polyneuropathy, without long-term current use of insulin (6) Hypertension: Qualified Code: I10 - Essential hypertension (7) Acute respiratory failure: Qualified Code: J96.01 - Acute respiratory failure with hypoxia and hypercapnia Jas Tom MD October 01, 2016 15:18
--- NOTE | 2016-10-01 15:47 | HHI.PYPN ---
Subjective Remarks Patient is seen today for psychiatric reevaluation, patient is found in his chair sitting down, alert, cooperative and calm, actually very pleasant. Patient reports feeling much better, denies pain or distress, he reports good mood, denies depressive symptoms, denies anhedonia, helplessness, hopelessness, he denies suicidal or homicidal ideation. He denies visual and auditory hallucinations. Patient says that he has been taking all his medication, he is willing to continue following medical recommendations. Patient is just partially oriented, he knows that he is in the hospital, but he doesn't know the name of the hospital or the location, his things that we are in 1991, he can retreat 3 words, can follow simple and complex command, but he did not remember to works in 5 minutes. His executive function seems to be very impaired to, patient feels the draw clock test. MMS 19. Review of Systems Other No somatic complaints Objective Alert: Yes [place]: Person, Place (partially) Mood: Calm Affect: Euthymic Memory Intact: Immediate Hallucinations: Other (he denies) Delusions: No Delusion Type: Other (none elicited) Suicidal: Ideation (no SI) Homicidal: Ideation (no HI) Insight/Judgment Poor Vitals/IOs Vital Signs Date Time Temp Pulse Resp B/P Pulse Ox O2 Delivery O2 Flow Rate FiO2 10/01/16 12:00 97.5 56 20 152/69 99 09/28/16 22:21 Room Air 09/28/16 08:00 2.00 Intake and Output 09/30/16 09/30/16 10/01/16 08:00 16:00 00:00 Intake Total 0 ml 600 ml 240 ml Balance 0 ml 600 ml 240 ml Assessment & Plan Problem List: (1) Delirium due to another medical condition Assessment & Plan: On psychiatric evaluation today the patient does not present any significant evidence of depression, anxiety or psychosis. Patient denies suicidal or homicidal ideation, he denies visual and auditory hallucinations. Moderate to severe cognitive impairment is identified. Mini- Mental status is 19. Since patient attention and level of consciousness doesn' t seem to be impaired, my suspicion is that the patient has an underlying major neurocognitive disorder. He does not meet criteria for psychiatric admission. Since patient doesn't present any significant neuropsychiatric symptom such as agitation, aggressive behavior, hallucinations, paranoia, [place] or acute depression at this moment, no psychotropic is really recommended. food counter worker intervention is needed to coordinate a safe discharge.. ICD Code: F05 Assessment & Plan Estimated LOS: days Justification for Cont. Inpt. Patient does not meet criteria for psychiatric admission at this moment. Chacorta Holder MD October 01, 2016 15:47
[2016-10-02] VITALS (7 sets, daily range): BP systolic 129–164; BP diastolic 72–87; PULSE 60–68; RESP 16–20; TEMP 97.4–97.6; O2SAT 95–99
[2016-10-02] MEDS: CHLORHEXIDINE GLUCONATE 2 % 1 PACK (2 CLOTHS) TOP SCH (04:00)
[2016-10-02] MEDS: INSULIN ASPART SUPPLEMENTAL SCALE SQ SCH ×3 (06:00→17:11)
[2016-10-02 07:47] LABS: AUTOMATED NEUTROPHIL # 1.3 TH/MM3 (1.8-7.7); BASOPHIL % 0.5 % (0.0-2.0); EOSINOPHIL # 0.1 TH/MM3 (0-0.4); EOSINOPHIL % 4.6 % (0.0-4.0); HEMATOCRIT 33.2 % (39.0-51.0); LYMPH % 20.6 % (9.0-44.0); LYMPHOCYTE # 0.4 TH/MM3 (1.0-4.8); MEAN CELL VOLUME 96.9 FL (80.0-100.0); MEAN CORPUSCULAR HEMOGLOBIN 34.5 PG (27.0-34.0); MEAN CORPUSCULAR HGB CONC 35.6 % (32.0-36.0); MONO % 14.5 % (0.0-8.0); NEUT % 59.8 % (16.0-70.0); PLATELET COUNT 30 TH/MM3 (150-450); RED BLOOD COUNT 3.43 MIL/MM3 (4.50-5.90); RED CELL DISTRIBUTION WIDTH 15.2 % (11.6-17.2); WHITE BLOOD COUNT 2.1 TH/MM3 (4.0-11.0)
[2016-10-02 07:53] LABS: HEMO FLAGS AUTO DIFF
[2016-10-02 08:13] LABS: BICARBONATE 25.9 MEQ/L (21.0-32.0); MAGNESIUM 1.5 MG/DL (1.5-2.5); POTASSIUM 3.5 MEQ/L (3.5-5.1)
[2016-10-02] MEDS: LACTULOSE SYRUP 20 GM/30 ML CUP PO SCH ×4 (08:56→20:45)
[2016-10-02] MEDS: RIFAXIMIN 550 MG TAB PO SCH ×2 (08:56→20:45)
[2016-10-02] MEDS: SODIUM CHLORIDE 0.9% FLUSH 10 ML FLUSH IV FLUSH SCH ×2 (08:57→20:47)
[2016-10-02] MEDS: PROPRANOLOL HCL 20 MG TAB PO SCH ×2 (08:57→20:47)
[2016-10-02] MEDS: MULTIVITAMIN TAB PO SCH (08:57)
[2016-10-02] MEDS: LANSOPRAZOLE SOLUTAB 30 MG TAB NG SCH (08:57)
[2016-10-02] MEDS: LISINOPRIL 20 MG TAB PO SCH ×2 (08:57→20:45)
[2016-10-02] MEDS: THIAMINE HCL 100 MG TAB PO SCH (08:57)
[2016-10-02] MEDS: levETIRAcetam 500 MG TAB PO SCH ×2 (08:57→20:45)
[2016-10-02] MEDS: FOLIC ACID 1 MG TAB PO SCH (08:57)
[2016-10-02 09:32] LABS: PLATELET ESTIMATE SMEAR LOW (NORMAL); PLATELET MORPHOLOGY NORMAL (NORMAL); SCAN/DIFF AUTO DIFF CONFIRMED
--- NOTE | 2016-10-02 10:11 | HHI.PR ---
Subjective Remarks Follow-up encephalopathy. Patient is alert, but confused. He denies pain, dyspnea, nausea, vomiting. Objective Vitals Vital Signs Date Time Temp Pulse Resp B/P Pulse Ox O2 Delivery O2 Flow Rate FiO2 10/02/16 04:20 97.4 64 16 145/87 95 10/01/16 23:38 97.3 68 16 172/94 95 10/01/16 20:00 59 10/01/16 19:44 97.5 60 18 153/78 97 Automatic Cuff 10/01/16 16:00 97.9 62 20 144/76 96 10/01/16 12:00 97.5 56 20 152/69 99 I/O 10/01/16 10/01/16 10/01/16 10/02/16 10/02/16 10/02/16 06:59 14:59 22:59 06:59 14:59 22:59 Intake Total 0 ml 482 ml 240 ml Balance 0 ml 482 ml 240 ml Intake Oral 0 ml 480 ml 240 ml IV Total 2 ml # Voids 1 2 1 # Bowel Movements 1 1 0 Result Diagram: 10/02/16 0721 10/02/16 0721 Imaging Last Impressions Head CT 09/19/16 0000 Signed Impressions: Service Date/Time: Monday, September 19, 2016 22:09 - CONCLUSION: Normal examination. Marcin Gandhi MD Neck CTA 09/16/16 0000 Signed Impressions: Service Date/Time: Friday, September 16, 2016 11:02 - CONCLUSION: Mild atherosclerotic changes at the bulbs bilaterally but no significant stenosis identified. Benny Lima MD Head CTA 09/16/16 0000 Signed Impressions: Service Date/Time: Friday, September 16, 2016 11:02 - CONCLUSION: Brain CTA within normal limits. Junior Recio MD Brain MRI 09/13/16 0000 Signed Impressions: Service Date/Time: Tuesday, September 13, 2016 11:17 - CONCLUSION: 1. No acute hemorrhage, mass effect or acute infarction. 2. Mild increased signal in the white matter. This is not significantly changed. 3. Mild motion artifact. Mayo Moncada MD Chest X-Ray 09/08/16 0000 Signed Impressions: Service Date/Time: Thursday, September 08, 2016 04:30 - CONCLUSION: 1. Cardiomegaly and findings of vascular congestion without overt failure. The findings have worsened when compared with the prior examination. Cleve Hernandez MD Lower Extremity Ultrasound 09/05/16 Signed Impressions: Service Date/Time: Monday, September 05, 2016 09:36 - CONCLUSION: There is normal compressibility of the deep venous system from the inguinal region to the proximal calf. No echogenic clot is seen in the lumen of the common femoral, femoral, popliteal, and posterior tibial veins. There is a normal response of the venous system to proximal and distal augmentation and respiration. MD CONCLUSION: Negative for deep venous thrombosis. Aman Freeman MD Liver Ultrasound 09/05/16 0000 Signed Impressions: Service Date/Time: Monday, September 05, 2016 08:55 - CONCLUSION: 1. Moderate splenomegaly with no focal lesion. 2. Liver is normal in size but mildly increased in echogenicity. Mayo Moncada MD ADDENDUM: This study was rereviewed at Dr. Cross's request. The main portal vein and branch vessels are patent and demonstrate normal hepatopedal blood flow. Mayo Moncada MD Head Magnetic Resonance Angiography 09/05/16 Signed Impressions: Service Date/Time: Monday, September 05, 2016 17:27 - CONCLUSION: Normal MRA. Marcin Appiah MD Cervical Spine CT 09/05/16 Signed Impressions: Service Date/Time: Monday, September 05, 2016 07:34 - CONCLUSION: Degenerative changes, negative for fracture. Aman Freeman MD FACR Objective Remarks General: No acute distress. Sitting up in a chair. Heart: Regular rate and rhythm. No murmur. Lungs: Mild bibasilar crackles. Breathing is nonlabored. Abdomen: Soft, nontender, nondistended. Extremities: No lower extremity edema. Psych: Alert, confused. He is not oriented to year, month, location. Procedures None Urinary Catheter: No Vascular Central Line Catheter: No A/P Problem List: (1) Altered mental status ICD Code: R41.82 Status: Acute (2) HCV (hepatitis C virus) ICD Code: B19.20 Status: Chronic (3) Major depressive disorder ICD Code: F32.9 Status: Chronic (4) Cirrhosis of liver ICD Code: K74.60 Status: Chronic (5) Diabetic peripheral neuropathy ICD Code: E13.42 Status: Chronic (6) DM (diabetes mellitus), type 2, uncontrolled ICD Code: E11.65 Status: Chronic (7) Thrombocytopenia ICD Code: D69.6 Status: Acute (8) Hyperammonemia ICD Code: E72.20 Status: Acute (9) Lactic acidosis ICD Code: E87.2 Status: Resolved (10) History of DVT (deep vein thrombosis) ICD Code: Z86.718 Status: Chronic (11) Elevated troponin ICD Code: R74.8 Status: Acute (12) Tetrahydrocannabinol (THC) use disorder, mild, abuse ICD Code: F12.10 Status: Acute (13) Hypertension ICD Code: I10 Status: Chronic (14) Bulge of cervical disc without myelopathy ICD Code: M50.20 Status: Acute (15) Acute respiratory failure ICD Code: J96.00 Status: Acute (16) Septic shock ICD Code: A41.9 Status: Resolved (17) Delirium due to another medical condition ICD Code: F05 Status: Acute (18) Seizure ICD Code: R56.9 Status: Acute (19) Encephalopathy ICD Code: G93.40 Status: Acute Assessment and Plan Reviewed/updated 10/02/16. No change. Appreciate psychiatry recommendations. Patient likely has neurocognitive disorder and will need SNF placement. 1. Acute toxic metabolic encephalopathy, hepatic encephalopathy: Appreciate neurology recommendations. Continue Keppra. Head CT/CTA negative. EEG on 09/15/15 showed moderate severe diffuse encephalopathy. Evaluated by psychiatry. Symptoms felt to be secondary to neurocognitive disorder and delirium. Serum ammonia is now within normal limits. Continue lactulose, Xifaxan. The patient is more alert today, but is still confused. Reconsult psychiatry for further evaluation. 2. Seizure: Continue Keppra, seizure precautions. 3. History of alcohol abuse: Continue thiamine, folate, multivitamin. 4. Elevated troponin, history of dilated cardiomyopathy: 2-D echocardiogram from July 2016 showed ejection fraction 55-60% with dilatation of the left atrium, left ventricle, and right ventricle. Echocardiogram 09/05/16 showed ejection fraction 60%. Appreciate cardiology recommendations. Follow-up with [facility] after discharge. 5. Hypertension: Continue propranolol, lisinopril. 6. Acute respiratory failure: Resolved. 7. Community-acquired pneumonia: Completed course of antibiotics. Currently stable on room air. Bronchodilators as needed. 8. Hepatitis C: Follow-up as outpatient. 9. Cirrhosis of the liver, elevated bilirubin: Monitor labs. 10. Chronic mild protein calorie malnutrition, poor oral intake: Continue pure diet with thin liquids per speech therapy. Appreciate dietary recommendations. Patient refusing some meals and only drinking Glucerna shakes for others. Continue IV fluids. ?consider appetite stimulant vs need for tube feeds. Oral intake seems to be improving slowly. 11. GI prophylaxis: Prevacid. 12. Acute kidney injury: Improved. Continue IV fluids, using caution due to history of cardiomyopathy. 13. Diabetes mellitus with neuropathy: Monitor Accu-Cheks and cover with sliding scale insulin. 14. Thrombocytopenia: Chronic. Likely secondary to chronic liver disease, alcohol abuse. Hematology signed off. Has received transfusion of 2 units of platelets during this hospitalization. 15. Superior nasal spine fracture: Nonsurgical care. 16. DVT prophylaxis: SCDs. Avoid chemical prophylaxis secondary to thrombocytopenia. 17. Hypokalemia: Improved. 18. Hypomagnesemia: Improved. Discharge Planning Discharge to SNF when arrangements are made. Problem Qualifiers (1) Altered mental status: Qualified Code: R40.2431 - [place] coma scale total score 3-8, in the field ( EMT or ambulance) (2) HCV (hepatitis C virus): Qualified Code: B19.20 - Hepatitis C virus infection without hepatic coma, unspecified chronicity (3) Major depressive disorder: Qualified Code: F33.9 - Recurrent major depressive disorder, remission status unspecified (4) Cirrhosis of liver: Qualified Code: K70.30 - Alcoholic cirrhosis of liver without ascites (5) DM (diabetes mellitus), type 2, uncontrolled: Qualified Code: E11.42 - Uncontrolled type 2 diabetes mellitus with diabetic polyneuropathy, without long-term current use of insulin (6) Hypertension: Qualified Code: I10 - Essential hypertension (7) Acute respiratory failure: Qualified Code: J96.01 - Acute respiratory failure with hypoxia and hypercapnia Jas Tom MD October 02, 2016 10:10
[2016-10-02] MEDS ORDERED: Folic Acid PO (10:17)
[2016-10-02] MEDS ORDERED: LEVE250 PO (10:17)
[2016-10-02] MEDS ORDERED: LISI-515 PO (10:17)
[2016-10-02] MEDS ORDERED: THERTAB15 PO (10:17)
[2016-10-02] MEDS ORDERED: XIFA550T4 PO (10:17)
[2016-10-02] MEDS ORDERED: GNP100TA3 PO (10:17)
--- NOTE | 2016-10-02 10:18 | HHI.DCPOC ---
Discharge Care Plan Diagnosis: (1) Diabetic peripheral neuropathy (2) HCV (hepatitis C virus) (3) Hypertension (4) Encephalopathy (5) Seizure (6) Cirrhosis of liver (7) Delirium due to another medical condition (8) Septic shock (9) Lactic acidosis (10) Major depressive disorder (11) DM (diabetes mellitus) Goals to Promote Your Health * To prevent worsening of your condition and complications * To maintain your health at the optimal level Directions to Meet Your Goals Take your medications as prescribed Follow your dietary instruction Follow activity as directed Keep your appointments as scheduled Take your immunizations and boosters as scheduled If your symptoms worsen call your PCP, if no PCP go to Urgent Care Center or Emergency Room Smoking is Dangerous to Your Health. Avoid second hand smoke Call the 24-hour hour crisis hotline for domestic abuse at Jas Tom MD October 02, 2016 10:18
[2016-10-03] VITALS: BP 133/73; PULSE 63; RESP 20; TEMP 97.6; O2SAT 95
[2016-10-03 04:00] VITALS: BP 150/72; PULSE 78; RESP 20; TEMP 97.3; O2SAT 95
[2016-10-03] MEDS: CHLORHEXIDINE GLUCONATE 2 % 1 PACK (2 CLOTHS) TOP SCH (04:00)
[2016-10-03] MEDS: INSULIN ASPART SUPPLEMENTAL SCALE SQ SCH ×3 (06:00→12:12)
[2016-10-03 08:00] VITALS: BP 152/81; PULSE 60; PULSE 78; RESP 18; TEMP 97.7; O2SAT 95
[2016-10-03] MEDS: SODIUM CHLORIDE 0.9% FLUSH 10 ML FLUSH IV FLUSH SCH (08:05)
[2016-10-03] MEDS: FOLIC ACID 1 MG TAB PO SCH (08:55)
[2016-10-03] MEDS: levETIRAcetam 500 MG TAB PO SCH (08:55)
[2016-10-03] MEDS: LACTULOSE SYRUP 20 GM/30 ML CUP PO SCH ×2 (08:55→12:12)
[2016-10-03] MEDS: LANSOPRAZOLE SOLUTAB 30 MG TAB NG SCH (08:55)
[2016-10-03] MEDS: RIFAXIMIN 550 MG TAB PO SCH (08:55)
[2016-10-03] MEDS: MULTIVITAMIN TAB PO SCH (08:55)
[2016-10-03] MEDS: THIAMINE HCL 100 MG TAB PO SCH (08:55)
[2016-10-03] MEDS: PROPRANOLOL HCL 20 MG TAB PO SCH (08:55)
[2016-10-03] MEDS: LISINOPRIL 20 MG TAB PO SCH (08:55)
[2016-10-03 12:00] VITALS: BP 152/81; PULSE 62; RESP 18; TEMP 97.8; O2SAT 95
--- NOTE | 2016-10-03 14:53 | HHI.PR ---
Subjective Remarks Pt feels well. no complaints today, no nausea or vomiting, appetite improved Objective Vitals Vital Signs Date Time Temp Pulse Resp B/P Pulse Ox O2 Delivery O2 Flow Rate FiO2 10/03/16 12:00 97.8 62 18 152/81 95 10/03/16 08:00 78 10/03/16 08:00 97.7 60 18 152/81 95 10/03/16 04:00 97.3 78 20 150/72 95 10/03/16 00:00 97.6 63 20 133/73 95 10/02/16 20:16 60 10/02/16 20:00 97.6 68 20 164/82 99 10/02/16 16:00 97.4 60 16 144/74 98 I/O 10/02/16 10/02/16 10/02/16 10/03/16 10/03/16 10/03/16 07:00 15:00 23:00 07:00 15:00 23:00 Intake Total 722 ml 240 ml 240 ml Output Total 150 ml 600 ml Balance 572 ml 240 ml -360 ml Intake Oral 720 ml 240 ml 240 ml IV Total 2 ml Output Urine Total 150 ml 600 ml # Voids 2 4 2 # Bowel Movements 4 0 0 Result Diagram: 10/02/1672010/02/16720 Imaging Last Impressions Head CT 09/19/16 Signed Impressions: Service Date/Time: Monday, September 19, 2016 22:09 - CONCLUSION: Normal examination. Marcin Gandhi MD Neck CTA 09/16/16 0000 Signed Impressions: Service Date/Time: Friday, September 16, 2016 11:02 - CONCLUSION: Mild atherosclerotic changes at the bulbs bilaterally but no significant stenosis identified. Benny Lima MD Head CTA 09/16/16 0000 Signed Impressions: Service Date/Time: Friday, September 16, 2016 11:02 - CONCLUSION: Brain CTA within normal limits. Junior Recio MD Brain MRI 09/13/16 Signed Impressions: Service Date/Time: Tuesday, September 13, 2016 11:17 - CONCLUSION: 1. No acute hemorrhage, mass effect or acute infarction. 2. Mild increased signal in the white matter. This is not significantly changed. 3. Mild motion artifact. Mayo Moncada MD Chest X-Ray 09/08/16 0000 Signed Impressions: Service Date/Time: Thursday, September 08, 2016 04:30 - CONCLUSION: 1. Cardiomegaly and findings of vascular congestion without overt failure. The findings have worsened when compared with the prior examination. Cleve Hernandez MD Lower Extremity Ultrasound 09/05/16 Signed Impressions: Service Date/Time: Monday, September 05, 2016 09:36 - CONCLUSION: There is normal compressibility of the deep venous system from the inguinal region to the proximal calf. No echogenic clot is seen in the lumen of the common femoral, femoral, popliteal, and posterior tibial veins. There is a normal response of the venous system to proximal and distal augmentation and respiration. CONCLUSION: Negative for deep venous thrombosis. Aman Freeman MD Liver Ultrasound 09/05/16 Signed Impressions: Service Date/Time: Monday, September 05, 2016 08:55 - CONCLUSION: 1. Moderate splenomegaly with no focal lesion. 2. Liver is normal in size but mildly increased in echogenicity. Mayo Moncada MD ADDENDUM: This study was rereviewed at Dr. Cross's request. The main portal vein and branch vessels are patent and demonstrate normal hepatopedal blood flow. Mayo Moncada MD Head Magnetic Resonance Angiography 09/05/16 Signed Impressions: Service Date/Time: Monday, September 05, 2016 17:27 - CONCLUSION: Normal MRA. Marcin Appiah MD Cervical Spine CT 09/05/16 Signed Impressions: Service Date/Time: Monday, September 05, 2016 07:34 - CONCLUSION: Degenerative changes, negative for fracture. Aman Freeman MD FACR Objective Remarks GENERAL: 61-year-old male, currently on room air in no acute distress CARDIOVASCULAR: normal rate, regular rhythm. RESPIRATORY: Few crackles patient bases bilateral. No wheeze. on room air. GASTROINTESTINAL: Abdomen soft, non-tender, minimally distended. MUSCULOSKELETAL: Extremities with trace lower extremity peripheral edema. No obvious deformities. NEUROLOGICAL: Cranial nerves II through grossly intact. follows some commands, moving extremities. Procedures None A/P Problem List: (1) Altered mental status ICD Code: R41.82 Status: Acute (2) HCV (hepatitis C virus) ICD Code: B19.20 Status: Chronic (3) Major depressive disorder ICD Code: F32.9 Status: Chronic (4) Cirrhosis of liver ICD Code: K74.60 Status: Chronic (5) Diabetic peripheral neuropathy ICD Code: E13.42 Status: Chronic (6) DM (diabetes mellitus), type 2, uncontrolled ICD Code: E11.65 Status: Chronic (7) Thrombocytopenia ICD Code: D69.6 Status: Acute (8) Hyperammonemia ICD Code: E72.20 Status: Acute (9) Lactic acidosis ICD Code: E87.2 Status: Resolved (10) History of DVT (deep vein thrombosis) ICD Code: Z86.718 Status: Chronic (11) Elevated troponin ICD Code: R74.8 Status: Acute (12) Tetrahydrocannabinol (THC) use disorder, mild, abuse ICD Code: F12.10 Status: Acute (13) Hypertension ICD Code: I10 Status: Chronic (14) Bulge of cervical disc without myelopathy ICD Code: M50.20 Status: Acute (15) Acute respiratory failure ICD Code: J96.00 Status: Acute (16) Septic shock ICD Code: A41.9 Status: Resolved (17) Delirium due to another medical condition ICD Code: F05 Status: Acute (18) Seizure ICD Code: R56.9 Status: Acute (19) Encephalopathy ICD Code: G93.40 Status: Acute Assessment and Plan Reviewed/updated 10/02/16. No change. Appreciate psychiatry recommendations. Patient likely has neurocognitive disorder and will need SNF placement. Reviewed/updated 10/03/16. No change to management. CM making arrangements for discharge today to SNF 1. Acute toxic metabolic encephalopathy, hepatic encephalopathy: Appreciate neurology recommendations. Continue Keppra. Head CT/CTA negative. EEG on 09/15/15 showed moderate severe diffuse encephalopathy. Evaluated by psychiatry. Symptoms felt to be secondary to neurocognitive disorder and delirium. Serum ammonia is now within normal limits. Continue lactulose, Xifaxan. The patient is more alert today, but is still confused. Reconsult psychiatry for further evaluation. 2. Seizure: Continue Keppra, seizure precautions. 3. History of alcohol abuse: Continue thiamine, folate, multivitamin. 4. Elevated troponin, history of dilated cardiomyopathy: 2-D echocardiogram from July 2016 showed ejection fraction 55-60% with dilatation of the left atrium, left ventricle, and right ventricle. Echocardiogram 09/05/16 showed ejection fraction 60%. Appreciate cardiology recommendations. Follow-up with [facility] after [facility]. 5. Hypertension: Continue propranolol, lisinopril. 6. Acute respiratory failure: Resolved. 7. Community-acquired pneumonia: Completed course of antibiotics. Currently stable on room air. Bronchodilators as needed. 8. Hepatitis C: Follow-up as outpatient. 9. Cirrhosis of the liver, elevated bilirubin: Monitor labs. 10. Chronic mild protein calorie malnutrition, poor oral intake: Continue pure diet with thin liquids per speech therapy. Appreciate dietary recommendations. Patient refusing some meals and only drinking Glucerna shakes for others. Continue IV fluids. ?consider appetite stimulant vs need for tube feeds. Oral intake seems to be improving slowly. 11. GI prophylaxis: Prevacid. 12. Acute kidney injury: Improved. Continue IV fluids, using caution due to history of cardiomyopathy. 13. Diabetes mellitus with neuropathy: Monitor Accu-Cheks and cover with sliding scale insulin. 14. Thrombocytopenia: Chronic. Likely secondary to chronic liver disease, alcohol abuse. Hematology signed off. Has received transfusion of 2 units of platelets during this hospitalization. 15. Superior nasal spine fracture: Nonsurgical care. 16. DVT prophylaxis: SCDs. Avoid chemical prophylaxis secondary to thrombocytopenia. 17. Hypokalemia: Improved. 18. Hypomagnesemia: Improved. Discharge Planning psychiatry evaluated the patient, unfortunately patient was incoherent, disoriented, unable to provide any meaningful information for the psychiatric assessment. Psych feels that pt's condition is related with neurocognitive disorder and delirium most probably related with underlying medical conditions. Pt w poor appetite. Calorie count in progress. f/u PT/OT following Per CM's note, pt will need to switch to Medicare for admission to SNF. Family would like him to go to [facility]. Problem Qualifiers (1) Altered mental status: Qualified Code: R40.2431 - [place] coma scale total score 3-8, in the field ( EMT or ambulance) (2) HCV (hepatitis C virus): Qualified Code: B19.20 - Hepatitis C virus infection without hepatic coma, unspecified chronicity (3) Major depressive disorder: Qualified Code: F33.9 - Recurrent major depressive disorder, remission status unspecified (4) Cirrhosis of liver: Qualified Code: K70.30 - Alcoholic cirrhosis of liver without ascites (5) DM (diabetes mellitus), type 2, uncontrolled: Qualified Code: E11.42 - Uncontrolled type 2 diabetes mellitus with diabetic polyneuropathy, without long-term current use of insulin (6) Hypertension: Qualified Code: I10 - Essential hypertension (7) Acute respiratory failure: Qualified Code: J96.01 - Acute respiratory failure with hypoxia and hypercapnia Shey Yuen MD October 03, 2016 14:53
[2016-10-03 16:01] VITALS: BP 162/78; PULSE 67; RESP 18; TEMP 97.2; O2SAT 94
--- NOTE | 2016-10-21 15:09 | HHI.DS ---
Discharge Summary Admission Date Sep 05, 2016 at 08:15 Discharge Date: October 03, 2016 Admitting Diagnosis altered mental status, respiratory failure (1) Altered mental status ICD Code: R41.82 (2) HCV (hepatitis C virus) ICD Code: B19.20 (3) Major depressive disorder ICD Code: F32.9 (4) Cirrhosis of liver ICD Code: K74.60 (5) Diabetic peripheral neuropathy ICD Code: E13.42 (6) DM (diabetes mellitus), type 2, uncontrolled ICD Code: E11.65 (7) Thrombocytopenia ICD Code: D69.6 (8) Hyperammonemia ICD Code: E72.20 (9) Lactic acidosis ICD Code: E87.2 (10) History of DVT (deep vein thrombosis) ICD Code: Z86.718 (11) Elevated troponin ICD Code: R74.8 (12) Tetrahydrocannabinol (THC) use disorder, mild, abuse ICD Code: F12.10 (13) Hypertension ICD Code: I10 (14) Bulge of cervical disc without myelopathy ICD Code: M50.20 (15) Acute respiratory failure ICD Code: J96.00 (16) Septic shock ICD Code: A41.9 (17) Delirium due to another medical condition ICD Code: F05 (18) Seizure ICD Code: R56.9 (19) Encephalopathy ICD Code: G93.40 Procedures None Brief History - From Admission 61yo male. Date of admission 09/05/2016. Past medical history includes depression, hypertension, hepatitis C with cirrhotic liver, diabetes mellitus with peripheral neuropathy, history of right lower extremity DVT, chronic thrombocytopenia and history of MRSA to left leg 2014. He is on metformin for diabetes. He presents to [facility] this a.m. with altered mental status. According to EMS report, pt's roommate states he has been " in and out of it " for 2 days. Today patient was found unresponsive on a couch by EMS. He has had 2 seizures in route the first lasted approximately 5 minutes was given 2 mg Ativan with another one approximate 1 minute duration received another 2 mg Ativan.. Given 2mg ativan and then another seizure about 10 min after the ativan so another 2 mg ativan given. Pt was moving all extremities but tachypneic and not responding to verbal stimuli. Pt was febrile in the ED. Patient was emergently intubated with a 7.5 ET tube after receiving 20 mg IV etomidate along with 60 mg IV rocuronium by Dr. Roblero. CT head - superior nasal spine fracture otherwise unremarkable CT C-spine -C5/6 mild disc bulge otherwise unremarkable Chest x-ray - bilateral hilar infiltrates. Cardiomegaly Pertinent labs revealed a normal white cell count, platelet count 37,000. Normal BMP, Lactic acidosis of 9.2, troponin 0.23, alcohol level 37 with positive THC level. NH3+ was 86 patient was going to be lumbar puncture in ED however platelet count is less than 50,000 the present time. Risk of spinal hematoma outweighs benefits of lumbar puncture this time. No consentable family members available currently. Patient is with one daughter he is close to. He also has a dog. In the ED, there is copious amounts of blood coming from the mouth. This was Yankauer suction to clear. Blood tinged sputum from ETT. NG tube with greenish bile gastric output. I removed one right lower denture. The left lower side is missing. Imaging Last Impressions Head CT 09/19/16 Signed Impressions: Service Date/Time: Monday, September 19, 2016 22:09 - CONCLUSION: Normal examination. Marcin Gandhi MD Neck CTA 09/16/16 Signed Impressions: Service Date/Time: Friday, September 16, 2016 11:02 - CONCLUSION: Mild atherosclerotic changes at the bulbs bilaterally but no significant stenosis identified. Benny Lima MD Head CTA 09/16/16 0000 Signed Impressions: Service Date/Time: Friday, September 16, 2016 11:02 - CONCLUSION: Brain CTA within normal limits. Junior Recio MD Brain MRI 09/13/16 Signed Impressions: Service Date/Time: Tuesday, September 13, 2016 11:17 - CONCLUSION: 1. No acute hemorrhage, mass effect or acute infarction. 2. Mild increased signal in the white matter. This is not significantly changed. 3. Mild motion artifact. Mayo Moncada MD Chest X-Ray 09/08/16 Signed Impressions: Service Date/Time: Thursday, September 08, 2016 04:30 - CONCLUSION: 1. Cardiomegaly and findings of vascular congestion without overt failure. The findings have worsened when compared with the prior examination. Cleve Hernandez MD Lower Extremity Ultrasound 09/05/16 0000 Signed Impressions: Service Date/Time: Monday, September 05, 2016 09:36 - CONCLUSION: There is normal compressibility of the deep venous system from the inguinal region to the proximal calf. No echogenic clot is seen in the lumen of the common femoral, femoral, popliteal, and posterior tibial veins. There is a normal response of the venous system to proximal and distal augmentation and respiration. MD CONCLUSION: Negative for deep venous thrombosis. Aman Freeman MD Liver Ultrasound 09/05/16 0000 Signed Impressions: Service Date/Time: Monday, September 05, 2016 08:55 - CONCLUSION: 1. Moderate splenomegaly with no focal lesion. 2. Liver is normal in size but mildly increased in echogenicity. Mayo Moncada MD ADDENDUM: This study was rereviewed at Dr. Cross's request. The main portal vein and branch vessels are patent and demonstrate normal hepatopedal blood flow. Mayo Moncaad MD Head Magnetic Resonance Angiography 09/05/16 0000 Signed Impressions: Service Date/Time: Monday, September 05, 2016 17:27 - CONCLUSION: Normal MRA. Marcin Appiah MD Cervical Spine CT 09/05/16 0000 Signed Impressions: Service Date/Time: Monday, September 05, 2016 07:34 - CONCLUSION: Degenerative changes, negative for fracture. Aman Freeman MD FACR PE at Discharge General: No acute distress. Sitting up in a chair. Heart: Regular rate and rhythm. No murmur. Lungs: Mild bibasilar crackles. Breathing is nonlabored. Abdomen: Soft, nontender, nondistended. Extremities: No lower extremity edema. Psych: Alert, confused. He is not oriented to year, month, location. Hospital Course The patient was admitted to the critical care service for treatment of acute toxic metabolic encephalopathy and seizures. He was intubated and sedated. Neurology was consulted. He was started on IV acyclovir for treatment of possible encephalitis. He was evaluated by psychiatry, who felt his symptoms were secondary to neurocognitive disorder, delirium. Cardiology was consulted for mild troponin elevation. Hematology was consulted for evaluation of thrombocytopenia. He had elevated ammonia level. He was placed on lactulose, Xifaxan. He was treated with antibiotics for community-acquired pneumonia. He had poor oral intake during the hospitalization, which did improve by the day of discharge. He was agreeing to eat most of his meals and also taking Glucerna shakes. He showed significant clinical improvement throughout the hospitalization, but remained confused. Arrangements were made for discharge to SNF. Pt Condition on Discharge: Stable Discharge Disposition: Discharge to SNF Discharge Time: > 30 minutes Discharge Instructions DIET: Follow Instructions for: Heart Healthy Diet, Diabetic Diet Activities you can perform: See Additionl Instruction Other Activity Instructions: With assistance Follow up Referrals: Cardiology - 1 Month with Rosa Menchaca MD Neurology - 1 Month with Junaid Rodríguez PhD, MD PCP Follow-up - 2 Weeks SNF/SENIOR CARE/ with Sumit New Medications: Levetiracetam (Keppra) 250 Mg Tab 500 MG PO BID Control Seizures #60 Ref 0 TAB Lisinopril (Lisinopril) 20 Mg Tab 20 MG PO BID Blood Pressure Management #60 TAB Multiple Vitamin (Thera/Beta-Carotene) 1 Tab Tab 1 TAB PO DAILY Nutritional Supplement #30 TAB Rifaximin (Xifaxan) 550 Mg Tab 550 MG PO BID hepatic encephalopathy #60 TAB Thiamine HCl (Gnp Vitamin B-1) 100 Mg Tab 100 MG PO DAILY Nutritional Supplement #60 TAB ([Folic Acid]) 1 MG TAB 1 MG PO DAILY Nutritional Supplement #30 TAB Continued Medications: Metformin ER (Metformin ER) 500 Mg Carmine 500 MG PO DAILY With evening meal Blood Sugar Management Ref 0 TAB Propranolol (Propranolol) 20 Mg Tab 20 MG PO BID #60 Ref 0 TAB Discontinued Medications: Lisinopril (Lisinopril) 5 Mg Tab 5 MG PO DAILY hypertension #30 Ref 0 TAB Metoprolol Tartrate (Metoprolol Tartrate) 25 Mg Tab 25 MG PO Q12HR hypertension #30 Ref 0 TAB Jas Tom MD Oct 21, 2016 15:09
== END 2016-10-03 16:40 | DRG 870 ==
LOC: NEPE 06:12 → NEDA 08:15 → HIME 13:50 → N04B 09-20 16:04
PROVIDERS: ADMIT Hospitalist; ATTEND Hospitalist
PROC: 5A1955Z Respiratory Ventilation, Greater than 96 Consecutive Hours (ICD-10-PCS; principal; 2016-09-05)
PROC: 0BH17EZ Insertion of Endotracheal Airway into Trachea, Via Natural or Artificial Opening (ICD-10-PCS; 2016-09-05)
PROC: 30233R1 Transfusion of Nonautologous Platelets into Peripheral Vein, Percutaneous Approach (ICD-10-PCS; 2016-09-07)
DX: A41.9 Sepsis, unspecified organism (principal); R65.21 Severe sepsis with septic shock; G92 Toxic encephalopathy; J18.9 Pneumonia, unspecified organism; N17.9 Acute kidney failure, unspecified; D68.8 Other specified coagulation defects; J96.01 Acute respiratory failure with hypoxia; J96.02 Acute respiratory failure with hypercapnia; E87.0 Hyperosmolality and hypernatremia; E87.2 Acidosis; F33.9 Major depressive disorder, recurrent, unspecified; F05 Delirium due to known physiological condition; I42.0 Dilated cardiomyopathy; E44.1 Mild protein-calorie malnutrition; D69.59 Other secondary thrombocytopenia; B19.20 Unspecified viral hepatitis C without hepatic coma; E11.42 Type 2 diabetes mellitus with diabetic polyneuropathy; E11.65 Type 2 diabetes mellitus with hyperglycemia; R56.9 Unspecified convulsions; I11.9 Hypertensive heart disease without heart failure; K70.30 Alcoholic cirrhosis of liver without ascites; E87.6 Hypokalemia; E83.42 Hypomagnesemia; E83.39 Other disorders of phosphorus metabolism; K72.90 Hepatic failure, unspecified without coma; S02.2XXA Fracture of nasal bones, initial encounter for closed fracture; R40.2430 Glasgow coma scale score 3-8, unspecified time; H57.02 Anisocoria; G31.84 Mild cognitive impairment of uncertain or unknown etiology; I45.10 Unspecified right bundle-branch block; D73.1 Hypersplenism; F12.10 Cannabis abuse, uncomplicated; F10.20 Alcohol dependence, uncomplicated; Y90.1 Blood alcohol level of 20-39 mg/100 ml; Z79.84 Long term (current) use of oral hypoglycemic drugs; Z86.14 Personal history of Methicillin resistant Staphylococcus aureus infection; Z86.718 Personal history of other venous thrombosis and embolism; Z87.891 Personal history of nicotine dependence
CPT/HCPCS: 31500; 36430; 36600; 51702; 70450; 70496; 70498; 70544; 70553; 71010; 72125; 76705; 76937; 80048; 80053; 80074; 80177; 80202; 80307; 81001; 82140; 82248; 82550; 82552; 82805; 82948; 83010; 83605; 83615; 83735; 84100; 84145; 84443; 84484; 85007; 85025; 85027; 85060; 85384; 85397; 85610; 85652; 85730; 86140; 86592; 87040; 87070; 87205; 87449; 87522; 87641; 87804; 87902; 93005; 93308; 93970; 94002; 94003; 94150; 94640; 94667; 94668; 95819; 96365; 96366; A9579; C9113; J0133; J0360; J0456; J0692; J0696; J1815; J1940; J1953; J2060; J3370; J3411; J3475; J3480; J7030; J7050; J7070; P9035; Q9967